=== PATIENT | male | born 1970 | race Caucasian/White ===

== ENCOUNTER 2020-03-14 09:40 | Inpatient (IN) | payer BC, SELFPAY ==
[2020-03-14] VITALS (13 sets, daily range): BP systolic 116–172; BP diastolic 67–137; PULSE 88–111; RESP 10–20; TEMP 36.6–37.8; O2SAT 92–100; BMI 40.1; BMI 41.8; BMI 41.9
--- NOTE | 2020-03-14 10:12 | EKG12_ITS ---
Test Reason : FEVER Blood Pressure : / mmHG Vent. Rate : 097 BPM Atrial Rate : 097 BPM P-R Int : 144 ms QRS Dur : 102 ms QT Int : 386 ms P-R-T Axes : 063 012 030 degrees QTc Int : 490 ms Normal sinus rhythm Prolonged QT Abnormal ECG Confirmed by JOSE SELF MD ([id number]), film editor LUCY BURDEN ([id number] on 03/19/2020 2:05:48 PM Referred By: MARGARITO Confirmed By:JOSE SELF MD
--- NOTE | 2020-03-14 10:12 | RAD_ITS ---
STUDY: X-RAY CHEST REASON FOR EXAM: Male, 50 years old. INTERMITTENT FEVER COUGH AND FEELING BAD FOR OVER A MONTH TECHNIQUE: Single AP portable view of the chest. COMPARISON: None. FINDINGS: The lungs are clear and expanded. There is no demonstrated pleural abnormality. Normal size heart. Normal mediastinum and janeen. Normal visualized pulmonary arteries. Normal visualized aortic arch and descending thoracic aorta. Normal visualized thoracic spine. Normal visualized ribs, clavicles, and shoulders. There is no demonstrated abnormality of the visualized soft tissue structures of the upper abdomen. RAD/Chest 1 View (Portable) IMPRESSION: Normal x-ray examination of the chest. Electronically Signed: Laci Restrepo, at 11:19 EDT Tel , Service support ,
--- NOTE | 2020-03-14 10:13 | ED.DCSUM_ITS ---
History of Present Illness Chief Complaint: Fever Informant: Patient Onset: Weeks Context: Gradual Onset Timing: Intermittent Narrative: Patient is a 50-year-old male with no significant past medical history presenting with intermittent fever and cough for the past month. Patient states he will feel better for couple days and then his symptoms will return. He states he was coughing last night but not today. Patient has associated myalgias. Patient states his cough is nonproductive. He intermittently takes Tylenol and ibuprofen for his thumbs but did not have any today. Notes that for the past few months he has had increased nocturnal urinary frequency. He states sometimes he thinks there is blood in his urine. He denies any associated back pain with it. Denies any dysuria. He denies any sick contacts. He states he does work at the [employer] and is a lot around a lot of people. He denies associated nausea, vomiting, abdominal pain or shortness of breath. He states he does have some discomfort in his left chest but attributes that from his muscles being sore from all the coughing. Patient does not have a primary care doctor. He denies any past medical history. Past Medical History - Allergies and Home Meds Allergies/Adverse Reactions: Allergies No Known Allergies Allergy (Verified 03/14/20 10:43) Surgical History: tonsillectomy, - - I&D of a pilonidal cyst in the Smoking Status: Current some day smoker Alcohol: Heavy Drugs: None - Family History Maternal Family History: Reports: Heart Disease - his mother with CHF Paternal Family History: Reports: Cancer - father with metastatic cancer - pt does not know the primary, Heart Disease - his GF had CAD Review of Systems General: Reports: Chills, Fever, Malaise. Denies: Sweats Eyes: Denies: Visual changes - bilaterally, Diplopia ENT: Denies: Rhinorrhea, Sore throat Cardiovascular: Reports: Chest pain - left chest wall. Denies: Palpitations Respiratory: Reports: Cough. Denies: Dyspnea, Sputum, Dyspnea on exertion Gastrointestinal: Denies: Abdominal pain, Nausea, Vomiting, Diarrhea, Melena, Hematochezia Genitourinary: Reports: Hematuria, Frequency. Denies: Dysuria Musculoskeletal: Reports: Myalgias - diffuse. Denies: Back pain, Extremity Pain Skin: Denies: Rash, Wounds Neurological: Denies: Headache, Weakness, Numbness Physical Exam Vital Signs/Narrative: Vital Signs Temp Pulse Resp BP Pulse Ox 03/14/20 09:41 99.2 F H 111 H 20 H 166/137 H 95 Inital Vital Signs reviewed: Yes General: Well nourished, Well developed, Obese, No Acute Distress Head: Normocephalic, Atraumatic Eyes: Perrl, EOMI ENT: Moist mucous membranes, No rhinorrhea, TM's clear Neck: Supple, Nontender, No lymphadenopathy, No JVD Cardiovascular: Regular rhythm, No murmurs, Tachycardia Respiratory: No distress, CTA bilaterally, Chest tenderness - left anterior Abdomen: Soft, Nontender, Nondistended, Normal bowel sounds, - - Protuberant abdomen Back: Nontender, Normal Inspection. Negative for: CVA tenderness Extremities: Nontender, No edema. Negative for: Tenderness, Edema Skin: Normal color, No rash. Negative for: Jaundice Neurological: Alert, Oriented x3, Cranial nerves II-XII grossly intact, Normal Strength, Normal Sensation Psychological: Normal affect, Normal Mood Diagnostic/Tx/Re-eval Chest X-Ray - ED: 1 View, Read by ED Physician, Read by Radiologist, No Acute Disease Clinical Impression(s) from Imaging Studies Chest X-Ray 03/14/20 10:12 IMPRESSION: Normal x-ray examination of the chest. Electronically Signed: Laci Restrepo, at 11:19 EDT Tel , Service support , Abdomen/Pelvis CT 03/14/20 11:14 IMPRESSION: Liver cirrhosis. Sigmoid diverticulosis. Cholelithiasis. There is a stone in the right kidney measures 8mm without hydronephrosis. There is a stone in the left kidney measures 4 mm without hydronephrosis. There is fat stranding on the right side of the abdomen may be secondary to liver cirrhosis. Electronically Signed: Laci Restrepo at 12:27 EDT Tel , Service support , Laboratory Data 03/14/20 03/14/20 03/14/20 10:05 10:05 10:05 WBC 6.3 RBC 4.47 L Hgb 16.0 Hct 46.4 MCV 103.8 H MCH 35.8 H MCHC 34.5 RDW Std Deviation 51.4 H RDW Coeff of Maria Guadalupe 13.3 Plt Count 102 L MPV 11.0 Immature Gran % (Auto) 0.500 Neut % (Auto) 70.1 H Lymph % (Auto) 12.8 L Hendricks % (Auto) 15.6 H Eos % (Auto) 0.2 Baso % (Auto) 0.8 Absolute Neuts (auto) 4.4 Absolute Lymphs (auto) 0.81 L Nucleated RBC % 0 PT 17.1 H INR 1.5 APTT 36.0 D-Dimer Quant (PE/DVT) Sodium 140 Potassium 3.3 L Chloride 104 Carbon Dioxide 28.0 Anion Gap 8 BUN 3 L Creatinine 0.68 L Estim Creat Clear Calc 137.17 Est GFR (MDRD) Af Amer 160 Est GFR (MDRD) Non-Af 132 BUN/Creatinine Ratio 4.4 L Glucose 108 H Lactic Acid Calcium 8.1 L Total Bilirubin 2.10 H AST 271 H ALT 81 H Alkaline Phosphatase 117 Total Creatine Kinase 2017 H Troponin I < 0.015 Total Protein 7.0 Albumin 3.1 L Globulin 3.9 Albumin/Globulin Ratio 0.8 L Urine Color Urine Clarity Urine pH Ur Specific [place] Urine Protein Urine Glucose (UA) Urine Ketones Urine Occult Blood Urine Nitrite Urine Bilirubin Urine Urobilinogen Ur Leukocyte Esterase Urine RBC Urine WBC Ur Squamous Epith Cells Urine Bacteria Urine Mucus COVID-19 (BALDO) Monoscreen HIV 1&2 Antibody 03/14/20 03/14/20 03/14/20 10:05 10:05 10:05 WBC RBC Hgb Hct MCV MCH MCHC RDW Std Deviation RDW Coeff of Maria [place]upe Plt Count MPV Immature Gran % (Auto) Neut % (Auto) Lymph % (Auto) [place] % (Auto) Eos % (Auto) Baso % (Auto) Absolute Neuts (auto) Absolute Lymphs (auto) Nucleated RBC % PT INR APTT D-Dimer Quant (PE/DVT) 3.26 H* Sodium Potassium Chloride Carbon Dioxide Anion Gap BUN Creatinine Estim Creat Clear Calc Est GFR (MDRD) Af Amer Est GFR (MDRD) Non-Af BUN/Creatinine Ratio Glucose Lactic Acid 2.1 H* Calcium Total Bilirubin AST ALT Alkaline Phosphatase Total Creatine Kinase Troponin I Total Protein Albumin Globulin Albumin/Globulin Ratio Urine Color Urine Clarity Urine pH Ur Specific [place] Urine Protein Urine Glucose (UA) Urine Ketones Urine Occult Blood Urine Nitrite Urine Bilirubin Urine Urobilinogen Ur Leukocyte Esterase Urine RBC Urine WBC Ur Squamous Epith Cells Urine Bacteria Urine Mucus COVID-19 (BALDO) Monoscreen HIV 1&2 Antibody Non-Reactive 03/14/20 03/14/20 03/14/20 10:35 11:20 11:25 WBC RBC Hgb Hct MCV MCH MCHC RDW Std Deviation RDW Coeff of Maria Guadalupe Plt Count MPV Immature Gran % (Auto) Neut % (Auto) Lymph % (Auto) Hendricks % (Auto) Eos % (Auto) Baso % (Auto) Absolute Neuts (auto) Absolute Lymphs (auto) Nucleated RBC % PT INR APTT D-Dimer Quant (PE/DVT) Sodium Potassium Chloride Carbon Dioxide Anion Gap BUN Creatinine Estim Creat Clear Calc Est GFR (MDRD) Af Amer Est GFR (MDRD) Non-Af BUN/Creatinine Ratio Glucose Lactic Acid Calcium Total Bilirubin AST ALT Alkaline Phosphatase Total Creatine Kinase Troponin I Total Protein Albumin Globulin Albumin/Globulin Ratio Urine Color Yellow Urine Clarity Clear Urine pH 8.0 Ur Specific [place] 1.010 Urine Protein Negative Urine Glucose (UA) Normal Urine Ketones Negative Urine Occult Blood 10 H Urine Nitrite Negative Urine Bilirubin 1 H Urine Urobilinogen 8 H Ur Leukocyte Esterase 25 H Urine RBC 0-5 SEEN Urine WBC 0-5 SEEN Ur Squamous Epith Cells 0 SEEN Urine Bacteria 0 SEEN Urine Mucus 0 SEEN COVID-19 (BALDO) Cancelled Monoscreen Negative HIV 1&2 Antibody - Rhythm Strip Rhythm Strip: Sinus Rhythm Rate: 97 Ectopy: None - EKG Initial EKG Interpretation: Sinus Rhythm, - - Normal sinus rhythm at a rate of 97 Normal VT and QRS intervals QTc [address] segments Compared to prior EKG on 04/07/2016 patient's QTC was 444. No other changes - Medical Decision Making Patient is evaluated for 1 month of intermittent fevers as well as myalgias and generalized weakness. He does have associated cough. Patient denies any other specific symptoms. Patient arrives he is tachycardic and has a low-grade temperature. His breath sounds are clear and he is overall well-appearing. Patient is complaining of chest pain however believe it is muscle skeletal as it is reproducible with palpation and seems to be associated with his coughing. As patient is edema tachycardia but no hypoxia or difficulty breathing and is otherwise well-appearing I did order the [facility] COVID test. Chest x-ray did not show any acute infiltrate. CBC was relatively normal.Patient's kidney function is normal. His potassium was mildly low at 3.3. His lactate is elevated 2.1. Patient does have a mildly elevated total bilirubin of 2.1 as well as a mild transaminitis with an AST of 271 and ALT of 81. His troponin is negative. His CPK is 2017. Patient is ordered a second liter of fluids. Urinalysis is not consistent with infection. Given his transaminitis I did add on a CT of his abdomen and pelvis which showed some mild stranding in the right upper quadrant associated with cirrhosis of the liver as well as a gallstone but no signs of cholecystitis. Monospot was negative. The exact cause of his symptoms is not clear and it could be viral however given that he also has rhabdomyolysis and a transaminitis I did recommend admission. Case discussed with Dr. Fraser after the patient to his service. Patient started on empiric antibiotics while cultures are pending, vancomycin and Zosyn. Patient is agreeable with this plan. He stable for the general medical floor at time of disposition. ED Disposition - Plan for ED Patient: Disposition: [facility] Diagnosis: FUO (fever of unknown origin), Non-traumatic rhabdomyolysis, Abnormal LFTs (liver function tests)
[2020-03-14 10:36] LABS: Absolute Lymphocyte Count 0.81 X10^3/uL (0.83-4.51); Absolute Neutrophil Count 4.4 X10^3/uL (2.0-7.7); Basophil# 0.05 X10^3/uL; Basophil% 0.8 % (0-1); Eosinophil# 0.01 X10^3/uL; Eosinophils% 0.2 % (0-5); Hematocrit 46.4 % (40-54); Lymphocyte # 0.81 X10^3/ul (4.0); Lymphocyte % 12.8 % (19-41); Mean Corp Hgb Conc 34.5 g/dL (32-36); Mean Corpuscular Hgb 35.8 pg (27.0-32.0); Mean Corpuscular Volume 103.8 fL (80-94); Monocyte# 0.99 X10^3/uL; Monocyte% 15.6 % (0-10); NRBC Flagged by Analyzer 0 % (0-5); Neutrophil # 4.44 X10^3/uL (2.7-7.7); Neutrophil % 70.1 % (47-70); Platelet Count 102 K/mm3 (150-450); RBC Distribution Width CV 13.3 % (11.6-14.6); RBC Distribution Width SD 51.4 fl (35.1-43.9); Red Blood Count 4.47 M/mm3 (4.6-6.2); White Blood Count 6.3 K/mm3 (4.4-11.0)
[2020-03-14 10:40] LABS: Bacteria 0 SEEN /hpf (None Seen); Mucous, Urine 0 SEEN /hpf (<or=2+); Squamous Epithelial Cells - UA 0 SEEN /hpf (0-5)
[2020-03-14 10:45] LABS: Color, Urine Yellow (Yellow); Glucose, Dipstick Normal (Normal); Ketone-Dipstick Negative (Negative); Leukocyte Esterase-Dipstick 25 /ul (Negative); Nitrite-Dipstick Negative (Negative); Occult Blood-Urine 10 /ul (Negative); Protein-Dipstick Negative (Negative); Urine Clarity Clear (Clear); Urine Urobilinogen 8 mg/dl (Normal)
[2020-03-14] MEDS: Acetaminophen 325 MG Tablet 650 MG PO ×2 (10:45→19:35)
[2020-03-14] MEDS: 0.9% Normal Saline 1,000 ML 999 ML IV ×2 (10:45→11:48)
[2020-03-14 10:47] LABS: Urine Bilirubin Dipstick 1 mg/dL (Negative)
[2020-03-14 10:48] LABS: International Normalized Ratio 1.5; Prothrombin Time (Protime)PT. 17.1 SECONDS (11.7-14.9)
[2020-03-14 10:51] LABS: Red Blood Cells-Urine 0-5 SEEN /hpf (0-5); White Blood Cells 0-5 SEEN /hpf (0-5)
[2020-03-14 11:03] LABS: ALB/GLOB Ratio 0.8 RATIO (0.9-2.4); AST(SGOT) 271 U/L (15-37); Alanine Aminotransfer ALT/SGPT 81 U/L (16-61); Albumin, Serum 3.1 g/dL (3.2-5.0); Alkaline Phosphatase 117 U/L (45-117); Anion Gap 8 (5-15); BUN 3 mg/dL (7-18); BUN/Creat Ratio 4.4 RATIO (10-20); CPK Total, Creatine Kinase 2017 U/L (39-308); Calcium,Total 8.1 mg/dL (8.5-10.1); Chloride 104 mmol/L (98-107); Creatinine, Serum 0.68 mg/dL (0.70-1.30); EST Glomerular Filtration Rate 132 mL/min (>60); Est Glom Filt Rate - Afr Amer 160 mL/min (>60); Estimated Creatinine Clearance 137.17 ml/min; Globulin 3.9 g/dL (2.2-4.2); Glucose 108 mg/dL (74-106); Potassium 3.3 mmol/L (3.5-5.1); Sodium Level 140 mmol/L (136-145)
[2020-03-14 11:06] LABS: Lactic Acid 2.1 mmol/L (0.4-1.9)
--- NOTE | 2020-03-14 11:14 | CT_ITS ---
STUDY: CT ABDOMEN AND PELVIS WITH CONTRAST REASON FOR EXAM: Male, 50 years old. ELEVATED BILI AND LIVER ENZYME RADIATION DOSAGE (If Supplied By Facility): CTDIvol = ( 18.53 ) mGy, DLP = ( 1285.63 ) mGycm TECHNIQUE: Transaxial images were obtained from the dome of the diaphragm to the symphysis pubis without oral contrast. IV 100mL Isovue-300 was administered. Sagittal and coronal images were reconstructed. Individualized dose optimization techniques were used for this CT. COMPARISON: None. FINDINGS: The visualized lung bases are unremarkable. The visualized portions of the heart are within normal limits. There is a diffuse contour abnormality of the liver consistent with cirrhotic changes. There is a solitary gallstone. Normal spleen. Normal pancreas. Normal bilateral adrenal glands. There is a stone in the right kidney measures 8mm without hydronephrosis. There is a stone in the left kidney measures 4 mm without hydronephrosis. Normal visualized stomach. Normal small intestine. There are multiple colonic diverticula consistent with diverticulosis. The appendix is visualized and appears normal. Normal abdominal aorta. Normal inferior vena cava. Normal retroperitoneum. Normal urinary bladder. Normal abdominal wall. Normal osseous structures. CT/Abdomen/Pelvis W IV Cont ONLY IMPRESSION: Liver cirrhosis. Sigmoid diverticulosis. Cholelithiasis. There is a stone in the right kidney measures 8mm without hydronephrosis. There is a stone in the left kidney measures 4 mm without hydronephrosis. There is fat stranding on the right side of the abdomen may be secondary to liver cirrhosis. Electronically Signed: Laci Restrepo, at 12:27 EDT Tel , Service support ,
[2020-03-14 12:17] LABS: Internal QC Validated? YES +Cl - CLEAR BKGD; Monotest Negative (Negative)
--- NOTE | 2020-03-14 13:01 | HP.PCM_ITS ---
Problem List (1) FUO (fever of unknown origin) Status: Acute (2) Abnormal LFTs (liver function tests) Status: Acute (3) Chest pain Status: Resolved (4) Elevated d-dimer Status: Resolved (5) Rib cage region somatic dysfunction Status: Suspected (6) Thrombocytopenia Status: Chronic (7) Obesity (BMI 30-39.9) Status: Chronic (8) Smoker Status: Chronic (9) Non-traumatic rhabdomyolysis Status: Acute History of Present Illness Date of Admission: 03/14/20 Chief Complaint: Fever The patient is a 50 year old M with past medical history significant for previous history of alcohol use, previous history of tobacco use morbid obesity 40.2 who presented with fever. Patient reports intermittent fever for the past 1 month. In addition to the fever patient also complained of getting tired easily and developing a cough. In view of worsening symptoms he presented to the ED. checks x-ray obtained in the ED was unremarkable. CT of the abdomen demonstrated features consistent with cirrhosis of the liver as well as sigmoid diverticulosis and cholelithiasis in addition to nephrolithiasis involving both kidneys without hydronephrosis. Admitted to regular nursing floor for work-up of his fever of unknown origin. Patient was also noted to have elevated CPK levels consistent with acute rhabdomyolysis. He also did complain of swelling involving the right upper extremity Past Medical History Past Medical History (Chronic Problems): Chronic Problems Smoker (Chronic) Obesity (BMI 30-39.9) (Chronic) Thrombocytopenia (Chronic) Allergies No Known Allergies Allergy (Verified 03/14/20 10:43) Home Medications: Ambulatory Orders Medication Instructions Recorded Multivitamin with Minerals 1 tab PO DAILY 03/14/20 [Multiple Vitamin] Surgical History: tonsillectomy, - - I&D of a pilonidal cyst in the Psychiatric History: No pertinent psych hx Lives: Spouse/ Significant Other Smoking Status: Current every day smoker Alcohol: Heavy Drugs: None - *Family History Maternal History Items: Heart Disease - his mother with CHF Paternal History Items: Cancer - father with metastatic cancer - pt does not know the primary, Heart Disease - his GF had CAD Review of Systems Constitutional: Reports: Anorexia, Chills, Fever, Night Sweats, Malaise, Weakness, Fatigue HEENT: Denies: Head Aches, Sinus Congestion, Sinus Drainage Cardiovascular: Denies: Chest Pain, Orthopnea, Palpitations, Paroxysmal Noc. Dyspnea Respiratory: Reports: Cough, Shortness of Breath Gastrointestinal: Denies: Abdominal Pain, Hematemesis, Hematochezia, Nausea, Melena, Vomiting Genitourinary: Denies: Dysuria, Frequency, Hematuria, Urgency Musculoskeletal: Reports: Arm Pain. Denies: Joint Pain, Joint Tenderness Skin: Denies: Rash Neurological: Denies: Focal weakness, Numbness, Tingling Psychiatric: Denies: Homicidal Ideations, Suicidal Ideations Hematologic/ Lymphatic: Denies: Easy Bruising, Easy Bleeding VTE Information - Inpt Only VTE Present on Admission: No Patient Problems: Active and Suspected Problems FUO (fever of unknown origin) (Acute) Non-traumatic rhabdomyolysis (Acute) - Physical Exam Vitals/I&O's: Vital Signs Temp Pulse Resp BP Pulse Ox 99.9 F H 94 12 126/76 H 95 03/14/20 12:00 03/14/20 12:33 03/14/20 12:33 03/14/20 12:33 03/14/20 12:33 Oxygen Delivery Method Room Air Weight: 127.006 kg Body Mass Index (BMI) 40.1 Intake and Output for Last 24 Hours 03/12/20 03/13/20 03/14/20 23:59 23:59 23:59 Intake Total 1000 / 1000 Balance 1000 / 1000 Laboratory Results 03/14/20 10:05: WBC 6.3, RBC 4.47 L, Hgb 16.0, Hct 46.4, MCV 103.8 H, MCH 35.8 H , MCHC 34.5, RDW Std Deviation 51.4 H, RDW Coeff of Maria Guadalupe 13.3, Plt Count 102 L, MPV 11.0, Immature Gran % (Auto) 0.500, Neut % (Auto) 70.1 H, Lymph % (Auto) 12.8 L, [place] % (Auto) 15.6 H, Eos % (Auto) 0.2, Baso % (Auto) 0.8, Absolute Neuts (auto) 4.4, Absolute Lymphs (auto) 0.81 L, Nucleated RBC % 0 03/14/20 10:05: PT 17.1 H, INR 1.5, APTT 36.0 03/14/20 10:05: Sodium 140, Potassium 3.3 L, Chloride 104, Carbon Dioxide 28.0, Anion Gap 8, BUN 3 L, Creatinine 0.68 L, Estim Creat Clear Calc 137.17, Est GFR (MDRD) Af Amer 160, Est GFR (MDRD) Non-Af 132, BUN/Creatinine Ratio 4.4 L, Glucose 108 H, Calcium 8.1 L, Total Bilirubin 2.10 H, AST 271 H, ALT 81 H, Alkaline Phosphatase 117, Total Creatine Kinase 2017 H, Troponin I < 0.015, Total Protein 7.0, Albumin 3.1 L, Globulin 3.9, Albumin/Globulin Ratio 0.8 L 03/14/20 10:05: Lactic Acid 2.1 H* 03/14/20 10:35: Urine Color Yellow, Urine Clarity Clear, Urine pH 8.0, Ur Specific [place] 1.010, Urine Protein Negative, Urine Glucose (UA) Normal, Urine Ketones Negative, Urine Occult Blood 10 H, Urine Nitrite Negative, Urine Bilirubin 1 H, Urine Urobilinogen 8 H, Ur Leukocyte Esterase 25 H, Urine RBC 0-5 SEEN, Urine WBC 0-5 SEEN, Ur Squamous Epith Cells 0 SEEN, Urine Bacteria 0 SEEN, Urine Mucus 0 SEEN 03/14/20 11:20: COVID-19 (BALDO) Pending 03/14/20 11:25: Monoscreen Negative Assessment/Plan All Active Problems FUO (fever of unknown origin) (Acute) Non-traumatic rhabdomyolysis (Acute) Abnormal LFTs (liver function tests) (Acute) Chest pain (Resolved) Elevated d-dimer (Resolved) Is a 50-year-old gentleman presenting with fever of unknown origin with elevated transaminases as well as CPK levels consistent with acute rhabdomyolysis 1. Fever of unknown origin ?Admitted to regular nursing floor. Patient was placed under contact and dr oplet precautions whilst COVID 19 is been ruled out. In addition to above ordered blood cultures as well as HIV 1 and 2 2. Acute rhabdomyolysis ?Etiology not clear patient did complain of swelling involving the right forearm and arm he however denied any trauma. On IV fluid with monitoring of CK levels as well as kidney function 3. Cirrhosis of the liver -Patient reports previous history of alcohol use. He is also obese and do suspect a component of nonalcoholic fatty liver disease. Patient was noted to have elevated liver enzymes on admission monitoring subsequently. 4. Morbid obesity with BMI of 40.2 ?Weight loss advised 5. Hypokalemia - Repleted as needed 6. Thrombocytopenia Do suspect patient underlying liver disease to be the etiology and appears to have some chronicity we will continue to monitor 7. DVT prophylaxis ?Lovenox however given patient's low platelet counts will have a low threshold for discontinuation if the platelet levels drop Inpatient E&M: 10816 Init Hosp L3
[2020-03-14 14:00] LABS: D-Dimer Quantitative (DVT/PE) 3.26 FEU/ug/m (0.27-0.49)
[2020-03-14 14:29] LABS: Reflex Lactate? Y
[2020-03-14 14:56] LABS: HIV - WCH Non-Reactive (Nonreactive)
--- NOTE | 2020-03-14 15:27 | VDLE_ITS ---
Reason For Study: Elevated D-dimer RIGHT LEFT GSV is normal. GSV is normal. CFV and SFJ visualized with color only. Pt CFV and SFJ visualized with color only. Pt unable to tolerate compression. Normal venous unable to tolerate compression. Normal venous flow noted. flow noted. FV is compressible, spontaneous, phasic, FV is compressible, spontaneous, phasic, competent and demonstrates normal competent and demonstrates normal augmentation. augmentation. POP V is compressible, spontaneous, phasic, POP V is compressible, spontaneous, phasic, competent and demonstrates normal competent and demonstrates normal augmentation. augmentation. T/P Trunk is compressible. T/P Trunk is compressible. PTV is compressible. PTV is compressible. RT PerV is compressible. LT PerV is compressible. Procedure Exam performed portable in patient room. A preliminary report was called and/or faxed to [facility]. Interpretation Summary No evidence for acute deep venous thrombosis bilateral lower extremities with patent and compressible bilateral great saphenous veins. Limitations as noted with inability to compress bilateral common femoral veins and saphenofemoral junctions secondary to patient intolerance Ordering Physician: Abel Ayala Performed By: Valeria Rios RVT
--- NOTE | 2020-03-14 15:27 | VDUE_ITS ---
Reason For Study: Elevated D-dimer Right Proximal Right jugular vein is spontaneous, widely patent, phasic, with no intraluminal echogenicity noted. Right subclavian vein is spontaneous, widely patent, phasic, with no intraluminal echogenicity noted. Right Lower Arm Right radial vein is compressible. Right ulnar vein is compressible. Right Arm Right axillary vein is spontaneous, patent, phasic, competent, compressible and demonstrates augmentation. Right brachial vein is compressible. Right cephalic vein is compressible. Right basilic vein is compressible. Interpretation Summary No evidence for acute deep venous thrombosis[right] upper extremity with patent and compressible cephalic and basilic veins. Ordering Physician: Abel Ayala Performed By: Valeria Rios RVT ?
--- NOTE | 2020-03-14 15:27 | CT_ITS ---
STUDY: CTA CHEST REASON FOR EXAM: Male, 50 years old. ELEVATED D-DIMER RADIATION DOSAGE (If Supplied By Facility): CTDIvol = ( 19.79 ) mGy, DLP = ( 592.10 ) mGycm TECHNIQUE: The examination was performed with the intravenous administration of IV 100mL Isovue-370. Post-processing of the angiographic images was performed, with multiplanar reformation and 3D reconstruction. Individualized dose optimization techniques were used for this CT. COMPARISON: Chest radiograph March 14, 2020 FINDINGS: There is good opacification of the pulmonary arteries without evidence for intraluminal clot... Normal thoracic aorta and visualized great vessels. There is no demonstrated aortic dissection. Normal heart and pericardium. Normal mediastinum. Normal hilar regions. Normal visualized trachea and bronchi. The lungs are well expanded. There is mild subsegmental atelectasis within the lingula. No focal infiltration or pulmonary nodule. Normal pleura. Normal chest wall structures. Dorsal spine demonstrates degenerative change Normal visualized upper abdomen. CT/CTA Chest W/WO Contrast IMPRESSION: Minor subsegmental atelectasis in the lingula. No evidence for pulmonary embolus Electronically Signed: Eduard Tinsley MD at 17:06 EDT , Service support ,
[2020-03-14 15:29] LABS: Lactic Acid 2.1 mmol/L (0.4-1.9)
[2020-03-15] VITALS (10 sets, daily range): BP systolic 151–184; BP diastolic 83–106; PULSE 80–95; RESP 16–19; TEMP 36.7–37.1; O2SAT 97–98
[2020-03-15] MEDS: MELATONIN 3 MG TABLET PO (00:57)
[2020-03-15] MEDS: 0.9% Saline Lock 10 ML Syringe IV ×2 (03:24→05:49)
[2020-03-15] MEDS: Acetaminophen 325 MG Tablet 650 MG PO (03:29)
[2020-03-15 03:34] LABS: Absolute Lymphocyte Count 0.82 X10^3/uL (0.83-4.51); Absolute Neutrophil Count 3.5 X10^3/uL (2.0-7.7); Basophil# 0.04 X10^3/uL; Basophil% 0.7 % (0-1); Eosinophil# 0.03 X10^3/uL; Eosinophils% 0.6 % (0-5); Hematocrit 42.5 % (40-54); Hemoglobin 14.8 g/dL (13.0-16.5); Lymphocyte # 0.82 X10^3/ul (4.0); Lymphocyte % 15.1 % (19-41); Mean Corp Hgb Conc 34.8 g/dL (32-36); Mean Corpuscular Hgb 35.9 pg (27.0-32.0); Mean Corpuscular Volume 103.2 fL (80-94); Monocyte# 1.03 X10^3/uL; Monocyte% 18.9 % (0-10); NRBC Flagged by Analyzer 0 % (0-5); Neutrophil % 64.3 % (47-70); POSITIVE COUNT YES; Platelet Count 69 K/mm3 (150-450); RBC Distribution Width CV 13.1 % (11.6-14.6); RBC Distribution Width SD 49.8 fl (35.1-43.9); Red Blood Count 4.12 M/mm3 (4.6-6.2); White Blood Count 5.4 K/mm3 (4.4-11.0)
[2020-03-15 03:36] LABS: Differential Indicated SCAN CRITERIA MET
[2020-03-15 04:02] LABS: AST(SGOT) 203 U/L (15-37); Alanine Aminotransfer ALT/SGPT 70 U/L (16-61); Albumin, Serum 2.7 g/dL (3.2-5.0); Alkaline Phosphatase 99 U/L (45-117); Anion Gap 6 (5-15); BUN 4 mg/dL (7-18); BUN/Creat Ratio 5.6 RATIO (10-20); Bilirubin, Direct 0.86 mg/dL (0.00-0.30); Calcium,Total 7.4 mg/dL (8.5-10.1); Chloride 106 mmol/L (98-107); Creatinine, Serum 0.71 mg/dL (0.70-1.30); EST Glomerular Filtration Rate 126 mL/min (>60); Est Glom Filt Rate - Afr Amer 152 mL/min (>60); Estimated Creatinine Clearance 131.38 ml/min; Globulin 3.6 g/dL (2.2-4.2); Glucose 113 mg/dL (74-106); Magnesium 1.4 mg/dL (1.6-2.6); Potassium 3.2 mmol/L (3.5-5.1); Protein, Total 6.3 g/dL (6.4-8.2); Sodium Level 139 mmol/L (136-145); Thyroid Stim Hormone (TSH) 4.15 uIU/mL (0.358-3.74)
[2020-03-15 04:03] LABS: Differential Comment SCANNED; Platelet Estimate MOD DEC (ADEQ); Reactive Lymphocyte RARE
--- NOTE | 2020-03-15 04:05 | PCM.PN.BLA ---
Progress Note Blood culture positive for gram-positive cocci. Patient on ceftriaxone and azithromycin. Patient with diagnosis of fever of unknown origin. Will add vancomycin to regimen. STROKE Vital Signs/Narrative: Vital Signs Temp Pulse Resp BP BP Pulse Ox 03/15/20 03:10 81 184/100 H 03/15/20 02:15 98.7 F 93 19 H 181/101 H 98
--- NOTE | 2020-03-15 04:19 | PCM.RX.CS ---
Consult Pharmacy has been consulted to manage selected antiobiotic: Vancomycin Type of Consult: New start Labs: Sodium 139 mmol/L (136-145) 03/15/20 03:25 Potassium 3.2 mmol/L (3.5-5.1) L 03/15/20 03:25 Chloride 106 mmol/L (98-107) 03/15/20 03:25 Carbon Dioxide 27.0 mmol/L (21.0-32.0) 03/15/20 03:25 Anion Gap 6 (5-15) 03/15/20 03:25 BUN 4 mg/dL (7-18) L 03/15/20 03:25 Creatinine 0.71 mg/dL (0.70-1.30) 03/15/20 03:25 Est GFR (MDRD) Af Amer 152 mL/min (>60) 03/15/20 03:25 Est GFR (MDRD) Non-Af 126 mL/min (>60) 03/15/20 03:25 BUN/Creatinine Ratio 5.6 RATIO (10-20) L 03/15/20 03:25 Glucose 113 mg/dL (74-106) H 03/15/20 03:25 Microbiology: Microbiology 03/14/20 10:05 Blood Culture (Wb) - Anticubital Left Blood Culture - Preliminary 03/14/20 11:20 Mucosa - Nasopharyngeal Coronavirus COVID-19 PCR - Final 03/14/20 15:53 Mucosa - Nasopharyngeal Respiratory Panel (PCR) - Final 03/14/20 10:35 Urine, Random Legionella Antigen - Final 03/14/20 10:35 Urine, Random Streptococcus pneumoniae Antigen (M - Final Goal Trough: 15-20 mcg/mL Pharmacy Plan for Drug Dosing: Pharmacy Service will continue to monitor and adjust dosing as required. Medications Vancomycin HCl 1,500 mg/ (Sodium Chloride) 530 mls @ 250 mls/hr IV Q8H RILEY Discontinued Medications Vancomycin HCl 2,000 mg/ (Sodium Chloride) 540 mls @ 250 mls/hr IV X1 ONE Stop: 03/14/20 15:39 Last Admin: 03/14/20 16:24 Dose: Infused Documented by: Follow-Up Labs: Trough Vancomycin Labs to be done on [date and time ordered]: 03/16 @ 0400
--- NOTE | 2020-03-15 05:37 | PCM.PN.BLA ---
Progress Note Patient with persistent elevated blood pressure with systolic more than 160. Given labetalol 10 mg IV. However his blood pressure still remain in the 180s. Nurse reported that patient drinks 3-4 beers about 2 times in a week. Previously was a heavy drinker. Nurse reports that patient with tremors in upper extremities.. Continue to monitor patient at this point. Will start patient on low-dose amlodipine. We will add PRN hydralazine. Continue p.o. labetalol. STROKE Vital Signs/Narrative: Vital Signs Temp Pulse Resp BP BP Pulse Ox 03/15/20 05:21 85 183/106 H 03/15/20 04:26 84 181/86 H 03/15/20 03:10 81 184/100 H 03/15/20 02:15 98.7 F 93 19 H 181/101 H 98
[2020-03-15] MEDS: amLODIPine 5 MG Tablet PO ×2 (05:45→10:43)
[2020-03-15] MEDS: hydrALAZINE 20 MG/ML Vial 5 MG IV (05:45)
--- NOTE | 2020-03-15 07:18 | PCM.PN.HOSP ---
Patient Problems: Active and Suspected Problems FUO (fever of unknown origin) (Acute) Non-traumatic rhabdomyolysis (Acute) Abnormal LFTs (liver function tests) (Acute) Reason for Visit: Fever of unknown origin Subjective: Patient is a 50-year-old gentleman currently on admission for evaluation for fever of unknown origin of 1 months duration. He was tested for COVID 19 which came back negative. His HIV 1 and 2 assay also came back negative. Blood cultures are positive for gram-positive cocci. Patient was started on vancomycin during the evening. Consult placed to infectious disease as a result. Objective: GENERAL: cooperative HEENT: Atraumatic; EYES; Anicteric, Normal Conjunctiva NECK; supple, normal thyroid, RESPIRATORY: Diminished to auscultation CARDIOVASCULAR: Regular S1 S2, GI: soft, normoactive bowel sounds, : No Renal angle tenderness; EXTREMITIES: No edema, no clubbing, MUSCULOSKELETAL: no muscle waisting NEURO: Awake; no lateralizing signs. SKIN: No Rash PSYCH; Flat affect Vitals/I&O's: Vital Signs Temp Pulse Resp BP Pulse Ox 98.7 F 85 19 H 182/104 H 98 03/15/20 02:15 03/15/20 05:45 03/15/20 02:15 03/15/20 05:45 03/15/20 02:15 Oxygen Delivery Method Room Air Weight: 132.4 kg Body Mass Index (BMI) 41.8 Intake and Output for Last 24 Hours 03/13/20 03/14/20 03/15/20 23:59 23:59 23:59 Intake Total 4417.5 / 4417.5 1335.25 / 1335.25 Balance 4417.5 / 4417.5 1335.25 / 1335.25 Microbiology Past 72 Hours 03/14/20 10:05 Blood Culture (Wb) - Anticubital Left Blood Culture - Preliminary 03/14/20 11:20 Mucosa - Nasopharyngeal Coronavirus COVID-19 PCR - Final 03/14/20 15:53 Mucosa - Nasopharyngeal Respiratory Panel (PCR) - Final 03/14/20 10:35 Urine, Random Legionella Antigen - Final 03/14/20 10:35 Urine, Random Streptococcus pneumoniae Antigen (M - Final Laboratory Results 03/14/20 10:05: WBC 6.3, RBC 4.47 L, Hgb 16.0, Hct 46.4, MCV 103.8 H, MCH 35.8 H, MCHC 34.5, RDW Std Deviation 51.4 H, RDW Coeff of Maria Guadalupe 13.3, Plt Count 102 L, MPV 11.0, Immature Gran % (Auto) 0.500, Neut % (Auto) 70.1 H, Lymph % (Auto) 12.8 L, Weld % (Auto) 15.6 H, Eos % (Auto) 0.2, Baso % (Auto) 0.8, Absolute Neuts (auto) 4.4, Absolute Lymphs (auto) 0.81 L, Nucleated RBC % 0 03/14/20 10:05: PT 17.1 H, INR 1.5, APTT 36.0 03/14/20 10:05: Sodium 140, Potassium 3.3 L, Chloride 104, Carbon Dioxide 28.0, Anion Gap 8, BUN 3 L, Creatinine 0.68 L, Estim Creat Clear Calc 137.17, Est GFR (MDRD) Af Amer 160, Est GFR (MDRD) Non-Af 132, BUN/Creatinine Ratio 4.4 L, Glucose 108 H, Calcium 8.1 L, Total Bilirubin 2.10 H, AST 271 H, ALT 81 H, Alkaline Phosphatase 117, Total Creatine Kinase 2017 H, Troponin I < 0.015, Total Protein 7.0, Albumin 3.1 L, Globulin 3.9, Albumin/Globulin Ratio 0.8 L 03/14/20 10:05: Lactic Acid 2.1 H* 03/14/20 10:05: D-Dimer Quant (PE/DVT) 3.26 H* 03/14/20 10:05: HIV 1&2 Antibody Non-Reactive 03/14/20 10:35: Urine Color Yellow, Urine Clarity Clear, Urine pH 8.0, Ur Specific [place] 1.010, Urine Protein Negative, Urine Glucose (UA) Normal, Urine Ketones Negative, Urine Occult Blood 10 H, Urine Nitrite Negative, Urine Bilirubin 1 H, Urine Urobilinogen 8 H, Ur Leukocyte Esterase 25 H, Urine RBC 0-5 SEEN, Urine WBC 0-5 SEEN, Ur Squamous Epith Cells 0 SEEN, Urine Bacteria 0 SEEN, Urine Mucus 0 SEEN 03/14/20 11:20: COVID-19 (BALDO) Cancelled 03/14/20 11:25: Monoscreen Negative 03/14/20 14:45: Lactic Acid 2.1 H* 03/15/20 03:25: WBC 5.4, RBC 4.12 L, Hgb 14.8, Hct 42.5, MCV 103.2 H, MCH 35.9 H, MCHC 34.8, RDW Std Deviation 49.8 H, RDW Coeff of Maria Guadalupe 13.1, Plt Count 69 L, MPV 11.0, Immature Gran % (Auto) 0.400, Neut % (Auto) 64.3, Lymph % (Auto) 15.1 L, Weld % (Auto) 18.9 H, Eos % (Auto) 0.6, Baso % (Auto) 0.7, Absolute Neuts (auto) 3.5, Absolute Lymphs (auto) 0.82 L, Nucleated RBC % 0, Differential Comment SCANNED, Reactive Lymphocytes RARE, Platelet Estimate MOD 03/15/20 03:25: Sodium 139, Potassium 3.2 L, Chloride 106, Carbon Dioxide 27.0, Anion Gap 6, BUN 4 L, Creatinine 0.71, Estim Creat Clear Calc 131.38, Est GFR (MDRD) Af Amer 152, Est GFR (MDRD) Non-Af 126, BUN/Creatinine Ratio 5.6 L, Glucose 113 H, Calcium 7.4 L, Magnesium 1.4 L, Total Bilirubin 2.00 H, Direct Bilirubin 0.86 H, AST 203 H, ALT 70 H, Alkaline Phosphatase 99, Total Protein 6.3 L, Albumin 2.7 L, Globulin 3.6, TSH 4.15 H Current Medications Acetaminophen (Tylenol) 650 mg PO Q6H PRN PRN PRN Reason: Pain Score 1-10/Temp > 100.7 F Last Admin: 03/15/20 03:29 Dose: 650 mg Documented by: Al Hydroxide/Mg Hydroxide (Mylanta Ii) 30 ml PO Q6H PRN PRN PRN Reason: Gastric Burning Albuterol Sulfate (Ventolin Aerosols) 2.5 mg INHALATION Q2H PRN PRN PRN Reason: Shortness of Breath/Wheezing Amlodipine Besylate (Norvasc) 10 mg PO DAILY RILEY Guaifenesin (Robitussin) 20 ml PO Q4H PRN PRN PRN Reason: COUGH Hydralazine HCl (Apresoline Iv) 5 mg IV Q4H PRN PRN PRN Reason: SBP > 160 Last Admin: 03/15/20 05:45 Dose: 5 mg Documented by: Ceftriaxone Sodium 2 gm/ (Sodium Chloride) 50 mls @ 100 mls/hr IV Q24 [facility] Stop: 03/22/20 10:01 Azithromycin 500 mg/ Dextrose 255 mls @ 250 mls/hr IV Q24 [facility] Stop: 03/20/20 10:01 Potassium Chloride/Sodium Chloride () 1,000 mls @ 150 mls/hr IV .[id number] [facility] Last Admin: 03/15/20 05:53 Dose: 150 mls/hr Documented by: Sodium Chloride () 250 mls @ 15 mls/hr IV .[id number] PRN PRN Reason: Saline Flush Last Infusion: 03/15/20 04:48 Dose: 0 mls/hr Documented by: Sodium Chloride () 250 mls @ 15 mls/hr IV .[id number] PRN PRN Reason: Additional IVPB Infusion Vancomycin IV Pharmacy to Dose (1,500 ea/ Sodium Chloride) 500 mls @ 250 mls/hr IV Q12 PRN; Protocol Vancomycin HCl 1,500 mg/ (Sodium Chloride) 530 mls @ 250 mls/hr IV Q8H [facility] Last Admin: 03/15/20 04:48 Dose: 250 mls/hr Documented by: Labetalol HCl (Trandate) 10 mg IV Q4H PRN PRN PRN Reason: SBP > 160 Last Admin: 03/15/20 03:19 Dose: 10 mg Documented by: Magnesium Hydroxide (Milk Of Magnesia) 30 ml PO DAILY PRN PRN PRN Reason: Constipation Melatonin (Melatonin) 3 mg PO QHS PRN PRN PRN Reason: INSOMNIA Last Admin: 03/15/20 00:57 Dose: 3 mg Documented by: Ondansetron HCl (Zofran) 4 mg IV Q8H PRN PRN PRN Reason: NAUSEA/VOMITING Oxycodone HCl (Oxyir) 5 mg PO Q4H PRN PRN PRN Reason: Pain Score 4-5/10 Oxycodone HCl (Oxyir) 10 mg PO Q4H PRN PRN PRN Reason: Pain Score 6-10/10 Sodium Chloride () 10 - 40 ml IV UD PRN PRN Reason: SALINE FLUSH Last Admin: 03/15/20 05:49 Dose: 10 ml Documented by: STROKE Vital Signs/Narrative: Vital Signs Pulse BP BP 03/15/20 05:45 85 182/104 H 03/15/20 05:21 85 183/106 H 03/15/20 04:26 84 181/86 H Medical Necessity - Tobacco Use Smoking Status: Current every day smoker Assessment/Plan All Active Problems FUO (fever of unknown origin) (Acute) Non-traumatic rhabdomyolysis (Acute) Abnormal LFTs (liver function tests) (Acute) Chest pain (Resolved) Elevated d-dimer (Resolved) Is a 50-year-old gentleman presenting with fever of unknown origin with elevated transaminases as well as CPK levels consistent with acute rhabdomyolysis 1. Fever of unknown origin ?Admitted to regular nursing floor. Patient was placed under contact and droplet precautions whilst COVID 19 is been ruled out. In addition to above ordered blood cultures as well as HIV 1 and 2 03/15/2020 COVID 19 , HIV 1 and 2 assay also came back negative. Blood cultures are positive for gram-positive cocci. Patient was started on vancomycin during the evening. Consult placed to infectious disease as a result. Did send for acute hepatitis panel 2. Acute rhabdomyolysis ?Etiology not clear patient did complain of swelling involving the right forearm and arm he however denied any trauma. On IV fluid with monitoring of CK levels as well as kidney function 03/15/2020?monitoring CPK levels. 3. Cirrhosis of the liver -Patient reports previous history of alcohol use. He is also obese and do suspect a component of nonalcoholic fatty liver disease. Patient was noted to have elevated liver enzymes on admission monitoring subsequently. 4. Morbid obesity with BMI of 40.2 ?Weight loss advised 5. Hypokalemia - Repleted as needed 6. Thrombocytopenia Do suspect patient underlying liver disease to be the etiology and appears to have some chronicity we will continue to monitor 7. DVT prophylaxis ?Lovenox however given patient's low platelet counts will have a low threshold for discontinuation if the platelet levels drop ?03/15/2020: Lovenox discontinued in view of precipitous drop in platelet count. 8. Elevated d-dimer ?03/15/2020; CTA of the chest was negative for PE. Venous duplex involving both lower extremities as well as right upper extremity pending. Inpatient E&M: [id number] [facility] L3
[2020-03-15 09:14] LABS: CPK Total, Creatine Kinase 1058 U/L (39-308)
--- NOTE | 2020-03-15 13:25 | CASEMGMT ---
ODALIS BALBUENA assessment: Face to Face with patient for initial transition planning/care coordination assessment. ODALIS BALBUENA introduced self and role at [facility], pt voices understanding and consents to assessment at this time. Pt is sitting up in bed in no distress at this time. Pt is A/Ox4 at this time and answers all questions appropriately at this time. Care providers, pharmacy, and demographics verified/updated at this time. Presentation: Pt c/o intermittent fever, cough, and 'feeling bad' for over a month Admitting dx: Fever PCP: Pt states no current PCP and would like list at this time. List provided to pt. Specialists: Pt states no current specialists. Preferred Pharmacy: [facility] Insurance: [place] Prescription Benefit: [place] Living Will/HPOA: Pt states does not have LW/HPOA but would like to complete paperwork at this time. Ava ARGUETA aware, voices understanding. LNOK: Sonidoelva Greyjes, sig other Living Arrangements: Pt states lives with sig other in 2 story home and states no concerns at home at this time. Pt states is independent with ADL's. Transportation: Pt states drives self and states no transportation concerns at this time. DME/HHC: Pt states has a shower chair and states no need for any further DME at this time. Pt states no hx of HHC or SNF in the past. Pt states no concerns with going home at time of discharge. 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 Pt states does not smoke but does drink about 5-6drinks/week. Pt states no further concerns/needs at this time. CM to follow for any further discharge planning/needs. Advised pt to ask for CM if any further questions/concerns/needs arise, voices understanding. Pt Goal: Home Plan[place] ODALIS BALBUENA
--- NOTE | 2020-03-15 13:58 | CASEMGMT ---
Social Work Note SW received consult for advanced directives. SW in to speak to pt. SW introduced self and role at [facility]. Pt is alert and orientated x3. Pt completed advanced directives, original provided to pt, copy placed on pt's chart. Valeria Palacio CORRECTIONAL COOK, DENTAL RESIDENT
--- NOTE | 2020-03-15 16:47 | PCM.HP.ID ---
Problem List (1) Bacteremia Status: Acute Reason for Consult: bacteremia Consulted by: Dr. Ayala History of Present Illness: The patient is a 50 year old M who presented with one month of intermittent fever, chills, sweats, fatigue, diffuse aches. Sx would last a few days then let up for a bit. He does recall scrapping both knees and cutting his R big toe open just prior to these sx starting. No change in taste/smell. Mild headache. No sick contacts, no known COVID exposure, has been isolating. No new joint pain. No h/o skin abscess or boils in the past. Has not seen a doctor or taken abx during month this was happening. Over past week, did notice BUE swelling, R more than L. Had some cough with sputum. Came to ED, CTA and dopplers done, started on azithro/ceftriaxone for FUO, then vanc added for (+) bcx. Feeling better, fever has resolved. Full ROS performed and neg except as noted above. - Medical History Past Medical History (Chronic Problems): Chronic Problems Smoker (Chronic) Obesity (BMI 30-39.9) (Chronic) Thrombocytopenia (Chronic) Allergies/Adverse Reactions: Allergies No Known Allergies Allergy (Verified 03/14/20 10:43) Home Medications: Ambulatory Orders Medication Instructions Recorded Multivitamin with Minerals 1 tab PO DAILY 03/14/20 [Multiple Vitamin] - Social History Lives: with significant other Tobacco Use: cigarettes Vital Signs Temp Pulse Resp BP Pulse Ox 98.1 F 84 18 154/83 H 98 03/15/20 14:42 03/15/20 14:42 03/15/20 15:25 03/15/20 14:42 03/15/20 14:42 Oxygen Delivery Method Room Air Weight: 132.4 kg Body Mass Index (BMI) 41.8 Microbiology Past 72 Hours 03/14/20 10:05 Blood Culture - Preliminary Blood Culture (Wb) - Anticubital Left Staphylococcus aureus 03/14/20 10:35 Urine Culture - Preliminary Urine, Clean Catch Streptococcus group B 03/14/20 19:15 Gram Stain - Final Sputum, Expectorated/Coughed 03/14/20 11:20 Coronavirus COVID-19 PCR - Final Mucosa - Nasopharyngeal 03/14/20 15:53 Respiratory Panel (PCR) - Final Mucosa - Nasopharyngeal 03/14/20 10:35 Legionella Antigen - Final Urine, Random 03/14/20 10:35 Streptococcus pneumoniae Antigen (M - Final Urine, Random Laboratory Tests Past 24 Hrs 03/15/20 03/15/20 03/15/20 03:25 03:25 08:07 WBC 5.4 RBC 4.12 L Hgb 14.8 Hct 42.5 MCV 103.2 H MCH 35.9 H MCHC 34.8 RDW Std Deviation 49.8 H RDW Coeff of Maria Guadalupe 13.1 Plt Count 69 L MPV 11.0 Immature Gran % (Auto) 0.400 Neut % (Auto) 64.3 Lymph % (Auto) 15.1 L [place] % (Auto) 18.9 H Eos % (Auto) 0.6 Baso % (Auto) 0.7 Absolute Neuts (auto) 3.5 Absolute Lymphs (auto) 0.82 L Nucleated RBC % 0 Differential Comment SCANNED Reactive Lymphocytes RARE Platelet Estimate MOD DEC Sodium 139 Potassium 3.2 L Chloride 106 Carbon Dioxide 27.0 Anion Gap 6 BUN 4 L Creatinine 0.71 Estim Creat Clear Calc 131.38 Est GFR (MDRD) Af Amer 152 Est GFR (MDRD) Non-Af 126 BUN/Creatinine Ratio 5.6 L Glucose 113 H Calcium 7.4 L Magnesium 1.4 L Total Bilirubin 2.00 H Direct Bilirubin 0.86 H AST 203 H ALT 70 H Alkaline Phosphatase 99 Total Creatine Kinase 1058 H Total Protein 6.3 L Albumin 2.7 L Globulin 3.6 TSH 4.15 H Hepatitis A IgM Ab Hep Bs Antigen Hep B Core IgM Ab Hepatitis C Ab (EIA) 03/15/20 08:07 WBC RBC Hgb Hct MCV MCH MCHC RDW Std Deviation RDW Coeff of Maria Guadalupe Plt Count MPV Immature Gran % (Auto) Neut % (Auto) Lymph % (Auto) [place] % (Auto) Eos % (Auto) Baso % (Auto) Absolute Neuts (auto) Absolute Lymphs (auto) Nucleated RBC % Differential Comment Reactive Lymphocytes Platelet Estimate Sodium Potassium Chloride Carbon Dioxide Anion Gap BUN Creatinine Estim Creat Clear Calc Est GFR (MDRD) Af Amer Est GFR (MDRD) Non-Af BUN/Creatinine Ratio Glucose Calcium Magnesium Total Bilirubin Direct Bilirubin AST ALT Alkaline Phosphatase Total Creatine Kinase Total Protein Albumin Globulin TSH Hepatitis A IgM Ab Pending Hep Bs Antigen Pending Hep B Core IgM Ab Pending Hepatitis C Ab (EIA) Pending - Other Studies Radiology: [] reviewed Other Studies: [] Route of nutrition/ use of supplements: [] Nutritional Intake: [] IV Site: [] Haines Catheter: [] - Physical Exam General: Alert, Oriented x3, Cooperative, No apparent distress HEENT: Atraumatic, PERRLA, EOMI Neck: Supple, No Nodes Lungs: Clear to auscultation, Normal air movement Cardiovascular: Regular rate, Regular Rhythm, No murmurs Abdomen: Soft, Non Tender, Non-Distended, Obese Extremities: Edema Skin: Ulcer/ Wound - Dry deep wound on R medial 1st toe. Possible small splinter hemorrhage on L 2nd toe. IV Site: Peripheral, without redness Musculoskeletal: No Tenderness to Palpation of Joints or Extremities Neurological: Cranial nerves II-XII grossly intact - Assessment/Plan Antibiotics: [] Assessment/Plan: [] Active and Suspected Problems FUO (fever of unknown origin) (Acute) Non-traumatic rhabdomyolysis (Acute) Abnormal LFTs (liver function tests) (Acute) staph aureus bacteremia - covid neg. HIV neg. Hep panel pending. No DVT seen in arms. Ddimer was elevated, LFTs now improving. Will repeat bcx x2, check echo. Sputum with polymicrobial organisms on gram stain, but lung imaging showed no pneumonia. Stop azithro, cont vanc/ceftriaxone. Will follow, thank you.
--- NOTE | 2020-03-15 19:12 | CON.PCM_ITS ---
Problem List (1) Ulcer of right foot with fat layer exposed Status: Acute (2) Fissure in skin of foot Status: Acute (3) Bacteremia Status: Acute Reason for Consult Date of Consultation: 03/15/20 Reason for Consultation: Cracked skin on toe History of Present Illness: The patient is a 50 year old M was seen bedside for open lesion of the right great toe with an onset about 3 weeks ago. He was admitted for generalized illness and bacteremia was identified. He denies a known injury to his foot but relates he walks a lot. 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 He denies known redness or odor to the foot. He rates his pain is 1 out of 10. She relates the swelling and overall discomfort in his foot is significantly improved since he has been on antibiotics. Past Medical History Past Medical History (Chronic Problems): Chronic Problems Smoker (Chronic) Obesity (BMI 30-39.9) (Chronic) Thrombocytopenia (Chronic) Allergies No Known Allergies Allergy (Verified 03/14/20 10:43) Home Medications: Ambulatory Orders Medication Instructions Recorded Multivitamin with Minerals 1 tab PO DAILY 03/14/20 [Multiple Vitamin] Surgical History: tonsillectomy, - - I&D of a pilonidal cyst in the Psychiatric History: No pertinent psych hx Lives: Spouse/ Significant Other Smoking Status: Current every day smoker Alcohol: Heavy Drugs: None - *Family History Maternal History Items: Heart Disease - his mother with CHF Paternal History Items: Cancer - father with metastatic cancer - pt does not know the primary, Heart Disease - his GF had CAD Review of Systems Constitutional: Reports: Weakness, Fatigue. Denies: Chills, Fever HEENT: Denies: Sore Throat Cardiovascular: Denies: Claudication Respiratory: Denies: Cough, Shortness of Breath Gastrointestinal: Denies: Nausea, Vomiting Musculoskeletal: Reports: Foot Pain. Denies: Joint Tenderness, Leg Pain Skin: Reports: Dryness, Skin Changes, Wounds Neurological: Denies: Incoordination, Numbness, Tingling Patient Problems: Active and Suspected Problems FUO (fever of unknown origin) (Acute) Non-traumatic rhabdomyolysis (Acute) Bacteremia (Acute) Ulcer of right foot with fat layer exposed (Acute) Fissure in skin of foot (Acute) Abnormal LFTs (liver function tests) (Acute) - Physical Exam Vitals/I&O's: Vital Signs Temp Pulse Resp BP Pulse Ox 98.1 F 84 18 154/83 H 98 03/15/20 14:42 03/15/20 14:42 03/15/20 15:25 03/15/20 14:42 03/15/20 14:42 Oxygen Delivery Method Room Air Weight: 132.4 kg Body Mass Index (BMI) 41.8 Intake and Output for Last 24 Hours 03/13/20 03/14/20 03/15/20 23:59 23:59 23:59 Intake Total 4417.5 / 4417.5 5256.25 / 5256.25 Output Total 375 / 375 Balance 4417.5 / 4417.5 4881.25 / 4881.25 General: Alert, Oriented x3, Cooperative HEENT: Atraumatic Extremities: No cyanosis, Capillary Refill Less than 3 Seconds - All digits bi lateral, No Calf Tenderness - Negative Crispin and Vargas sign bilateral, Peripheral Pulses Normal - 2 out of 4 PT and DP pulses bilateral Skin: Ulcer/ Wound - There is a fissure noted to the plantar medial right hallux with callus noted. Upon debridement there is a small skin discontinuity measuring approximately 4 mm in length by 1 mm in width by less than 1 mm in depth. The adjacent skin is atrophic. There is no deep probing or purulence on expression, erythema, streaking, odor noted. There is mild hematogenous with serosanguineous drainage noted. There is no other interdigital maceration open lesions or signs of infection. There is no bogginess or fluctuance on palpation, - - There is also dry abrasions to bilateral tibial tuberosities with no drainage or local signs of infection. Musculoskeletal: No Tenderness to Palpation of Joints or Extremities, Muscle Wasting, - - Decreased noted first metatarsal phalangeal joint range of motion bilateral Compartments remain soft to palpate bilateral lower extremities Neurological: Sensory exam intact to light touch and pain - Epicritic sensation is intact to light touch equal and symmetrical of the bilateral lower extremity dermatomes Psych/Mental Status: Normal Affect, Appropriate Microbiology Past 72 Hours 03/14/20 10:05 Blood Culture (Wb) - Anticubital Left Blood Culture - Preliminary Staphylococcus aureus 03/14/20 10:35 Urine, Clean Catch Urine Culture - Preliminary Streptococcus group B 03/14/20 19:15 Sputum, Expectorated/Coughed Gram Stain - Final 03/14/20 11:20 Mucosa - Nasopharyngeal Coronavirus COVID-19 PCR - Final 03/14/20 15:53 Mucosa - Nasopharyngeal Respiratory Panel (PCR) - Final 03/14/20 10:35 Urine, Random Legionella Antigen - Final 03/14/20 10:35 Urine, Random Streptococcus pneumoniae Antigen (M - Final Laboratory Results 03/15/20 03:25: WBC 5.4, RBC 4.12 L, Hgb 14.8, Hct 42.5, MCV 103.2 H, MCH 35.9 H , MCHC 34.8, RDW Std Deviation 49.8 H, RDW Coeff of Maria Guadalupe 13.1, Plt Count 69 L, MPV 11.0, Immature Gran % (Auto) 0.400, Neut % (Auto) 64.3, Lymph % (Auto) 15.1 L, [place] % (Auto) 18.9 H, Eos % (Auto) 0.6, Baso % (Auto) 0.7, Absolute Neuts (auto) 3.5, Absolute Lymphs (auto) 0.82 L, Nucleated RBC % 0, Differential Comment SCANNED, Reactive Lymphocytes RARE, Platelet Estimate MOD 03/15/20 03:25: Sodium 139, Potassium 3.2 L, Chloride 106, Carbon Dioxide 27.0, Anion Gap 6, BUN 4 L, Creatinine 0.71, Estim Creat Clear Calc 131.38, Est GFR (MDRD) Af Amer 152, Est GFR (MDRD) Non-Af 126, BUN/Creatinine Ratio 5.6 L, Glucose 113 H, Calcium 7.4 L, Magnesium 1.4 L, Total Bilirubin 2.00 H, Direct Bilirubin 0.86 H, AST 203 H, ALT 70 H, Alkaline Phosphatase 99, Total Protein 6.3 L, Albumin 2.7 L, Globulin 3.6, TSH 4.15 H 03/15/20 08:07: Total Creatine Kinase 1058 H 03/15/20 08:07: Hepatitis A IgM Ab Pending, Hep Bs Antigen Pending, Hep B Core IgM Ab Pending, Hepatitis C Ab (EIA) Pending Current Medications Acetaminophen (Tylenol) 650 mg PO Q6H PRN PRN PRN Reason: Pain Score 1-10/Temp > 100.7 F Last Admin: 03/15/20 03:29 Dose: 650 mg Documented by: Al Hydroxide/Mg Hydroxide (Mylanta Ii) 30 ml PO Q6H PRN PRN PRN Reason: Gastric Burning Albuterol Sulfate (Ventolin Aerosols) 2.5 mg INHALATION Q2H PRN PRN PRN Reason: Shortness of Breath/Wheezing Amlodipine Besylate (Norvasc) 10 mg PO DAILY [facility] Guaifenesin (Robitussin) 20 ml PO Q4H PRN PRN PRN Reason: COUGH Hydralazine HCl (Apresoline Iv) 5 mg IV Q4H PRN PRN PRN Reason: SBP > 160 Last Admin: 03/15/20 05:45 Dose: 5 mg Documented by: Ceftriaxone Sodium 2 gm/ (Sodium Chloride) 50 mls @ 100 mls/hr IV Q24 [facility] Stop: 03/22/20 10:01 Last Infusion: 03/15/20 11:12 Dose: Infused Documented by: Potassium Chloride/Sodium Chloride () 1,000 mls @ 150 mls/hr IV .[id number] [facility] Last Admin: 03/15/20 18:24 Dose: 150 mls/hr Documented by: Sodium Chloride () 250 mls @ 15 mls/hr IV .[id number] PRN PRN Reason: Saline Flush Last Infusion: 03/15/20 18:28 Dose: 0 mls/hr Documented by: Sodium Chloride () 250 mls @ 15 mls/hr IV .[id number] PRN PRN Reason: Additional IVPB Infusion Vancomycin IV Pharmacy to Dose (1,500 ea/ Sodium Chloride) 500 mls @ 250 mls/hr IV Q12 PRN; Protocol Vancomycin HCl 1,500 mg/ (Sodium Chloride) 530 mls @ 250 mls/hr IV Q8H [facility] Last Infusion: 03/15/20 14:40 Dose: Infused Documented by: Losartan Potassium (Cozaar) 50 mg PO BID [facility] Magnesium Hydroxide (Milk Of Magnesia) 30 ml PO DAILY PRN PRN PRN Reason: Constipation Melatonin (Melatonin) 3 mg PO QHS PRN PRN PRN Reason: INSOMNIA Last Admin: 03/15/20 00:57 Dose: 3 mg Documented by: Ondansetron HCl (Zofran) 4 mg IV Q8H PRN PRN PRN Reason: NAUSEA/VOMITING Oxycodone HCl (Oxyir) 5 mg PO Q4H PRN PRN PRN Reason: Pain Score 4-5/10 Oxycodone HCl (Oxyir) 10 mg PO Q4H PRN PRN PRN Reason: Pain Score 6-10/10 Sodium Chloride () 10 - 40 ml IV UD PRN PRN Reason: SALINE FLUSH Last Admin: 03/15/20 05:49 Dose: 10 ml Documented by: Assessment/Plan All Active Problems FUO (fever of unknown origin) (Acute) Non-traumatic rhabdomyolysis (Acute) Bacteremia (Acute) Ulcer of right foot with fat layer exposed (Acute) Fissure in skin of foot (Acute) Abnormal LFTs (liver function tests) (Acute) Chest pain (Resolved) Elevated d-dimer (Resolved) Fissure right hallux with skin discontinuity possible cause of bacteremia Hallux limitus Staphylococcus aureus bacteremia other comorbidities: morbid obesity, liver cirrhosis, thrombocytopenia, recent rhabdomyolysis I reviewed and discussed his case. He remains afebrile with vital signs stable. He does not have current leukocytosis. He is being treated for staph bacteremia and is on IV antibiotics under infectious disease management. There is concern that the fissure and now wound on his right foot may be a potential source of infection. This is certainly possible. The fissuring callus and skin discontinuity were debrided with a 15 blade scalpel with pre-debridement measurement of 2 x 1 x 1 mm. He tolerated this well without anesthesia and did not have pain with the procedure. Pressure was applied to maintain hemostasis. Betadine gauze was applied as a dressing. We will proceed with changing this tomorrow with hydrogel and soap and water cleanse. A culture was obtained from this small and superficial wound to see if additional information can be obtained from this site. He was reassured his abrasions do not need to be debrided there are no local signs of infection at these sites. To put weight on his heel and surgical shoe; this was ordered. An x-ray was ordered and the results are pending. Thank you for the consultation. I will continue to follow him closely while in house. Please not hesitate to call if you have any questions. Bonnie Richardson DPM, [facility] [phone]
--- NOTE | 2020-03-15 20:25 | RAD_ITS ---
STUDY: X-RAY - RIGHT FOOT CLINICAL: Male, 50 years old. HALLUX INFECTION TECHNIQUE: 3 view(s) of the foot. COMPARISON: None. FINDINGS: No fracture or dislocation. No destructive bone changes. Small plantar calcaneal spur. Enthesopathic calcaneal spur at the Achilles insertion. Mild spurring of the first metatarsophalangeal joint. Joint spaces are otherwise well-maintained. Soft tissues and bony structures are otherwise unremarkable. RAD/Foot min 3 Views IMPRESSION: 1. No acute findings. 2. Mild degenerative changes of the first MTP joint. Electronically Signed: Trish Uriostegui MD at 20:49 EDT Tel , Service support ,
[2020-03-15] MEDS: Losartan Potassium 50 MG Tablet PO (21:18)
[2020-03-16 01:58] VITALS: BP 155/99; PULSE 83; RESP 16; TEMP 36.7; O2SAT 97
[2020-03-16 04:29] LABS: Absolute Lymphocyte Count 1.43 X10^3/uL (0.83-4.51); Absolute Neutrophil Count 3.1 X10^3/uL (2.0-7.7); Basophil# 0.05 X10^3/uL; Basophil% 0.9 % (0-1); Eosinophil# 0.12 X10^3/uL; Eosinophils% 2.1 % (0-5); Hemoglobin 15.3 g/dL (13.0-16.5); Lymphocyte # 1.43 X10^3/ul (4.0); Lymphocyte % 25.6 % (19-41); Mean Corp Hgb Conc 34.8 g/dL (32-36); Mean Corpuscular Volume 103.5 fL (80-94); Mean Platelet Vol. 11.3 fl (6.2-12.0); Monocyte# 0.89 X10^3/uL; Monocyte% 15.9 % (0-10); NRBC Flagged by Analyzer 0 % (0-5); Neutrophil # 3.09 X10^3/uL (2.7-7.7); Neutrophil % 55.3 % (47-70); POSITIVE COUNT YES; Platelet Count 80 K/mm3 (150-450); RBC Distribution Width CV 13.1 % (11.6-14.6); RBC Distribution Width SD 50.4 fl (35.1-43.9); Red Blood Count 4.25 M/mm3 (4.6-6.2); White Blood Count 5.6 K/mm3 (4.4-11.0)
[2020-03-16] MEDS: Acetaminophen 325 MG Tablet 650 MG PO (04:33)
[2020-03-16 04:47] LABS: AST(SGOT) 148 U/L (15-37); Alanine Aminotransfer ALT/SGPT 73 U/L (16-61); Albumin, Serum 2.7 g/dL (3.2-5.0); Alkaline Phosphatase 103 U/L (45-117); Anion Gap 8 (5-15); BUN 4 mg/dL (7-18); BUN/Creat Ratio 7.2 RATIO (10-20); Bilirubin, Direct 0.83 mg/dL (0.00-0.30); Calcium,Total 7.8 mg/dL (8.5-10.1); Chloride 109 mmol/L (98-107); Creatinine, Serum 0.55 mg/dL (0.70-1.30); EST Glomerular Filtration Rate 168 mL/min (>60); Est Glom Filt Rate - Afr Amer 203 mL/min (>60); Globulin 3.7 g/dL (2.2-4.2); Glucose 89 mg/dL (74-106); Potassium 3.4 mmol/L (3.5-5.1); Protein, Total 6.4 g/dL (6.4-8.2); Sodium Level 140 mmol/L (136-145)
[2020-03-16 04:56] LABS: CPK Total, Creatine Kinase 619 U/L (39-308)
[2020-03-16 05:05] LABS: Differential Indicated SCAN CRITERIA MET
[2020-03-16 05:07] LABS: HEPATITIS B SURFACE AG Negative (Negative); Hepatitis A IgM Antibody Negative (Negative); Hepatitis B Core AB IgM Negative (Negative)
[2020-03-16 05:15] LABS: Macrocytosis 1+; Platelet Estimate MOD DEC (ADEQ)
[2020-03-16 06:01] LABS: Vancomycin, Trough Level 11.7 ug/mL (5.0-15.0)
--- NOTE | 2020-03-16 07:00 | PCM.RX.CS ---
Consult Pharmacy has been consulted to manage selected antiobiotic: Vancomycin Type of Consult: Follow-up Labs: Sodium 140 mmol/L (136-145) 03/16/20 04:15 Potassium 3.4 mmol/L (3.5-5.1) L 03/16/20 04:15 Chloride 109 mmol/L (98-107) H 03/16/20 04:15 Carbon Dioxide 23.0 mmol/L (21.0-32.0) 03/16/20 04:15 Anion Gap 8 (5-15) 03/16/20 04:15 BUN 4 mg/dL (7-18) L 03/16/20 04:15 Creatinine 0.55 mg/dL (0.70-1.30) L 03/16/20 04:15 Est GFR (MDRD) Af Amer 203 mL/min (>60) 03/16/20 04:15 Est GFR (MDRD) Non-Af 168 mL/min (>60) 03/16/20 04:15 BUN/Creatinine Ratio 7.2 RATIO (10-20) L 03/16/20 04:15 Glucose 89 mg/dL (74-106) 03/16/20 04:15 Vancomycin Trough 11.7 ug/mL (5.0-15.0) 03/16/20 04:15 Microbiology: Microbiology 03/14/20 10:05 Blood Culture (Wb) - Anticubital Left Blood Culture - Preliminary Staphylococcus aureus 03/14/20 10:35 Urine, Clean Catch Urine Culture - Preliminary Streptococcus group B 03/14/20 19:15 Sputum, Expectorated/Coughed Gram Stain - Final 03/14/20 11:20 Mucosa - Nasopharyngeal Coronavirus COVID-19 PCR - Final 03/14/20 15:53 Mucosa - Nasopharyngeal Respiratory Panel (PCR) - Final 03/14/20 10:35 Urine, Random Legionella Antigen - Final 03/14/20 10:35 Urine, Random Streptococcus pneumoniae Antigen (M - Final Goal Trough: 15-20 mcg/mL Pharmacy Plan for Drug Dosing: Pharmacy Service will continue to monitor and adjust dosing as required. TROUGH 11.7 (GOAL 15-20) INCREASE TO 1750 Q8H Follow-Up Labs: Trough Vancomycin Labs to be done on [date and time ordered]: 03/17 @ 1200
[2020-03-16 08:00] VITALS: BP 149/91; PULSE 75; RESP 20; TEMP 36.9; O2SAT 97
[2020-03-16 08:08] VITALS: O2SAT 98
[2020-03-16] MEDS: Losartan Potassium 50 MG Tablet PO ×2 (08:32→21:54)
[2020-03-16] MEDS: amLODIPine 10 MG Tablet PO (08:36)
[2020-03-16] MEDS: 0.9% Saline Lock 10 ML Syringe IV ×3 (08:40→17:28)
--- NOTE | 2020-03-16 08:41 | PCM.PN.HOSP ---
Patient Problems: Active and Suspected Problems FUO (fever of unknown origin) (Acute) Non-traumatic rhabdomyolysis (Acute) Bacteremia (Acute) Ulcer of right foot with fat layer exposed (Acute) Fissure in skin of foot (Acute) Abnormal LFTs (liver function tests) (Acute) Subjective: Patient with no acute events overnight per self or per nursing report. Patient has been afebrile since 03/14/2020. Patient vital signs otherwise improved. Patient again confirms that he has had ongoing fevers, body aches for approximately 1 month intermittently with denied nausea, vomiting, abdominal pain, diarrhea, alteration to sense of taste or smell, headache, congestion, dyspnea or market cough. Repeat blood culture x2 on 03/16/2020 pending per ID. Staph aureus noted on prelim wound culture obtained per podiatry. Objective: Physical Examination: General: awake, alert, oriented x 3 and cooperative, seated upright in bed in no apparent distress. Skin: normal color, turgor, no icterus, cyanosis except noted stable right helix dry fissure with no fluctuance or purulence nor any erythema or streaking on the foot however with some erythema and edema to the right leg and faded compared to prior. HEENT: AT/NC, EOMI, PERRLA, MMM. Lungs: CTA bilaterally, moderate effort, mild decrease BL bases, no rales, ronchi or wheezing. Heart: regular rate and rhythm; no gallop, rub audible. Abdomen: soft, morbidly obese, NTTP, ND, normal BS. Extremities: no cyanosis, clubbing, see skin. Neurological: patient awake, alert, oriented x 3; cognitive function appears baseline intact; pupils equally reactive to light and accomodation; cranial nerves II-XII grossly normal, moving all 4 extremities, no focal deficits, strength improving, mildly to moderately global decrease. Psychiatric: affect appears normal, no acute evidence of depressive or anxiety feelings. Vitals/I&O's: Vital Signs Temp Pulse Resp BP Pulse Ox 98.4 F 75 20 H 149/91 H 98 03/16/20 08:00 03/16/20 08:00 03/16/20 08:00 03/16/20 08:00 03/16/20 08:08 Oxygen Delivery Method Room Air Weight: 291 lb 14.272 oz Body Mass Index (BMI) 41.8 Intake and Output for Last 24 Hours 03/14/20 03/15/20 03/16/20 23:59 23:59 23:59 Intake Total 4417.5 / 4417.5 6086.25 / 6686.25 2805 / 2805 Output Total 375 / 375 Balance 4417.5 / 4417.5 5711.25 / 6311.25 2805 / 2805 Microbiology Past 72 Hours 03/14/20 10:35 Urine, Clean Catch Urine Culture - Final Streptococcus agalactiae (B) 03/14/20 10:05 Blood Culture (Wb) - Anticubital Left Blood Culture - Preliminary Staphylococcus aureus 03/14/20 19:15 Sputum, Expectorated/Coughed Gram Stain - Final 03/14/20 11:20 Mucosa - Nasopharyngeal Coronavirus COVID-19 PCR - Final 03/14/20 15:53 Mucosa - Nasopharyngeal Respiratory Panel (PCR) - Final 03/14/20 10:35 Urine, Random Legionella Antigen - Final 03/14/20 10:35 Urine, Random Streptococcus pneumoniae Antigen (M - Final Laboratory Results 03/15/20 08:07: Total Creatine Kinase 1058 H 03/16/20 04:15: WBC 5.6, RBC 4.25 L, Hgb 15.3, Hct 44.0, MCV 103.5 H, MCH 36.0 H, MCHC 34.8, RDW Std Deviation 50.4 H, RDW Coeff of Maria Guadalupe 13.1, Plt Count 80 L, MPV 11.3, Immature Gran % (Auto) 0.200, Neut % (Auto) 55.3, Lymph % (Auto) 25.6, [place] % (Auto) 15.9 H, Eos % (Auto) 2.1, Baso % (Auto) 0.9, Absolute Neuts (auto) 3.1, Absolute Lymphs (auto) 1.43, Nucleated RBC % 0, Platelet Estimate MOD DEC, Macrocytosis 1+ 03/16/20 04:15: Sodium 140, Potassium 3.4 L, Chloride 109 H, Carbon Dioxide 23.0, Anion Gap 8, BUN 4 L, Creatinine 0.55 L, Estim Creat Clear Calc 169.60, Est GFR (MDRD) Af Amer 203, Est GFR (MDRD) Non-Af 168, BUN/Creatinine Ratio 7.2 L, Glucose 89, Calcium 7.8 L, Total Bilirubin 2.10 H, Direct Bilirubin 0.83 H, AST 148 H, ALT 73 H, Alkaline Phosphatase 103, Total Protein 6.4, Albumin 2.7 L, Globulin 3.7 03/16/20 04:15: Vancomycin Trough 11.7 03/16/20 04:15: Total Creatine Kinase 619 H Current Medications Acetaminophen (Tylenol) 650 mg PO Q6H PRN PRN PRN Reason: Pain Score 1-10/Temp > 100.7 F Last Admin: 03/16/20 04:33 Dose: 650 mg Documented by: Al Hydroxide/Mg Hydroxide (Mylanta Ii) 30 ml PO Q6H PRN PRN PRN Reason: Gastric Burning Albuterol Sulfate (Ventolin Aerosols) 2.5 mg INHALATION Q2H PRN PRN PRN Reason: Shortness of Breath/Wheezing Amlodipine Besylate (Norvasc) 10 mg PO DAILY [facility] Last Admin: 03/16/20 08:36 Dose: 10 mg Documented by: Guaifenesin (Robitussin) 20 ml PO Q4H PRN PRN PRN Reason: COUGH Hydralazine HCl (Apresoline Iv) 5 mg IV Q4H PRN PRN PRN Reason: SBP > 160 Last Admin: 03/15/20 05:45 Dose: 5 mg Documented by: Ceftriaxone Sodium 2 gm/ (Sodium Chloride) 50 mls @ 100 mls/hr IV Q24 [facility] Stop: 03/22/20 10:01 Last Admin: 03/16/20 08:37 Dose: 100 mls/hr Documented by: Potassium Chloride/Sodium Chloride () 1,000 mls @ 150 mls/hr IV .Q6H40M [facility] Last Infusion: 03/16/20 08:37 Dose: 0 mls/hr Documented by: Sodium Chloride () 250 mls @ 15 mls/hr IV .[id number] PRN PRN Reason: Saline Flush Last Infusion: 03/15/20 18:28 Dose: 0 mls/hr Documented by: Sodium Chloride () 250 mls @ 15 mls/hr IV .[id number] PRN PRN Reason: Additional IVPB Infusion Vancomycin IV Pharmacy to Dose (1,500 ea/ Sodium Chloride) 500 mls @ 250 mls/hr IV Q12 PRN; Protocol Vancomycin HCl 1,750 mg/ (Sodium Chloride) 535 mls @ 250 mls/hr IV Q12H [facility] Losartan Potassium (Cozaar) 50 mg PO BID [facility] Last Admin: 03/16/20 08:32 Dose: 50 mg Documented by: Magnesium Hydroxide (Milk Of Magnesia) 30 ml PO DAILY PRN PRN PRN Reason: Constipation Melatonin (Melatonin) 3 mg PO QHS PRN PRN PRN Reason: INSOMNIA Last Admin: 03/15/20 00:57 Dose: 3 mg Documented by: Ondansetron HCl (Zofran) 4 mg IV Q8H PRN PRN PRN Reason: NAUSEA/VOMITING Oxycodone HCl (Oxyir) 5 mg PO Q4H PRN PRN PRN Reason: Pain Score 4-5/10 Oxycodone HCl (Oxyir) 10 mg PO Q4H PRN PRN PRN Reason: Pain Score 6-10/10 Sodium Chloride () 10 - 40 ml IV UD PRN PRN Reason: SALINE FLUSH Last Admin: 03/16/20 08:40 Dose: 10 ml Documented by: STROKE Vital Signs/Narrative: Vital Signs Temp Pulse Resp BP Pulse Ox 03/16/20 08:08 98 03/16/20 08:00 98.4 F 75 20 H 149/91 H 97 Medical Necessity - Tobacco Use Smoking Status: Current every day smoker Assessment/Plan All Active Problems FUO (fever of unknown origin) (Acute) Non-traumatic rhabdomyolysis (Acute) Bacteremia (Acute) Ulcer of right foot with fat layer exposed (Acute) Fissure in skin of foot (Acute) Abnormal LFTs (liver function tests) (Acute) Chest pain (Resolved) Elevated d-dimer (Resolved) The patient is a 50 y/o M w/ PMHx: Morbid Obesity, Tobacco use, Chronic thrombocytopenia, EtOH Abuse, Undiagnosed HTN who presented to the [facility] ED on 03/14/20 with history of ongoing fatigue, malaise, arthralgias and myalgias as well as intermittent low-grade fevers x1 month with no specifically associated dyspnea, cough, abdominal pain, nausea, emesis, diarrhea, headaches, congestion or rhinorrhea. 1. 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 Richardson consulted and following w/ dressing changes with hydrogel and gauze with heel weightbearing with surgical shoe with Otilio wrap to the right lower extremity for edema management with plan to follow-up outpatient at discharge, Dr. Diehl consultation with ongoing evaluations with plan repeat blood culture x2 today with antibiotic narrowing to cefazolin from previously vancomycin and Zosyn. 2. Acute Rhabdomyolysis: Admission creatinine kinase 2017 with continued hydration with trending, repeat on 03/15/2020 1058, repeat 03/16/2619, improving, likely secondary to decreased movement and poor oral intake coupled with acute presentation as noted. 3. Elevated LFTs, Bilirubin, Transaminitis: Likely secondary to alcohol abuse with likely alcoholic cirrhosis and possible related with acute presentation #1 as noted, admission total bilirubin 2.10, AST/ALT 271/81 with trend slowly improving, 03/16/20 AST/ALT 148/73, total bilirubin 2.10, direct bilirubin 0.83, improving acute rhabdomyolysis as noted above, Schley panel pending, CT abdomen and pelvis with evidence of liver cirrhosis with sigmoid diverticulosis and cholelithiasis. 4. Elevated BP without HTN: BP significantly elevated during admission, possibly related with acute presentation however suspect underlying hypertension, continued on patient Norvasc and losartan regimen with PRN hydralazine, will make further adjustments as needed. 5. Left Upper Extremity Edema: Ongoing for least 1 month, not pitting, duplex ultrasound performs and negative per wet read, await formal. Lovenox had been initiated upon admission however discontinued 03/15/2028 secondary to platelet decreasing. 6. Chronic Thrombocytopenia: Admission platelets 102 with trending, 03/16/2080, continue to closely monitor, likely associated with patient's alcohol abuse. Patient initially on Lovenox however given platelet decrease this was discontinued on 03/15/2020. 7. Hypokalemia/Hypomagnesium: Hypokalemia: Admission K+ 3.3, supplementation given however repeat CMP is with continued hypokalemia, 03/16/2020 potassium 3.4 additional oral supplementation ministered, magnesium obtained and noted to be 1.4 with supplementation administered, repeat 03/16/2020 1.7, will give additional magnesium supplementation, will repeat CMP and magnesium level in AM. 8. EtOH Abuse: Patient notes routine consumption, maintain on CIWA protocol, MVI, thiamine and folic acid. Will obtain phos levels, continue mag repletion as needed. CM consulted for substance abuse. 9. Morbid Obesity: Weight loss and lifestyle changes encouraged, nutrition consulted. 10. DVT prophylaxis: SCDs, continue to hold chemoprophylaxis given thrombocytopenia. 11. Code status: Full. Inpatient E&M: 63624 Subs Hosp L3
--- NOTE | 2020-03-16 09:45 | PN_ITS ---
Patient Problems: Active and Suspected Problems FUO (fever of unknown origin) (Acute) Non-traumatic rhabdomyolysis (Acute) Bacteremia (Acute) Ulcer of right foot with fat layer exposed (Acute) Fissure in skin of foot (Acute) Abnormal LFTs (liver function tests) (Acute) Subjective: The patient is a 50 year old M was seen bedside for open lesion of the right hallux and has been hospitalized for bacteremia. He continues on IV antibiotics. He denies fever, chill, nausea, vomiting. He is eager to return home. - Physical Exam Vitals/I&O's: Vital Signs Temp Pulse Resp BP Pulse Ox 98.4 F 75 20 H 149/91 H 98 03/16/20 08:00 03/16/20 08:00 03/16/20 08:00 03/16/20 08:00 03/16/20 08:08 Oxygen Delivery Method Room Air Weight: 132.4 kg Body Mass Index (BMI) 41.8 Intake and Output for Last 24 Hours 03/14/20 03/15/20 03/16/20 23:59 23:59 23:59 Intake Total 4417.5 / 4417.5 6086.25 / 6686.25 2805 / 2805 Output Total 375 / 375 Balance 4417.5 / 4417.5 5711.25 / 6311.25 2805 / 2805 General: Alert, Oriented x3, Cooperative Extremities: No cyanosis, Capillary Refill Less than 3 Seconds, No Calf Tenderness, Peripheral Pulses Normal Skin: Ulcer/ Wound - Dry fissure right hallux is stable. There is no fluctuance or purulence. There is no erythema on the foot or streaking in the foot. There is some erythema and edema to the right leg and this is marking faded compared to yesterday evening per patient Musculoskeletal: No Tenderness to Palpation of Joints or Extremities Neurological: Sensory exam intact to light touch and pain Psych/Mental Status: Normal Affect, Appropriate Microbiology Past 72 Hours 03/14/20 19:15 Sputum, Expectorated/Coughed Gram Stain - Final 03/14/20 19:15 Sputum, Expectorated/Coughed Respiratory Culture - Preliminary Appears to be normal respiratory yaya. Further studies to follow. 03/14/20 10:35 Urine, Clean Catch Urine Culture - Final Streptococcus agalactiae (B) 05/21/20 10:05 Blood Culture (Wb) - Anticubital Left Blood Culture - Preli minary Staphylococcus aureus 03/14/20 11:20 Mucosa - Nasopharyngeal Coronavirus COVID-19 PCR - Final 03/14/20 15:53 Mucosa - Nasopharyngeal Respiratory Panel (PCR) - Final 03/14/20 10:35 Urine, Random Legionella Antigen - Final 03/14/20 10:35 Urine, Random Streptococcus pneumoniae Antigen (M - Final Laboratory Results 03/16/20 04:15: WBC 5.6, RBC 4.25 L, Hgb 15.3, Hct 44.0, MCV 103.5 H, MCH 36.0 H , MCHC 34.8, RDW Std Deviation 50.4 H, RDW Coeff of Maria Guadalupe 13.1, Plt Count 80 L, MPV 11.3, Immature Gran % (Auto) 0.200, Neut % (Auto) 55.3, Lymph % (Auto) 25.6, [place] % (Auto) 15.9 H, Eos % (Auto) 2.1, Baso % (Auto) 0.9, Absolute Neuts (auto) 3.1, Absolute Lymphs (auto) 1.43, Nucleated RBC % 0, Platelet Estimate MOD DEC, Macrocytosis 1+ 03/16/20 04:15: Sodium 140, Potassium 3.4 L, Chloride 109 H, Carbon Dioxide 23.0, Anion Gap 8, BUN 4 L, Creatinine 0.55 L, Estim Creat Clear Calc 169.60, Est GFR (MDRD) Af Amer 203, Est GFR (MDRD) Non-Af 168, BUN/Creatinine Ratio 7.2 L, Glucose 89, Calcium 7.8 L, Total Bilirubin 2.10 H, Direct Bilirubin 0.83 H, AST 148 H, ALT 73 H, Alkaline Phosphatase 103, Total Protein 6.4, Albumin 2.7 L, Globulin 3.7 03/16/20 04:15: Vancomycin Trough 11.7 03/16/20 04:15: Total Creatine Kinase 619 H Current Medications Acetaminophen (Tylenol) 650 mg PO Q6H PRN PRN PRN Reason: Pain Score 1-10/Temp > 100.7 F Last Admin: 03/16/20 04:33 Dose: 650 mg Documented by: Al Hydroxide/Mg Hydroxide (Mylanta Ii) 30 ml PO Q6H PRN PRN PRN Reason: Gastric Burning Albuterol Sulfate (Ventolin Aerosols) 2.5 mg INHALATION Q2H PRN PRN PRN Reason: Shortness of Breath/Wheezing Amlodipine Besylate (Norvasc) 10 mg PO DAILY [facility] Last Admin: 03/16/20 08:36 Dose: 10 mg Documented by: Guaifenesin (Robitussin) 20 ml PO Q4H PRN PRN PRN Reason: COUGH Hydralazine HCl (Apresoline Iv) 5 mg IV Q4H PRN PRN PRN Reason: SBP > 160 Last Admin: 03/15/20 05:45 Dose: 5 mg Documented by: Ceftriaxone Sodium 2 gm/ (Sodium Chloride) 50 mls @ 100 mls/hr IV Q24 [facility] Stop: 03/22/20 10:01 Last Admin: 03/16/20 08:37 Dose: 100 mls/hr Documented by: Potassium Chloride/Sodium Chloride () 1,000 mls @ 150 mls/hr IV .[id number] [facility] Last Infusion: 03/16/20 08:37 Dose: 0 mls/hr Documented by: Sodium Chloride () 250 mls @ 15 mls/hr IV .[id number] PRN PRN Reason: Saline Flush Last Infusion: 03/15/20 18:28 Dose: 0 mls/hr Documented by: Sodium Chloride () 250 mls @ 15 mls/hr IV .[id number] PRN PRN Reason: Additional IVPB Infusion Vancomycin IV Pharmacy to Dose (1,500 ea/ Sodium Chloride) 500 mls @ 250 mls/hr IV Q12 PRN; Protocol Vancomycin HCl 1,750 mg/ (Sodium Chloride) 535 mls @ 250 mls/hr IV Q12H [facility] Losartan Potassium (Cozaar) 50 mg PO BID [facility] Last Admin: 03/16/20 08:32 Dose: 50 mg Documented by: Magnesium Hydroxide (Milk Of Magnesia) 30 ml PO DAILY PRN PRN PRN Reason: Constipation Melatonin (Melatonin) 3 mg PO QHS PRN PRN PRN Reason: INSOMNIA Last Admin: 03/15/20 00:57 Dose: 3 mg Documented by: Ondansetron HCl (Zofran) 4 mg IV Q8H PRN PRN PRN Reason: NAUSEA/VOMITING Oxycodone HCl (Oxyir) 5 mg PO Q4H PRN PRN PRN Reason: Pain Score 4-5/10 Oxycodone HCl (Oxyir) 10 mg PO Q4H PRN PRN PRN Reason: Pain Score 6-10/10 Sodium Chloride () 10 - 40 ml IV UD PRN PRN Reason: SALINE FLUSH Last Admin: 03/16/20 08:40 Dose: 10 ml Documented by: Medical Necessity - Tobacco Use Smoking Status: Current every day smoker Assessment/Plan All Active Problems FUO (fever of unknown origin) (Acute) Non-traumatic rhabdomyolysis (Acute) Bacteremia (Acute) Ulcer of right foot with fat layer exposed (Acute) Fissure in skin of foot (Acute) Abnormal LFTs (liver function tests) (Acute) Chest pain (Resolved) Elevated d-dimer (Resolved) Fissure right hallux with skin discontinuity Hallux limitus Staphylococcus aureus bacteremia other comorbidities: morbid obesity, liver cirrhosis, thrombocytopenia, recent rhabdomyolysis I reviewed and discussed his case. He remains afebrile with vital signs stable. He does not have current leukocytosis. He is being treated for staph bacteremia and is on IV antibiotics under infectious disease management. He is on ceftezole and and his repeat blood culture is pending. The fissure dressing was changed with hydrogel and gauze. To heel weightbearing surgical shoe. His x-rays were negative for any soft tissue emphysema, acute fracture dislocation, or foreign body. His wound culture is negative for bacterial growth so far and the final results are pending. CLEMENTE wrap will be applied to right lower extremity for additional edema management. I will continue to follow him closely while in house. Please not hesitate to call if you have any questions. After d/c, to [facility] with Dr. Richardson. Bonnie Richardson DPM, [facility] [phone]
--- NOTE | 2020-03-16 10:05 | PN.ID_ITS ---
Patient Problems: Active and Suspected Problems FUO (fever of unknown origin) (Acute) Non-traumatic rhabdomyolysis (Acute) Bacteremia (Acute) Ulcer of right foot with fat layer exposed (Acute) Fissure in skin of foot (Acute) Abnormal LFTs (liver function tests) (Acute) - Physical Exam Vitals/I&O's: Vital Signs Temp Pulse Resp BP Pulse Ox 98.4 F 75 20 H 149/91 H 98 03/16/20 08:00 03/16/20 08:00 03/16/20 08:00 03/16/20 08:00 03/16/20 08:08 Oxygen Delivery Method Room Air Weight: 132.4 kg Body Mass Index (BMI) 41.8 Intake and Output for Last 24 Hours 03/14/20 03/15/20 03/16/20 23:59 23:59 23:59 Intake Total 4417.5 / 4417.5 6086.25 / 6686.25 2805 / 2805 Output Total 375 / 375 Balance 4417.5 / 4417.5 5711.25 / 6311.25 2805 / 2805 Microbiology Past 72 Hours 03/14/20 19:15 Sputum, Expectorated/Coughed Gram Stain - Final 03/14/20 19:15 Sputum, Expectorated/Coughed Respiratory Culture - Preliminary Appears to be normal respiratory yaya. Further studies to follow. 03/14/20 10:35 Urine, Clean Catch Urine Culture - Final Streptococcus agalactiae (B) 03/14/20 10:05 Blood Culture (Wb) - Anticubital Left Blood Culture - Preliminary Staphylococcus aureus 03/14/20 11:20 Mucosa - Nasopharyngeal Coronavirus COVID-19 PCR - Final 03/14/20 15:53 Mucosa - Nasopharyngeal Respiratory Panel (PCR) - Final 03/14/20 10:35 Urine, Random Legionella Antigen - Final 03/14/20 10:35 Urine, Random Streptococcus pneumoniae Antigen (M - Final Laboratory Results 03/16/20 04:15: WBC 5.6, RBC 4.25 L, Hgb 15.3, Hct 44.0, MCV 103.5 H, MCH 36.0 H , MCHC 34.8, RDW Std Deviation 50.4 H, RDW Coeff of Maria Guadalupe 13.1, Plt Count 80 L, MPV 11.3, Immature Gran % (Auto) 0.200, Neut % (Auto) 55.3, Lymph % (Auto) 25.6, [place] % (Auto) 15.9 H, Eos % (Auto) 2.1, Baso % (Auto) 0.9, Absolute Neuts (auto) 3.1, Absolute Lymphs (auto) 1.43, Nucleated RBC % 0, Platelet Estimate MOD DEC, Macrocytosis 1+ 03/16/20 04:15: Sodium 140, Potassium 3.4 L, Chloride 109 H, Carbon Dioxide 23.0, Anion Gap 8, BUN 4 L, Creatinine 0.55 L, Estim Creat Clear Calc 169.60, Est GFR (MDRD) Af Amer 203, Est GFR (MDRD) Non-Af 168, BUN/Creatinine Ratio 7.2 L, Glucose 89, Calcium 7.8 L, Total Bilirubin 2.10 H, Direct Bilirubin 0.83 H, AST 148 H, ALT 73 H, Alkaline Phosphatase 103, Total Protein 6.4, Albumin 2.7 L, Globulin 3.7 03/16/20 04:15: Vancomycin Trough 11.7 03/16/20 04:15: Total Creatine Kinase 619 H Current Medications Acetaminophen (Tylenol) 650 mg PO Q6H PRN PRN PRN Reason: Pain Score 1-10/Temp > 100.7 F Last Admin: 03/16/20 04:33 Dose: 650 mg Documented by: Al Hydroxide/Mg Hydroxide (Mylanta Ii) 30 ml PO Q6H PRN PRN PRN Reason: Gastric Burning Albuterol Sulfate (Ventolin Aerosols) 2.5 mg INHALATION Q2H PRN PRN PRN Reason: Shortness of Breath/Wheezing Amlodipine Besylate (Norvasc) 10 mg PO DAILY [facility] Last Admin: 03/16/20 08:36 Dose: 10 mg Documented by: Guaifenesin (Robitussin) 20 ml PO Q4H PRN PRN PRN Reason: COUGH Hydralazine HCl (Apresoline Iv) 5 mg IV Q4H PRN PRN PRN Reason: SBP > 160 Last Admin: 03/15/20 05:45 Dose: 5 mg Documented by: Potassium Chloride/Sodium Chloride () 1,000 mls @ 150 mls/hr IV .Q6H40M [facility] Last Infusion: 03/16/20 08:37 Dose: 0 mls/hr Documented by: Sodium Chloride () 250 mls @ 15 mls/hr IV .[id number] PRN PRN Reason: Saline Flush Last Infusion: 03/15/20 18:28 Dose: 0 mls/hr Documented by: Sodium Chloride () 250 mls @ 15 mls/hr IV .[id number] PRN PRN Reason: Additional IVPB Infusion Cefazolin Sodium 2 gm/ Sodium (Chloride) 110 mls @ 150 mls/hr IV Q8 [facility] Losartan Potassium (Cozaar) 50 mg PO BID [facility] Last Admin: 03/16/20 08:32 Dose: 50 mg Documented by: Magnesium Hydroxide (Milk Of Magnesia) 30 ml PO DAILY PRN PRN PRN Reason: Constipation Melatonin (Melatonin) 3 mg PO QHS PRN PRN PRN Reason: INSOMNIA Last Admin: 03/15/20 00:57 Dose: 3 mg Documented by: Ondansetron HCl (Zofran) 4 mg IV Q8H PRN PRN PRN Reason: NAUSEA/VOMITING Oxycodone HCl (Oxyir) 5 mg PO Q4H PRN PRN PRN Reason: Pain Score 4-5/10 Oxycodone HCl (Oxyir) 10 mg PO Q4H PRN PRN PRN Reason: Pain Score 6-10/10 Sodium Chloride () 10 - 40 ml IV UD PRN PRN Reason: SALINE FLUSH Last Admin: 03/16/20 08:40 Dose: 10 ml Documented by: Medical Necessity - Tobacco Use Smoking Status: Current every day smoker Route of nutrition/ use of supplements: [] Nutritional Intake: [] IV Site: [] [place]aines Catheter: [] - Assessment/Plan Antibiotics: [] Assessment/Plan: [] Active and Suspected Problems FUO (fever of unknown origin) (Acute) Non-traumatic rhabdomyolysis (Acute) Abnormal LFTs (liver function tests) (Acute) MSSA bacteremia - sputum with normal yaya. Ucx with strep. Appreciate podiatry eval. Echo done. Will repeat bcx x1, narrow abx to cefazolin. Will follow
--- NOTE | 2020-03-16 10:35 | DCINST_ITS ---
Weight Bearing Status: Partial weight bearing - heel weight bear right with surgical shoe Keep extremity elevated above heart level: Right Leg Call your doctor if your incision/area has: Continuous Slow Oozing, Sudden Increased Bleeding, Increased Pain/ Swelling, Increased Redness, Foul Smelling Discharge Call your doctor if you observe: Fever of 101 or Higher, Calf discomfort, Uncontrolled pain Cleanse incision/area with: Soap & Water, - - Change toe dressing with hydrogel and gauze daily. Do not soak. Allergies/Adverse Reactions: Allergies No Known Allergies Allergy (Verified 03/14/20 10:43) Medications to take at Discharge Multivitamin with Minerals [Multiple Vitamin] 1 tab PO DAILY 03/14/20 Primary Care Physician: Care Physician,No Primary [Primary Care Provider] - Test Results: Test results from this visit will be discussed in further detail at your follow- up appointment, if applicable. Please Follow Up With: Bonnie Richardson DPM When: [facility]. Call [phone] sooner if questions/concerns Proposed Discharge Date: 03/18/20
[2020-03-16 12:22] LABS: Magnesium 1.7 mg/dL (1.6-2.6)
[2020-03-16 14:54] LABS: Phosphorus 2.9 mg/dL (2.5-4.9)
[2020-03-16] MEDS: Cefazolin 2 GM in 0.9% Normal Saline 100 ML IV ×2 (15:42→21:53)
[2020-03-16 16:27] VITALS: BP 157/73; PULSE 76; RESP 20; TEMP 36.8; O2SAT 99
[2020-03-16] MEDS: Thiamine Hydrochloride 100 MG Tablet PO (16:30)
--- NOTE | 2020-03-16 18:02 | CASEMGMT ---
Social Work Consult: Substance Abuse Informant: Dr. Davis Met with patient in room. Introduced self as well as director social service role. Patient is agreeable to speaking with this socia worker. Patient currently live with partner of 16 years, Sonido Urban. Patient stating that Sonido is supportive. This director social service broached topic of substance abuse for patient. Patient stating to have a history of alcohol abuse 10 years back. Patient stating that currently at most patient has 2-3 beers a week. Patient stating to be considering cutting that out due to beer making me sick. Patient stating no concern with current substance use or denies any other substances. Patient stating to get depressed at times. Patient ever being diagnosed with depression and stating that patient mood as been good as patient is now feeling better. Patient denies feeling depressed often but that it happens at times. Patient denies any concerns with current mental health. Patient stating plan to return to home with Sonido. Patient stating no concerns on return to home and is declining any resources/information. 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 Active support and listening provided. Charge nurse updated on social work assessment. Noemy Carlton DRY WALL INSTALLER, JAIMIE
[2020-03-16 22:20] VITALS: BP 163/109; PULSE 79; RESP 18; TEMP 36.7; O2SAT 97
[2020-03-17] VITALS (11 sets, daily range): BP systolic 144–180; BP diastolic 88–106; PULSE 80–88; RESP 16–20; TEMP 36.7–37.6; O2SAT 97–98
[2020-03-17 01:09] LABS: Hep C Antibodies <0.1 s/co ratio (0.0-0.9)
[2020-03-17] MEDS: Cefazolin 2 GM in 0.9% Normal Saline 100 ML IV ×3 (05:36→21:12)
[2020-03-17 06:08] LABS: Absolute Lymphocyte Count 1.35 X10^3/uL (0.83-4.51); Absolute Neutrophil Count 4.1 X10^3/uL (2.0-7.7); Basophil# 0.06 X10^3/uL; Basophil% 0.9 % (0-1); Eosinophil# 0.17 X10^3/uL; Eosinophils% 2.6 % (0-5); Hematocrit 44.2 % (40-54); Hemoglobin 15.4 g/dL (13.0-16.5); Lymphocyte # 1.35 X10^3/ul (4.0); Lymphocyte % 20.6 % (19-41); Mean Corp Hgb Conc 34.8 g/dL (32-36); Mean Corpuscular Hgb 36.2 pg (27.0-32.0); Mean Platelet Vol. 11.3 fl (6.2-12.0); Monocyte# 0.83 X10^3/uL; Monocyte% 12.7 % (0-10); NRBC Flagged by Analyzer 0 % (0-5); Neutrophil # 4.13 X10^3/uL (2.7-7.7); POSITIVE COUNT YES; Platelet Count 92 K/mm3 (150-450); RBC Distribution Width SD 49.8 fl (35.1-43.9); Red Blood Count 4.25 M/mm3 (4.6-6.2); White Blood Count 6.6 K/mm3 (4.4-11.0)
[2020-03-17 06:28] LABS: ALB/GLOB Ratio 0.6 RATIO (0.9-2.4); AST(SGOT) 120 U/L (15-37); Alanine Aminotransfer ALT/SGPT 69 U/L (16-61); Albumin, Serum 2.6 g/dL (3.2-5.0); Alkaline Phosphatase 115 U/L (45-117); Anion Gap 7 (5-15); BUN 7 mg/dL (7-18); BUN/Creat Ratio 10.6 RATIO (10-20); CPK Total, Creatine Kinase 321 U/L (39-308); Calcium,Total 7.8 mg/dL (8.5-10.1); Chloride 108 mmol/L (98-107); Creatinine, Serum 0.66 mg/dL (0.70-1.30); EST Glomerular Filtration Rate 137 mL/min (>60); Est Glom Filt Rate - Afr Amer 165 mL/min (>60); Estimated Creatinine Clearance 141.33 ml/min; Globulin 4.1 g/dL (2.2-4.2); Glucose 77 mg/dL (74-106); Potassium 3.6 mmol/L (3.5-5.1); Protein, Total 6.7 g/dL (6.4-8.2); Sodium Level 139 mmol/L (136-145)
--- NOTE | 2020-03-17 06:50 | PN_ITS ---
Patient Problems: Active and Suspected Problems FUO (fever of unknown origin) (Acute) Non-traumatic rhabdomyolysis (Acute) Bacteremia (Acute) Ulcer of right foot with fat layer exposed (Acute) Fissure in skin of foot (Acute) Abnormal LFTs (liver function tests) (Acute) Subjective: The patient is a 50 y/o M w/ PMHx: Morbid Obesity, Tobacco use, Chronic thrombocytopenia, EtOH Abuse, Undiagnosed HTN who presented to the [facility] on 03/14/20 with history of ongoing fatigue, malaise, arthralgias and myalgias as well as intermittent low-grade fevers x1 month with no specifically associated dyspnea, cough, abdominal pain, nausea, emesis, diarrhea, headaches, congestion or rhinorrhea. Patient admitted with acute severe sepsis with MSSA bacteremia, initially unclear source however, following aggressive evaluation felt [id number] secondary to Infected Right Hallux Open Lesion. Patient admitted to the medical surgical floor, initially as noted unclear source with ongoing intermittent fevers, blood culture with MSSA, unremarkable sputum culture, urine culture with Streptococcus however less than 100,000 colony-forming units, echocardiogram requested, CTPA with no obvious evidence of PE or pneumonia, CT abdomen pelvis with no acute finding, 03/15/2020 plain film of the right foot with no acute findings with mild degenerative changes of the first MTP joint, Dr. Richardson consulted and following w/ dressing changes with hydrogel and gauze with heel weightbearing with surgical shoe with CLEMENTE wrap to the right lower extremity for edema management with plan to follow-up outpatient at discharge, Dr. Diehl consultation with ongoing evaluations with 03/15/20 blood cultures negative to date, but will await 48 hours mary (15:45 pm today). Antibiotic narrowing to cefazolin from previously vancomycin and Zosyn on 03/16/20. Awaiting ECHO results (discussed with Cardiology and will have read 03/18/20) and if unremarkable ECHO read and 03/15/20 Bld Cx remain negative, would plan per discussion with Fazal discharge to home on linezolid x 2 week course with weekly CBC faxed to his office, follow-up in his office after regimen completion, requested CM/SW assist with cost concept and if markedly expensive patient will be instructed to contact Dr. Diehl to assist. In addition, would need follow-up with Debra and continued podiatry recommendations at discharge. During admission, patient also had concurrent acute rhabdomyolysis with admission creatinine kinase 2017 with continued hydration-->03/15/2020 1058-->03/16/2619, 03/17/20 TCK 321. During admission, noted Elevated LFTs, Bilirubin, Transaminitis, likely secondary to alcohol abuse with likely alcoholic cirrhosis and possible related with acute presentation #1 as noted, admission total bilirubin 2.10, AST/ALT 271/81 with trend slowly improving, 03/17/20 AST/ALT 120/69, total bilirubin 2.40 with presentation as noted with acute rhabdomyolysis, improving, negative hepatitis panel, CT abdomen and pelvis with evidence of liver cirrhosis with sigmoid diverticulosis and cholelithiasis. During admission, BP significantly elevated during admission, possibly related with acute presentation however suspect underlying hypertension, continued on patient Norvasc and losartan regimen with PRN hydralazine. Patient with no acute events overnight per self and per nursing report. Patient remains afebrile. He notes he feels as though he is back to his prior baseline prior to onset of his intermittent fevers and chills. Discussed that given MSSA bacteremia suspect likely toe as a source. Patient with evaluation per podiatry this a.m. as well and they agree could easily be patient source. Given clinical improvement discussed with patient possible discharge today awaiting discussions with infectious disease. Patient denies fevers, chills, nausea, emesis, abdominal pain, chest pain or dyspnea. Objective: Physical Examination: General: awake, alert, oriented x 3 and cooperative, seated upright in bed in no apparent distress. Skin: normal color, turgor, no icterus, cyanosis except noted stable right helix dry fissure with no fluctuance or purulence nor any erythema or streaking on the foot however with improving, resolving erythema and edema to the right leg, some RLE abrasions healing. HEENT: AT/NC, EOMI, PERRLA, MMM. Lungs: CTA bilaterally, moderate effort, mild decrease BL bases, no rales, ronchi or wheezing. Heart: Regular rate and rhythm; no gallop, rub audible. Abdomen: soft, morbidly obese, NTTP, ND, normal BS. Extremities: no cyanosis, clubbing, see skin. Neurological: patient awake, alert, oriented x 3; cognitive function appears baseline intact; pupils equally reactive to light and accomodation; cranial nerves II-XII grossly normal, moving all 4 extremities, no focal deficits, strength improving, mildly globally decrease. Psychiatric: affect appears normal, no acute evidence of depressive or anxiety feelings. Vitals/I&O's: Vital Signs Temp Pulse Resp BP Pulse Ox 98.6 F 88 18 144/106 H 97 03/17/20 02:56 03/17/20 02:56 03/17/20 02:56 03/17/20 02:56 03/17/20 02:56 Oxygen Delivery Method Room Air Weight: 291 lb 14.272 oz Body Mass Index (BMI) 41.8 Intake and Output for Last 24 Hours 03/15/20 03/16/20 03/17/20 23:59 23:59 23:59 Intake Total 6086.25 / 6686.25 6387.5 / 6387.5 1470.0 / 1470.0 Output Total 375 / 375 Balance 5711.25 / 6311.25 6387.5 / 6387.5 1470.0 / 1470.0 Microbiology Past 72 Hours 03/15/20 19:25 Wound - Aerobic & Anaerobic Swabs Gram Stain - Final 03/15/20 19:25 Wound - Aerobic & Anaerobic Swabs Wound Culture - Preliminary Staphylococcus aureus 03/14/20 19:15 Sputum, Expectorated/Coughed Gram Stain - Final 03/14/20 19:15 Sputum, Expectorated/Coughed Respiratory Culture - Preliminary Appears to be normal respiratory yaya. Further studies to follow. 03/14/20 10:35 Urine, Clean Catch Urine Culture - Final Streptococcus agalactiae (B) 03/14/20 10:05 Blood Culture (Wb) - Anticubital Left Blood Culture - Preliminary Staphylococcus aureus 03/14/20 11:20 Mucosa - Nasopharyngeal Coronavirus COVID-19 PCR - Final 03/14/20 15:53 Mucosa - Nasopharyngeal Respiratory Panel (PCR) - Final 03/14/20 10:35 Urine, Random Legionella Antigen - Final 03/14/20 10:35 Urine, Random Streptococcus pneumoniae Antigen (M - Final Laboratory Results 03/15/20 08:07: Hepatitis A IgM Ab Negative, Hep Bs Antigen Negative, Hep B Core IgM Ab Negative, Hepatitis C Ab (EIA) <0.1 03/16/20 04:24: Magnesium 1.7 03/16/20 04:24: Phosphorus 2.9 03/17/20 05:40: Sodium 139, Potassium 3.6, Chloride 108 H, Carbon Dioxide 24.0, Anion Gap 7, BUN 7, Creatinine 0.66 L, Estim Creat Clear Calc 141.33, Est GFR (MDRD) Af Amer 165, Est GFR (MDRD) Non-Af 137, BUN/Creatinine Ratio 10.6, Glucose 77, Calcium 7.8 L, Magnesium 2.0, Total Bilirubin 2.40 H, AST 120 H, ALT 69 H, Alkaline Phosphatase 115, Total Creatine Kinase 321 H, Total Protein 6.7, Albumin 2.6 L, Globulin 4.1, Albumin/Globulin Ratio 0.6 L 03/17/20 05:40: WBC 6.6, RBC 4.25 L, Hgb 15.4, Hct 44.2, MCV 104.0 H, MCH 36.2 H , MCHC 34.8, RDW Std Deviation 49.8 H, RDW Coeff of Maria Guadalupe 13.0, Plt Count 92 L, MPV 11.3, Immature Gran % (Auto) 0.200, Neut % (Auto) 63.0, Lymph % (Auto) 20.6, [place] % (Auto) 12.7 H, Eos % (Auto) 2.6, Baso % (Auto) 0.9, Absolute Neuts (auto) 4.1, Absolute Lymphs (auto) 1.35, Nucleated RBC % 0 Current Medications Acetaminophen (Tylenol) 650 mg PO Q6H PRN PRN PRN Reason: Pain Score 1-10/Temp > 100.7 F Last Admin: 03/16/20 04:33 Dose: 650 mg Documented by: Al Hydroxide/Mg Hydroxide (Mylanta Ii) 30 ml PO Q6H PRN PRN PRN Reason: Gastric Burning Albuterol Sulfate (Ventolin Aerosols) 2.5 mg INHALATION Q2H PRN PRN PRN Reason: Shortness of Breath/Wheezing Amlodipine Besylate (Norvasc) 10 mg PO DAILY [facility] Last Admin: 03/16/20 08:36 Dose: 10 mg Documented by: Folic Acid (Folic Acid) 1 mg PO DAILY@0800 [facility] Stop: 03/19/20 08:01 Guaifenesin (Robitussin) 20 ml PO Q4H PRN PRN PRN Reason: COUGH Hydralazine HCl (Apresoline Iv) 5 mg IV Q4H PRN PRN PRN Reason: SBP > 160 Last Admin: 03/15/20 05:45 Dose: 5 mg Documented by: Potassium Chloride/Sodium Chloride () 1,000 mls @ 150 mls/hr IV .[id number] [facility] Last Infusion: 03/17/20 06:28 Dose: 150 mls/hr Documented by: Sodium Chloride () 250 mls @ 15 mls/hr IV .[id number] PRN PRN Reason: Saline Flush Last Infusion: 03/16/20 11:44 Dose: 0 mls/hr Documented by: Sodium Chloride () 250 mls @ 15 mls/hr IV .[id number] PRN PRN Reason: Additional IVPB Infusion Cefazolin Sodium 2 gm/ Sodium (Chloride) 110 mls @ 150 mls/hr IV Q8 [facility] Last Infusion: 03/17/20 06:27 Dose: Infused Documented by: Lorazepam (Ativan) 2 mg PO Q2H PRN PRN; Protocol PRN Reason: CIWA score > 8 but <15 Lorazepam (Ativan) 2 mg PO UD PRN; Protocol PRN Reason: CIWA score >/=15. Lorazepam (Ativan) 2 mg IV Q2H PRN PRN; Protocol PRN Reason: CIWA score > 8 but <15 Lorazepam (Ativan) 2 mg IV UD PRN; Protocol PRN Reason: CIWA score >/=15. Losartan Potassium (Cozaar) 50 mg PO BID [facility] Last Admin: 03/16/20 21:54 Dose: 50 mg Documented by: Magnesium Hydroxide (Milk Of Magnesia) 30 ml PO DAILY PRN PRN PRN Reason: Constipation Melatonin (Melatonin) 3 mg PO QHS PRN PRN PRN Reason: INSOMNIA Last Admin: 03/15/20 00:57 Dose: 3 mg Documented by: Multivitamins/Minerals (Multivitamin With Minerals (Bkc)) [facility] Ondansetron HCl (Zofran) 4 mg IV Q8H PRN PRN PRN Reason: NAUSEA/VOMITING Oxycodone HCl (Oxyir) 5 mg PO Q4H PRN PRN PRN Reason: Pain Score 4-5/10 Oxycodone HCl (Oxyir) 10 mg PO Q4H PRN PRN PRN Reason: Pain Score 6-10/10 Sodium Chloride () 10 - 40 ml IV UD PRN PRN Reason: SALINE FLUSH Last Admin: 03/16/20 17:28 Dose: 10 ml Documented by: Thiamine HCl (Vitamin B1) 100 mg PO BIDCM [facility] Stop: 03/19/20 08:01 Last Admin: 03/16/20 16:30 Dose: 100 mg Documented by: STROKE Vital Signs/Narrative: Vital Signs Temp Pulse Resp BP Pulse Ox 03/17/20 02:56 98.6 F 88 18 144/106 H 97 Medical Necessity - Tobacco Use Smoking Status: Current every day smoker Assessment/Plan All Active Problems FUO (fever of unknown origin) (Acute) Non-traumatic rhabdomyolysis (Acute) Bacteremia (Acute) Ulcer of right foot with fat layer exposed (Acute) Fissure in skin of foot (Acute) Abnormal LFTs (liver function tests) (Acute) Chest pain (Resolved) Elevated d-dimer (Resolved) The patient is a 50 y/o M w/ PMHx: Morbid Obesity, Tobacco use, Chronic thrombocytopenia, EtOH Abuse, Undiagnosed HTN who presented to the [facility] ED on 03/14/20 with history of ongoing fatigue, malaise, arthralgias and myalgias as well as intermittent low-grade fevers x1 month with no specifically associated dyspnea, cough, abdominal pain, nausea, emesis, diarrhea, headaches, congestion or rhinorrhea. 1. 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 Richardson consulted and following w/ dressing changes with hydrogel and gauze with heel weightbearing with surgical shoe with CLEMENTE wrap to the right lower extremity for edema management with plan to follow-up outpatient at discharge, Dr. Diehl consultation with ongoing evaluations with 03/15/20 blood cultures negative to date, but will await 48 hours mary (15:45 pm today). Antibiotic narrowing to cefazolin from previously vancomycin and Zosyn on 03/16/20. Discussed current status with Dr. Diehl and will request ECHO results and if unremarkable and cultures remain NGTD will plan discharge on linezolid x 2 week course, request CM/SW assist with cost concept and if markedly expensive patient will be instructed to contact Dr. Diehl to assist with CBC weekly faxed to his office and Podiatry follow-up as noted. Will given first dose linezolid prior to discharge. 2. Acute Rhabdomyolysis: Admission creatinine kinase 2017 with continued hydration-->03/15/2020 1058-->03/16/2619, 03/17/20 TCK 321, improving, likely secondary to decreased movement and poor oral intake coupled with acute presentation as noted. 3. Elevated LFTs, Bilirubin, Transaminitis: Likely secondary to alcohol abuse with likely alcoholic cirrhosis and possible related with acute presentation #1 as noted, admission total bilirubin 2.10, AST/ALT 271/81 with trend slowly improving, 03/17/20 AST/ALT 120/69, total bilirubin 2.40 with presentation as noted with acute rhabdomyolysis, improving, negative hepatitis panel, CT abdomen and pelvis with evidence of liver cirrhosis with sigmoid diverticulosis and cholelithiasis. 4. Elevated BP without HTN, Newly diagnosed Hypertension: BP significantly elevated during admission, possibly related with acute presentation however suspect underlying hypertension, continued on patient Norvasc and losartan regimen with PRN hydralazine, will have patient follow-up outpatient for repeat BP assessment and further BP regimen changes as needed. 5. Left Upper Extremity Edema: Ongoing for least 1 month, not pitting, duplex ultrasound performed and negative. Lovenox had been initiated upon admission however discontinued 03/15/2028 secondary to platelet decreasing. 6. Chronic Thrombocytopenia: Admission platelets 102 with trending, 03/16/20 92, continue to closely monitor, likely associated with patient's alcohol abuse. Patient initially on Lovenox however given platelet decrease this was discontinued on 03/15/2020. Will have repeat CBC weekly x 2. 7. Hypokalemia/Hypomagnesium: Hypokalemia: Admission K+ 3.3, supplementation given however repeat CMP is with continued hypokalemia, 03/16/2020 potassium 3.4 additional oral supplementation ministered, magnesium obtained and noted to be 1.4 with supplementation administered, repeat 03/16/2020 1.7 with additional supplementation administered, 03/17/20 normalized K 3.6, Mag 2.0. 8. EtOH Abuse: Patient notes routine consumption, maintain on CIWA protocol, MV I, thiamine and folic acid. Will obtain phos levels, continue mag repletion as needed. CM consulted for substance abuse. 9. Morbid Obesity: Weight loss and lifestyle changes encouraged, nutrition co nsulted. 10. DVT prophylaxis: SCDs, continue to hold chemoprophylaxis given thrombocytopenia. 11. Code status: Full. Inpatient E&M: 00458 Subs Hosp L2
[2020-03-17 07:12] LABS: T4 Free Direct 1.36 ng/dL (0.76-1.46)
[2020-03-17] MEDS: Thiamine Hydrochloride 100 MG Tablet PO ×2 (08:31→16:59)
[2020-03-17] MEDS: Multivitamins,Ther W-Minerals Tablet 1 TABLET PO (08:32)
[2020-03-17] MEDS: Folic Acid 1 MG Tablet PO (08:32)
--- NOTE | 2020-03-17 08:40 | PN_ITS ---
Patient Problems: Active and Suspected Problems FUO (fever of unknown origin) (Acute) Non-traumatic rhabdomyolysis (Acute) Bacteremia (Acute) Ulcer of right foot with fat layer exposed (Acute) Fissure in skin of foot (Acute) Abnormal LFTs (liver function tests) (Acute) Subjective: The patient is a 50 year old M was seen bedside for open lesion of the right hallux and has been hospitalized for bacteremia. He denies fever, chill, nausea, vomiting. - Physical Exam Vitals/I&O's: Vital Signs Temp Pulse Resp BP Pulse Ox 98.1 F 80 20 H 158/90 H 98 03/17/20 08:29 03/17/20 08:29 03/17/20 08:29 03/17/20 08:29 03/17/20 08:29 Oxygen Delivery Method Room Air Weight: 132.4 kg Body Mass Index (BMI) 41.8 Intake and Output for Last 24 Hours 03/15/20 03/16/20 03/17/20 23:59 23:59 23:59 Intake Total 6086.25 / 6686.25 6387.5 / 6387.5 1470.0 / 1470.0 Output Total 375 / 375 Balance 5711.25 / 6311.25 6387.5 / 6387.5 1470.0 / 1470.0 General: Alert, Oriented x3, Cooperative Extremities: No cyanosis, Capillary Refill Less than 3 Seconds, No Calf Tenderness, Diminished Peripheral Pulses, Edema - Bilateral lower extremities Skin: Ulcer/ Wound - Skin discontinuity plantar medial right hallux decreased with lack of drainage noted today. There is no erythema, string, odor, or active purulence coming from the foot. There is reduced erythema to the marked zone on the medial right leg. He does have varicosities Musculoskeletal: No Tenderness to Palpation of Joints or Extremities, - - No pain on palpation right lower extremity. Compartments remain soft Neurological: Sensory exam intact to light touch and pain Psych/Mental Status: Normal Affect, Appropriate Microbiology Past 72 Hours 03/15/20 19:25 Wound - Aerobic & Anaerobic Swabs Gram Stain - Final 03/15/20 19:25 Wound - Aerobic & Anaerobic Swabs Wound Culture - Preliminary Staphylococcus aureus 03/14/20 19:15 Sputum, Expectorated/Coughed Gram Stain - Final 03/14/20 19:15 Sputum, Expectorated/Coughed Respiratory Culture - Preliminary Appears to be normal respiratory yaya. Further studies to follow. 03/14/20 10:35 Urine, Clean Catch Urine Culture - Final Streptococcus agalactiae (B) 03/14/20 10:05 Blood Culture (Wb) - Anticubital Left Blood Culture - Preliminary Staphylococcus aureus 03/14/20 11:20 Mucosa - Nasopharyngeal Coronavirus COVID-19 PCR - Final 03/14/20 15:53 Mucosa - Nasopharyngeal Respiratory Panel (PCR) - Final 03/14/20 10:35 Urine, Random Legionella Antigen - Final 03/14/20 10:35 Urine, Random Streptococcus pneumoniae Antigen (M - Final Laboratory Results 03/15/20 08:07: Hepatitis A IgM Ab Negative, Hep Bs Antigen Negative, Hep B Core IgM Ab Negative, Hepatitis C Ab (EIA) <0.1 03/16/20 04:24: Magnesium 1.7 03/16/20 04:24: Phosphorus 2.9 03/17/20 05:40: Sodium 139, Potassium 3.6, Chloride 108 H, Carbon Dioxide 24.0, Anion Gap 7, BUN 7, Creatinine 0.66 L, Estim Creat Clear Calc 141.33, Est GFR (MDRD) Af Amer 165, Est GFR (MDRD) Non-Af 137, BUN/Creatinine Ratio 10.6, Glucose 77, Calcium 7.8 L, Magnesium 2.0, Total Bilirubin 2.40 H, AST 120 H, ALT 69 H, Alkaline Phosphatase 115, Total Creatine Kinase 321 H, Total Protein 6.7, Albumin 2.6 L, Globulin 4.1, Albumin/Globulin Ratio 0.6 L 03/17/20 05:40: WBC 6.6, RBC 4.25 L, Hgb 15.4, Hct 44.2, MCV 104.0 H, MCH 36.2 H , MCHC 34.8, RDW Std Deviation 49.8 H, RDW Coeff of Maria Guadalupe 13.0, Plt Count 92 L, MPV 11.3, Immature Gran % (Auto) 0.200, Neut % (Auto) 63.0, Lymph % (Auto) 20.6, [place] % (Auto) 12.7 H, Eos % (Auto) 2.6, Baso % (Auto) 0.9, Absolute Neuts (auto) 4.1, Absolute Lymphs (auto) 1.35, Nucleated RBC % 0 03/17/20 05:40: Free T4 1.36 Current Medications Acetaminophen (Tylenol) 650 mg PO Q6H PRN PRN PRN Reason: Pain Score 1-10/Temp > 100.7 F Last Admin: 03/16/20 04:33 Dose: 650 mg Documented by: Al Hydroxide/Mg Hydroxide (Mylanta Ii) 30 ml PO Q6H PRN PRN PRN Reason: Gastric Burning Albuterol Sulfate (Ventolin Aerosols) 2.5 mg INHALATION Q2H PRN PRN PRN Reason: Shortness of Breath/Wheezing Amlodipine Besylate (Norvasc) 10 mg PO DAILY [facility] Last Admin: 03/16/20 08:36 Dose: 10 mg Documented by: Folic Acid (Folic Acid) 1 mg PO DAILY@0800 [facility] Stop: 03/19/20 08:01 Last Admin: 03/17/20 08:32 Dose: 1 mg Documented by: Guaifenesin (Robitussin) 20 ml PO Q4H PRN PRN PRN Reason: COUGH Hydralazine HCl (Apresoline Iv) 5 mg IV Q4H PRN PRN PRN Reason: SBP > 160 Last Admin: 03/15/20 05:45 Dose: 5 mg Documented by: Potassium Chloride/Sodium Chloride () 1,000 mls @ 150 mls/hr IV .[id number] [facility] Last Infusion: 03/17/20 06:28 Dose: 150 mls/hr Documented by: Sodium Chloride () 250 mls @ 15 mls/hr IV .[id number] PRN PRN Reason: Saline Flush Last Infusion: 03/16/20 11:44 Dose: 0 mls/hr Documented by: Sodium Chloride () 250 mls @ 15 mls/hr IV .[id number] PRN PRN Reason: Additional IVPB Infusion Cefazolin Sodium 2 gm/ Sodium (Chloride) 110 mls @ 150 mls/hr IV Q8 [facility] Last Infusion: 03/17/20 06:27 Dose: Infused Documented by: Lorazepam (Ativan) 2 mg PO Q2H PRN PRN; Protocol PRN Reason: CIWA score > 8 but <15 Lorazepam (Ativan) 2 mg PO UD PRN; Protocol PRN Reason: CIWA score >/=15. Lorazepam (Ativan) 2 mg IV Q2H PRN PRN; Protocol PRN Reason: CIWA score > 8 but <15 Lorazepam (Ativan) 2 mg IV UD PRN; Protocol PRN Reason: CIWA score >/=15. Losartan Potassium (Cozaar) 50 mg PO BID [facility] Last Admin: 03/16/20 21:54 Dose: 50 mg Documented by: Magnesium Hydroxide (Milk Of Magnesia) 30 ml PO DAILY PRN PRN PRN Reason: Constipation Melatonin (Melatonin) 3 mg PO QHS PRN PRN PRN Reason: INSOMNIA Last Admin: 03/15/20 00:57 Dose: 3 mg Documented by: Multivitamins/Minerals ([facility]ivitamin With Minerals (Bkc)) [facility] Last Admin: 03/17/20 08:32 Dose: 1 tablet Documented by: Ondansetron HCl (Zofran) 4 mg IV Q8H PRN PRN PRN Reason: NAUSEA/VOMITING Oxycodone HCl (Oxyir) 5 mg PO Q4H PRN PRN PRN Reason: Pain Score 4-5/10 Oxycodone HCl (Oxyir) 10 mg PO Q4H PRN PRN PRN Reason: Pain Score 6-10/10 Sodium Chloride () 10 - 40 ml IV UD PRN PRN Reason: SALINE FLUSH Last Admin: 03/16/20 17:28 Dose: 10 ml Documented by: Thiamine HCl ([facility]itamin B[facility]) [facility] Stop: 03/19/20 08:01 Last Admin: 03/17/20 08:31 Dose: 100 mg Documented by: Medical Necessity - Tobacco Use Smoking Status: Current every day smoker Assessment/Plan All Active Problems FUO (fever of unknown origin) (Acute) Non-traumatic rhabdomyolysis (Acute) Bacteremia (Acute) Ulcer of right foot with fat layer exposed (Acute) Fissure in skin of foot (Acute) Abnormal LFTs (liver function tests) (Acute) Chest pain (Resolved) Elevated d-dimer (Resolved) Fissure right hallux with skin discontinuity Hallux limitus Staphylococcus aureus bacteremia other comorbidities: morbid obesity, liver cirrhosis, thrombocytopenia, recent rhabdomyolysis I reviewed and discussed his case. He remains afebrile with vital signs stable. He does not have current leukocytosis. He is being treated for staph bacteremia and is on IV antibiotics under infectious disease management. He is on ceftezolin. The fissure dressing was changed with hydrogel and gauze. To heel weightbearing surgical shoe. His x-rays were negative for any soft tissue emphysema, acute fracture dislocation, or foreign body. His wound culture demonstrates staph growth so far. CLEMENTE wrap will be applied to right lower extremity for additional edema management. I will continue to follow him closely while in house. Ok to d/c from a podiatry standpoint. After d/c, to [facility] with Dr. Richardson. Bonnie Richardson DPM, [facility] [phone]
[2020-03-17] MEDS: Losartan Potassium 50 MG Tablet PO ×2 (11:04→21:16)
[2020-03-17] MEDS: amLODIPine 10 MG Tablet PO (11:13)
[2020-03-17] MEDS: 0.9% Saline Lock 10 ML Syringe IV ×2 (15:04→16:15)
[2020-03-17] MEDS: hydrALAZINE 20 MG/ML Vial 5 MG IV (21:11)
[2020-03-17] MEDS: MELATONIN 3 MG TABLET PO (21:12)
[2020-03-17] MEDS: Acetaminophen 325 MG Tablet 650 MG PO (21:12)
[2020-03-18 02:30] VITALS: BP 138/93; PULSE 88; RESP 16; TEMP 36.8; O2SAT 98
[2020-03-18] MEDS: Cefazolin 2 GM in 0.9% Normal Saline 100 ML IV (05:46)
[2020-03-18 06:32] LABS: Absolute Lymphocyte Count 1.36 X10^3/uL (0.83-4.51); Basophil# 0.07 X10^3/uL; Basophil% 0.9 % (0-1); Eosinophil# 0.18 X10^3/uL; Eosinophils% 2.3 % (0-5); Hematocrit 45.4 % (40-54); Hemoglobin 15.7 g/dL (13.0-16.5); Lymphocyte # 1.36 X10^3/ul (4.0); Lymphocyte % 17.7 % (19-41); Mean Corp Hgb Conc 34.6 g/dL (32-36); Mean Corpuscular Hgb 36.2 pg (27.0-32.0); Mean Corpuscular Volume 104.6 fL (80-94); Mean Platelet Vol. 11.7 fl (6.2-12.0); Monocyte# 1.04 X10^3/uL; Monocyte% 13.5 % (0-10); NRBC Flagged by Analyzer 0 % (0-5); Neutrophil # 5.01 X10^3/uL (2.7-7.7); Neutrophil % 65.2 % (47-70); Platelet Count 104 K/mm3 (150-450); RBC Distribution Width SD 50.3 fl (35.1-43.9); Red Blood Count 4.34 M/mm3 (4.6-6.2); White Blood Count 7.7 K/mm3 (4.4-11.0)
[2020-03-18 06:55] LABS: ALB/GLOB Ratio 0.7 RATIO (0.9-2.4); AST(SGOT) 104 U/L (15-37); Alanine Aminotransfer ALT/SGPT 65 U/L (16-61); Albumin, Serum 2.7 g/dL (3.2-5.0); Alkaline Phosphatase 112 U/L (45-117); Anion Gap 7 (5-15); BUN 9 mg/dL (7-18); BUN/Creat Ratio 15.4 RATIO (10-20); CPK Total, Creatine Kinase 163 U/L (39-308); Calcium,Total 8.2 mg/dL (8.5-10.1); Chloride 107 mmol/L (98-107); Creatinine, Serum 0.58 mg/dL (0.70-1.30); EST Glomerular Filtration Rate 158 mL/min (>60); Est Glom Filt Rate - Afr Amer 191 mL/min (>60); Estimated Creatinine Clearance 160.82 ml/min; Glucose 80 mg/dL (74-106); Magnesium 2.1 mg/dL (1.6-2.6); Potassium 3.7 mmol/L (3.5-5.1); Protein, Total 6.7 g/dL (6.4-8.2); Sodium Level 136 mmol/L (136-145)
[2020-03-18] MEDS: Losartan Potassium 50 MG Tablet PO (08:12)
[2020-03-18] MEDS: Multivitamins,Ther W-Minerals Tablet 1 TABLET PO (08:12)
[2020-03-18] MEDS: Thiamine Hydrochloride 100 MG Tablet PO (08:12)
[2020-03-18] MEDS: Folic Acid 1 MG Tablet PO (08:13)
[2020-03-18 08:15] VITALS: BP 153/103; PULSE 88; RESP 18; TEMP 37.1; O2SAT 98
[2020-03-18] MEDS: amLODIPine 10 MG Tablet PO (08:20)
--- NOTE | 2020-03-18 09:45 | DCINST_ITS ---
- Discharge Diagnoses Current Active Problems: Current Active and Chronic Problems FUO (fever of unknown origin) (Acute) Non-traumatic rhabdomyolysis (Acute) Bacteremia (Acute) Ulcer of right foot with fat layer exposed (Acute) Fissure in skin of foot (Acute) Abnormal LFTs (liver function tests) (Acute) You will use the following diet at home:: No restrictions Your food should be the consistency of: Regular Your liquids should be the consistency of: Regular/Thin Return to work on:: 03/25/20 - when ok'd by Dr. Richardson Weight Bearing Status: - - heel weight bearing Keep extremity elevated above heart level: Right Leg Call your doctor if your incision/area has: Continuous Slow Oozing, Sudden Increased Bleeding, Increased Pain/ Swelling, Increased Redness, Foul Smelling Discharge Call your doctor if you observe: Fever of 101 or Higher, Calf discomfort, Uncontrolled pain Cleanse incision/area with: Soap & Water, - - Change toe dressing with hydrogel and gauze daily. Do not soak. Allergies/Adverse Reactions: Allergies No Known Allergies Allergy (Verified 03/14/20 10:43) Medications to take at Discharge Multivitamin with Minerals [Multiple Vitamin] 1 tab PO DAILY 03/14/20 Amlodipine [Norvasc] 5 mg PO DAILY #30 tab 03/18/20 Linezolid [Zyvox] 600 mg PO Q12H #24 tab 03/18/20 Losartan Potassium [Cozaar] 100 mg PO DAILY #30 tab 03/18/20 The following prescriptions were given: Losartan Potassium [Cozaar] 100 mg PO DAILY #30 tab Transmission Status: Received by [facility]30 Amlodipine [Norvasc] 5 mg PO DAILY #30 tab Transmission Status: Received by [facility] Linezolid [Zyvox] 600 mg PO Q12H #24 tab Transmission Status: Received by [facility] Orders to be completed after discharge: CBC W/Diff, Automated Time Frame: 1 Week, Facility: [facility], Location: Laboratory Primary Care Physician: Care Physician,No Primary [Primary Care Provider] - Test Results: Test results from this visit will be discussed in further detail at your follow- up appointment, if applicable. Please Follow Up With: Bonnie Richardson DPM When: 1 week [facility]. Call [phone] sooner if questions/concerns Please Follow Up With: Tariq Diehl MD When: 1 week Please Follow Up With: Derick Rebollar MD When: PCP in 2-4 weeks, call for appt. Proposed Discharge Date: 03/18/20
--- NOTE | 2020-03-18 09:49 | PN_ITS ---
Patient Problems: Active and Suspected Problems FUO (fever of unknown origin) (Acute) Non-traumatic rhabdomyolysis (Acute) Bacteremia (Acute) Ulcer of right foot with fat layer exposed (Acute) Fissure in skin of foot (Acute) Abnormal LFTs (liver function tests) (Acute) Reason for Visit: bacteremia Vitals/I&O's: Vital Signs Temp Pulse Resp BP Pulse Ox 37.1 C 88 18 153/103 H 98 03/18/20 08:15 03/18/20 08:15 03/18/20 08:15 03/18/20 08:15 03/18/20 08:15 Oxygen Delivery Method Room Air Weight: 132.4 kg Body Mass Index (BMI) 41.8 Intake and Output for Last 24 Hours 03/16/20 03/17/20 03/18/20 23:59 23:59 23:59 Intake Total 6387.5 / 6387.5 3285.0 / 3885.0 1110 / 1110 Balance 6387.5 / 6387.5 3285.0 / 3885.0 1110 / 1110 General: Alert, No apparent distress HEENT: Atraumatic, Normocephalic Oral: Moist Mucosa, No Gingival or Mucosal Lesions/ Ulcerations Neck: No Nodes, Thyroid Normal Size and Texture Lungs: Clear to auscultation, Normal air movement, No rhonchi, No wheeze Cardiovascular: Regular rate, Regular Rhythm, Normal S1, Normal S2, No murmurs Abdomen: Bowel Sounds Present, Soft, Non Tender, Non-Distended, No Hepato- splenomegaly Extremities: - - right leg wrapped--did not remove. Psych/Mental Status: Normal Affect, Appropriate Microbiology Past 72 Hours 03/15/20 15:45 Blood Culture (Wb) - Left Hand Blood Culture - Preliminary No growth in 48 hours. 03/14/20 19:15 Sputum, Expectorated/Coughed Gram Stain - Final 03/14/20 19:15 Sputum, Expectorated/Coughed Respiratory Culture - Final 03/15/20 19:25 Wound - Aerobic & Anaerobic Swabs Gram Stain - Final 03/15/20 19:25 Wound - Aerobic & Anaerobic Swabs Wound Culture - Final Staphylococcus aureus 03/14/20 10:35 Urine, Clean Catch Urine Culture - Final Streptococcus agalactiae (B) 03/14/20 10:05 Blood Culture (Wb) - Anticubital Left Blood Culture - Preliminary Staphylococcus aureus Laboratory Results 03/18/20 05:45: WBC 7.7, RBC 4.34 L, Hgb 15.7, Hct 45.4, MCV 104.6 H, MCH 36.2 H , MCHC 34.6, RDW Std Deviation 50.3 H, RDW Coeff of Maria Guadalupe 13.0, Plt Count 104 L, MPV 11.7, Immature Gran % (Auto) 0.400, Neut % (Auto) 65.2, Lymph % (Auto) 17.7 L, [place] % (Auto) 13.5 H, Eos % (Auto) 2.3, Baso % (Auto) 0.9, Absolute Neuts (auto) 5.0, Absolute Lymphs (auto) 1.36, Nucleated RBC % 0 03/18/20 05:45: Sodium 136, Potassium 3.7, Chloride 107, Carbon Dioxide 22.0, Anion Gap 7, BUN 9, Creatinine 0.58 L, Estim Creat Clear Calc 160.82, Est GFR (MDRD) Af Amer 191, Est GFR (MDRD) Non-Af 158, BUN/Creatinine Ratio 15.4, Glucose 80, Calcium 8.2 L, Magnesium 2.1, Total Bilirubin 2.50 H, AST 104 H, ALT 65 H, Alkaline Phosphatase 112, Total Creatine Kinase 163, Total Protein 6.7, Albumin 2.7 L, Globulin 4.0, Albumin/Globulin Ratio 0.7 L Current Medications Acetaminophen (Tylenol) 650 mg PO Q6H PRN PRN PRN Reason: Pain Score 1-10/Temp > 100.7 F Last Admin: 03/17/20 21:12 Dose: 650 mg Documented by: Al Hydroxide/Mg Hydroxide (Mylanta Ii) 30 ml PO Q6H PRN PRN PRN Reason: Gastric Burning Albuterol Sulfate (Ventolin Aerosols) 2.5 mg INHALATION Q2H PRN PRN PRN Reason: Shortness of Breath/Wheezing Amlodipine Besylate (Norvasc) 10 mg PO DAILY [facility] Last Admin: 03/18/20 08:20 Dose: 10 mg Documented by: Folic Acid (Folic Acid) 1 mg PO DAILY@0800 [facility] Stop: 03/19/20 08:01 Last Admin: 03/18/20 08:13 Dose: 1 mg Documented by: Guaifenesin (Robitussin) 20 ml PO Q4H PRN PRN PRN Reason: COUGH Hydralazine HCl (Apresoline Iv) 5 mg IV Q4H PRN PRN PRN Reason: SBP > 160 Last Admin: 03/17/20 21:11 Dose: 5 mg Documented by: Sodium Chloride () 250 mls @ 15 mls/hr IV .[id number] PRN PRN Reason: Saline Flush Last Infusion: 03/16/20 11:44 Dose: 0 mls/hr Documented by: Sodium Chloride () 250 mls @ 15 mls/hr IV .[id number] PRN PRN Reason: Additional IVPB Infusion Cefazolin Sodium 2 gm/ Sodium (Chloride) 110 mls @ 150 mls/hr IV Q8 [facility] Last Infusion: 03/18/20 06:45 Dose: Infused Documented by: Lorazepam (Ativan) 2 mg PO Q2H PRN PRN; Protocol PRN Reason: CIWA score > 8 but <15 Lorazepam (Ativan) 2 mg PO UD PRN; Protocol PRN Reason: CIWA score >/=15. Lorazepam (Ativan) 2 mg IV Q2H PRN PRN; Protocol PRN Reason: CIWA score > 8 but <15 Lorazepam (Ativan) 2 mg IV UD PRN; Protocol PRN Reason: CIWA score >/=15. Losartan Potassium (Cozaar) 50 mg PO BID [facility] Last Admin: 03/18/20 08:12 Dose: 50 mg Documented by: Magnesium Hydroxide (Milk Of Magnesia) 30 ml PO DAILY PRN PRN PRN Reason: Constipation Melatonin (Melatonin) 3 mg PO QHS PRN PRN PRN Reason: INSOMNIA Last Admin: 03/17/20 21:12 Dose: 3 mg Documented by: Multivitamins/Minerals (Multivitamin With Minerals (Bkc)) 1 tablet PO DAILYCM [facility] Last Admin: 03/18/20 08:12 Dose: 1 tablet Documented by: Ondansetron HCl (Zofran) 4 mg IV Q8H PRN PRN PRN Reason: NAUSEA/VOMITING Oxycodone HCl (Oxyir) 5 mg PO Q4H PRN PRN PRN Reason: Pain Score 4-5/10 Oxycodone HCl (Oxyir) 10 mg PO Q4H PRN PRN PRN Reason: Pain Score 6-10/10 Sodium Chloride () 10 - 40 ml IV UD PRN PRN Reason: SALINE FLUSH Last Admin: 03/17/20 16:15 Dose: 10 ml Documented by: Thiamine HCl (Vitamin B1) 100 mg PO BIDCM [facility] Stop: 03/19/20 08:01 Last Admin: 03/18/20 08:12 Dose: 100 mg Documented by: STROKE Vital Signs/Narrative: Vital Signs Temp Pulse Resp BP Pulse Ox 03/18/20 08:15 37.1 C 88 18 153/103 H 98 Medical Necessity - Tobacco Use Smoking Status: Current every day smoker Assessment/Plan All Active Problems FUO (fever of unknown origin) (Acute) Non-traumatic rhabdomyolysis (Acute) Bacteremia (Acute) Ulcer of right foot with fat layer exposed (Acute) Fissure in skin of foot (Acute) Abnormal LFTs (liver function tests) (Acute) Chest pain (Resolved) Elevated d-dimer (Resolved) assessment 1. bacteremia 2. right foot wound 3. HTN plan 1. verify coverage for linezolid 2. amlodipine and Cozaar 3. heel weight bearing 4. follow up with podiatry 5. outpt CBC Inpatient E&M: 96423 Subs Hosp L2
--- NOTE | 2020-03-18 09:52 | PCM.DC.SUM ---
Discharge Date and Diagnosis - Problem List Patient Problems: Active and Suspected Problems FUO (fever of unknown origin) (Acute) Non-traumatic rhabdomyolysis (Acute) Bacteremia (Acute) Ulcer of right foot with fat layer exposed (Acute) Fissure in skin of foot (Acute) Abnormal LFTs (liver function tests) (Acute) Date of Admission: 03/14/20 Date of Discharge: 03/18/20 - Primary Discharge Diagnosis Acute Problems: Active Problems 1. bacteremia 2. infected right foot ulcer 3. HTN - Secondary Discharge Diagnosis Chronic Problems: Chronic Problems Smoker (Chronic) Obesity (BMI 30-39.9) (Chronic) Thrombocytopenia (Chronic) Hospital Course and Treatment Imaging Results: Clinical Impression(s) from Imaging Studies Chest X-Ray 03/14/20 10:12 IMPRESSION: Normal x-ray examination of the chest. Electronically Signed: Laci Restrepo at 11:19 EDT Tel , Service support , Abdomen/Pelvis CT 03/14/20 11:14 IMPRESSION: Liver cirrhosis. Sigmoid diverticulosis. Cholelithiasis. There is a stone in the right kidney measures 8mm without hydronephrosis. There is a stone in the left kidney measures 4 mm without hydronephrosis. There is fat stranding on the right side of the abdomen may be secondary to liver cirrhosis. Electronically Signed: Laci Restrepo at 12:27 EDT Tel , Service support , Chest CTA 03/14/20 15:27 IMPRESSION: Minor subsegmental atelectasis in the lingula. No evidence for pulmonary embolus Electronically Signed: Eduard Tinsley MD at 17:06 EDT , Service support , Foot X-Ray 03/15/20 20:25 IMPRESSION: 1. No acute findings. 2. Mild degenerative changes of the first MTP joint. Electronically Signed: Trish Uriostegui MD at 20:49 EDT Tel , Service support , Fazal: ID Fascione: podiatry Operations: None Procedures: None Summary of Care Provided: The patient is a 50 year old M presents with fever. Patient was found to have methicillin sensitive staph aureus bacteremia. Also simply found to have ulceration on his right foot that also grew out methicillin sensitive staph aureus. He foot infection. Been a source of the bacteremia. Patient was seen in consultation by infectious disease as well as podiatry. From a podiatry standpoint, patient is to be heel weightbearing with a surgical shoe and follow-up in their office as outpatient. Infectious disease will have patient complete a two-week course of Leilani nasal lid and then have outpatient CBC performed. Patient also had hypertension and was started on amlodipine as well as Cozaar. Blood pressure has been better controlled but not ideal at this point time. Patient will need to follow-up with primary care provider as outpatient. Patient did have an echocardiogram performed and did not show up on the [facility] but discussed with Dr. Pugh and it showed no vegetations. [] Patient Problems: Active and Suspected Problems FUO (fever of unknown origin) (Acute) Non-traumatic rhabdomyolysis (Acute) Bacteremia (Acute) Ulcer of right foot with fat layer exposed (Acute) Fissure in skin of foot (Acute) Abnormal LFTs (liver function tests) (Acute) - Physical Exam Vitals/I&O's: Vital Signs Temp Pulse Resp BP Pulse Ox 37.1 C 88 18 153/103 H 98 03/18/20 08:15 03/18/20 08:15 03/18/20 08:15 03/18/20 08:15 03/18/20 08:15 Oxygen Delivery Method Room Air Weight: 132.4 kg Body Mass Index (BMI) 41.8 Intake and Output for Last 24 Hours 03/16/20 03/17/20 03/18/20 23:59 23:59 23:59 Intake Total 6387.5 / 6387.5 3285.0 / 3885.0 1110 / 1110 Balance 6387.5 / 6387.5 3285.0 / 3885.0 1110 / 1110 Microbiology Past 72 Hours 03/15/20 15:45 Blood Culture (Wb) - Left Hand Blood Culture - Preliminary No growth in 48 hours. 03/14/20 19:15 Sputum, Expectorated/Coughed Gram Stain - Final 03/14/20 19:15 Sputum, Expectorated/Coughed Respiratory Culture - Final 03/15/20 19:25 Wound - Aerobic & Anaerobic Swabs Gram Stain - Final 03/15/20 19:25 Wound - Aerobic & Anaerobic Swabs Wound Culture - Final Staphylococcus aureus 03/14/20 10:35 Urine, Clean Catch Urine Culture - Final Streptococcus agalactiae (B) 03/14/20 10:05 Blood Culture (Wb) - Anticubital Left Blood Culture - Preliminary Staphylococcus aureus Laboratory Results 03/18/20 05:45: WBC 7.7, RBC 4.34 L, Hgb 15.7, Hct 45.4, MCV 104.6 H, MCH 36.2 H, MCHC 34.6, RDW Std Deviation 50.3 H, RDW Coeff of Maria Guadalupe 13.0, Plt Count 104 L, MPV 11.7, Immature Gran % (Auto) 0.400, Neut % (Auto) 65.2, Lymph % (Auto) 17.7 L, Isabella % (Auto) 13.5 H, Eos % (Auto) 2.3, Baso % (Auto) 0.9, Absolute Neuts (auto) 5.0, Absolute Lymphs (auto) 1.36, Nucleated RBC % 0 03/18/20 05:45: Sodium 136, Potassium 3.7, Chloride 107, Carbon Dioxide 22.0, Anion Gap 7, BUN 9, Creatinine 0.58 L, Estim Creat Clear Calc 160.82, Est GFR (MDRD) Af Amer 191, Est GFR (MDRD) Non-Af 158, BUN/Creatinine Ratio 15.4, Glucose 80, Calcium 8.2 L, Magnesium 2.1, Total Bilirubin 2.50 H, AST 104 H, ALT 65 H, Alkaline Phosphatase 112, Total Creatine Kinase 163, Total Protein 6.7, Albumin 2.7 L, Globulin 4.0, Albumin/Globulin Ratio 0.7 L Current Medications Acetaminophen (Tylenol) 650 mg PO Q6H PRN PRN PRN Reason: Pain Score 1-10/Temp > 100.7 F Last Admin: 03/17/20 21:12 Dose: 650 mg Documented by: Al Hydroxide/Mg Hydroxide (Mylanta Ii) 30 ml PO Q6H PRN PRN PRN Reason: Gastric Burning Albuterol Sulfate (Ventolin Aerosols) 2.5 mg INHALATION Q2H PRN PRN PRN Reason: Shortness of Breath/Wheezing Amlodipine Besylate (Norvasc) 10 mg PO DAILY [facility] Last Admin: 03/18/20 08:20 Dose: 10 mg Documented by: Folic Acid (Folic Acid) 1 mg PO DAILY@0800 [facility] Stop: 03/19/20 08:01 Last Admin: 03/18/20 08:13 Dose: 1 mg Documented by: Guaifenesin (Robitussin) 20 ml PO Q4H PRN PRN PRN Reason: COUGH Hydralazine HCl (Apresoline Iv) 5 mg IV Q4H PRN PRN PRN Reason: SBP > 160 Last Admin: 03/17/20 21:11 Dose: 5 mg Documented by: Sodium Chloride () 250 mls @ 15 mls/hr IV .[id number] PRN PRN Reason: Saline Flush Last Infusion: 03/16/20 11:44 Dose: 0 mls/hr Documented by: Sodium Chloride () 250 mls @ 15 mls/hr IV .[id number] PRN PRN Reason: Additional IVPB Infusion Cefazolin Sodium 2 gm/ Sodium (Chloride) 110 mls @ 150 mls/hr IV Q8 [facility] Last Infusion: 03/18/20 06:45 Dose: Infused Documented by: Lorazepam (Ativan) 2 mg PO Q2H PRN PRN; Protocol PRN Reason: CIWA score > 8 but <15 Lorazepam (Ativan) 2 mg PO UD PRN; Protocol PRN Reason: CIWA score >/=15. Lorazepam (Ativan) 2 mg IV Q2H PRN PRN; Protocol PRN Reason: CIWA score > 8 but <15 Lorazepam (Ativan) 2 mg IV UD PRN; Protocol PRN Reason: CIWA score >/=15. Losartan Potassium (Cozaar) 50 mg PO BID [facility] Last Admin: 03/18/20 08:12 Dose: 50 mg Documented by: Magnesium Hydroxide (Milk Of Magnesia) 30 ml PO DAILY PRN PRN PRN Reason: Constipation Melatonin (Melatonin) 3 mg PO QHS PRN PRN PRN Reason: INSOMNIA Last Admin: 03/17/20 21:12 Dose: 3 mg Documented by: Multivitamins/Minerals ([facility] With [facility])) [facility] Last Admin: 03/18/20 08:12 Dose: 1 tablet Documented by: Ondansetron HCl (Zofran) 4 mg IV Q8H PRN PRN PRN Reason: NAUSEA/VOMITING Oxycodone HCl (Oxyir) 5 mg PO Q4H PRN PRN PRN Reason: Pain Score 4-5/10 Oxycodone HCl (Oxyir) 10 mg PO Q4H PRN PRN PRN Reason: Pain Score 6-10/10 Sodium Chloride () 10 - 40 ml IV UD PRN PRN Reason: SALINE FLUSH Last Admin: 03/17/20 16:15 Dose: 10 ml Documented by: Thiamine HCl ([facility]itamin B1) [facility] Stop: 03/19/20 08:01 Last Admin: 03/18/20 08:12 Dose: 100 mg Documented by: Discharge Diet: No Restrictions Weight Bearing Status: - - heel weight bearing Keep extremity elevated above heart level: Right Leg Call your doctor if your incision/area has: Continuous Slow Oozing, Sudden Increased Bleeding, Increased Pain/ Swelling, Increased Redness, Foul Smelling Discharge Call your doctor if you observe: Fever of 101 or Higher, Calf discomfort, Uncontrolled pain Cleanse incision/area with: Soap & Water, - - Change toe dressing with hydrogel and gauze daily. Do not soak. Home Medications: Medications to take at Discharge Multivitamin with Minerals [Multiple Vitamin] 1 tab PO DAILY 03/14/20 Amlodipine [Norvasc] 5 mg PO DAILY #30 tab 03/18/20 Linezolid [Zyvox] 600 mg PO Q12H #24 tab 03/18/20 Losartan Potassium [Cozaar] 100 mg PO DAILY #30 tab 03/18/20 Following Prescrptions Were Given to Patient: Losartan Potassium [Cozaar] 100 mg PO DAILY #30 tab Transmission Status: Received by [facility] #30 Amlodipine [Norvasc] 5 mg PO DAILY #30 tab Transmission Status: Received by [facility]30 Linezolid [Zyvox] 600 mg PO Q12H #24 tab Transmission Status: Received by [facility]30 Other Amb Orders: CBC W/Diff, Automated Time Frame: 1 Week, Facility: [facility], Location: Laboratory Primary Care Physician: Care Physician,No Primary [Primary Care Provider] - Please Follow Up With: Bonnie Richardson DPM When: [facility] week [facility]. Call [phone] sooner if questions/concerns Please Follow Up With: Tariq Diehl MD When: 1 week Disposition: Home Minutes spent on discharge:: 40 Patient Condition:: Good Medical Necessity - Tobacco Use Smoking Status: Current every day smoker Meaningful Use Info Meaningful Use Diagnoses (Choose all that apply): None applicable Inpatient E&M: 63660 Disch Hosp
[2020-03-18 15:08] VITALS: BP 129/80; PULSE 84; RESP 16; TEMP 36.7; O2SAT 98
--- NOTE | 2020-03-18 15:11 | NURSING ---
Pt went over how to do drsg change daily to his Rt great toe. PT has hydrogel left over. Pt is aware to follow up with Dr. Richardson and Dr. Diehl in one week and to wear surgical shoe along with heel wt bearing status.
--- OUTSIDE RECORDS SUMMARY | 2020-08-06 15:12 | XMS RPT_ITS | CCD ---
:1970 External Reference #:[id number] Author Organization [employer] Care Team Providers Name Role Phone Unavailable Unavailable Unavailable Results Result Name Value Range Unit Interpretation Flag Date Location progress on 2019-03 Protein mass HNO ID: [id number] Normal 03-29-20 [facility] Author: Brayan (Major Account Manager) Niko Brannon ([id number]) Service: ? Author Type: Nurse Practitioner Type: Progress Notes Filed: 03/29/2019 9:31 AM Note Text: Chief Complaint Patient presents with: Establish Care HPI Aga Moore is a 49 year old male who presents here [facility] for establish care with Dr. Landis. No previous PCP since the . 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 Working on weight loss Has lost 12-13 pounds recently with watching diet. Would like to be screened for diabetes, lipid. He had a Tdap 6 years ago and cutting self. Completed at an urgent care in [place]. At this time, no fevers or chills. No eye, ear, nose, or thr oat complaints. No chest pain, shortness of breath, syncope. No abdominal pain, nausea, vomiting. No blood in his stools or urine. Alejo s mention that for the past year, has had intermittent bubbling of s tool contents that will seep from rectal area. Approximates that it occurs a few times a week. Thinks that it is exacerbated by lifting heavy objec ts. Has to carry diaper wipes to clean self. No rectal pain. Stools are usually on the looser side, no constipation. Can have a few stools a da y, which is normal. States that the area can be itchy at times, discharg e has a strong odor. Believes that he has hemorrhoids. Past medical history, appointments, medications, allergies r ericaweimmanuel. Previous Medical History PAST MEDICAL HISTORY Diagnosis Date - Obesity Previous Surgical History PAST SURGICAL HISTORY Procedure Laterality Date - PAST SURGICAL HISTORY OF Excision pilonidal cyst Family History FAMILY HISTORY Problem Relation Age of Onset - Cancer Father lung - Diabetes Maternal Grandmother Patient Allergies ALLERGIES Allergen Reactions - Pollen Extracts Itching Current Medications Current Outpatient Medications on File Prior to Visit: Multivitamin capsule Take 1 capsule by mouth once daily. Yakar-4-GSL-EPA-Fish Oil (FISH OIL) 1,000 mg (120 mg-180 mg) cap Take 2 g by mouth twice daily. No current facility-administered medications on file prior t o visit. Social History Social History Socioeconomic History Marital status: Single Spouse name: Not on file Number of children: Not on file Years of education: Not on file Highest education level: Not on file Social Needs Financial resource strain: Not on file Food insecurity - worry: Not on file Food insecurity - inability: Not on file Transportation needs - medical: Not on file Transportation needs - non-medical: Not on file Occupational History Not on file Tobacco Use Smoking status: Former Smoker Types: Cigarettes Quit date: 12/23/2016 Years since quittin.2 Smokeless tobacco: Never Used Substance and Sexual Activity Alcohol use: Yes Alcohol/week: 9.0 oz Types: 6 Cans of Beer (12oz) per week Comment: weekends, not daily Drug use: No Sexual activity: Not on file Other Topics Concerns: Not on file Social History Narrative Not on file REVIEW OF SYSTEMS: as above ? Reviewed relevant PMHx, PSHx, Social Hx, current medications and allergies. EXAM: BP 124/84 Pulse 82 Temp 36.6 ?C (97.9 ?F) (Right Tympani c) Resp 14 Ht 172.7 cm (5' 8) Wt 121.6 kg (268 lb) BMI 40.75 kg/m? General Appearance: Well appearing, alert, in no acute distr ess, well-hydrated, well nourished. and Morbidly obese. Head: Normocephalic, no masses, lesions, tenderness or abnor malities. Eyes: Anicteric sclera. Pupils are equally round and reactiv e to light. Extraocular movements are intact. . Ears: External ears normal, canals clear. Nose/Sinuses: Nares normal, septum midline, mucosa normal, n o drainage or sinus tenderness. Oropharynx: Lips, mucosa, and tongue normal, teeth and gums normal, oropharynx normal. Neck: Supple, no adenopathy; thyroid symmetric, normal size, no bruits. Lungs: lungs clear to auscultation. No wheezing, rhonchi, ra les. Heart: RRR without murmur, gallop, or rubs. No ectopy. Abdomen: Normal abdominal exam, Abdomen soft, non-tender. Denzel wel sounds normal. No masses, organomegaly. Extremities: No deformities, edema. Peripheral Pulses: Normal, Pulses: radial=4/4, dorsalis pedi s=4/4, posterior tibial=4/4. Neurologic: Gait normal. Reflexes normal and symmetric. Sens ation grossly intact.. Rectal: Negative findings: perianal area normal, anus normal , digital rectal exam negative. Lymph Nodes: No cervical lymphadenopathy. Health Maintenance List DTAP,TDAP,TD(1 - Tdap) due on 02/15/1991 LIPID SCREEN due on 02/15/2007 DIABETES SCREEN due on 02/15/2017 INFLUENZA(Season Ended) due on 06/25/2019 Data reviewed None, new patient. ASSESSMENT/PLAN: 1. Encounter to establish care - ICD9: V65.8, ICD10: Z76.89 (primary diagnosis) Now established with Dr. Landis 2. Screening for diabetes mellitus - ICD9: V77.1, ICD10: Z13 .1 - COMP METABOLIC PANEL 3. Screening for lipid disorders - ICD9: V77.91, ICD10: Z13. 220 - LIPID PANEL BASIC 4. Class 3 severe obesity due to excess calories without ser ious comorbidity with body mass index (BMI) of 40.0 to 44.9 in ad ult ([facility]) - ICD9: 278.01, V85.41, ICD10: E66.01, Z68.41 - Discussed getting 30-45 minutes of exercise daily, provide d low-cholesterol diet. 5. Fecal smearing - ICD9: 787.62, ICD10: R15.1 - Physical exam normal. We discussed trial of Benefiber to b ulk stools as his stools have been looser for the past year. He will tr ial this for 3 weeks, contact office if not improving symptoms, we will r efer to gastroenterology for second opinion. Get labs today, contact office for #5 if not improving, foll ow up yearly and as needed. Brayan Pope APRN.KNITTING MACHINE OPERATOR lipid panel, basic on 2019-03-29 Cholesterol in HDL mass conc 38 >39 mg/dL Low 0 03-29-2019 [facility] ([id number]) Comment: Result Comment: 40-59 mg/dL, Acceptable >59 mg/dL, High: Negative ri sk factor for coronary heart disease <40 mg/dL, Low: Positive ris k factor for coronary heart disease Performed By: #### CMP, LIPB #### [facility] [address] [address] Cholesterol in LDL mass conc 105 <100 mg/dL High 0 03-29-2019 [facility] ([id number]) Comment: Result Comment: <100 mg/dL, Optimal 100-129 mg/dL, Near optimal/ above optimal 130-159 mg/dL, Borderline hi gh 160-189 mg/dL, High >189 mg/dL, Very high Secondary prevention optimal LDL Cholesterol levels are recommended to be < 70 mg/dL Performed By: #### CMP, LIPB #### [facility] [address] [address] Cholesterol mass conc 167 <200 mg/dL Normal 03-29-20 [facility] ([id number]) Comment: Result Comment: <200 mg/dL, Desirable 200-239 mg/dL, Borderline hi gh >239 mg/dL, High Performed By: #### CMP, LIPB #### [facility] [address] [address] Fasting Time 11 hrs Normal 03-29-2019 [facility] ([id number]) Comment: Performed By: #### CMP, LIPB #### [facility] [address] [address] LDL:HDL Ratio 2.76 <2.54 High 03-29-2019 [facility] ([id number]) Comment: Result Comment: Reference: 1. National Cholesterol Educ ation Program ATP III Guideline At-A-Glance Quick Desk Reference: National Heart, Lung, and Blood [place]. National Institutes of Health. 2001: NIH Publication No. 01-3305. 2. An International Atherosc lerosis Society position paper: global recommendations for the management of dyslipidemia: executive summary, Atherosclerosis. 2014: 232(2):410-413. Performed By: #### CMP, LIPB #### [facility] [address] [address] Non HDL Cholesterol 129 <130 mg/dL Normal 03-29-2019 [facility] ([id number]) Comment: Result Comment: <130 mg/dL, Optimal 130-159 mg/dL, Near optimal/ above optimal 160-189 mg/dL, Borderline hi gh 190-219 mg/dL, High >219 mg/dL, Very high Secondary prevention optimal non HDL Cholesterol levels are recommended to be < 100 mg/dL Performed By: #### CMP, LIPB #### [place] [address] TC:HDL Ratio 4.39 <5.10 Normal 03-29-2019 [facility] ([id number]) Comment: Performed By: #### CMP, LIPB #### [place] [address] Triglyceride mass conc 121 <150 mg/dL Normal 019 [facility] ([id number]) Comment: Result Comment: <150 mg/dL, Normal 150-199 mg/dL, Borderline hi gh 200-499 mg/dL, High >499 mg/dL, Very high Performed By: #### CMP, LIPB #### [place] [address] VLDL Cholesterol 24 <30 mg/dL Normal 03-29-2019 [facility] ([id number]) Comment: Performed By: #### CMP, LIPB #### [place] [address] comp metabolic panel on 2019-03-29 Albumin mass conc 4.0 3.9-4.9 g/dL Normal 03-29-2019 [facility] ([id number]) Comment: Performed By: #### CMP, LIPB #### [facility] [address] [address] ALP enzyme act/vol 112 38-113 U/L Normal 03-29-2019 [facility] ([id number]) Comment: Performed By: #### CMP, LIPB #### [facility] [address] [address] ALT enzyme act/vol 51 10-54 U/L Normal 03-29-2019 [facility] ([id number]) Comment: Performed By: #### CMP, LIPB #### [place] [address] Anion gap molar conc 11 9-18 mmol/L Normal 9 [facility] ([id number]) Comment: Performed By: #### CMP, LIPB #### [place] [address] AST enzyme act/vol 106 14-40 U/L High 03-29-2019 [facility] ([id number]) Comment: Performed By: #### CMP, LIPB #### [place] [address] Bilirubin mass conc 1.2 0.2-1.3 mg/dL Normal 03-29-2019 [facility] ([id number]) Comment: Performed By: #### CMP, LIPB #### [place] [id number] Calcium mass conc 8.5 8.5-10.2 mg/dL Normal 03-29-2019 [facility] ([id number]) Comment: Performed By: #### CMP, LIPB #### [address] [place] [address] Chloride molar conc 101 97-105 mmol/L Normal 03-29-2019 [facility] ([id number]) Comment: Performed By: #### CMP, LIPB #### [facility] [address] [place], [place] [id number] CO2 molar conc 27 22-30 mmol/L Normal 03-29-2019 [facility] ([id number]) Comment: Performed By: #### CMP, LIPB #### [facility] [address] [place], [place] [address] Creatinine mass conc 0.72 0.73-1.22 mg/dL Low 9 [facility] ([id number]) Comment: Performed By: #### CMP, LIPB #### [facility] [address] [place], [place] [address] eGFR- Amer. >60 Normal 03-29-2019 [facility] ([id number]) Comment: Performed By: #### CMP, LIPB #### [facility] [address] [address] GFR/1.73 sq M predicted >60 mL/min/{1.73_m2} Normal 03-29-2019 [facility] among non-blacks [facility] ([id number]) vol rate/area (S/P/Bld) Comment: Result Comment: eGFR (Estima laura GFR) Units of measure: mL/min/1.73 meters squared eGFR is derived from the ree xpressed MDRD Study equation using the following parameters: serum creatinine, age, gender and race. The creatinine assay has been calibrated to be traceable to IDMS. An eGFR <60 mL/min/1.73m2 fo r >3 months is consistent with chronic kidney disease. Refer to KDOQI guidelines for clinical interpretation. In patients with unstable re nal function, e.g. those with acute kidney injury, the eGFR may not accurately reflect actual GFR. Performed By: #### CMP, LIPB #### [facility] [address] [place], [place] [address] Glucose mass conc 109 74-99 mg/dL High 03-29-2019 [facility] ([id number]) Comment: Result Comment: The [place] Diabetes Association (ADA) provides guidance for cutoff values for fasting glucose and random glucose. The ADA defines fasting as no caloric intake for at least 8 hours. Fas ting plasma glucose results between 100 to 125 mg/dL indicate increased risk for diabetes (prediabetes). Fasting plasma glucose resul ts greater than or equal to 126 mg/dL meet the criteria for diagnosis of diabetes. In the absence of unequivocal hyperglycemia, results should be confirmed by repeat testing. In a patient with classic s ymptoms of hyperglycemia or hyperglycemic crisis, random plasma glucose results greater than or equal to 200 mg/dL meet the criteria for diagnosis of diabetes. Reference: Standards of [facility] Care in Diabetes 2016, [place] Diabetes Association. Diabetes Care. 2016.39(Suppl 1). Performed By: #### CMP, LIPB #### [facility] [address] [address] Potassium molar conc 3.5 3.7-5.1 mmol/L Low 9 [facility] ([id number]) Comment: Performed By: #### CMP, LIPB #### [facility] [address] [place] [address] Protein mass conc 6.8 6.3-8.0 g/dL Normal 03-29-2019 [facility] ([id number]) Comment: Performed By: #### CMP, LIPB #### [facility] [address] [address] Sodium molar conc 139 136-144 mmol/L Normal 03-29-2019 [facility] ([id number]) Comment: Performed By: #### CMP, LIPB #### [facility] [employer] [address] [address] Urea nitrogen mass conc 5 9-24 mg/dL Low 2018 [facility] ([id number]) Comment: Performed By: #### CMP, LIPB #### [facility] [employer] [facility] [address] [place] [address] cnov on 2019-03-29 CNOV Office Visit (FAMPWS) Normal 03-29-20 [place] [facility] AGA MOORE ([id number]) 1970 [place] Date Time Provider Department ([id number]) 03/29/19 9:00 AM BRAYAN POPE (KNITTING MACHINE OPERATOR) JOJO During your visit today, we recorded the following informati on about you: Temperature Pulse Respiration Blood pressure 97.9 degrees 82/minute 14/minute 124/84 Weight Height 121.6 kg 1.727 m Brayan Pope APRN.CNP 03/29/2019 9:31 AM Signed Chief Complaint Patient presents with: [facility] HPI Aga Moore is a 49 year old male who presents he re today for establish care with Dr. Landis. No previous PCP since the . 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 Would like to be screened for diabetes, lipid. He had a Tdap 6 years ago and cutting self. Completed at an urgent care in [place]. At this time, no fevers or chills. No ey e, ear, nose, or throat complaints. No chest pain, shortness of breath, syncope . No abdominal pain, nausea, vomiting. No blood in his stools or urine. Does mention that for the p ast year, has had intermittent bubbling of stool con tents that will seep from rectal area. Approximates that it occurs a few times a week. Thinks that it is exacerbated by lifting heavy objects. Has to carry diaper wipes to clean self. No rectal pain. Stools are usually on the looser side, no consti pation. Can have a few stools a day, which is normal. States that the area can be i tchy at times, discharge has a strong odor. Believes that he has hemorrhoid s. Past medical history, appointments, medications, allergies r eviewed. Previous Medical History PAST MEDICAL HISTORY Diagnosis Date - Obesity Previous Surgical History PAST SURGICAL HISTORY Procedure Laterality Date - PAST SURGICAL HISTORY OF Excision pilonidal cyst Family History FAMILY HISTORY Problem Relation Age of Onset - Cancer Father lung - Diabetes Maternal Grandmother Patient Allergies ALLERGIES Allergen Reactions - Pollen Extracts Itching Current Medications Current Outpatient Medications on File Prior to Visit: Multivitamin capsule Take 1 capsule by mouth once daily. Eavyz-5-QFF-EPA-Fish Oil (FISH OIL) 1,000 mg (120 mg-1 80 mg) cap Take 2 g by mouth twice daily. No current facility-administered medications on file prior t o visit. Social History Social History Socioeconomic History Marital status: Single Spouse name: Not on file Number of children: Not on file Years of education: Not on file Highest education level: Not on file Social Needs Financial resource strain: Not on file Food insecurity - worry: Not on file Food insecurity - inability: Not on file Transportation needs - medical: Not on file Transportation needs - non-medical: Not on file Occupational History Not on file Tobacco Use Smoking status: Former Smoker Types: Cigarettes Quit date: 12/23/2016 Years since quittin.2 Smokeless tobacco: Never Used Substance and Sexual Activity Alcohol use: Yes Alcohol/week: 9.0 oz Types: 6 Cans of Beer (12oz) per week Comment: weekends, not daily Drug use: No Sexual activity: Not on file Other Topics Concerns: Not on file Social History Narrative Not on file REVIEW OF SYSTEMS: as above ? Reviewed relevant PMHx, PSHx, Social Hx, current medicatio ns and allergies. EXAM: BP 124/84 Pulse 82 Temp 36.6 ?C (97.9 ?F) (Right Tympani c) Resp 14 Ht 172.7 cm (5' 8) Wt 121.6 kg (268 lb) BMI 40.75 kg/m? General Appearance: Well tim earing, alert, in no acute distress, well-hydrated, well nourished. and Morbidly obese. Head: Normocephalic, no masses, lesions, tenderness or abnor malities. Eyes: Anicteric sclera. Pupils are equally round and reactiv e to light. Extraocular movements are intact. . Ears: External ears normal, canals clear. Nose/Sinuses: Nares normal, septum midline, mucosa normal, no drainage or sinus tenderness. Oropharynx: Lips, mucosa, and tongue nor mal, teeth and gums normal, oropharynx normal. Neck: Supple, no adenopathy; thyroid symmetric, normal size, no bruits. Lungs: lungs clear to auscultation. No wheezing, rhonchi, ra les. Heart: RRR without murmur, gallop, or rubs. No ectopy. Abdomen: Normal abdominal exam, Abdomen soft, non-tender. Bowel sounds normal. No masses, organomegaly. Extremities: No deformities, edema. Peripheral Pulses: Normal, Pulses: radial=4/4, dorsali s pedis=4/4, posterior tibial=4/4. Neurologic: Gait normal. Reflexes normal and symmetric. Sens ation grossly intact.. Rectal: Negative findings: perianal area normal, anus normal, digital rectal exam negative. Lymph Nodes: No cervical lymphadenopathy. Health Maintenance List DTAP,TDAP,TD(1 - Tdap) due on 02/15/1991 LIPID SCREEN due on 02/15/2007 DIABETES SCREEN due on 02/15/2017 INFLUENZA(Season Ended) due on 06/25/2019 Data reviewed None, new patient. ASSESSMENT/PLAN: 1. Encounter to establish ca re - ICD9: V65.8, ICD10: Z76.89 (primary diagnosis) Now established with Dr. Landis 2. Screening for diabetes mellitus - ICD9: V77.1, ICD10: Z13 .1 - COMP METABOLIC PANEL 3. Screening for lipid disorders - ICD9: V77.91, ICD10: Z13. 220 - LIPID PANEL BASIC 4. Class 3 severe obesity due to excess calories witho ut serious comorbidity with body mass index (BMI) of 40.0 to 44.9 in adult (HCC) - ICD9: 278.01, V85.41, ICD10: E66.01, Z68.41 - Discussed getting 30-45 minutes of exercise da mayte, provided low-cholesterol diet. 5. Fecal smearing - ICD9: 787.62, ICD10: R15.1 - Physical exam normal. We discussed trial of Be nefiber to bulk stools as his stools have been looser for the past year. He will trial thi s for 3 weeks, contact office if not improv ing symptoms, we will refer to gastroenterology for second opinion. Get labs today, contact offi ce for #5 if not improving, follow up yearly and as needed. EMANUEL Paulino APRN.CNP 03/29/2019 9:23 AM Signed I would recommend trial of Benefiber ove r the counter. Start with the starting dose and trial for 3 weeks. If you symptoms are not re solved, please call my office at [phone], ask to speak to a nurse, and I can put in a referral to gastroenterology. Brayan Pope APRN.CNP HEALTHY EATING FOR A LOW FAT, LOW CHOLESTEROL DIET Choose Daily Go Easy Caution Meat Equivalents Lean cuts of meat with fat trimmed like: Beef: eye, tip or top of the round Poultry without skin Dried beans and peas Egg whites/egg substitutes Fish/Shellfish Low-fat/skim milk Cheeses or lunch meats with less than 3 grams of fat per oun ce Natural peanut butter Prime grades of meat Duck, goose Moralez, sausage Lunch/deli meats Hot dogs Ribs, organ meats Whole milk cheeses Other nuts/cheeses Eggs Egg whites, cholesterol- free egg substitutes Egg yolks (twice a week) Dairy Products Fat-free milk, 1% low fat milk, low fat buttermilk Nonfat/low-fat yogurt Low-fat frozen yogurt Evaporated fat-free milk 2% low fat milk Sherbet/ice milk Light cream cheese Light sour cream Regular fat yogurt Part-skim milk or regular hard cheese Whole milk, cream [id number]-oxkk, most dairy creamers Real non-dairy whipped cream Cream cheese, sour cream Ice cream Custard style yogurt Whole milk cheeses Fruits and Vegetables Fresh, frozen, canned or dried fruits/vegetables Olives Avocadoes Fruits or vegetables prepared in butter or cream sauce Fried fruits and vegetables Coconut Grains Breads (especially whole wheat, pumpernickel, rye) Low fat crackers, rice cakes and matzo High fiber cereal - hot or cold Pasta/noodels (no egg yolks) Rice Bagels, Turkmen muffins Potatoes Baked goods (cake, muffins, pancakes, waffles, biscuits, cor nbread) Croissants, pastry, doughnuts, sweet rolls Granola Snack Crackers made without allowed ingredients Starches prepared with cream, butter or cheese sauces Egg noodles Fats and Oils Unsaturated vegetable oils: canola, olive, peanut, corn, s afflower, sesame, soybean, sunflower Margarine made with plant stanols Vegetable cooking spray Low fat salad dressing (made with unsaturated fats) Low fat mayonnaise Seeds Butter, lard, beef tallow, moralez fat Shortening Palm, palm kernel and coconut oils Hydrogenated oils Regular mayonnaise or margarine Regular salad dressing Snacks (In very limited amount) Sherbet, sorbet, Gibraltarian ice, frozen yogurt, popsicles , génesis food cake, fig bars, gingersnaps, low-fat j loly beans and hard candy, plain popcorn, pretzels, fruit juices, tea, coffee Fruit crisps and cobblers, homemade cakes, pies and cookies made with unsaturated oils Ice cream, frozen tofu, candy, chocolate, potato chips, butt er popcorn, milkshakes, frappes, floats, eggnog, store-bought pies, most store-bought frosted and pound cakes For diet, please focus on: - More lean meats like chicken, fish, turkey rather than red meats - Less carbs and when having carbs, more complex carbs such as beans, wheat or multigrain and brown rice - more vegetables - health fats such as olive oil, nuts, avocados For exercise: Please try and aim for a goa l of 30 min a day most days of the week with a goal of 150min/wk. Brisk walking is plenty, i f you can increase it later, then that is good, but if you are helena g from little or no exercise to this new routine, I do not want you to go too extreme. If yo u already exercise, I encourage you to try and do a little more than what you have been doing. Brayan Pope APRN.YAHIR Referring Provider: SELF [[id number]] Allergies As of Date: 03/29/2019 Noted Allergy Reaction POLLEN EXTRACTS 03/29/2019 9 - Itching Date Reviewed: 03/29/2019 Reviewed by: Brayan (Yahir) Niko - Fully Assessed Reason for Visit: Establish Care [42] Primary Visit Diagnosis:Encounter to establish care [Z76.89] Other Visit Diagnoses:Screening for diabetes mellitus [Z13.1 ] Screening for lipid disorders [Z13.220] Class 3 severe obesity due to excess calories without serious comorbidity with body mass index (BMI) of 40.0 to 44.9 in adult (HCC) [E66.01, Z68.41] Fecal smearing [R15.1] Order(s):COMP METABOLIC PANEL [SQCMP] Order #: [id number] FU MARLYNE LIPID PANEL BASIC [SQLIPB] Order #: [id number] FUTURE Prescriptions as of 03/29/2019 Sig: MULTIVITAMIN CAPSULE Take 1 capsule by mouth once * OMEGA 6-ZHO-XSP-FISH OIL 1,00* Take 2 g by mouth twice daily . Problem List As Of Date 03/29/2019 Noted Resolved Pilonidal cyst without abscess [L05.91] INVALID FOR* Obesity [E66.9] Other instructions from your clinician: I would recommend trial of Benefiber over the counter. Start with the starting dose and trial for 3 weeks. If you symptoms are not resolved, please call my office at [phone], ask to speak to a walt se, and I can put in a referral to gastroenterology. Brayan Pope APRN.KNITTING MACHINE OPERATOR HEALTHY EATING FOR A LOW FAT, LOW CHOLESTEROL DIET Choose Daily Go Easy Caution Meat Equivalents Lean cuts of meat with fat trimmed like: Beef: eye, tip or top of the round Poultry without skin Dried beans and peas Egg whites/egg substitutes Fish/Shellfish Low-fat/skim milk Cheeses or lunch meats with less than 3 grams of fat per oun ce Natural peanut butter Prime grades of meat Duck, goose Moralez, sausage Lunch/deli meats Hot dogs Ribs, organ meats Whole milk cheeses Other nuts/cheeses Eggs Egg whites, cholesterol- free egg substitutes Egg yolks (twice a week) Dairy Products Fat-free milk, 1% low fat milk, low fat buttermilk Nonfat/low-fat yogurt Low-fat frozen yogurt Evaporated fat-free milk 2% low fat milk Sherbet/ice milk Light cream cheese Light sour cream Regular fat yogurt Part-skim milk or regular hard cheese Whole milk, cream Jdqe-sll-lrom, most dairy creamers Real non-dairy whipped cream Cream cheese, sour cream Ice cream Custard style yogurt Whole milk cheeses Fruits and Vegetables Fresh, frozen, canned or dried fruits/vegetables Olives Avocadoes Fruits or vegetables prepared in butter or cream sauce Fried fruits and vegetables Coconut Grains Breads (especially whole wheat, pumpernickel, rye) Low fat crackers, rice cakes and matzo High fiber cereal - hot or cold Pasta/noodels (no egg yolks) Rice Bagels, Turkmen muffins Potatoes Baked goods (cake, muffins, pancakes, waffles, biscuits, cor nbread) Croissants, pastry, doughnuts, sweet rolls Granola Snack Crackers made without allowed ingredients Starches prepared with cream, butter or cheese sauces Egg noodles Fats and Oils Unsaturated vegetable oils: canola, olive, peanut, corn, saf flower, sesame, soybean, sunflower Margarine made with plant stanols Vegetable cooking spray Low fat salad dressing (made with unsaturated fats) Low fat mayonnaise Seeds Butter, lard, beef tallow, moralez fat Shortening Palm, palm kernel and coconut oils Hydrogenated oils Regular mayonnaise or margarine Regular salad dressing Snacks (In very limited amount) Sherbet, sorbet, Gibraltarian ice, frozen yogurt, popsicles, yue l food cake, fig bars, gingersnaps, low-fat jelly beans and hard candy, p nohelia popcorn, pretzels, fruit juices, tea, coffee Fruit crisps and cobblers, homemade cakes, pies and cookies made with unsaturated oils Ice cream, frozen tofu, candy, chocolate, potato chips, butt er popcorn, milkshakes, frappes, floats, eggnog, store-bought pies, most store-bought frosted and pound cakes For diet, please focus on: - More lean meats like chicken, fish, turkey rather than red meats - Less carbs and when having carbs, more complex carbs such as beans, wheat or multigrain and brown rice - more vegetables - health fats such as olive oil, nuts, avocados For exercise: Please try and aim for a goal of 30 min a day most days of t he week with a goal of 150min/wk. Brisk walking is plenty, if you can incre ase it later, then that is good, but if you are going from little or no ex ercise to this new routine, I do not want you to go too extreme. If you alr norma exercise, I encourage you to try and do a little more than what you morales ve been doing. Brayan Pope APRN.YAHIR Disposition: Return if symptoms worsen or fail to improve. Follow-up and Disposition History Recorded Encounter Status:Closed by BRAYAN POPE CNP on 03/29/19 Summary Purpose Family History No Family History Records Found Advance Directives No Advanced Directives Records Found Additional Source Comments FOR RECORDS PERTAINING TO PATIENTS WHO ARE OR HAVE BEEN ENROLLED IN A CHEMICAL DEPENDENCY/SUBSTANCE ABUSE PROGRAM, SOME INFORMATION MAY BE OMITTED. This clinical summary was aggregated from multiple sources. Caution should be exercised in using it in the provision of clinical care. This summary normalizes information from multiple sources, and as a consequence, information in this document may materially changethe coding, format and clinical context of patient data. In addition, data may be omittedin some cases. CLINICAL DECISIONS SHOULD BE BASED ON THE PRIMARY CLINICAL RECORDS. [employer] [facility] provides no warranty or guarantee of the accuracy or completeness of information in this document. UNRECOGNIZED CONTENT PROVIDED BELOW FOR UNRECOGNIZED SECTION No Status Records Found UNRECOGNIZED CONTENT PROVIDED BELOW FOR UNRECOGNIZED SECTION INFORMATION SOURCE DATE CREATED AUTHOR AUTHOR'S ORGANIZATIO N 04/01/2019 [facility] Joseph head
--- OUTSIDE RECORDS SUMMARY | 2020-08-06 15:21 | XMS RPT_ITS | CCD ---
:1970 External Reference #:[id number] Author Organization [facility] [employer] Care Team Providers Name Role Phone Unavailable Unavailable Unavailable Results Result Name Value Range Unit Interpretation Flag Date Location progress on 2019-03 Protein mass HNO ID: [id number] Normal 03-29-20 [facility] Author: Brayan (Grey Tender) Niko Brannon ([id number]) Service: ? Author Type: Nurse Practitioner Type: Progress Notes Filed: 03/29/2019 9:31 AM Note Text: Chief Complaint Patient presents with: Establish Care HPI Aga Moore is a 49 year [facility] Land[facility]. No previous PCP since the . 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 Working on weight loss Has lost 12-13 pounds recently with watching diet. Would like to be screened for diabetes, lipid. He had a Tdap 6 years ago and cutting self. Completed at an urgent care in [place]. At this time, no fevers or chills. [...] Take 1 capsule by mouth once daily. Mwlpt-4-IQD-EPA-Fish Oil (FISH OIL) 1,000 mg (120 mg-180 [...] of 40.0 to 44.9 in ad ult ([facility]) - ICD9: 278.01, V85.41, ICD10: E66.01, Z68.41 [...] up yearly and as needed. Brayan Pope APRN.MEAL TEMPERER lipid panel, basic on 2019-03-29 Cholesterol in HDL mass conc 38 >39 mg/dL Low 0 03-29-2019 [facility] ([id number]) Comment: Result Comment: 40-59 mg/dL, Acceptable >59 mg/dL, High: Negative ri sk factor for coronary heart disease <40 mg/dL, Low: Positive ris k factor for coronary heart disease Performed By: #### CMP, LIPB #### [facility] [address] [address] Cholesterol in LDL mass conc 105 <100 mg/dL High 0 03-29-2019 [facility] ([id number]) Comment: Result Comment: <100 mg/dL, Optimal 100-129 mg/dL, Near optimal/ above optimal 130-159 mg/dL, Borderline hi gh 160-189 mg/dL, High >189 mg/dL, Very high Secondary prevention optimal LDL Cholesterol levels are recommended to be < 70 mg/dL Performed By: #### CMP, LIPB #### [facility] [address] [address] Cholesterol mass conc 167 <200 mg/dL Normal 03-29-20 [facility] ([id number]) Comment: Result Comment: <200 mg/dL, Desirable 200-239 mg/dL, Borderline hi gh >239 mg/dL, High Performed By: #### CMP, LIPB #### [facility] [address] [address] Fasting Time 11 hrs Normal 03-29-2019 [facility] ([id number]) Comment: Performed By: #### CMP, LIPB #### [facility] [address] [address] LDL:HDL Ratio 2.76 <2.54 High 03-29-2019 [facility] ([id number]) Comment: Result Comment: Reference: 1. National Cholesterol Educ ation Program ATP III Guideline At-A-Glance Quick Desk Reference: National Heart, Lung, and Blood [place]. National Institutes of Health. 2001: NIH Publication No. 01-3305. 2. An International Atherosc lerosis Society position paper: global recommendations for the management of dyslipidemia: executive summary, Atherosclerosis. 2014: 232(2):410-413. Performed By: #### CMP, LIPB #### [facility] [address] [address] Non HDL Cholesterol 129 <130 mg/dL Normal 03-29-2019 [facility] ([id number]) Comment: Result Comment: <130 mg/dL, Optimal 130-159 mg/dL, Near optimal/ above optimal 160-189 mg/dL, Borderline hi gh 190-219 mg/dL, High >219 mg/dL, Very high Secondary prevention optimal non HDL Cholesterol levels are recommended to be < 100 mg/dL Performed By: #### CMP, LIPB #### [place] [address] TC:HDL Ratio 4.39 <5.10 Normal 03-29-2019 [facility] ([id number]) Comment: Performed By: #### CMP, LIPB #### [place] [address] Triglyceride mass conc 121 <150 mg/dL Normal 019 [facility] ([id number]) Comment: Result Comment: <150 mg/dL, Normal 150-199 mg/dL, Borderline hi gh 200-499 mg/dL, High >499 mg/dL, Very high Performed By: #### CMP, LIPB #### [place] [address] VLDL Cholesterol 24 <30 mg/dL Normal 03-29-2019 [facility] ([id number]) Comment: Performed By: #### CMP, LIPB #### [place] [address] comp metabolic panel on 2019-03-29 Albumin mass conc 4.0 3.9-4.9 g/dL Normal 03-29-2019 [facility] ([id number]) Comment: Performed By: #### CMP, LIPB #### [facility] [address] [address] ALP enzyme act/vol 112 38-113 U/L Normal 03-29-2019 [facility] ([id number]) Comment: Performed By: #### CMP, LIPB #### [facility] [address] [address] ALT enzyme act/vol 51 10-54 U/L Normal 03-29-2019 [facility] ([id number]) Comment: Performed By: #### CMP, LIPB #### [place] [address] Anion gap molar conc 11 9-18 mmol/L Normal 9 [facility] (00638) Comment: Performed By: #### CMP, LIPB #### [place] [address] AST enzyme act/vol 106 14-40 U/L High 03-29-2019 [facility] ([id number]) Comment: Performed By: #### CMP, LIPB #### [place] [address] Bilirubin mass conc 1.2 0.2-1.3 mg/dL Normal 03-29-2019 [facility] (17747) Comment: Performed By: #### CMP, LIPB #### [place] [id number] Calcium mass conc 8.5 8.5-10.2 mg/dL Normal 03-29-2019 [facility] (30419) Comment: Performed By: #### CMP, LIPB #### [place] [address] [place] [address] Chloride molar conc 101 97-105 mmol/L Normal 03-29-2019 [facility] (71233) Comment: Performed By: #### CMP, LIPB #### [facility] [address] [place], [place] [id number] CO2 molar conc 27 22-30 mmol/L Normal 03-29-2019 [facility] ([id number]) Comment: Performed By: #### CMP, LIPB #### [facility] [address] [place], [place] [address] Creatinine mass conc 0.72 0.73-1.22 mg/dL Low 9 [facility] (59861) Comment: Performed By: #### CMP, LIPB #### [facility] [address] [place], [place] [address] eGFR- Amer. >60 Normal 03-29-2019 [facility] (68838) Comment: Performed By: #### CMP, LIPB #### [facility] [address] [address] GFR/1.73 sq M predicted >60 mL/min/{1.73_m2} Normal 03-29-2019 [facility] among non-blacks [facility] ([id number]) vol rate/area (S/P/Bld) Comment: Result Comment: eGFR [...] GFR. Performed By: #### CMP, LIPB #### [facility] [address] [place], [place] [address] Glucose mass conc 109 74-99 mg/dL High 03-29-2019 [facility] (92155) Comment: Result Comment: The [place] Diabetes Association (ADA) provides guidance for cutoff [...] for diagnosis of diabetes. Reference: Standards of [facility] Care in Diabetes 2016, [place] Diabetes Association. Diabetes Care. 2016.39(Suppl 1). Performed By: #### CMP, LIPB #### [facility] [address] [address] Potassium molar conc 3.5 3.7-5.1 mmol/L Low 9 [facility] (47343) Comment: Performed By: #### CMP, LIPB #### [facility] [employer] [facility] [address] [place] [address] Protein mass conc 6.8 6.3-8.0 g/dL Normal 03-29-2019 [facility] (77548) Comment: Performed By: #### CMP, LIPB #### [facility] [employer] [facility] [address] [address] Sodium molar conc 139 136-144 mmol/L Normal 03-29-2019 [facility] (89141) Comment: Performed By: #### CMP, LIPB #### [facility] [employer] [facility] [address] [address] Urea nitrogen mass conc 5 9-24 mg/dL Low 2018 [facility] ([id number]) Comment: Performed By: #### CMP, LIPB #### [facility] [facility] [address] [place] [address] cnov on 2019-03-29 CNOV Office Visit (FAMPWS) Normal 03-29-20 [facility] AGA MOORE ([id number]) 1970 [place] Date Time Provider Department ([id number]) 03/29/19 9:00 AM BRAYAN POPE (MEAL TEMPERER) JOJO During your visit today, we recorded the following informati on about you: Temperature Pulse Respiration Blood pressure 97.9 degrees 82/minute 14/minute 124/84 Weight Height 121.6 kg 1.727 m Brayan Pope APRN.CNP 03/29/2019 9:31 AM Signed Chief Complaint Patient presents with: [facility] HPI Aga Moore is a 49 year old male who presents he re today for establish care with Dr. Landis. No previous PCP since the . 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 Would like to be screened for diabetes, lipid. He had a Tdap 6 years ago and cutting self. Completed at an urgent care in [place]. At this time, no fevers or chills. [...] Take 1 capsule by mouth once daily. Zuqgj-1-GHF-EPA-Fish Oil (FISH OIL) 1,000 mg (120 mg-1 [...] re solved, please call my office at [phone], ask to speak to a nurse, and [...] or regular hard cheese Whole milk, cream Vdlr-wvd-qgpx, most dairy creamers Real non-dairy whipped cream [...] cold Pasta/noodels (no egg yolks) Rice Bagels, Guatemalan muffins Potatoes Baked goods (cake, muffins, pancakes, [...] Snacks (In very limited amount) Sherbet, sorbet, New Zealander ice, frozen yogurt, popsicles , génesis food [...] [R15.1] Order(s):COMP METABOLIC PANEL [SQCMP] Order #: [id number] FU MARLYNE LIPID PANEL BASIC [SQLIPB] Order #: [id number] FUTURE Prescriptions as of 03/29/2019 Sig: MULTIVITAMIN CAPSULE Take 1 capsule by mouth once * OMEGA 2-KJF-OZV-FISH OIL 1,00* Take 2 g by mouth twice daily . Problem List As Of Date 03/29/2019 Noted Resolved Pilonidal cyst without abscess [L05.91] INVALID FOR* Obesity [E66.9] Other instructions from your clinician: I would recommend trial of Benefiber over the counter. Start with the starting dose and trial for 3 weeks. If you symptoms are not resolved, please call my office at [phone], ask to speak to a walt se, and I can put in a referral to gastroenterology. Brayan Pope APRN.MEAL TEMPERER HEALTHY EATING FOR A LOW FAT, LOW [...] or regular hard cheese Whole milk, cream Hntq-bcp-xtrg, most dairy creamers Real non-dairy whipped cream [...] cold Pasta/noodels (no egg yolks) Rice Bagels, Guatemalan muffins Potatoes Baked goods (cake, muffins, pancakes, [...] Snacks (In very limited amount) Sherbet, sorbet, New Zealander ice, frozen yogurt, popsicles, yue l food [...] BE BASED ON THE PRIMARY CLINICAL RECORDS. [employer] [facility] provides no warranty or guarantee of the accuracy or completeness of information in this document. UNRECOGNIZED CONTENT PROVIDED BELOW FOR UNRECOGNIZED SECTION No Status Records Found UNRECOGNIZED CONTENT PROVIDED BELOW FOR UNRECOGNIZED SECTION INFORMATION SOURCE DATE CREATED AUTHOR AUTHOR'S ORGANIZATIO N 04/01/2019 [facility] Joseph head
--- OUTSIDE RECORDS SUMMARY | 2020-08-06 15:29 | XMS RPT_ITS | CCD ---
:1970 External Reference #:[id number] Author Organization [employer] Care Team Providers Name Role Phone Unavailable Unavailable Unavailable Results Result Name Value Range Unit Interpretation Flag Date Location progress on 2019-03 Protein mass HNO ID: [id number] Normal 03-29-[address] [facility] Author: Brayan (Facilities Maintenance Manager) Niko Brannon ([id number]) Service: ? Author Type: Nurse Practitioner Type: Progress Notes Filed: 03/29/2019 9:31 AM Note Text: Chief Complaint Patient presents with: Establish Care HPI Aga Moore is a 49 [facility]. No previous PCP since the . 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 Would like to be screened for diabetes, lipid. He had a Tdap 6 years ago and cutting self. Completed at an urgent care in [place]. At this time, no fevers or chills. [...] Take 1 capsule by mouth once daily. Xhatm-1-GXV-EPA-Fish Oil (FISH OIL) 1,000 mg (120 mg-180 [...] of 40.0 to 44.9 in ad ult ([facility]) - ICD9: 278.01, V85.41, ICD10: E66.01, Z68.41 [...] up yearly and as needed. Brayan Pope APRN.PHARMACY TEACHER lipid panel, basic on 2019-03-29 Cholesterol in HDL mass conc 38 >39 mg/dL Low 0 03-29-2019 [facility] ([id number]) Comment: Result Comment: 40-59 mg/dL, Acceptable >59 mg/dL, High: Negative ri sk factor for coronary heart disease <40 mg/dL, Low: Positive ris k factor for coronary heart disease Performed By: #### CMP, LIPB #### [facility] [address] [address] Cholesterol in LDL mass conc 105 <100 mg/dL High 0 03-29-2019 [facility] ([id number]) Comment: Result Comment: <100 mg/dL, Optimal 100-129 mg/dL, Near optimal/ above optimal 130-159 mg/dL, Borderline hi gh 160-189 mg/dL, High >189 mg/dL, Very high Secondary prevention optimal LDL Cholesterol levels are recommended to be < 70 mg/dL Performed By: #### CMP, LIPB #### [facility] [address] [address] Cholesterol mass conc 167 <200 mg/dL Normal 03-29-20 [facility] (16144) Comment: Result Comment: <200 mg/dL, Desirable 200-239 mg/dL, Borderline hi gh >239 mg/dL, High Performed By: #### CMP, LIPB #### [facility] [address] [address] Fasting Time 11 hrs Normal 03-29-2019 [facility] ([id number]) Comment: Performed By: #### CMP, LIPB #### [facility] [address] [address] LDL:HDL Ratio 2.76 <2.54 High 03-29-2019 [facility] (37919) Comment: Result Comment: Reference: 1. National Cholesterol Educ ation Program ATP III Guideline At-A-Glance Quick Desk Reference: National Heart, Lung, and Blood [place]. National Institutes of Health. 2001: NIH Publication No. 01-3305. 2. An International Atherosc lerosis Society position paper: global recommendations for the management of dyslipidemia: executive summary, Atherosclerosis. 2014: 232(2):410-413. Performed By: #### CMP, LIPB #### [facility] [address] [address] Non HDL Cholesterol 129 <130 mg/dL Normal 03-29-2019 [facility] (03741) Comment: Result Comment: <130 mg/dL, Optimal 130-159 mg/dL, Near optimal/ above optimal 160-189 mg/dL, Borderline hi gh 190-219 mg/dL, High >219 mg/dL, Very high Secondary prevention optimal non HDL Cholesterol levels are recommended to be < 100 mg/dL Performed By: #### CMP, LIPB #### [place] [address] TC:HDL Ratio 4.39 <5.10 Normal 03-29-2019 [facility] (83647) Comment: Performed By: #### CMP, LIPB #### [place] [address] Triglyceride mass conc 121 <150 mg/dL Normal 019 [facility] (89306) Comment: Result Comment: <150 mg/dL, Normal 150-199 mg/dL, Borderline hi gh 200-499 mg/dL, High >499 mg/dL, Very high Performed By: #### CMP, LIPB #### [place] [address] VLDL Cholesterol 24 <30 mg/dL Normal 03-29-2019 [facility] (31401) Comment: Performed By: #### CMP, LIPB #### [place] [address] comp metabolic panel on 2019-03-29 Albumin mass conc 4.0 3.9-4.9 g/dL Normal 03-29-2019 [facility] (22336) Comment: Performed By: #### CMP, LIPB #### [facility] [address] [address] ALP enzyme act/vol 112 38-113 U/L Normal 03-29-2019 [facility] (06383) Comment: Performed By: #### CMP, LIPB #### [facility] [address] [address] ALT enzyme act/vol 51 10-54 U/L Normal 03-29-2019 [facility] (80546) Comment: Performed By: #### CMP, LIPB #### [place] [address] Anion gap molar conc 11 9-18 mmol/L Normal 9 [facility] (23139) Comment: Performed By: #### CMP, LIPB #### [place] [address] AST enzyme act/vol 106 14-40 U/L High 03-29-2019 [facility] (89502) Comment: Performed By: #### CMP, LIPB #### [place] [address] Bilirubin mass conc 1.2 0.2-1.3 mg/dL Normal 03-29-2019 [facility] (84159) Comment: Performed By: #### CMP, LIPB #### [place] [id number] Calcium mass conc 8.5 8.5-10.2 mg/dL Normal 03-29-2019 [facility] ([id number]) Comment: Performed By: #### CMP, LIPB #### [place] [address] [place] [address] Chloride molar conc 101 97-105 mmol/L Normal 03-29-2019 [facility] (13206) Comment: Performed By: #### CMP, LIPB #### [facility] [address] [place], [place] [id number] CO2 molar conc 27 22-30 mmol/L Normal 03-29-2019 [facility] (41298) Comment: Performed By: #### CMP, LIPB #### [facility] [address] [place], [place] [address] Creatinine mass conc 0.72 0.73-1.22 mg/dL Low 9 [facility] (15265) Comment: Performed By: #### CMP, LIPB #### [facility] [address] [place], [place] [address] eGFR- Amer. >60 Normal 03-29-2019 [facility] (71069) Comment: Performed By: #### CMP, LIPB #### [facility] [address] [address] GFR/1.73 sq M predicted >60 mL/min/{1.73_m2} Normal 03-29-2019 [facility] among non-blacks [facility] (92022) vol rate/area (S/P/Bld) Comment: Result Comment: eGFR [...] GFR. Performed By: #### CMP, LIPB #### [facility] [address] [place], [place] [address] Glucose mass conc 109 74-99 mg/dL High 03-29-2019 [facility] (74300) Comment: Result Comment: The [place] Diabetes Association (ADA) provides guidance for cutoff [...] for diagnosis of diabetes. Reference: Standards of [facility] Care in Diabetes 2016, [place] Diabetes Association. Diabetes Care. 2016.39(Suppl 1). Performed By: #### CMP, LIPB #### [facility] [address] [address] Potassium molar conc 3.5 3.7-5.1 mmol/L Low 9 [facility] (55492) Comment: Performed By: #### CMP, LIPB #### [facility] [employer] [facility] [address] Protein mass conc 6.8 6.3-8.0 g/dL Normal 03-29-2019 [facility] (12137) Comment: Performed By: #### CMP, LIPB #### [facility] [employer] [address] [address] Sodium molar conc 139 136-144 mmol/L Normal 03-29-2019 [facility] (06601) Comment: Performed By: #### CMP, LIPB #### [facility] [employer] [address] [address] Urea nitrogen mass conc 5 9-24 mg/dL Low 2018 [facility] (52239) Comment: Performed By: #### CMP, LIPB #### [facility] [employer] [facility] [address] [address] cnov on 2019-03-29 CNOV Office Visit (FAMPWS) Normal 03-29-20 [employer] [facility] MOORE ([id number]) 1970 M [place] Date Time Provider Department ([id number]) 03/29/19 9:00 AM BRAYAN POPE (PHARMACY TEACHER) JOJO During your visit today, we recorded the following informati on about you: Temperature Pulse Respiration Blood pressure 97.9 degrees 82/minute 14/minute 124/84 Weight Height 121.6 kg 1.727 m Brayan Pope APRN.CNP 03/29/2019 9:31 AM Signed Chief Complaint Patient presents with: [facility] Care HPI Aga Moore is a 49 year old male who presents he re today for establish care with Dr. Landis. No previous PCP since the . 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 Would like to be screened for diabetes, lipid. He had a Tdap 6 years ago and cutting self. Completed at an urgent care in [place]. At this time, no fevers or chills. [...] Take 1 capsule by mouth once daily. Clwad-0-DYN-EPA-Fish Oil (FISH OIL) 1,000 mg (120 mg-1 [...] re solved, please call my office at [phone], ask to speak to a nurse, and [...] or regular hard cheese Whole milk, cream Yofr-mnt-mjzj, most dairy creamers Real non-dairy whipped cream [...] cold Pasta/noodels (no egg yolks) Rice Bagels, Polish muffins Potatoes Baked goods (cake, muffins, pancakes, [...] Snacks (In very limited amount) Sherbet, sorbet, [place] ice, frozen yogurt, popsicles , génesis food [...] [R15.1] Order(s):COMP METABOLIC PANEL [SQCMP] Order #: [id number] FU MARLYNE LIPID PANEL BASIC [SQLIPB] Order #: [id number] FUTURE Prescriptions as of 03/29/2019 Sig: MULTIVITAMIN CAPSULE Take 1 capsule by mouth once * OMEGA 0-BNA-KJP-FISH OIL 1,00* Take 2 g by mouth twice daily . Problem List As Of Date 03/29/2019 Noted Resolved Pilonidal cyst without abscess [L05.91] INVALID FOR* Obesity [E66.9] Other instructions from your clinician: I would recommend trial of Benefiber over the counter. Start with the starting dose and trial for 3 weeks. If you symptoms are not resolved, please call my office at [phone], ask to speak to a walt se, and I can put in a referral to gastroenterology. Brayan Pope APRN.PHARMACY TEACHER HEALTHY EATING FOR A LOW FAT, LOW [...] or regular hard cheese Whole milk, cream Sgsb-ivy-zeba, most dairy creamers Real non-dairy whipped cream [...] cold Pasta/noodels (no egg yolks) Rice Bagels, Polish muffins Potatoes Baked goods (cake, muffins, pancakes, [...] Snacks (In very limited amount) Sherbet, sorbet, [place] ice, frozen yogurt, popsicles, yue l food [...] BE BASED ON THE PRIMARY CLINICAL RECORDS. [employer] [facility] provides no warranty or guarantee of the accuracy or completeness of information in this document. UNRECOGNIZED CONTENT PROVIDED BELOW FOR UNRECOGNIZED SECTION No Status Records Found UNRECOGNIZED CONTENT PROVIDED BELOW FOR UNRECOGNIZED SECTION INFORMATION SOURCE DATE CREATED AUTHOR AUTHOR'S ORGANIZATIO N 04/01/2019 [facility] Joseph head
== END 2020-03-18 15:05 | disposition home or self-care (01) | DRG 571 ==
LOC: ED 11:44 → ICU 13:23 → MS3 03-15 08:05
PROVIDERS: Family Medicine; Hospitalist; Admitting Provider Internal Medicine; Emergency Provider Emergency Medicine
DX: L08.9 Local infection of the skin and subcutaneous tissue, unspecified (principal); M62.82 Rhabdomyolysis; Z68.41 Body mass index [BMI] 40.0-44.9, adult; L97.512 Non-pressure chronic ulcer of other part of right foot with fat layer exposed; I10 Essential (primary) hypertension; E66.01 Morbid (severe) obesity due to excess calories; F10.10 Alcohol abuse, uncomplicated; E87.6 Hypokalemia; E83.42 Hypomagnesemia; K74.60 Unspecified cirrhosis of liver; D69.6 Thrombocytopenia, unspecified; F17.210 Nicotine dependence, cigarettes, uncomplicated; B95.61 Methicillin susceptible Staphylococcus aureus infection as the cause of diseases classified elsewhere
CPT/HCPCS: 36415; 71045; 71275; 73630; 74177; 80048; 80053; 80074; 80076; 80202; 81001; 82550; 83605; 83735; 84100; 84439; 84443; 84484; 85025; 85379; 85610; 85730; 86308; 86703; 87040; 87070; 87075; 87077; 87086; 87088; 87186; 87205; 87449; 87633; 87635; 90471; 93005; 93306; 93970; 93971; 96360; 96361; 99251; 99285; 99406; G2023; J7030; J7040; J7050; Q9957; Q9967; A4216; C8929; G0463; J0696; U0004

== ENCOUNTER → 2020-04-01 11:38 | Outpatient (CLI) | payer BC, SELFPAY ==
[2020-03-14 15:51] VITALS: BMI 41.8
--- OUTSIDE RECORDS SUMMARY | 2020-08-11 09:35 | XMS RPT_ITS | CCD ---
:1970 External Reference #:[id number] Author Organization [employer] Care Team Providers Name Role Phone Unavailable Unavailable Unavailable Results Result Name Value Range Unit Interpretation Flag Date Location progress on 2019-03 Protein mass HNO ID: [id number] Normal 03-29-20 [facility] Author: Brayan (Guest Services Officer) Niko Brannon ([id number]) Service: ? Author Type: Nurse Practitioner Type: Progress Notes Filed: 03/29/2019 9:31 AM Note Text: Chief Complaint Patient presents with: Establish Care HPI Aga Moore is a 49 year old male [facility] with Dr. Landis. No previous PCP since the . 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 Working on weight loss Has lost 12-13 pounds recently with watching diet. Would like to be screened for diabetes, lipid. He had a Tdap 6 years ago and cutting self. Completed at an urgent care in [place]. At this time, no fevers or chills. [...] Take 1 capsule by mouth once daily. Fhbbf-2-OWW-EPA-Fish Oil (FISH OIL) 1,000 mg (120 mg-180 [...] of 40.0 to 44.9 in ad ult ([facility]) - ICD9: 278.01, V85.41, ICD10: E66.01, Z68.41 [...] up yearly and as needed. Brayan Pope APRN.SOCIAL SERVICES MANAGER lipid panel, basic on 2019-03-29 Cholesterol in HDL mass conc 38 >39 mg/dL Low 0 03-29-2019 [facility] (39612) Comment: Result Comment: 40-59 mg/dL, Acceptable >59 mg/dL, High: Negative ri sk factor for coronary heart disease <40 mg/dL, Low: Positive ris k factor for coronary heart disease Performed By: #### CMP, LIPB #### [facility] [address] [address] Cholesterol in LDL mass conc 105 <100 mg/dL High 0 03-29-2019 [facility] (30127) Comment: Result Comment: <100 mg/dL, Optimal 100-129 mg/dL, Near optimal/ above optimal 130-159 mg/dL, Borderline hi gh 160-189 mg/dL, High >189 mg/dL, Very high Secondary prevention optimal LDL Cholesterol levels are recommended to be < 70 mg/dL Performed By: #### CMP, LIPB #### [facility] [address] [address] Cholesterol mass conc 167 <200 mg/dL Normal 03-29-20 [facility] (43856) Comment: Result Comment: <200 mg/dL, Desirable 200-239 mg/dL, Borderline hi gh >239 mg/dL, High Performed By: #### CMP, LIPB #### [facility] [address] [address] Fasting Time 11 hrs Normal 03-29-2019 [facility] (76503) Comment: Performed By: #### CMP, LIPB #### [facility] [address] [address] LDL:HDL Ratio 2.76 <2.54 High 03-29-2019 [facility] (69422) Comment: Result Comment: Reference: 1. National Cholesterol Educ ation Program ATP III Guideline At-A-Glance Quick Desk Reference: National Heart, Lung, and Blood [place]. National Institutes of Health. 2001: NIH Publication No. 01-3305. 2. An International Atherosc lerosis Society position paper: global recommendations for the management of dyslipidemia: executive summary, Atherosclerosis. 2014: 232(2):410-413. Performed By: #### CMP, LIPB #### [facility] [address] [address] Non HDL Cholesterol 129 <130 mg/dL Normal 03-29-2019 [facility] (78593) Comment: Result Comment: <130 mg/dL, Optimal 130-159 mg/dL, Near optimal/ above optimal 160-189 mg/dL, Borderline hi gh 190-219 mg/dL, High >219 mg/dL, Very high Secondary prevention optimal non HDL Cholesterol levels are recommended to be < 100 mg/dL Performed By: #### CMP, LIPB #### [place] [address] TC:HDL Ratio 4.39 <5.10 Normal 03-29-2019 [facility] (07872) Comment: Performed By: #### CMP, LIPB #### [place] [address] Triglyceride mass conc 121 <150 mg/dL Normal 019 [facility] (49642) Comment: Result Comment: <150 mg/dL, Normal 150-199 mg/dL, Borderline hi gh 200-499 mg/dL, High >499 mg/dL, Very high Performed By: #### CMP, LIPB #### [place] [address] VLDL Cholesterol 24 <30 mg/dL Normal 03-29-2019 Cl [facility] (09427) Comment: Performed By: #### CMP, LIPB #### [place] [address] comp metabolic panel on 2019-03-29 Albumin mass conc 4.0 3.9-4.9 g/dL Normal 03-29-2019 [facility] (64037) Comment: Performed By: #### CMP, LIPB #### [facility] [address] [address] ALP enzyme act/vol 112 38-113 U/L Normal 03-29-2019 [facility] (67830) Comment: Performed By: #### CMP, LIPB #### [facility] [address] [address] ALT enzyme act/vol 51 10-54 U/L Normal 03-29-2019 [facility] (79449) Comment: Performed By: #### CMP, LIPB #### [place] [address] Anion gap molar conc 11 9-18 mmol/L Normal 9 [facility] (72494) Comment: Performed By: #### CMP, LIPB #### [place] [address] AST enzyme act/vol 106 14-40 U/L High 03-29-2019 [facility] (43406) Comment: Performed By: #### CMP, LIPB #### [place] [address] Bilirubin mass conc 1.2 0.2-1.3 mg/dL Normal 03-29-2019 [facility] (13694) Comment: Performed By: #### CMP, LIPB #### [place] [id number] Calcium mass conc 8.5 8.5-10.2 mg/dL Normal 03-29-2019 [facility] (74479) Comment: Performed By: #### CMP, LIPB #### [place] [address] [place] [address] Chloride molar conc 101 97-105 mmol/L Normal 03-29-2019 [facility] (51296) Comment: Performed By: #### CMP, LIPB #### [facility] [address] [place], [place] [address] CO2 molar conc 27 22-30 mmol/L Normal 03-29-2019 [facility] [place] (53940) Comment: Performed By: #### CMP, LIPB #### [facility] [address] [place], [place] [address] Creatinine mass conc 0.72 0.73-1.22 mg/dL Low 9 [facility] (97696) Comment: Performed By: #### CMP, LIPB #### [facility] [address] [place], [place] [address] eGFR- Amer. >60 Normal 03-29-2019 [facility] (35724) Comment: Performed By: #### CMP, LIPB #### [facility] [address] [address] GFR/1.73 sq M predicted >60 mL/min/{1.73_m2} Normal 03-29-2019 [facility] among non-blacks [facility] (08645) vol rate/area (S/P/Bld) Comment: Result Comment: eGFR [...] GFR. Performed By: #### CMP, LIPB #### [facility] [address] [place], [place] [address] Glucose mass conc 109 74-99 mg/dL High 03-29-2019 [facility] (44492) Comment: Result Comment: The [place] Diabetes Association (ADA) provides guidance for cutoff [...] for diagnosis of diabetes. Reference: Standards of [facility] Care in Diabetes 2016, [place] Diabetes Association. Diabetes Care. 2016.39(Suppl 1). Performed By: #### CMP, LIPB #### [facility] [address] [address] Potassium molar conc 3.5 3.7-5.1 mmol/L Low 9 [facility] (08041) Comment: Performed By: #### CMP, LIPB #### [facility] [employer] [facility] [address] [place] [address] Protein mass conc 6.8 6.3-8.0 g/dL Normal 03-29-2019 C [facility] (32257) Comment: Performed By: #### CMP, LIPB #### [facility] [employer] [address] [address] Sodium molar conc 139 136-144 mmol/L Normal 03-29-2019 C [facility] (36338) Comment: Performed By: #### CMP, LIPB #### [facility] [employer] [address] [address] Urea nitrogen mass conc 5 9-24 mg/dL Low 2018 [facility] (94880) Comment: Performed By: #### CMP, LIPB #### [facility] [employer] [facility] [address] [place] [address] cnov on 2019-03-29 CNOV Office Visit (FAMPWS) Normal 03-29-20 [facility] AGA MOORE ([id number]) 1970 M [place] Date Time Provider Department ([id number]) 03/29/19 9:00 AM BRYAAN POPE (SOCIAL SERVICES MANAGER) JOJO During your visit today, we recorded the following informati on about you: Temperature Pulse Respiration Blood pressure 97.9 degrees 82/minute 14/minute 124/84 Weight Height 121.6 kg 1.727 m Brayan Pope APRN.CNP 03/29/2019 9:31 AM Signed Chief Complaint Patient presents with: [facility] Care HPI Aga Moore is a 49 year old male who presents he re today for establish care with Dr. Landis. No previous PCP since the . 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 Would like to be screened for diabetes, lipid. He had a Tdap 6 years ago and cutting self. Completed at an urgent care in [place]. At this time, no fevers or chills. [...] Take 1 capsule by mouth once daily. Stwaa-7-WKW-EPA-Fish Oil (FISH OIL) 1,000 mg (120 mg-1 [...] re solved, please call my office at [phone], ask to speak to a nurse, and [...] or regular hard cheese Whole milk, cream Nlgu-gvw-yamn, most dairy creamers Real non-dairy whipped cream [...] cold Pasta/noodels (no egg yolks) Rice Bagels, Argentine muffins Potatoes Baked goods (cake, muffins, pancakes, [...] Snacks (In very limited amount) Sherbet, sorbet, [place] ice, frozen yogurt, popsicles , génesis food [...] [R15.1] Order(s):COMP METABOLIC PANEL [SQCMP] Order #: [id number] FU MARLYNE LIPID PANEL BASIC [SQLIPB] Order #: [id number] FUTURE Prescriptions as of 03/29/2019 Sig: MULTIVITAMIN CAPSULE Take 1 capsule by mouth once * OMEGA 8-EHW-KXB-FISH OIL 1,00* Take 2 g by mouth twice daily . Problem List As Of Date 03/29/2019 Noted Resolved Pilonidal cyst without abscess [L05.91] INVALID FOR* Obesity [E66.9] Other instructions from your clinician: I would recommend trial of Benefiber over the counter. Start with the starting dose and trial for 3 weeks. If you symptoms are not resolved, please call my office at [phone], ask to speak to a walt se, and I can put in a referral to gastroenterology. Brayan Pope APRN.SOCIAL SERVICES MANAGER HEALTHY EATING FOR A LOW FAT, LOW [...] or regular hard cheese Whole milk, cream Uweb-cwi-cldb, most dairy creamers Real non-dairy whipped cream [...] cold Pasta/noodels (no egg yolks) Rice Bagels, Argentine muffins Potatoes Baked goods (cake, muffins, pancakes, [...] Snacks (In very limited amount) Sherbet, sorbet, Norwegian ice, frozen yogurt, popsicles, yue l food [...] BE BASED ON THE PRIMARY CLINICAL RECORDS. [employer] [facility] provides no warranty or guarantee of the accuracy or completeness of information in this document. UNRECOGNIZED CONTENT PROVIDED BELOW FOR UNRECOGNIZED SECTION No Status Records Found UNRECOGNIZED CONTENT PROVIDED BELOW FOR UNRECOGNIZED SECTION INFORMATION SOURCE DATE CREATED AUTHOR AUTHOR'S ORGANIZATIO N 04/01/2019 [facility] Joseph head
== END ==
PROVIDERS: PCP Internal Medicine
DX: R78.81 Bacteremia (principal)
CPT/HCPCS: 36415

== ENCOUNTER → 2020-04-03 14:51 | Outpatient (CLI) | payer BC, SELFPAY ==
[2020-04-03 13:47] VITALS: BMI 41.5
[2020-04-03 17:17] LABS: Absolute Lymphocyte Count 1.25 X10^3/uL (0.83-4.51); Absolute Neutrophil Count 1.6 X10^3/uL (2.0-7.7); Basophil# 0.03 X10^3/uL; Basophil% 0.8 % (0-1); Eosinophil# 0.04 X10^3/uL; Eosinophils% 1.1 % (0-5); Hematocrit 41.6 % (40-54); Hemoglobin 14.2 g/dL (13.0-16.5); Lymphocyte # 1.25 X10^3/ul (4.0); Lymphocyte % 34.9 % (19-41); Mean Corp Hgb Conc 34.1 g/dL (32-36); Mean Corpuscular Hgb 35.1 pg (27.0-32.0); Mean Corpuscular Volume 102.7 fL (80-94); Mean Platelet Vol. 12.2 fl (6.2-12.0); Monocyte# 0.71 X10^3/uL; Monocyte% 19.8 % (0-10); NRBC Flagged by Analyzer 0 % (0-5); Neutrophil # 1.55 X10^3/uL (2.7-7.7); Neutrophil % 43.4 % (47-70); POSITIVE COUNT YES; Platelet Count 52 K/mm3 (150-450); RBC Distribution Width CV 12.3 % (11.6-14.6); RBC Distribution Width SD 46.6 fl (35.1-43.9); Red Blood Count 4.05 M/mm3 (4.6-6.2); White Blood Count 3.6 K/mm3 (4.4-11.0)
[2020-04-03 17:43] LABS: ALB/GLOB Ratio 0.9 RATIO (0.9-2.4); AST(SGOT) 95 U/L (15-37); Alanine Aminotransfer ALT/SGPT 92 U/L (16-61); Albumin, Serum 3.5 g/dL (3.2-5.0); Alkaline Phosphatase 116 U/L (45-117); Anion Gap 8 (5-15); BUN 9 mg/dL (7-18); Calcium,Total 8.9 mg/dL (8.5-10.1); Chloride 105 mmol/L (98-107); EST Glomerular Filtration Rate 85 mL/min (>60); Est Glom Filt Rate - Afr Amer 103 mL/min (>60); Globulin 4.1 g/dL (2.2-4.2); Glucose 105 mg/dL (74-106); Potassium 4.5 mmol/L (3.5-5.1); Protein, Total 7.6 g/dL (6.4-8.2); Sodium Level 141 mmol/L (136-145)
[2020-04-03 18:06] LABS: Differential Indicated SCAN CRITERIA MET
[2020-04-03 18:07] LABS: Platelet Estimate MKD DEC (ADEQ); Red Cell Morphology NORM C+C NORMAL (NORM C&C)
--- OUTSIDE RECORDS SUMMARY | 2020-08-11 11:14 | XMS RPT_ITS | CCD ---
:1970 External Reference #:[id number] Author Organization [employer] Care Team Providers Name Role Phone Unavailable Unavailable Unavailable Results Result Name Value Range Unit Interpretation Flag Date Location progress on 2019-03 Protein mass HNO ID: [id number] Normal 03-29-20 [facility] Author: Brayan (Malted Milk Supervisor) Niko Brannon ([id number]) Service: ? Author Type: Nurse Practitioner Type: Progress Notes Filed: 03/29/2019 9:31 AM Note Text: Chief Complaint Patient presents with: Establish Care HPI Aga Moore is a 49 [facility] Land[facility]. No previous PCP since the . 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 Would like to be screened for diabetes, lipid. He had a Tdap 6 years ago and cutting self. Completed at an urgent care in [place]. At this time, no fevers or chills. [...] Take 1 capsule by mouth once daily. Cachq-6-EKF-EPA-Fish Oil (FISH OIL) 1,000 mg (120 mg-180 [...] 40.0 to 44.9 in ad ult (FORMERLY [facility]) - ICD9: 278.01, V85.41, ICD10: E66.01, Z68.41 [...] up yearly and as needed. Brayan Pope APRN.CENTRIFUGAL EXTRACTOR OPERATOR lipid panel, basic on 2019-03-29 Cholesterol in HDL mass conc 38 >39 mg/dL Low 0 03-29-2019 [facility] ([id number]) Comment: Result Comment: 40-59 mg/dL, Acceptable >59 mg/dL, High: Negative ri sk factor for coronary heart disease <40 mg/dL, Low: Positive ris k factor for coronary heart disease Performed By: #### CMP, LIPB #### [facility] [address] [address] Cholesterol in LDL mass conc 105 <100 mg/dL High 0 03-29-2019 [facility] ([id number]) Comment: Result Comment: <100 mg/dL, Optimal 100-129 mg/dL, Near optimal/ above optimal 130-159 mg/dL, Borderline hi gh 160-189 mg/dL, High >189 mg/dL, Very high Secondary prevention optimal LDL Cholesterol levels are recommended to be < 70 mg/dL Performed By: #### CMP, LIPB #### [facility] [address] [address] Cholesterol mass conc 167 <200 mg/dL Normal 03-29-20 [facility] ([id number]) Comment: Result Comment: <200 mg/dL, Desirable 200-239 mg/dL, Borderline hi gh >239 mg/dL, High Performed By: #### CMP, LIPB #### [facility] [address] [address] Fasting Time 11 hrs Normal 03-29-2019 [facility] ([id number]) Comment: Performed By: #### CMP, LIPB #### [facility] [address] [address] LDL:HDL Ratio 2.76 <2.54 High 03-29-2019 [facility] (35339) Comment: Result Comment: Reference: 1. National Cholesterol Educ ation Program ATP III Guideline At-A-Glance Quick Desk Reference: National Heart, Lung, and Blood [place]. National Institutes of Health. 2001: NIH Publication No. 01-3305. 2. An International Atherosc lerosis Society position paper: global recommendations for the management of dyslipidemia: executive summary, Atherosclerosis. 2014: 232(2):410-413. Performed By: #### CMP, LIPB #### [facility] [address] [address] Non HDL Cholesterol 129 <130 mg/dL Normal 03-29-2019 [facility] ([id number]) Comment: Result Comment: <130 mg/dL, Optimal 130-159 mg/dL, Near optimal/ above optimal 160-189 mg/dL, Borderline hi gh 190-219 mg/dL, High >219 mg/dL, Very high Secondary prevention optimal non HDL Cholesterol levels are recommended to be < 100 mg/dL Performed By: #### CMP, LIPB #### [place] [address] TC:HDL Ratio 4.39 <5.10 Normal 03-29-2019 [facility] ([id number]) Comment: Performed By: #### CMP, LIPB #### [place] [address] Triglyceride mass conc 121 <150 mg/dL Normal 019 [facility] ([id number]) Comment: Result Comment: <150 mg/dL, Normal 150-199 mg/dL, Borderline hi gh 200-499 mg/dL, High >499 mg/dL, Very high Performed By: #### CMP, LIPB #### [place] [address] VLDL Cholesterol 24 <30 mg/dL Normal 03-29-2019 [facility] ([id number]) Comment: Performed By: #### CMP, LIPB #### [place] [address] comp metabolic panel on 2019-03-29 Albumin mass conc 4.0 3.9-4.9 g/dL Normal 03-29-2019 [facility] (35188) Comment: Performed By: #### CMP, LIPB #### [facility] [address] [address] ALP enzyme act/vol 112 38-113 U/L Normal 03-29-2019 [facility] ([id number]) Comment: Performed By: #### CMP, LIPB #### [facility] [address] [address] ALT enzyme act/vol 51 10-54 U/L Normal 03-29-2019 [facility] (18021) Comment: Performed By: #### CMP, LIPB #### [place] [address] Anion gap molar conc 11 9-18 mmol/L Normal 9 [facility] (36762) Comment: Performed By: #### CMP, LIPB #### [place] [address] AST enzyme act/vol 106 14-40 U/L High 03-29-2019 [facility] (77453) Comment: Performed By: #### CMP, LIPB #### [place] [address] Bilirubin mass conc 1.2 0.2-1.3 mg/dL Normal 03-29-2019 [facility] (36985) Comment: Performed By: #### CMP, LIPB #### [place] [id number] Calcium mass conc 8.5 8.5-10.2 mg/dL Normal 03-29-2019 [facility] (16336) Comment: Performed By: #### CMP, LIPB #### [address] [id number] [place] [address] Chloride molar conc 101 97-105 mmol/L Normal 03-29-2019 [facility] (82306) Comment: Performed By: #### CMP, LIPB #### [facility] [address] [place], [place] [id number] CO2 molar conc 27 22-30 mmol/L Normal 03-29-2019 [facility] (71798) Comment: Performed By: #### CMP, LIPB #### [facility] [address] [place], [place] [address] Creatinine mass conc 0.72 0.73-1.22 mg/dL Low 9 [facility] (39362) Comment: Performed By: #### CMP, LIPB #### [facility] [address] [place], [place] [address] eGFR- Amer. >60 Normal 03-29-2019 [facility] (39931) Comment: Performed By: #### CMP, LIPB #### [facility] [address] [address] GFR/1.73 sq M predicted >60 mL/min/{1.73_m2} Normal 03-29-2019 [facility] among non-blacks [facility] (76933) vol rate/area (S/P/Bld) Comment: Result Comment: eGFR [...] GFR. Performed By: #### CMP, LIPB #### [facility] [address] [place], [place] [address] Glucose mass conc 109 74-99 mg/dL High 03-29-2019 [facility] (20551) Comment: Result Comment: The [place] Diabetes Association (ADA) provides guidance for cutoff [...] for diagnosis of diabetes. Reference: Standards of [facility] Care in Diabetes 2016, [place] Diabetes Association. Diabetes Care. 2016.39(Suppl 1). Performed By: #### CMP, LIPB #### [facility] [address] [address] Potassium molar conc 3.5 3.7-5.1 mmol/L Low 9 [facility] (11754) Comment: Performed By: #### CMP, LIPB #### [facility] [place] [address] Protein mass conc 6.8 6.3-8.0 g/dL Normal 03-29-2019 [facility] (76901) Comment: Performed By: #### CMP, LIPB #### [facility] [address] [address] Sodium molar conc 139 136-144 mmol/L Normal 03-29-2019 [facility] (17220) Comment: Performed By: #### CMP, LIPB #### [facility] [address] [address] Urea nitrogen mass conc 5 9-24 mg/dL Low 2018 [facility] (33224) Comment: Performed By: #### CMP, LIPB #### [facility] [place] [address] cnov on 2019-03-29 CNOV Office Visit (FAMPWS) Normal 03-29-[address] [place] AGA MOORE ([id number]) 1970 M [place] Date Time Provider Department ([id number]) 03/29/19 9:00 AM BRAYAN POPE (CENTRIFUGAL EXTRACTOR OPERATOR) JOJO During your visit today, we recorded the following informati on about you: Temperature Pulse Respiration Blood pressure 97.9 degrees 82/minute 14/minute 124/84 Weight Height 121.6 kg 1.727 m Brayan Pope APRN.CNP 03/29/2019 9:31 AM Signed Chief Complaint Patient presents with: [facility] HPI Aga Moore is a 49 year old male who presents he re today for establish care with Dr. Landis. No previous PCP since the . 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 Would like to be screened for diabetes, lipid. He had a Tdap 6 years ago and cutting self. Completed at an urgent care in [place]. At this time, no fevers or chills. [...] Take 1 capsule by mouth once daily. Xmqxx-9-GOA-EPA-Fish Oil (FISH OIL) 1,000 mg (120 mg-1 [...] re solved, please call my office at [phone], ask to speak to a nurse, and [...] or regular hard cheese Whole milk, cream Lxgt-ruc-yrrr, most dairy creamers Real non-dairy whipped cream [...] cold Pasta/noodels (no egg yolks) Rice Bagels, Omani muffins Potatoes Baked goods (cake, muffins, pancakes, [...] Snacks (In very limited amount) Sherbet, sorbet, Salvadorean ice, frozen yogurt, popsicles , génesis food [...] [R15.1] Order(s):COMP METABOLIC PANEL [SQCMP] Order #: [id number] FU [place] LIPID PANEL BASIC [SQLIPB] Order #: [id number] FUTURE Prescriptions as of 03/29/2019 Sig: MULTIVITAMIN CAPSULE Take 1 capsule by mouth once * OMEGA 6-QXP-COC-FISH OIL 1,00* Take 2 g by mouth twice daily . Problem List As Of Date 03/29/2019 Noted Resolved Pilonidal cyst without abscess [L05.91] INVALID FOR* Obesity [E66.9] Other instructions from your clinician: I would recommend trial of Benefiber over the counter. Start with the starting dose and trial for 3 weeks. If you symptoms are not resolved, please call my office at [phone], ask to speak to a walt se, and I can put in a referral to gastroenterology. Brayan Pope APRN.CENTRIFUGAL EXTRACTOR OPERATOR HEALTHY EATING FOR A LOW FAT, [...] or regular hard cheese Whole milk, cream Drby-xvo-qatt, most dairy creamers Real non-dairy whipped cream [...] cold Pasta/noodels (no egg yolks) Rice Bagels, Omani muffins Potatoes Baked goods (cake, muffins, pancakes, [...] Snacks (In very limited amount) Sherbet, sorbet, Salvadorean ice, frozen yogurt, popsicles, yue l food [...] what you morales ve been doing. Brayan Ppoe APRN.YAHIR Disposition: Return if symptoms worsen or [...] BE BASED ON THE PRIMARY CLINICAL RECORDS. [employer] [facility] provides no warranty or guarantee of the accuracy or completeness of information in this document. UNRECOGNIZED CONTENT PROVIDED BELOW FOR UNRECOGNIZED SECTION No Status Records Found UNRECOGNIZED CONTENT PROVIDED BELOW FOR UNRECOGNIZED SECTION INFORMATION SOURCE DATE CREATED AUTHOR AUTHOR'S ORGANIZATIO N 04/01/2019 [facility] head
== END ==
PROVIDERS: PCP Internal Medicine; Referring Provider Internal Medicine; Visit Provider Internal Medicine
DX: I10 Essential (primary) hypertension (principal); R78.81 Bacteremia
CPT/HCPCS: 36415; 80053; 85025

== ENCOUNTER → 2020-05-27 15:55 | Outpatient (CLI) | payer BC, SELFPAY ==
[2020-04-03 13:47] VITALS: BMI 41.5
[2020-05-27 17:54] LABS: Ferritin 878 ng/mL (26-388)
[2020-05-27 18:19] LABS: International Normalized Ratio 1.3; Prothrombin Time (Protime)PT. 16.1 SECONDS (11.7-14.9)
[2020-05-27 18:59] LABS: Partial Thromboplast Time 34.6 Seconds (24.1-36.2)
[2020-05-29 13:23] LABS: Alpha Antitrypsin Serum 180 mg/dL (101-187)
[2020-05-29 14:41] LABS: AFP, Tumor Marker 7.9 ng/mL (0.0-8.3); Anti-Smooth Muscle ABS 8 Units (0-19); Ceruloplasmin 23.1 mg/dL (16.0-31.0)
== END ==
PROVIDERS: PCP Internal Medicine; Referring Provider Internal Medicine Gastroenterology; Visit Provider Internal Medicine Gastroenterology
DX: K74.60 Unspecified cirrhosis of liver (principal)
CPT/HCPCS: 36415; 82103; 82105; 82390; 82728; 83516; 85610; 85730

== ENCOUNTER → 2020-07-03 11:36 | Outpatient (CLI) | payer BC, SELFPAY ==
[2020-07-03 11:13] VITALS: BMI 39.0
[2020-07-03 11:38] LABS: Mucous, Urine 0 SEEN /hpf (<or=2+); Red Blood Cells-Urine 0 SEEN /hpf (0-5); Squamous Epithelial Cells - UA 0 SEEN /hpf (0-5)
[2020-07-03 15:23] LABS: Color, Urine Amber (Yellow); Glucose, Dipstick Normal (Normal); Ketone-Dipstick 5 mg/dl (Negative); Leukocyte Esterase-Dipstick 25 /ul (Negative); Nitrite-Dipstick Positive (Negative); Occult Blood-Urine Negative /ul (Negative); Protein-Dipstick 30 mg/dl (Negative); Urine Clarity Cloudy (Clear); Urine Urobilinogen 8 mg/dl (Normal)
[2020-07-03 15:25] LABS: Absolute Lymphocyte Count 1.06 X10^3/uL (0.83-4.51); Absolute Neutrophil Count 2.3 X10^3/uL (2.0-7.7); Basophil# 0.04 X10^3/uL; Eosinophil# 0.06 X10^3/uL; Eosinophils% 1.5 % (0-5); Hematocrit 45.3 % (40-54); Hemoglobin 15.6 g/dL (13.0-16.5); Lymphocyte # 1.06 X10^3/ul (4.0); Lymphocyte % 25.7 % (19-41); Mean Corp Hgb Conc 34.4 g/dL (32-36); Mean Corpuscular Hgb 35.8 pg (27.0-32.0); Mean Corpuscular Volume 103.9 fL (80-94); Mean Platelet Vol. 13.5 fl (6.2-12.0); Monocyte# 0.67 X10^3/uL; Monocyte% 16.3 % (0-10); NRBC Flagged by Analyzer 0 % (0-5); Neutrophil # 2.28 X10^3/uL (2.7-7.7); Neutrophil % 55.3 % (47-70); POSITIVE COUNT YES; Platelet Count 86 K/mm3 (150-450); RBC Distribution Width CV 13.2 % (11.6-14.6); RBC Distribution Width SD 51.2 fl (35.1-43.9); Red Blood Count 4.36 M/mm3 (4.6-6.2); Urine Bilirubin Dipstick 3 mg/dL (Negative); White Blood Count 4.1 K/mm3 (4.4-11.0)
[2020-07-03 15:28] LABS: Differential Indicated SCAN CRITERIA MET
[2020-07-03 15:40] LABS: Bacteria RARE /hpf (None Seen); White Blood Cells 0-5 SEEN /hpf (0-5)
[2020-07-03 15:55] LABS: ALB/GLOB Ratio 0.7 RATIO (0.9-2.4); AST(SGOT) 139 U/L (15-37); Alanine Aminotransfer ALT/SGPT 86 U/L (16-61); Albumin, Serum 3.1 g/dL (3.2-5.0); Alkaline Phosphatase 111 U/L (45-117); Anion Gap 6 (5-15); BUN 6 mg/dL (7-18); BUN/Creat Ratio 7.5 RATIO (10-20); Calcium,Total 8.8 mg/dL (8.5-10.1); Chloride 102 mmol/L (98-107); Cholesterol 153 mg/dL (200); EST Glomerular Filtration Rate 110 mL/min (>60); Est Glom Filt Rate - Afr Amer 133 mL/min (>60); Globulin 4.2 g/dL (2.2-4.2); Glucose 188 mg/dL (74-106); High Density Lipoprotein 24 mg/dL; Potassium 4.2 mmol/L (3.5-5.1); Protein, Total 7.3 g/dL (6.4-8.2); Sodium Level 139 mmol/L (136-145); T4 Free Direct 1.36 ng/dL (0.76-1.46); Thyroid Stim Hormone (TSH) 3.22 uIU/mL (0.358-3.74); Triglycerides 151 mg/dL; Very Low Density Lipoprotein 30 mg/dL (5-40)
[2020-07-03 17:07] LABS: Hemoglobin A1c 4.8 % (3.8-5.6)
[2020-07-03 17:20] LABS: Platelet Estimate SLT DEC (ADEQ)
[2020-07-03 17:32] LABS: Vitamin B12 530 pg/mL (211-911)
== END ==
PROVIDERS: PCP Internal Medicine; Referring Provider Nurse Practitioner Family; Visit Provider Nurse Practitioner Family
DX: I10 Essential (primary) hypertension (principal); E66.9 Obesity, unspecified; R79.89 Other specified abnormal findings of blood chemistry; D53.9 Nutritional anemia, unspecified; R82.90 Unspecified abnormal findings in urine; R73.09 Other abnormal glucose
CPT/HCPCS: 36415; 80053; 80061; 81001; 82607; 82746; 83036; 84439; 84443; 85025; 87086

== ENCOUNTER 2021-05-21 13:54 | Inpatient (IN) | payer BC, SELFPAY ==
[2020-07-03 13:57] VITALS: BMI 41.8
[2021-05-21 13:54] VITALS: BP 126/77; PULSE 91; RESP 16; TEMP 36.3; O2SAT 95; BMI 37.9
--- OUTSIDE RECORDS SUMMARY | 2021-05-21 13:55 | XMS RPT_ITS ---
Patient Summarization (C-CDA 2.1 CCD) Created on:May 21, 2021 Patient:AGA MOORE Sex:Male :1970 External Reference #:[id number] Author Organization Sample organization Results Test Name Value Interpretation Reference Range Facility CNOV on 03-29-2019 CNOV Office Visit (FAMPWS) [facility] AGA MOORE ([id number]) 1970 [facility] Date Time Provider Department 03/29/19 9:00 AM CARLOS POPE ([facility]) FAMPWS During your visit today, we recorded the following inf ormation about you: Temperature Pulse Respiration Blood pressure 97.9 degrees 82/minute 14/minute 124/84 Weight Height 121.6 kg 1.727 m Carlos Pope APRN.CNP 03/29/2019 9:31 AM Signed Chief Complaint Patient presents with: Establish Care HPI Aga Moore is a 49 year old male who presents he re today for establish care with Dr. Landis. No previous PCP since the . 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 Working on weight loss Has lost 12-13 [...] or urine. Does mention that for the past year, has had intermittent bubbling of stool [...] which is normal. States that the area ca n be itchy at times, discharge has a strong odor. Believes that he has hemo rrhoids. Past medical history, appointments, medications, aller gies reviewed. Previous Medical History PAST MEDICAL HISTORY Diagnosis [...] capsule Take 1 capsule by mouth once ash y. Hopci-2-WLY-EPA-Fish Oil (FISH OIL) 1,000 mg (120 mg-1 80 mg) cap Take 2 g by mouth twice daily. No current facility-administered medications on file p rior to visit. Social History Social History Socioeconomic History [...] Reviewed relevant PMHx, PSHx, Social Hx, current medic ations and allergies. EXAM: BP 124/84 Pulse 82 Temp 36.6 ?C (97.9 ?F) (Right T ympanic) Resp 14 Ht 172.7 cm (5' 8) Wt 121.6 kg (268 lb) BMI 40.75 kg/m? General Appearance: Well tim earing, alert, in no acute distress, well-hydrated, well nourished. and Morbidly obese. Head: Normocephalic, no masses, lesions, tenderness or abnormalities. Eyes: Anicteric sclera. Pupils are equally round and r eactive to light. Extraocular movements are intact. . Ears: External ears normal, canals clear. Nose/Sinuses: Nares normal, septum midline, mucosa normal, no drainage or sinus tenderness. Oropharynx: Lips, mucosa, and tongue nor mal, teeth and gums normal, oropharynx normal. Neck: Supple, no adenopathy; thyroid symmetric, normal size, no bruits. Lungs: lungs clear to auscultation. No wheezing, rhonc hi, rales. Heart: RRR without murmur, gallop, or rubs. No ectopy. Abdomen: Normal abdominal exam, Abdomen soft, non-tender. Bowel sounds normal. No masses, organomegaly. Extremities: No deformities, edema. Peripheral Pulses: Normal, Pulses: radial=4/4, dorsali s pedis=4/4, posterior tibial=4/4. Neurologic: Gait normal. Reflexes normal and symmetric . Sensation grossly intact.. Rectal: Negative findings: perianal area [...] Screening for diabetes mellitus - ICD9: V77.1, ICD1 0: Z13.1 - COMP METABOLIC PANEL 3. Screening for lipid disorders - ICD9: V77.91, ICD10 : Z13.220 - LIPID PANEL BASIC 4. Class 3 severe obesity due to excess calories witho ut serious comorbidity with body mass index (BMI) of 40.0 to 44.9 in adult (H CC) - ICD9: 278.01, V85.41, ICD10: E66.01, Z68.41 - Discussed getting 30-45 minutes of exercise da mayte, provided low-cholesterol diet. 5. Fecal smearing - ICD9: 787.62, ICD10: R15.1 - Physical exam normal. We discussed trial of Be nefiber to bulk stools as his stools have been looser for the past year. He will tri al this for 3 weeks, contact office if not improv ing symptoms, we will refer to gastroenterology for second opinion. Get labs today, contact yanelis cox for #5 if not improving, follow up yearly and as needed. EMANUEL Paulino APRN.CNP 03/29/2019 9:23 AM Signed I would recommend trial of Benefiber ove r the counter. Start with the starting dose and trial for 3 weeks. If you symptoms are not re solved, please call my office at [phone], ask to speak to a nurse, and I can put in a referral to gastroenterology. Carlos Pope APRN.YAHIR HEALTHY EATING FOR A LOW FAT, LOW CHOLESTEROL DIET Choose Daily Go Easy Caution Meat Equivalents Lean cuts of meat with fat trimmed like: Beef: eye, tip or top of the round Poultry without skin Dried beans and peas Egg whites/egg substitutes Fish/Shellfish Low-fat/skim milk Cheeses or lunch meats with less than 3 grams of fat p er ounce Natural peanut butter Prime grades of meat [...] or regular hard cheese Whole milk, cream Tmke-otg-sxws, most dairy creamers Real non-dairy whipped cream [...] cold Pasta/noodels (no egg yolks) Rice Bagels, Taiwanese muffins Potatoes Baked goods (cake, muffins, pancakes, waffles, biscuit s, cornbread) Croissants, pastry, doughnuts, sweet rolls Granola Snack Crackers made without allowed ingredients Starches prepared with cream, butter or cheese sauces Egg noodles Fats and Oils Unsaturated vegetable oils: canola, olive, peanut, cor n, safflower, sesame, soybean, sunflower Margarine made with plant stanols Vegetable cooking spray Low fat salad dressing (made with unsaturated fats) Low fat mayonnaise Seeds Butter, lard, beef tallow, moralez fat Shortening Palm, palm kernel and coconut oils Hydrogenated oils Regular mayonnaise or margarine Regular salad dressing Snacks (In very limited amount) Sherbet, sorbet, Ukrainian ice, frozen yogurt, popsicles , génesis food cake, fig bars, gingersnaps, low-fat j loly beans and hard candy, plain popcorn, pretzels, fruit juices, tea, coffee Fruit crisps and cobblers, homemade cakes, pies and co okies made with unsaturated oils Ice cream, frozen tofu, candy, chocolate, potato chips , butter popcorn, milkshakes, frappes, floats, eggnog, store-bought pies , most store-bought frosted and pound cakes For diet, please focus on: - More lean meats like chicken, fish, turkey rather th an red meats - Less carbs and when [...] little more than what you have been doing . Carlos Pope APRN.YAHIR Referring Provider: SELF [200] Allergies As of Date: 03/29/2019 Noted Allergy Reactio n POLLEN EXTRACTS 03/29/2019 9 - Itching Date Reviewed: 03/29/2019 Reviewed by: Carlos (Yahir) Niko - Fully Assessed Reason for Visit: Establish Care [42] Primary Visit Diagnosis:Encounter to establish care [Z 76.89] Other Visit Diagnoses:Screening for diabetes mellitus [Z13.1] Screening for lipid disorders [Z13.220] Class 3 severe obesity due to excess calories without serious comorbidity with body mass index (BMI) of 40.0 to 44.9 in adult (HCC) [E66.01, Z68.41] Fecal smearing [R15.1] Order(s):COMP METABOLIC PANEL [SQCMP] Order #: [id number] FUTURE LIPID PANEL BASIC [SQLIPB] Order #: [id number] FUTURE Prescriptions as of 03/29/2019 Sig: MULTIVITAMIN CAPSULE Take 1 capsule by mouth once * OMEGA 8-KZG-CAX-FISH OIL 1,00* Take 2 g by mouth twice daily. Problem List As Of Date 03/29/2019 Noted Resolved Pilonidal cyst without abscess [L05.91] INVALID FOR* Obesity [E66.9] Other instructions from your clinician: I would recommend trial of Benefiber over the counter. Start with the starting dose and trial for 3 weeks. If you symptoms a re not resolved, please call my office at [phone], ask to speak to a nurse, and I can put in a referral to gastroenterology. Carlos Pope APRN.YAHIR HEALTHY EATING FOR A LOW FAT, LOW CHOLESTEROL DIET Choose Daily Go Easy Caution Meat Equivalents Lean cuts of meat with fat trimmed like: Beef: eye, tip or top of the round Poultry without skin Dried beans and peas Egg whites/egg substitutes Fish/Shellfish Low-fat/skim milk Cheeses or lunch meats with less than 3 grams of fat p er ounce Natural peanut butter Prime grades of meat [...] or regular hard cheese Whole milk, cream Gkmc-xfr-lzhf, most dairy creamers Real non-dairy whipped cream [...] cold Pasta/noodels (no egg yolks) Rice Bagels, Taiwanese muffins Potatoes Baked goods (cake, muffins, pancakes, waffles, biscuit s, cornbread) Croissants, pastry, doughnuts, sweet rolls Granola Snack Crackers made without allowed ingredients Starches prepared with cream, butter or cheese sauces Egg noodles Fats and Oils Unsaturated vegetable oils: canola, olive, peanut, cor n, safflower, sesame, soybean, sunflower Margarine made with plant stanols Vegetable cooking spray Low fat salad dressing (made with unsaturated fats) Low fat mayonnaise Seeds Butter, lard, beef tallow, moralez fat Shortening Palm, palm kernel and coconut oils Hydrogenated oils Regular mayonnaise or margarine Regular salad dressing Snacks (In very limited amount) Sherbet, sorbet, Ukrainian ice, frozen yogurt, popsicles , génesis food cake, fig bars, gingersnaps, low-fat jelly beans and hard ca ndy, plain popcorn, pretzels, fruit juices, tea, coffee Fruit crisps and cobblers, homemade cakes, pies and co okies made with unsaturated oils Ice cream, frozen tofu, candy, chocolate, potato chips , butter popcorn, milkshakes, frappes, floats, eggnog, store-bought pies , most store-bought frosted and pound cakes For diet, please focus on: - More lean meats like chicken, fish, turkey rather th an red meats - Less carbs and when having carbs, more complex carbs such as beans, wheat or multigrain and brown rice - more vegetables - health fats such as olive oil, nuts, avocados For exercise: Please try and aim for a goal of 30 min a day most day s of the week with a goal of 150min/wk. Brisk walking is plenty, if you can increase it later, then that is good, but if you are going from little or no exercise to this new routine, I do not want you to go too extreme. If y ou already exercise, I encourage you to try and do a little more than what you have been doing. Carlos Pope APRN.YAHIR Disposition: Return if symptoms worsen or fail to impr ove. Follow-up and Disposition History Recorded Encounter Status:Closed by CARLOS POPE CNP on 03/29/19 Comp Metabolic Panel on 03-29-2019 Albumin mass conc 4.0 g/dL Normal 3.9-4.9 [facility] Comment on above: Performed By: #### CMP, LIPB #### [facility] [address], [place] [id number] ALP enzyme act/vol 112 U/L Normal 38-113 [facility] Comment on above: Performed By: #### CMP, LIPB #### [facility] [address], [place] [address] ALT enzyme act/vol 51 U/L Normal 10-54 [facility] Comment on above: Performed By: #### CMP, LIPB #### [facility] [address], [place] [address] Anion gap molar conc 11 mmol/L Normal 9-18 [facility] Comment on above: Performed By: #### CMP, LIPB #### [place] [address] [place] [address] AST enzyme act/vol 106 U/L High 14-40 [facility] Comment on above: Performed By: #### CMP, LIPB #### [facility] [address] [place] [phone] Bilirubin mass conc 1.2 mg/dL Normal 0.2-1.3 [facility] Comment on above: Performed By: #### CMP, LIPB #### [facility] [address] [place] [phone] Calcium mass conc 8.5 mg/dL Normal 8.5-10.2 [facility] Comment on above: Performed By: #### CMP, LIPB #### [place] [phone] Chloride molar conc 101 mmol/L Normal 97-105 [facility] Comment on above: Performed By: #### CMP, LIPB #### [facility] [address] [place] [address] CO2 molar conc 27 mmol/L Normal 22-30 [facility] Comment on above: Performed By: #### CMP, LIPB #### [facility] [address] [place] [phone] Creatinine mass conc 0.72 mg/dL Low 0.73-1.22 [facility] Comment on above: Performed By: #### CMP, LIPB #### [facility] [address] [place] [address] eGFR- Amer. >60 Normal [facility] Comment on above: Performed By: #### CMP, LIPB #### [facility] [address] [place] [address] GFR/1.73 sq M predicted among mL/min/{1.73_m2} Normal [facility] non-blacks MDRD vol rate/area (S/P/Bld) Comment on above: Result Comment: eGFR (Estima laura GFR) Units [...] [facility] [address] [place], [place] [address] Glucose mass conc 109 mg/dL High 74-99 [facility] Comment on above: Result Comment: The [place] Diabetes Association (ADA) provides guidance for cutoff [...] for diagnosis of diabetes. Reference: Standards of [facility] Care in Diabetes 2016, [place] Diabetes Association. Diabetes Care. 2016.39(Suppl 1). Performed By: #### CMP, LIPB #### [facility] [address] [place], [place] [address] Potassium molar conc 3.5 mmol/L Low 3.7-5.1 [facility] Comment on above: Performed By: #### CMP, LIPB #### [facility] [address] [place], [place] [address] Protein mass conc 6.8 g/dL Normal 6.3-8.0 [facility] Comment on above: Performed By: #### CMP, LIPB #### [facility] [address] [place] [address] Sodium molar conc 139 mmol/L Normal 136-144 [facility] Comment on above: Performed By: #### CMP, LIPB #### [facility] [address] [place] [address] Urea nitrogen mass conc 5 mg/dL Low 9-24 [facility] Comment on above: Performed By: #### CMP, LIPB #### [facility] [address] [place] [address] Lipid Panel, Basic o n 03-29-2019 Cholesterol in HDL mass conc 38 mg/dL Low >39 [facility] Comment on above: Result Comment: 40-59 mg/dL, Acceptable >59 mg/dL, High: Negative ri sk factor for coronary heart disease <40 mg/dL, Low: Positive ris k factor for coronary heart disease Performed By: #### CMP, LIPB #### [place] [address] [place] [address] Cholesterol in LDL mass conc 105 mg/dL High <100 [facility] Comment on above: Result Comment: <100 mg/dL, Optimal 100-129 mg/dL, Near optimal/ above optimal 130-159 mg/dL, Borderline hi gh 160-189 mg/dL, High >189 mg/dL, Very high Secondary prevention optimal LDL Cholesterol levels are recommended to be < 70 mg/dL Performed By: #### CMP, LIPB #### [place] [id number] [place] [address] Cholesterol mass conc 167 mg/dL Normal <200 [facility] Comment on above: Result Comment: <200 mg/dL, Desirable 200-239 mg/dL, Borderline hi gh >239 mg/dL, High Performed By: #### CMP, LIPB #### [facility] [place] [address] Fasting Time 11 hrs Normal [facility] Comment on above: Performed By: #### CMP, LIPB #### [facility] [address], [place] [address] LDL:HDL Ratio 2.76 High <2.54 [facility] Comment on above: Result Comment: Reference: 1. National Cholesterol Educ ation Program ATP III Guideline At-A-Glance Quick Desk Reference: National Heart, Lung, and Blood [place]. National Institutes of Health. 2001: NIH Publication No. 01-3305. 2. An International Atherosc lerosis Society position paper: global recommendations for the management of dyslipidemia: executive summary, Atherosclerosis. 2014: 232(2):410-413. Performed By: #### CMP, LIPB #### [place] [address] Non HDL Cholesterol 129 mg/dL Normal <130 [facility] Comment on above: Result Comment: <130 mg/dL, Optimal 130-159 mg/dL, Near optimal/ above optimal 160-189 mg/dL, Borderline hi gh 190-219 mg/dL, High >219 mg/dL, Very high Secondary prevention optimal non HDL Cholesterol levels are recommended to be < 100 mg/dL Performed By: #### CMP, LIPB #### [place] [address] TC:HDL Ratio 4.39 Normal <5.10 [facility] Comment on above: Performed By: #### CMP, LIPB #### [facility] [address] [place] [address] Triglyceride mass conc 121 mg/dL Normal <150 [facility] Comment on above: Result Comment: <150 mg/dL, Normal 150-199 mg/dL, Borderline hi gh 200-499 mg/dL, High >499 mg/dL, Very high Performed By: #### CMP, LIPB #### [place] [address] VLDL Cholesterol 24 mg/dL Normal <30 [facility] Comment on above: Performed By: #### CMP, LIPB #### [facility] [address] [place], [place] [address] PROGRESS on 03-29-20 19 Protein mass conc HNO ID: [id number] Normal [facility] Author: Carlos (Yahir) Niko fisher Service: ? Author Type: Nurse Practitioner Type: Progress Notes Filed: 03/29/2019 9:31 AM Note Text: Chief Complaint Patient presents with: Establish Care HPI Aga Moore is a 49 year old male who presents he re today for establish care with Dr. Landis. No previous PCP since the . 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 Would like to be screened for diabetes, lipid. He had a Tdap 6 years ago and cutting self. Completed at an urgent care in [facility]. At this time, no fevers or chills. No eye, ear, nose, or throat complaints. No chest pain, shortness of breath, syncop e. No abdominal pain, nausea, vomiting. No blood in his stools or urin e. Does mention that for the past year, has had intermittent bubbling of stool contents that will seep from rectal area. Approximates that it occurs a few times a week. Thinks that it is exacerbated by lifting heavy objects. Has to carry diaper wipes to clean self. No rectal pain. Stoo ls are usually on the looser side, no constipation. Can have a few stool s a day, which is normal. States that the area can be itchy at times, di scharge has a strong odor. Believes that he has hemorrhoids. Past medical history, appointments, medications, aller gies reviewed. Previous Medical History PAST MEDICAL HISTORY Diagnosis [...] capsule Take 1 capsule by mouth once ash y. Urnxc-8-WWQ-EPA-Fish Oil (FISH OIL) 1,000 mg (120 mg-1 80 mg) cap Take 2 g by mouth twice daily. No current facility-administered medications on file p rior to visit. Social History Social History Socioeconomic History [...] Reviewed relevant PMHx, PSHx, Social Hx, current medic ations and allergies. EXAM: BP 124/84 Pulse 82 Temp 36.6 ?C (97.9 ?F) (Right T ympanic) Resp 14 Ht 172.7 cm (5' 8) Wt 121.6 kg (268 lb) BMI 40.75 kg/m? General Appearance: Well appearing, alert, in no acute distress, well-hydrated, well nourished. and Morbidly obese. Head: Normocephalic, no masses, lesions, tenderness or abnormalities. Eyes: Anicteric sclera. Pupils are equally round and r eactive to light. Extraocular movements are intact. . Ears: External ears normal, canals clear. Nose/Sinuses: Nares normal, septum midline, mucosa nor mal, no drainage or sinus tenderness. Oropharynx: Lips, mucosa, and tongue normal, teeth and gums normal, oropharynx normal. Neck: Supple, no adenopathy; thyroid symmetric, normal size, no bruits. Lungs: lungs clear to auscultation. No wheezing, rhonc hi, rales. Heart: RRR without murmur, gallop, or rubs. No ectopy. Abdomen: Normal abdominal exam, Abdomen soft, non-tend er. Bowel sounds normal. No masses, organomegaly. Extremities: No deformities, edema. Peripheral Pulses: Normal, Pulses: radial=4/4, dorsali s pedis=4/4, posterior tibial=4/4. Neurologic: Gait normal. Reflexes normal and symmetric . Sensation grossly intact.. Rectal: Negative findings: perianal area normal, anus normal, digital rectal exam negative. Lymph Nodes: No cervical lymphadenopathy. Health Maintenance List DTAP,TDAP,TD(1 - Tdap) due on 02/15/1991 LIPID SCREEN due on 02/15/2007 DIABETES SCREEN due on 02/15/2017 INFLUENZA(Season Ended) due on 06/25/2019 Data reviewed None, new patient. ASSESSMENT/PLAN: 1. Encounter to establish care - ICD9: V65.8, ICD10: Z 76.89 (primary diagnosis) Now established with Dr. Landis 2. Screening for diabetes mellitus - ICD9: V77.1, ICD1 0: Z13.1 - COMP METABOLIC PANEL 3. Screening for lipid disorders - ICD9: V77.91, ICD10 : Z13.220 - LIPID PANEL BASIC 4. Class 3 severe obesity due to excess calories witho ut serious comorbidity with body mass index (BMI) of 40.0 to 44.9 in adult (HCC) - ICD9: 278.01, V85.41, ICD10: E66.01, Z68.41 - Discussed getting 30-45 minutes of exercise daily, p rovided low-cholesterol diet. 5. Fecal smearing - ICD9: 787.62, ICD10: R15.1 - Physical exam normal. We discussed trial of Benefibe r to bulk stools as his stools have been looser for the past year. He w ill trial this for 3 weeks, contact office if not improving symptoms, we will refer to gastroenterology for second opinion. Get labs today, contact office for #5 if not improving , follow up yearly and as needed. Carlos Pope APRN.CIRCULATION SALES REPRESENTATIVE Summary Purpose Family History No Family History Records Found Advance Directives No Advanced Directives Records Found Additional Source Comments (unrecognized section and cont ent) No Status Records Found INFORMATION SOURCE (unrecognized section and content) DATE CREATED AUTHOR AUTHOR'S ORGANIZ ATION 04/01/2019 [facility] FOR RECORDS PERTAINING TO PATIENTS WHO ARE OR HAVE BEEN ENROLLED IN A CHEMICAL DEPENDENCY/SUBSTANCE ABUSE PROGRAM, SOME INFORMATION MAY BE OMITTED. This clinical summary was aggregated from multiple sources. Caution should be exercised in using it in the provision of clinical care. This summary normalizes information from multiple sources, and as a consequence, information in this document may materially change the coding, format and clinical context of patient data. In addition, data may be omitted in some cases. CLINICAL DECISIONS SHOULD BE BASED ON THE PRIMARY CLINICAL RECORDS. [facility] [employer] provides no warranty or guarantee of the accuracy or completeness of information in this document.
--- NOTE | 2021-05-21 14:17 | EKG12_ITS ---
Test Reason : ABD PAIN Blood Pressure : / mmHG Vent. Rate : 089 BPM Atrial Rate : 089 BPM P-R Int : 160 ms QRS Dur : 106 ms QT Int : 428 ms P-R-T Axes : 036 022 022 degrees QTc Int : 520 ms Normal sinus rhythm Prolonged QT Abnormal ECG Confirmed by TYLER PINO, NÉSTOR ([id number]), supervising editor news reel RICK FARLEY ([id number]) on 05/26/2021 9:06:52 AM Referred By: RAY Confirmed By:BRE SCOTT MD
--- NOTE | 2021-05-21 14:18 | EDS_ITS ---
HPI History of Present Illness Chief Complaint: Abd Pain Narrative Narrative: 51-year-old male with history of alcohol abuse presents with abdominal distention as well as left inguinal pain. He states that he noticed the left inguinal pain less than a month ago. 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 He has not seen his primary care doctor in over a year. He has not seen Dr. Mcpherson in over a year. He states he stopped seeing Dr. Mcpherson because he was tired of hearing bad news. He states that Dr. 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 Patient admits to drinking 3-4 beers 4 days a week currently. He denies other drugs. Patient states that he has been a little more dyspneic with exertion. He does note that his abdomen has been more distended than previous. He is never had ascites nor has he had to have paracentesis. Patient does states he feels feverish sometimes but has not had a fever with a thermometer. Patient does note that recently he has had increasing nosebleeds as well as blood in his stool. PFSH PFSH Medical History Anemia Anxiety Carpal tunnel syndrome Depression Gallstones GERD (gastroesophageal reflux disease) H/O alcohol abuse Hypertension Smoker Home Medications NK 05/21/21 [History Last Taken Unknown] Allergy/AdvReac Type Severity Reaction Status Date / Time No Known Allergies Allergy Verified 05/21/21 13:54 Family History Father Alcoholism Cancer Mother Anxiety Osteoporosis Grandmother Diabetes Surgical History History of removal of periurethral cyst Social History (Updated 05/21/21 @ 20:[address] Jess Davis MD) household members: significant other Smoking Status: Current every day smoker tobacco type: cigarettes Smoking packs per day: 0.25 Smoking cigarettes per day: 5.0 alcohol intake: current alcohol intake frequency: 3 or more drinks per day Alcohol type: beer details: 3-4 Tall boy beers daily. substance use type: does not use what type of physical activity do you participate in: walking and bicycling frequency: 1-2 times per week ROS ROS ED Review of Systems ROS Unobtainable: Denies due to encephalopathy Constitutional Constitutional ED: Reports subjective and weight loss; Denies sweats Eyes Eyes: Denies blurry vision or diplopia ENT ENT ED: Reports other Details: Periodic epistaxis ; Denies rhinorrhea or sore throat Cardiovascular Cardiovascular: Denies chest pain or palpitations Respiratory/Chest Respiratory/Chest: Reports dyspnea and dyspnea on exertion; Denies cough Gastrointestinal Gastrointestinal: Reports abdominal pain, nausea and other Details: Abdominal distention, blood in stool periodically. Genitourinary Genitourinary ED: Denies dysuria or hematuria Musculoskeletal Musculoskeletal: Denies arthralgias or myalgias Integumentary Denies Abrasions or rash Neurologic Neurologic: Denies headache(s) or paresthesias EXAM Physical Exam Const Vital Signs: 05/21/21 13:54 05/21/21 17:35 05/21/21 20:16 Temperature 97.4 F L Temperature Source Temporal Pulse Rate 91 86 93 Respiratory Rate 16 15 Blood Pressure 126/77 H 147/84 H 136/81 H Blood Pressure Mean 93 105 99 Pulse Ox 95 98 99 Oxygen Delivery Method Room Air Room Air Room Air 05/21/21 21:32 Temperature Temperature Source Pulse Rate Respiratory Rate Blood Pressure 153/95 H Blood Pressure Mean 114 Pulse Ox 96 Oxygen Delivery Method Room Air Positive obese General Appearance ED: NAD Nutritional Appearance: obese HEENT Reports moist mucous membranes HEENT Narrative: Occasional epistaxis. Negative for trauma Eyes PERRL and EOMs intact bilaterally General Eye ED: Negative for scleral icterus Neck no lymphadenopathy and supple Resp normal respiratory effort and clear to auscultation bilaterally Cardio regular rate and regular rhythm GI Inspection: abdominal distention Extremity General Extremety ED: Yes edema; Negative for tenderness General Extremity: edema Neuro oriented x3 and CN's II-XII intact bilaterally Sensorium / Orientation: alert Psych mental status grossly normal Skin no rashes or lesions noted and no wounds MDM MDM MDM Narrative Medical decision making narrative: Patient presenting with abdominal distention. he states he is a drinker 4 days a week. He states he has a history of drinking more than this. On exam he does appear to have a fluid wave. He does complain of left inguinal pain. Lab work shows white blood cell count 2.8, hemoglobin 13.7, hematocrit 39.1, platelets 60. His platelets are acutely lower than previously. Creatinine is normal. Potassium was slightly low at 3.3. Lactic acid is 3.1. Patient was given IV fluids and this was repeated and was 3.1 again. He was given more IV fluids after this. Lipase is negative. CPK came back elevated at over 600. Again patient was given IV fluids. INR 1.9. Total bilirubin is 7.90, direct bilirubin 3.7, AST 199, ALT 69, alk phos 145. Urinalysis is positive for infection patient was given Rocephin through the IV. Culture was sent. CT abdomen pelvis with p.o. and IV contrast shows cirrhotic liver with evidence of portal hypertension including splenomegaly, large volume ascites and gastroesophageal and splenic varices. There are innumerable hypodense nodules, most likely dysplasticnodules. Recommend multiphase CT or MR abdomen liver mass protocol to assess for hepatocellular carcinoma. Initially patient was evaluated hospitalist who felt the patient needed a tertiary facility after discussing this with Dr. Beebe who recommended somebody with primary pathology. Patient was counseled on findings. He is amenable to [facility]. I did discuss the case with the transfer line and they stated that they would get the on-call operator and truck driver to call me back. I am still awaiting this phone call. Patient will be signed out to incoming ED physician for follow-up. During his stay patient did mention that he had nosebleeds as well as rectal bleeding however he is Hemoccult negative and has no epistaxis currently. This is likely due to low platelets and alcohol abuse. His EtOH is 203 today. Impression: 1 cirrhosis 2. Portal hypertension 3. Gastroesophageal and splenic varices 4. UTI 5. Ascites 6. Transaminitis 7. EtOH abuse Lab Data Attestation: I reviewed the patient's lab results. Labs: Laboratory Results - last 24 hr 05/21/21 05/21/21 05/21/21 14:45 14:45 14:45 WBC 2.8 L RBC 3.79 L Hgb 13.7 Hct 39.1 L MCV 103.2 H MCH 36.1 H MCHC 35.0 RDW Std Deviation 60.7 H RDW Coeff of Maria Guadalupe 15.9 H Plt Count 60 L MPV 11.7 Immature Gran % (Auto) 0.400 Neut % (Auto) 56.4 Lymph % (Auto) 21.8 Hettinger % (Auto) 16.7 H Eos % (Auto) 2.2 Baso % (Auto) 2.5 H Absolute Neuts (auto) 1.6 L Absolute Lymphs (auto) 0.60 L Nucleated RBC % 0 Diff Path Review May foll PT INR Sodium 140 Potassium 3.3 L Chloride 105 Carbon Dioxide 27.0 Anion Gap 8 BUN 3 L Creatinine 0.56 L Estim Creat Clear Calc 159.57 Est GFR (MDRD) Af Amer 200 Est GFR (MDRD) Non-Af 165 BUN/Creatinine Ratio 5.4 L Glucose 94 Lactic Acid 3.1 H* Calcium 8.0 L Total Bilirubin Direct Bilirubin AST ALT Alkaline Phosphatase Total Creatine Kinase Troponin I High Sens 9.4 Total Protein Albumin Globulin Lipase 184 Urine Color Urine Clarity Urine pH Ur Specific Beaver Urine Protein Urine Glucose (UA) Urine Ketones Urine Occult Blood Urine Nitrite Urine Bilirubin Urine Urobilinogen Ur Leukocyte Esterase Urine RBC Urine WBC Ur Squamous Epith Cells Urine Bacteria Urine Mucus Ethyl Alcohol 05/21/21 05/21/21 05/21/21 14:45 14:45 14:45 WBC RBC Hgb Hct MCV MCH MCHC RDW Std Deviation RDW Coeff of Maria Guadalupe Plt Count MPV Immature Gran % (Auto) Neut % (Auto) Lymph % (Auto) Hettinger % (Auto) Eos % (Auto) Baso % (Auto) Absolute Neuts (auto) Absolute Lymphs (auto) Nucleated RBC % Diff Path Review PT INR Sodium Potassium Chloride Carbon Dioxide Anion Gap BUN Creatinine Estim Creat Clear Calc Est GFR (MDRD) Af Amer Est GFR (MDRD) Non-Af BUN/Creatinine Ratio Glucose Lactic Acid Calcium Total Bilirubin Direct Bilirubin AST ALT Alkaline Phosphatase Total Creatine Kinase 626 H Troponin I High Sens Total Protein Albumin Globulin Lipase Urine Color Yellow Urine Clarity Sl. Cloudy Urine pH 7.0 Ur Specific Beaver 1.010 Urine Protein 30 H Urine Glucose (UA) Normal Urine Ketones 5 H Urine Occult Blood 10 H Urine Nitrite Positive H Urine Bilirubin 3 H Urine Urobilinogen 12 H Ur Leukocyte Esterase 100 H Urine RBC 0-5 SEEN Urine WBC 10-25 SEEN Ur Squamous Epith Cells 0-5 SEEN Urine Bacteria 0 SEEN Urine Mucus 0 SEEN Ethyl Alcohol 203.0 05/21/21 05/21/21 05/21/21 14:45 18:56 19:30 WBC RBC Hgb Hct MCV MCH MCHC RDW Std Deviation RDW Coeff of Maria Guadalupe Plt Count MPV Immature Gran % (Auto) Neut % (Auto) Lymph % (Auto) Hettinger % (Auto) Eos % (Auto) Baso % (Auto) Absolute Neuts (auto) Absolute Lymphs (auto) Nucleated RBC % Diff Path Review PT 20.9 H INR 1.9 Sodium Potassium Chloride Carbon Dioxide Anion Gap BUN Creatinine Estim Creat Clear Calc Est GFR (MDRD) Af Amer Est GFR (MDRD) Non-Af BUN/Creatinine Ratio Glucose Lactic Acid 3.1 H* Calcium Total Bilirubin 7.90 H Direct Bilirubin 3.87 H AST 199 H ALT 69 H Alkaline Phosphatase 145 H Total Creatine Kinase Troponin I High Sens Total Protein 7.1 Albumin 2.8 L Globulin 4.3 H Lipase Urine Color Urine Clarity Urine pH Ur Specific Beaver Urine Protein Urine Glucose (UA) Urine Ketones Urine Occult Blood Urine Nitrite Urine Bilirubin Urine Urobilinogen Ur Leukocyte Esterase Urine RBC Urine WBC Ur Squamous Epith Cells Urine Bacteria Urine Mucus Ethyl Alcohol Radiography Diagnostic Testing: Radiology Impression Chest X-Ray 05/21/21 15:10 IMPRESSION: Increased markings at the left lung base suggestive of either linear atelectasis and/or early infiltrate. Electronically Signed: Jeffrey Recinos MD at 15:31 EDT , Service support , Abdomen/Pelvis CT 05/21/21 16:32 IMPRESSION: Cirrhotic liver with evidence of portal hypertension including splenomegaly, large volume ascites and gastroesophageal and splenic varices. There are innumerable hypodense nodules, most likely dysplastic nodules. Recommend multiphase CT or MR abdomen liver mass protocol to assess for hepatocellular carcinoma. 6 mm nonobstructing calcification in the right mid renal pole. Cholelithiasis. Diverticulosis. Small fat and fluid containing umbilical hernia. Moderately sized fat and fluid containing left inguinal hernia. Electronically Signed: Ray Segundo MD at 17:07 EDT Tel , Service support , Discharge Plan Triage Chief Complaint: Abd Pain ED Provider: Chung Kohli Dx/Rx/DC Orders Prescriptions: No Action NK RF: 0 Primary Care Provider: Derick Rebollar
--- OUTSIDE RECORDS SUMMARY | 2021-05-21 14:20 | XMS RPT_ITS ---
Patient Summarization (C-CDA 2.1 CCD) Created on:May 21, 2021 Patient:AGA MOORE Sex:Male :1970 External Reference #:[id number] Author Organization Sample organization Results Test Name Value Interpretation Reference Range Facility CNOV on 03-29-2019 CNOV Office Visit (FAMPWS) [facility] AGA MOORE ([id number]) 1970 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 Working on weight loss Has lost 12-13 pounds recently with watching diet. Would like to be screened for diabetes, lipid. He had a Tdap 6 years ago and cutting self. Completed at an urgent care in [place]. At this time, no fevers or chills. [...] 1 capsule by mouth once ash y. Vbybw-9-WXA-EPA-Fish Oil (FISH OIL) 1,000 mg (120 mg-1 [...] re solved, please call my office at [phone], ask to speak to a nurse, and [...] or regular hard cheese Whole milk, cream Ilne-zfo-beap, most dairy creamers Real non-dairy whipped cream [...] cold Pasta/noodels (no egg yolks) Rice Bagels, Cambodian muffins Potatoes Baked goods (cake, muffins, pancakes, [...] Snacks (In very limited amount) Sherbet, sorbet, English ice, frozen yogurt, popsicles , génesis food [...] [R15.1] Order(s):COMP METABOLIC PANEL [SQCMP] Order #: [id number] FUTURE LIPID PANEL BASIC [SQLIPB] Order #: [id number] FUTURE Prescriptions as of 03/29/2019 Sig: MULTIVITAMIN CAPSULE Take 1 capsule by mouth once * OMEGA 6-VOY-TNM-FISH OIL 1,00* Take 2 g by mouth twice daily. Problem List As Of Date 03/29/2019 Noted Resolved Pilonidal cyst without abscess [L05.91] INVALID FOR* Obesity [E66.9] Other instructions from your clinician: I would recommend trial of Benefiber over the counter. Start with the starting dose and trial for 3 weeks. If you symptoms a re not resolved, please call my office at [phone], ask to speak to a nurse, and [...] or regular hard cheese Whole milk, cream Vtaj-ums-qakz, most dairy creamers Real non-dairy whipped cream [...] cold Pasta/noodels (no egg yolks) Rice Bagels, Cambodian muffins Potatoes Baked goods (cake, muffins, pancakes, [...] Snacks (In very limited amount) Sherbet, sorbet, English ice, frozen yogurt, popsicles , génesis food [...] Albumin mass conc 4.0 g/dL Normal 3.9-4.9 [facility] Comment on above: Performed By: #### CMP, LIPB #### [facility] [address], [place] [id number] ALP enzyme act/vol 112 U/L Normal 38-113 [facility] Comment on above: Performed By: #### CMP, LIPB #### [facility] [address] [place], [place] [address] ALT enzyme act/vol 51 U/L Normal 10-54 [facility] Comment on above: Performed By: #### CMP, LIPB #### [facility] [address] [place], [place] [address] Anion gap molar conc 11 mmol/L Normal 9-18 [facility] Comment on above: Performed By: #### CMP, LIPB #### [facility] [address] [place] [address] AST enzyme act/vol 106 U/L High 14-40 [facility] Comment on above: Performed By: #### CMP, LIPB #### [facility] [address] [place] [phone] Bilirubin mass conc 1.2 mg/dL Normal 0.2-1.3 [facility] Comment on above: Performed By: #### CMP, LIPB #### [facility] [address] [place] [phone] Calcium mass conc 8.5 mg/dL Normal 8.5-10.2 [facility] Comment on above: Performed By: #### CMP, LIPB #### [place] [phone] Chloride molar conc 101 mmol/L Normal 97-105 [facility] Comment on above: Performed By: #### CMP, LIPB #### [facility] [address] [place] [address] CO2 molar conc 27 mmol/L Normal 22-30 [facility] Comment on above: Performed By: #### CMP, LIPB #### [facility] [address] [place] [phone] Creatinine mass conc 0.72 mg/dL Low 0.73-1.22 [facility] Comment on above: Performed By: #### CMP, LIPB #### [facility] [address] [place] [address] eGFR- Amer. >60 Normal [facility] Comment on above: Performed By: #### CMP, LIPB #### [facility] [address] [place] [address] GFR/1.73 sq M predicted among mL/min/{1.73_m2} Normal [facility] non-blacks MDRD vol rate/area (S/P/Bld) Comment [...] GFR. Performed By: #### CMP, LIPB #### [facility] [address] [place], [place] [address] Glucose mass conc 109 mg/dL High 74-99 [facility] Comment on above: Result Comment: The [place] Diabetes Association (ADA) provides guidance for cutoff [...] for diagnosis of diabetes. Reference: Standards of [facility] Care in Diabetes 2016, [place] Diabetes Association. Diabetes Care. 2016.39(Suppl 1). Performed By: #### CMP, LIPB #### [facility] [address] [place], [place] [address] Potassium molar conc 3.5 mmol/L Low 3.7-5.1 [facility] Comment on above: Performed By: #### CMP, LIPB #### [facility] [address] [place], [place] [address] Protein mass conc 6.8 g/dL Normal 6.3-8.0 [facility] Comment on above: Performed By: #### CMP, LIPB #### [facility] [employer] [facility] [address] [place] [address] Sodium molar conc 139 mmol/L Normal 136-144 [facility] Comment on above: Performed By: #### CMP, LIPB #### [facility] [employer] [address] [place] [address] Urea nitrogen mass conc 5 mg/dL Low 9-24 [facility] Comment on above: Performed By: #### CMP, LIPB #### [facility] [employer] [facility] [place] [address] Lipid Panel, Basic o n 03-29-2019 Cholesterol in HDL mass conc 38 mg/dL Low >39 [facility] Comment on above: Result Comment: 40-59 mg/dL, Acceptable >59 mg/dL, High: Negative ri sk factor for coronary heart disease <40 mg/dL, Low: Positive ris k factor for coronary heart disease Performed By: #### CMP, LIPB #### [place] [address] [place] [address] Cholesterol in LDL mass conc 105 mg/dL High <100 [facility] Comment on above: Result Comment: <100 mg/dL, Optimal 100-129 mg/dL, Near optimal/ above optimal 130-159 mg/dL, Borderline hi gh 160-189 mg/dL, High >189 mg/dL, Very high Secondary prevention optimal LDL Cholesterol levels are recommended to be < 70 mg/dL Performed By: #### CMP, LIPB #### [place] [id number] [place] [address] Cholesterol mass conc 167 mg/dL Normal <200 [facility] Comment on above: Result Comment: <200 mg/dL, Desirable 200-239 mg/dL, Borderline hi gh >239 mg/dL, High Performed By: #### CMP, LIPB #### [facility] [employer] [facility] [place] [address] Fasting Time [address] [facility] Comment on above: Performed By: #### CMP, LIPB #### [facility] [address] [place], [place] [address] LDL:HDL Ratio 2.76 High <2.54 [facility] Comment on above: Result Comment: Reference: 1. National Cholesterol Educ ation Program ATP III Guideline At-A-Glance Quick Desk Reference: National Heart, Lung, and Blood [place]. National Institutes of Health. 2001: NIH Publication No. 01-3305. 2. An International Atherosc lerosis Society position paper: global recommendations for the management of dyslipidemia: executive summary, Atherosclerosis. 2014: 232(2):410-413. Performed By: #### CMP, LIPB #### [place] [address] Non HDL Cholesterol 129 mg/dL Normal <130 [facility] Comment on above: Result Comment: <130 mg/dL, Optimal 130-159 mg/dL, Near optimal/ above optimal 160-189 mg/dL, Borderline hi gh 190-219 mg/dL, High >219 mg/dL, Very high Secondary prevention optimal non HDL Cholesterol levels are recommended to be < 100 mg/dL Performed By: #### CMP, LIPB #### [place] [address] TC:HDL Ratio 4.39 Normal <5.[address] [facility] Comment on above: Performed By: #### CMP, LIPB #### [facility] [address] [place] [address] Triglyceride mass conc 121 mg/dL Normal <150 [facility] Comment on above: Result Comment: <150 mg/dL, Normal 150-199 mg/dL, Borderline hi gh 200-499 mg/dL, High >499 mg/dL, Very high Performed By: #### CMP, LIPB #### [place] [address] VLDL Cholesterol 24 mg/dL Normal <30 [facility] Comment on above: Performed By: #### CMP, LIPB #### [facility] [address] [place], [place] [address] PROGRESS on 03-29-20 19 Protein mass conc HNO ID: [id number] Normal [facility] Author: Carlos (Yahir) Niko fisher Service: ? Author Type: Nurse Practitioner Type: Progress Notes Filed: 03/29/2019 9:31 AM Note Text: Chief Complaint Patient presents with: Establish Care HPI Aga Moore is a 49 year old male who presents he re today for establish care with Dr. Landis. No previous PCP since the . 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 Would like to be screened for diabetes, lipid. He had a Tdap 6 years ago and cutting self. Completed at an urgent care in [facility]. At this time, no fevers or [...] 1 capsule by mouth once ash y. Tfnxm-1-OIT-EPA-Fish Oil (FISH OIL) 1,000 mg (120 mg-1 [...] up yearly and as needed. Carlos Pope APRN.[employer] Summary Purpose Family History No Family History Records Found Advance Directives No Advanced Directives Records Found Additional Source Comments (unrecognized section and cont ent) No Status Records Found INFORMATION SOURCE (unrecognized section and content) DATE CREATED AUTHOR AUTHOR'S ORGANIZ ATION 04/01/2019 [facility] [place] [facility] FOR RECORDS PERTAINING TO PATIENTS WHO ARE [...] ON THE PRIMARY CLINICAL RECORDS. [facility] [employer] provides no warranty or guarantee of the accuracy or completeness of information in this document.
[2021-05-21 14:52] LABS: Bacteria 0 SEEN /hpf (None Seen); Mucous, Urine 0 SEEN /hpf (<or=2+)
--- NOTE | 2021-05-21 14:52 | ED.RN ---
yellow noted in pt's sclera.
[2021-05-21 14:53] LABS: Absolute Neutrophil Count 1.6 X10^3/uL (2.0-7.7); Basophil# 0.07 X10^3/uL; Basophil% 2.5 % (0-1); Eosinophil# 0.06 X10^3/uL; Eosinophils% 2.2 % (0-5); Hematocrit 39.1 % (40-54); Hemoglobin 13.7 g/dL (13.0-16.5); Lymphocyte % 21.8 % (19-41); Mean Corpuscular Hgb 36.1 pg (27.0-32.0); Mean Corpuscular Volume 103.2 fL (80-94); Mean Platelet Vol. 11.7 fl (6.2-12.0); Monocyte# 0.46 X10^3/uL; Monocyte% 16.7 % (0-10); NRBC Flagged by Analyzer 0 % (0-5); Neutrophil # 1.55 X10^3/uL (2.7-7.7); Neutrophil % 56.4 % (47-70); POSITIVE COUNT YES; POSITIVE DIFFERENTIAL YES; Platelet Count 60 K/mm3 (150-450); RBC Distribution Width CV 15.9 % (11.6-14.6); RBC Distribution Width SD 60.7 fl (35.1-43.9); Red Blood Count 3.79 M/mm3 (4.6-6.2); White Blood Count 2.8 K/mm3 (4.4-11.0)
[2021-05-21 14:54] LABS: Color, Urine Yellow (Yellow); Glucose, Dipstick Normal (Normal); Ketone-Dipstick 5 mg/dl (Negative); Leukocyte Esterase-Dipstick 100 /ul (Negative); Nitrite-Dipstick Positive (Negative); Occult Blood-Urine 10 /ul (Negative); Protein-Dipstick 30 mg/dl (Negative); Urine Bilirubin Dipstick 3 mg/dL (Negative); Urine Clarity Sl. Cloudy (Clear); Urine Urobilinogen 12 mg/dl (Normal)
[2021-05-21 14:56] LABS: Differential Indicated SCAN CRITERIA MET
[2021-05-21 15:01] LABS: Red Blood Cells-Urine 0-5 SEEN /hpf (0-5); Squamous Epithelial Cells - UA 0-5 SEEN /hpf (0-5); White Blood Cells 10-25 SEEN /hpf (0-5)
[2021-05-21 15:10] LABS: Anion Gap 8 (5-15); BUN 3 mg/dL (7-18); BUN/Creat Ratio 5.4 RATIO (10-20); CPK Total, Creatine Kinase 626 U/L (39-308); Chloride 105 mmol/L (98-107); Creatinine, Serum 0.56 mg/dL (0.70-1.30); EST Glomerular Filtration Rate 165 mL/min (>60); Est Glom Filt Rate - Afr Amer 200 mL/min (>60); Estimated Creatinine Clearance 159.57 ml/min; Glucose 94 mg/dL (74-106); Lipase 184 U/L (73-393); Potassium 3.3 mmol/L (3.5-5.1); Sodium Level 140 mmol/L (136-145); Troponin-I HS 9.4 pg/mL (3.0-78.5)
--- NOTE | 2021-05-21 15:10 | RAD_ITS ---
STUDY: X-RAY CHEST REASON FOR EXAM: Male, 51 years old. Dyspnea TECHNIQUE: Single AP portable view of the chest. COMPARISON: Comparison is made with prior study dated 03/14/2020. FINDINGS: Increased markings are seen at the left lung base suggestive of a left basilar atelectasis versus early infiltrate. Follow-up is recommended. There is no demonstrated pleural abnormality. Normal size heart. Normal mediastinum and janeen. Normal visualized pulmonary arteries. Normal visualized aortic arch and descending thoracic aorta. Normal visualized thoracic spine. Normal visualized ribs, clavicles, and shoulders. There is no demonstrated abnormality of the visualized soft tissue structures of the upper abdomen. RAD/Chest 1 View (Portable) IMPRESSION: Increased markings at the left lung base suggestive of either linear atelectasis and/or early infiltrate. Electronically Signed: Jeffrey Recinos MD at 15:31 EDT , Service support ,
[2021-05-21 15:28] LABS: Lactic Acid 3.1 mmol/L (0.4-1.9)
--- NOTE | 2021-05-21 16:32 | CT_ITS ---
INDICATION: abdominal pain -- IV PO Contrast EXAMINATION: CT Abdomen And Pelvis W/ Contrast Injection TECHNIQUE: Helically acquired images were obtained of the abdomen and pelvis after IV contrast. A radiation dose optimization technique was used for this scan. IV Contrast dosage and agent: Oral and amp; IV Gastrografin and amp; 100mL [id number]-300 Oral contrast: Yes. COMPARISON: None. FINDINGS: Visualized lung bases: Unremarkable Liver: Nodular contour compatible with cirrhosis. Innumerable subcentimeter hypodense lesions throughout most likely dysplastic nodules. Gallbladder: Several small intraluminal stones seen. Spleen: Spleen is enlarged. Pancreas: Unremarkable Adrenal Glands: Unremarkable Kidneys: Scattered too small to characterize subcentimeter hypodensities bilaterally. 6 mm nonobstructing calcification in the right midpole. Vasculature: Multiple gastroesophageal and splenic varices. GI Tract: Scattered diverticula throughout the colon without evidence of inflammation. Lymphadenopathy: None Peritoneum: Large volume ascites. Bladder: Unremarkable Reproductive organs: Unremarkable Bones/Soft tissues: Mild scattered degenerative changes of the visualized spine. Small fat and fluid containing umbilical hernia. Moderately sized fat and fluid containing left inguinal hernia. CT/Abdomen/Pelvis WITH Contrast IMPRESSION: Cirrhotic liver with evidence of portal hypertension including splenomegaly, large volume ascites and gastroesophageal and splenic varices. There are innumerable hypodense nodules, most likely dysplastic nodules. Recommend multiphase CT or MR abdomen liver mass protocol to assess for hepatocellular carcinoma. 6 mm nonobstructing calcification in the right mid renal pole. Cholelithiasis. Diverticulosis. Small fat and fluid containing umbilical hernia. Moderately sized fat and fluid containing left inguinal hernia. Electronically Signed: Ray Segundo MD at 17:07 EDT Tel , Service support ,
[2021-05-21] MEDS: 0.9% Normal Saline 1,000 ML 999 ML IV ×2 (17:23→20:13)
[2021-05-21 17:35] VITALS: BP 147/84; PULSE 86; RESP 15; O2SAT 98
[2021-05-21 18:48] LABS: Reflex Lactate? Y
[2021-05-21 19:42] LABS: Lactic Acid 3.1 mmol/L (0.4-1.9)
[2021-05-21 19:45] LABS: International Normalized Ratio 1.9; Prothrombin Time (Protime)PT. 20.9 SECONDS (11.7-14.9)
[2021-05-21 20:02] LABS: AST(SGOT) 199 U/L (15-37); Alanine Aminotransfer ALT/SGPT 69 U/L (16-61); Albumin, Serum 2.8 g/dL (3.2-5.0); Alkaline Phosphatase 145 U/L (45-117); Bilirubin, Direct 3.87 mg/dL (0.00-0.30); Globulin 4.3 g/dL (2.2-4.2); Protein, Total 7.1 g/dL (6.4-8.2)
[2021-05-21 20:16] VITALS: BP 136/81; PULSE 93; O2SAT 99
--- NOTE | 2021-05-21 20:34 | PCM.CONS.GEN ---
Assessment & Plan Assessment/Plan (1) Cirrhosis, alcoholic: QUALIFIERS: Ascites presence: with ascites Qualified Code(s): K70.31 - Alcoholic cirrhosis of liver with ascites PLAN: The patient is a 51 y/o M w/ PMHx: Obesity, Tobacco use, Chronic thrombocytopenia, HTN, Alcoholic Liver Cirrhosis following w/ Dr. Mcpherson however has been lost to follow-up, Ongoing EtOH abuse (3-4 tallboys daily), Tobacco use who presents to the [facility] ED on 05/21/21 with history of worsening abdominal discomfort, worse in the bilateral lower quadrants with increasing abdominal distention, notes abdominal pain can be dull and aching but intermittently stabbing and varies at times, can be up to 10 out of 10, currently 4 out of 10 in severity with poor oral intake secondary to the significant abdominal distention with worsening significant nosebleeds as well as dark and also periods of bright red blood per rectum and mixed with stools although does specifically deny having had melanotic appearing stools x1 month prompting eventual ED presentation. 1. Acute Worsened Ascites w/ Acute Decompensated EtOH Cirrhosis in the setting of significantly worsening hyperbilirubinemia, supratherapeutic INR and active intermittent bleeding with worsening thrombocytopenia and mild rhabdomyolysis/elevated TCK and likely underlying Liver Cancer per CT findings: Per discussion with general surgery on-call Dr. Villa to and also with [employer] gun[employer] liaison officer Dr. Orozco, strongly recommended patient be transferred to a tertiary facility with transplant ability given meld score 21 with 3-month mortality significantly elevated at 19.6%. If patient is unable to obtain a bed immediately would plan to admit to the PCU in the interim until bed obtained, maintain on low Na/DM diet, water 1500 ml restriction, lasix IV diuresis regimen w/ transition to oral regimen upon discharge, lactulose, consider initiation spironolactone w/ transition upward outpatient, consult radiology for diagnostic and therapeutic paracentesis including SAAG gradient (albumin), cell count and differential, total protein concentration, culture, glucose LDH, gram stain, amyulase, cytology. May need to consider further imaging of the liver and Oncology evaluation. NPO after midnight, plan repeat coags for a.m. paracentesis potential. Given mildly elevated TCK likely associate with acute presentation, deferring hydration given overload and planned diuresis, trend TCK. 2. Concern for acute GI Bleed: Although patient did have negative guaiac is reporting and confirmed by partner active rectal bleeding with intermittent blood in his stool both dark and bright red as well as frequent nosebleeds likely associated with #1, currently hemoglobin is appropriate, evidence of varices on CT as noted, if admitted would allow intake per discussion with general surgery but significant high risk and tertiary facility recommended primarily however if unable to to transition immediately would cautiously monitor, maintain on PPI. Given no obvious current bleeding would defer octreotide but if any concerns would initiate, make n.p.o. and trend H&H's closer. 3. Chronic thrombocytopenia: Associate with alcohol abuse, cirrhosis as noted, admission platelets 60, baseline prior has been more 80-100 range, worsened. 4. Hypertension: Not on regimen, nadolol noted previously on regimen, will plan given presentation to initiate on IV Lasix, lactulose with pending ammonia request, reinitiate nadolol and consider spironolactone start, PRN hydralazine. 5. Alcohol abuse with risk of acute alcohol withdrawal: Complicated presentation as significant history, notable liver failure.if necessary would plan to initiate on CIWA protocol with Ativan especially given liver dysfunction and as needed gabapentin for seizure prophylaxis, as needed Catapres, Bentyl, Vistaril, IV fluids, IV antiemetics, avoiding any significant items which may worsen liver failure. Will consult Case management for assistance if patient did remain. Mag and Phos levels would be requested. 6. Hypokalemia: Admission K+ 3.3, magnesium level requested, supplementation would be given, repeat level in AM. 7. Tobacco Abuse: Encouraged cessation, inpatient consultation per RT, NR if desired. 8. Questionable urinary tract infection: Urinalysis is notable however patient denies any urinary specific complaints, urine culture is pending, may consider addition of IV Rocephin pending urine culture result with de-escalation off is unremarkable. 9. DVT prophylaxis: SCDs, defer any chemoprophylaxis given supratherapeutic INR as noted above. HPI Consult Data Date of Consult: 05/21/21 Attending Care Provider: Dr. Kohli, ED physician HPI Narrative Reason for Consultation: Consideration admission, EtOH Liver Cirrhosis, decompensated HPI Narrative: The patient is a 51 y/o M w/ PMHx: Obesity, Tobacco use, Chronic thrombocytopenia, HTN, Alcoholic Liver Cirrhosis following w/ Dr. Mcpherson however has been lost to follow-up, Ongoing EtOH abuse (3-4 tallboys daily), Tobacco use who presents to the [facility] ED on 05/21/21 with history of worsening abdominal discomfort, worse in the bilateral lower quadrants with increasing abdominal distention, notes abdominal pain can be dull and aching but intermittently stabbing and varies at times, can be up to 10 out of 10, currently 4 out of 10 in severity with poor oral intake secondary to the significant abdominal distention with worsening significant nosebleeds as well as dark and also periods of bright red blood per rectum and mixed with stools although does specifically deny having had melanotic appearing stools x1 month prompting eventual ED presentation. Work-up in the ED included T 97.4, heart rate 91, BP 126/77, respiratory rate 16, 95% on room air, CBC with WBC 2.8, hemoglobin 13.7, platelet 60 with leukopenia and lymphopenia, coags with PT 20.9 and INR 1.9 previously never higher than 1.4, CMP with potassium 3.3, BUN/creatinine 3/0.56, lactic acid 3.1 with repeat 3.1, total bilirubin 7.90, direct bilirubin 3.87, AST/ALT 119/69, alk phos 145, TCK 626, high-sensitivity troponin 9.4, lipase 184, urinalysis with urine protein 30, ketone 5, occult blood 10, positive nitrate, 100 leukocyte Estrace, urine WBCs 10-25 with no urine bacteria noted, ethyl alcohol level 203, guaiac currently negative, CT abdomen and pelvis with a cirrhotic liver with evidence of portal hypertension including spinal megaly, large volume ascites and gastroesophageal and splenic varices with innumerable hypodense nodules likely dysplastic nodules of the liver concerning for hepatocellular carcinoma, 6 mm nonobstructing calcification in the right mid renal pole, cholelithiasis, diverticulosis, small fat and fluid containing umbilical hernia, moderately sized fat and fluid containing left inguinal hernia. [facility] History Anemia Anxiety Carpal tunnel syndrome Depression Gallstones GERD (gastroesophageal reflux disease) H/O alcohol abuse Hypertension Smoker Home Medications NK 05/21/21 [History Last Taken Unknown] Allergy/AdvReac Type Severity Reaction Status Date / Time No Known Allergies Allergy Verified 05/21/21 13:54 Family History Father Alcoholism Cancer Mother Anxiety Osteoporosis Grandmother Diabetes Surgical History History of removal of periurethral cyst Social History (Updated 05/21/21 @ 20:[address] Jess Davis MD) household members: significant other Smoking Status: Current every day smoker tobacco type: cigarettes Smoking packs per day: 0.25 Smoking cigarettes per day: 5.0 alcohol intake: current alcohol intake frequency: 3 or more drinks per day Alcohol type: beer details: 3-4 Tall boy beers daily. substance use type: does not use what type of physical activity do you participate in: walking and bicycling frequency: 1-2 times per week ROS ROS Narrative Admission Review of Systems: CONSTITUTIONAL: No weight loss, fever, chills, + weakness or fatigue. HEENT: Eyes: No visual loss, blurred vision, double vision or yellow sclerae. Ears, Nose, Throat: No hearing loss, sneezing, congestion, runny nose or sore throat. SKIN: No rash or itching, lesions, wounds. CARDIOVASCULAR: No chest pain, chest pressure or chest discomfort, palpitations, edema, orthopnea, syncopal events. RESPIRATORY: + shortness of breath, No cough or sputum, wheezing, hemoptysis. GASTROINTESTINAL: + anorexia, nausea without vomiting, abdominal pain and distention, BRBPR and dark red stools, no melena. GENITOURINARY: No dysuria, frequency, urgency or retention. NEUROLOGICAL: No headache, dizziness, syncope, paralysis, ataxia, numbness or tingling in the extremities, focal weakness, change in bowel or bladder control, seizure. MUSCULOSKELETAL: + muscle, back pain, joint pain or stiffness. HEMATOLOGIC: + anemia, bleeding or bruising. LYMPHATICS: No enlarged nodes. No history of splenectomy. PSYCHIATRIC: + history of depression or anxiety. ENDOCRINOLOGIC: No reports of sweating, cold or heat intolerance. No polyuria or polydipsia. ALLERGIES: No history of asthma, hives, eczema or rhinitis. Physical Exam Narrative Physical Examination: General: Awake, alert, oriented x 3 and cooperative, seated upright in the ED bed, uncomfortable appearing, evident significant jaundice. Skin: Jaundiced color with scleral icterus, normal turgor, no cyanosis. HEENT: AT/NC, EOMI, PERRLA, scleral icterus present, moderately dry MM, no carotid bruits or JVD noted. Lungs: Diminished, greater bases, moderate effort no rales, ronchi or wheezing. Heart: Regular rate and rhythm; no gallop, rub audible. Abdomen: Tense abdomen with significant distention, evident ascites, diffuse generalized discomfort with no rebound or guarding, distant normal bowel sounds, positive HSM but difficult exam given ascites. . Extremities: No cyanosis, no clubbing, mild bilateral ankle not markedly pitting edema. Neurological: Patient awake, alert, oriented as noted, cognitive function intact; pupils equally reactive to light and accommodation, cranial nerves II-XII grossly normal, moving all 4 extremities, no focal deficits, strength severely global decrease secondary to acute presentation. Psychiatric: Affect appears fatigued, uncomfortable appearing, no acute evidence of depressive or anxiety feelings. Lab / Micro Data Result Diagrams: 05/21/21 14:45 05/21/21 14:45 Labs: Laboratory Results - last 24 hr 05/21/21 14:45: WBC 2.8 L, RBC 3.79 L, Hgb 13.7, Hct 39.1 L, MCV 103.2 H, MCH 36.1 H, MCHC 35.0, RDW Std Deviation 60.7 H, RDW Coeff of Maria Guadalupe 15.9 H, Plt Count 60 L, MPV 11.7, Immature Gran % (Auto) 0.400, Neut % (Auto) 56.4, Lymph % (Auto) 21.8, [place] % (Auto) 16.7 H, Eos % (Auto) 2.2, Baso % (Auto) 2.5 H, Absolute Neuts (auto) 1.6 L, Absolute Lymphs (auto) 0.60 L, Nucleated RBC % 0, Diff Path Review February05/21/21 14:45: Sodium 140, Potassium 3.3 L, Chloride 105, Carbon Dioxide 27.0, Anion Gap 8, BUN 3 L, Creatinine 0.56 L, Estim Creat Clear Calc 159.57, Est GFR (MDRD) Af Amer 200, Est GFR (MDRD) Non-Af 165, BUN/Creatinine Ratio 5.4 L, Glucose 94, Calcium 8.0 L, Troponin I High Sens 9.4, Lipase 184 05/21/21 14:45: Lactic Acid 3.1 H* 05/21/21 14:45: Ethyl Alcohol 203.0 05/21/21 14:45: Total Creatine Kinase 626 H 05/21/21 14:45: Urine Color Yellow, Urine Clarity Sl. Cloudy, Urine pH 7.0, Ur Specific [place] 1.010, Urine Protein 30 H, Urine Glucose (UA) Normal, Urine Ketones 5 H, Urine Occult Blood 10 H, Urine Nitrite Positive H, Urine Bilirubin 3 H, Urine Urobilinogen 12 H, Ur Leukocyte Esterase 100 H, Urine RBC 0-5 SEEN, Urine WBC 10-25 SEEN, Ur Squamous Epith Cells 0-5 SEEN, Urine Bacteria 0 SEEN, Urine Mucus 0 SEEN 05/21/21 14:45: Total Bilirubin 7.90 H, Direct Bilirubin 3.87 H, AST 199 H, ALT 69 H, Alkaline Phosphatase 145 H, Total Protein 7.1, Albumin 2.8 L, Globulin 4.3 H 05/21/21 18:56: Lactic Acid 3.1 H* 05/21/21 19:30: PT 20.9 H, INR 1.9 Micro: Microbiology 05/21/21 17:24 Stool Stool Occult Blood (GAVIN) - Final 05/21/21 17:24 Stool Stool Occult Blood (GAVIN) - Final Radiology Impression Chest X-Ray 05/21/21 15:10 IMPRESSION: Increased markings at the left lung base suggestive of either linear atelectasis and/or early infiltrate. Electronically Signed: Jeffrey Recinos MD at 15:31 EDT , Service support , Abdomen/Pelvis CT 05/21/21 16:32 IMPRESSION: Cirrhotic liver with evidence of portal hypertension including splenomegaly, large volume ascites and gastroesophageal and splenic varices. There are innumerable hypodense nodules, most likely dysplastic nodules. Recommend multiphase CT or MR abdomen liver mass protocol to assess for hepatocellular carcinoma. 6 mm nonobstructing calcification in the right mid renal pole. Cholelithiasis. Diverticulosis. Small fat and fluid containing umbilical hernia. Moderately sized fat and fluid containing left inguinal hernia. Electronically Signed: Ray Segundo MD at 17:07 EDT Tel , Service support , Charges/Coding Visit Charges Office Visits / Consults: [id number] ED Visit; High/Threatening Severity
[2021-05-21 21:32] VITALS: BP 153/95; O2SAT 96
[2021-05-21 23:00] VITALS: BP 152/84; O2SAT 95
[2021-05-22] VITALS (13 sets, daily range): BP systolic 128–182; BP diastolic 72–99; PULSE 92–117; RESP 16–20; TEMP 36.9–37.2; O2SAT 93–100; BMI 38.3
--- NOTE | 2021-05-22 08:54 | PCM.HP.STD ---
HPI - General General Date of Admission: 05/22/21 HPI Narrative This is a 51-year-old gentleman with diagnosis of decompensated alcoholic cirrhosis about March [address] Gutierrez came to ER on 05/22/2021 for worsening of abdominal discomfort, mainly in lower quadrants along with bilateral lower extremity edema and once in few days for rectal bleed with dark stool. Patient also has nosebleed and spits blood but denies fermin hematemesis or vomiting blood. Patient also has jaundice. He has been drinking alcohol 5-6 tall 16 ounce beer for last 3-4 months but has started drinking late 20s and was sober and then relapsed about 4 months ago. Patient had EGD last year by Dr. Gutierrez and he told me that varices were not found but official report unavailable. In ED, patient blood pressure has been good, no hypoxia. Basic labs shows elevated liver transaminases, AST more than ALT, GGT 2293, total bilirubin/DB 7.9/3.87. Total bilirubin was 4.[address] abdomen done in ER showed cirrhotic liver with evidence of portal hypertension, splenomegaly, large volume ascites, gastroesophageal and splenic varices and innumerable hypodense nodule most likely dysplastic nodule. Patient is accepted in main campus but they do not have beds and therefore was asked to admit in intending. Family history: His father also had alcoholic cirrhosis and he of liver cancer. PFSH Medical History Anemia Anxiety Carpal tunnel syndrome Depression Gallstones GERD (gastroesophageal reflux disease) H/O alcohol abuse Hypertension Smoker Home Medications NK 05/21/21 [History Last Taken Unknown] Allergy/AdvReac Type Severity Reaction Status Date / Time No Known Allergies Allergy Verified 05/21/21 13:54 Family History Father Alcoholism Cancer Mother Anxiety Osteoporosis Grandmother Diabetes Surgical History History of removal of periurethral cyst Social History household members: significant other Smoking Status: Current every day smoker tobacco type: cigarettes Smoking packs per day: 0.25 Smoking cigarettes per day: 5.0 alcohol intake: current alcohol intake frequency: 3 or more drinks per day Alcohol type: beer details: 3-4 Tall boy beers daily. substance use type: does not use what type of physical activity do you participate in: walking and bicycling frequency: 1-2 times per week ROS ROS Narrative Constitutional: Reports fatigue and weakness HEENT: Jaundice. Reports systems reviewed and no addt'l complaints, except as documented Respiratory/Chest: Mild shortness of breath with exertion. Denies chest pain/pressure. Gastrointestinal: Intermittent dark stool mixed with blood every few days for 2 to 3 months. Nosebleeds. Abdominal swelling/ascites. Rest as mentioned in HPI Genitourinary: Denies burning urination or new lower related symptoms Musculoskeletal: Reports joint pain and limited range of motion Neurologic: Chronic intermittent confusion/mild forgetfulness. Denies seizure-like activity skin: No ulcer. No rash Endocrinology: Reports systems reviewed and no addt'l complaints, except as documented Hematologic/Lymphatic: Reports systems reviewed and no addt'l complaints, except as documented Rest 12 ROS are negative except as mentioned in HPI Vital Signs Vital Signs Vital Signs: 05/21/21 13:54 05/21/21 17:35 05/21/21 20:16 Temperature 97.4 F L Temperature Source Temporal Pulse Rate 91 86 93 Respiratory Rate 16 15 Blood Pressure 126/77 H 147/84 H 136/81 H Blood Pressure Mean 93 105 99 Pulse Ox 95 98 99 Oxygen Delivery Method Room Air Room Air Room Air 05/21/21 21:32 05/21/21 23:00 05/22/21 01:00 Temperature Temperature Source Pulse Rate 92 Respiratory Rate 16 Blood Pressure 153/95 H 152/84 H 146/95 H Blood Pressure Mean 114 106 112 Pulse Ox 96 95 93 Oxygen Delivery Method Room Air Room Air Room Air 05/22/21 04:55 05/22/21 06:00 Temperature Temperature Source Pulse Rate 92 98 Respiratory Rate 16 Blood Pressure 128/97 H 131/72 H Blood Pressure Mean 107 91 Pulse Ox 93 Oxygen Delivery Method Room Air Weight Weight: 257 lb Body Mass Index (BMI) 37.9 Physical Exam Narrative General: Alert, Oriented x3, Cooperative HEENT: Atraumatic, PERRLA, EOMI, Normocephalic Oral: No Gingival or Mucosal Lesions/ Ulcerations Neck: Supple, No JVD, Negative Carotid Bruits Lungs: Air entry diminished in bilateral lung bases. No crepitation/rhonchi Cardiovascular: Regular rate, Regular Rhythm, Normal S1, Normal S2, No murmurs Abdomen: Bowel Sounds Present, Soft, nontender, distended. Severe ascites. Shifting dullness present. Small periumbilical hernia : No renal angle tenderness. No suprapubic tenderness. Extremities: Bilateral leg/ankle edema, Capillary Refill Less than 3 Seconds Skin: No rashes, No breakdown Musculoskeletal: No Tenderness to Palpation of Joints or Extremities Neurological: Cranial nerves II-XII grossly intact, Deep Tendon Reflexes 2+/4 Psych/Mental Status: Normal Affect, Appropriate. Results Lab / Micro Data Result Diagrams: 05/22/21 08:57 05/22/21 08:57 Labs: Laboratory Results - last 24 hr 05/21/21 14:45: WBC 2.8 L, RBC 3.79 L, Hgb 13.7, Hct 39.1 L, MCV 103.2 H, MCH 36.1 H, MCHC 35.0, RDW Std Deviation 60.7 H, RDW Coeff of Maria Gu[place]upe 15.9 H, Plt Count 60 L, MPV 11.7, Immature Gran % (Auto) 0.400, Neut % (Auto) 56.4, Lymph % (Auto) 21.8, [place] % (Auto) 16.7 H, Eos % (Auto) 2.2, Baso % (Auto) 2.5 H, Absolute Neuts (auto) 1.6 L, Absolute Lymphs (auto) 0.60 L, Nucleated RBC % 0, Diff Path Review February05/21/21 14:45: Sodium 140, Potassium 3.3 L, Chloride 105, Carbon Dioxide 27.0, Anion Gap 8, BUN 3 L, Creatinine 0.56 L, Estim Creat Clear Calc 159.57, Est GFR (MDRD) Af Amer 200, Est GFR (MDRD) Non-Af 165, BUN/Creatinine Ratio 5.4 L, Glucose 94, Calcium 8.0 L, Troponin I High Sens 9.4, Lipase 184 05/21/21 14:45: Lactic Acid 3.1 H* 05/21/21 14:45: Ethyl Alcohol 203.0 05/21/21 14:45: Total Creatine Kinase 626 H 05/21/21 14:45: Urine Color Yellow, Urine Clarity Sl. Cloudy, Urine pH 7.0, Ur Specific [place] 1.010, Urine Protein 30 H, Urine Glucose (UA) Normal, Urine Ketones 5 H, Urine Occult Blood 10 H, Urine Nitrite Positive H, Urine Bilirubin 3 H, Urine Urobilinogen 12 H, Ur Leukocyte Esterase 100 H, Urine RBC 0-5 SEEN, Urine WBC 10-25 SEEN, Ur Squamous Epith Cells 0-5 SEEN, Urine Bacteria 0 SEEN, Urine Mucus 0 SEEN 05/21/21 14:45: Total Bilirubin 7.90 H, Direct Bilirubin 3.87 H, AST 199 H, ALT 69 H, Alkaline Phosphatase 145 H, Total Protein 7.1, Albumin 2.8 L, Globulin 4.3 H 05/21/21 18:56: Lactic Acid 3.1 H* 05/21/21 19:30: PT 20.9 H, INR 1.9 Micro: Microbiology 05/21/21 21:20 Mucosa - Nose SARS-CoV-2 Antigen (Rapid) - Final 05/21/21 17:24 Stool Stool Occult Blood (GAVIN) - Final 05/21/21 17:24 Stool Stool Occult Blood (GAVIN) - Final Radiology Impression Chest X-Ray 05/21/21 15:10 IMPRESSION: Increased markings at the left lung base suggestive of either linear atelectasis and/or early infiltrate. Electronically Signed: Jeffrey Recinos MD at 15:31 EDT , Service support , Abdomen/Pelvis CT 05/21/21 16:32 IMPRESSION: Cirrhotic liver with evidence of portal hypertension including splenomegaly, large volume ascites and gastroesophageal and splenic varices. There are innumerable hypodense nodules, most likely dysplastic nodules. Recommend multiphase CT or MR abdomen liver mass protocol to assess for hepatocellular carcinoma. 6 mm nonobstructing calcification in the right mid renal pole. Cholelithiasis. Diverticulosis. Small fat and fluid containing umbilical hernia. Moderately sized fat and fluid containing left inguinal hernia. Electronically Signed: Ray Segundo MD at 17:07 EDT Tel , Service support , Assessment & Plan Assessment/Plan (1) Cirrhosis, alcoholic: QUALIFIERS: Ascites presence: with ascites Qualified Code(s): K70.31 - Alcoholic cirrhosis of liver with ascites (2) Thrombocytopenia: PLAN: This is a 51-year-old gentleman with diagnosis of decompensated alcoholic cirrhosis with abdominal discomfort, ascites, intermittent GI bleed. CT abdomen done in ER showed cirrhotic liver with evidence of portal hypertension, splenomegaly, large volume ascites, gastroesophageal and splenic varices and innumerable hypodense nodule most likely dysplastic nodule. Patient is accepted in main campus but they do not have beds and therefore was asked to admit in intending. 1. Decompensated alcoholic cirrhosis with large volume ascites, mild hepatic encephalopathy, gastroesophageal varices, splenomegaly and thrombocytopenia: Patient is being admitted in PCU for interim. Start with Lasix 20 mg IV daily and spironolactone 25 mg daily and titrate accordingly. Start her on low-dose of Lasix and there is concern of GI bleed and patient might drop blood pressure. Lactic acid is elevated probably secondary to third volume spacing and decreased effective plasma volume. Monitor electrolytes, kidney function and liver function. Lactulose 20 g twice daily and titrate to keep bowel movement 2 to 3/day. 2. Acute on chronic GI bleed: Patient had 5 bowel movements today in the morning today out of which 3 had mixed small blood as per the patient. Patient states he also has history of hemorrhoids but never had colonoscopy. There is concern of variceal bleed but patient did not had melena/black tarry blood or hematemesis by history. Blood pressure is stable. IV Protonix 40 mg IV every 12 hourly. 3. Mild hypokalemia: Patient is started on spironolactone. 4. Asymptomatic bacteriuria/pyuria: UA shows nitrite positive and pyuria but patient denies burning micturition. Empirically started on IV ceftriaxone. 5. Chronic smoker/tobacco use: Started on nicotine patch. VTE prophylaxis: Pharmacological prophylaxis contraindicated because of GI bleed, thrombocytopenia. Bilateral SCDs Clinical Impression(s) from Imaging Studies Chest X-Ray 05/21/21 15:10 IMPRESSION: Increased markings at the left lung base suggestive of either linear atelectasis and/or early infiltrate. Abdomen/Pelvis CT 05/21/21 16:32 IMPRESSION: Cirrhotic liver with evidence of portal hypertension including splenomegaly, large volume ascites and gastroesophageal and splenic varices. There are innumerable hypodense nodules, most likely dysplastic nodules. Recommend multiphase CT or MR abdomen liver mass protocol to assess for hepatocellular carcinoma. 6 mm nonobstructing calcification in the right mid renal pole. Cholelithiasis. Diverticulosis. Small fat and fluid containing umbilical hernia. Moderately sized fat and fluid containing left inguinal hernia. Charges/Coding Visit Charges Inpatient E&M: 16404 Init Hosp L3
[2021-05-22 09:05] LABS: Absolute Neutrophil Count 2.6 X10^3/uL (2.0-7.7); Basophil# 0.06 X10^3/uL; Basophil% 1.5 % (0-1); Eosinophil# 0.03 X10^3/uL; Eosinophils% 0.8 % (0-5); Hematocrit 38.9 % (40-54); Hemoglobin 13.7 g/dL (13.0-16.5); Lymphocyte % 15.3 % (19-41); Mean Corp Hgb Conc 35.2 g/dL (32-36); Mean Corpuscular Hgb 36.2 pg (27.0-32.0); Mean Corpuscular Volume 102.9 fL (80-94); Mean Platelet Vol. 11.5 fl (6.2-12.0); Monocyte# 0.57 X10^3/uL; Monocyte% 14.5 % (0-10); NRBC Flagged by Analyzer 0 % (0-5); Neutrophil # 2.64 X10^3/uL (2.7-7.7); Neutrophil % 67.4 % (47-70); POSITIVE COUNT YES; POSITIVE DIFFERENTIAL YES; Platelet Count 57 K/mm3 (150-450); RBC Distribution Width CV 15.9 % (11.6-14.6); RBC Distribution Width SD 60.2 fl (35.1-43.9); Red Blood Count 3.78 M/mm3 (4.6-6.2); White Blood Count 3.9 K/mm3 (4.4-11.0)
[2021-05-22 09:06] LABS: Differential Indicated SCAN CRITERIA MET
[2021-05-22 09:25] LABS: AST(SGOT) 184 U/L (15-37); Alanine Aminotransfer ALT/SGPT 69 U/L (16-61); Alkaline Phosphatase 141 U/L (45-117); Anion Gap 13 (5-15); BUN 4 mg/dL (7-18); BUN/Creat Ratio 7.5 RATIO (10-20); Bilirubin, Direct 5.95 mg/dL (0.00-0.30); Chloride 102 mmol/L (98-107); Creatinine, Serum 0.54 mg/dL (0.70-1.30); EST Glomerular Filtration Rate 174 mL/min (>60); Est Glom Filt Rate - Afr Amer 210 mL/min (>60); Estimated Creatinine Clearance 165.48 ml/min; GGTP 2293 U/L (15-85); Globulin 4.2 g/dL (2.2-4.2); Glucose 88 mg/dL (74-106); Magnesium 1.5 mg/dL (1.6-2.6); Potassium 3.2 mmol/L (3.5-5.1); Protein, Total 7.2 g/dL (6.4-8.2); Sodium Level 141 mmol/L (136-145)
[2021-05-22 09:26] LABS: Platelet Estimate MOD DEC (ADEQ)
--- OUTSIDE RECORDS SUMMARY | 2021-05-22 10:50 | XMS RPT_ITS ---
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 Working on weight loss Has lost 12-13 pounds recently with watching diet. Would like to be screened for diabetes, lipid. He had a Tdap 6 years ago and cutting self. Completed at an urgent care in [place]. At this time, no fevers or chills. [...] 1 capsule by mouth once ash y. Rfyys-0-XPL-EPA-Fish Oil (FISH OIL) 1,000 mg (120 mg-1 [...] re solved, please call my office at [phone], ask to speak to a nurse, and [...] or regular hard cheese Whole milk, cream [id number]-[id number], most dairy creamers Real non-dairy whipped cream [...] cold Pasta/noodels (no egg yolks) Rice Bagels, Romanian muffins Potatoes Baked goods (cake, muffins, pancakes, [...] Snacks (In very limited amount) Sherbet, sorbet, Bhutanese ice, frozen yogurt, popsicles , génesis food [...] [R15.1] Order(s):COMP METABOLIC PANEL [SQCMP] Order #: [id number] FUTURE LIPID PANEL BASIC [SQLIPB] Order #: [id number] FUTURE Prescriptions as of 03/29/2019 Sig: MULTIVITAMIN CAPSULE Take 1 capsule by mouth once * OMEGA 9-RHB-NCB-FISH OIL 1,00* Take 2 g by mouth twice daily. Problem List As Of Date 03/29/2019 Noted Resolved Pilonidal cyst without abscess [L05.91] INVALID FOR* Obesity [E66.9] Other instructions from your clinician: I would recommend trial of Benefiber over the counter. Start with the starting dose and trial for 3 weeks. If you symptoms a re not resolved, please call my office at [phone], ask to speak to a nurse, and [...] or regular hard cheese Whole milk, cream Lroo-vew-ctkt, most dairy creamers Real non-dairy whipped cream [...] cold Pasta/noodels (no egg yolks) Rice Bagels, Romanian muffins Potatoes Baked goods (cake, muffins, pancakes, [...] Snacks (In very limited amount) Sherbet, sorbet, Bhutanese ice, frozen yogurt, popsicles , génesis food [...] Albumin mass conc 4.0 g/dL Normal 3.9-4.9 [facility] Comment on above: Performed By: #### CMP, LIPB #### [facility] [address], [place] [id number] ALP enzyme act/vol 112 U/L Normal 38-113 [facility] Comment on above: Performed By: #### CMP, LIPB #### [facility] [address] [place], [place] [address] ALT enzyme act/vol 51 U/L Normal 10-54 [facility] Comment on above: Performed By: #### CMP, LIPB #### [facility] [address] [place], [place] [address] Anion gap molar conc 11 mmol/L Normal 9-18 [facility] Comment on above: Performed By: #### CMP, LIPB #### [facility] [address] [place] [address] AST enzyme act/vol 106 U/L High 14-40 [facility] Comment on above: Performed By: #### CMP, LIPB #### [facility] [address] [place] [phone] Bilirubin mass conc 1.2 mg/dL Normal 0.2-1.3 [facility] Comment on above: Performed By: #### CMP, LIPB #### [facility] [address] [place] [phone] Calcium mass conc 8.5 mg/dL Normal 8.5-10.2 [facility] Comment on above: Performed By: #### CMP, LIPB #### [place] [phone] Chloride molar conc 101 mmol/L Normal 97-105 [facility] Comment on above: Performed By: #### CMP, LIPB #### [facility] [address] [place] [address] CO2 molar conc 27 mmol/L Normal 22-30 [facility] Comment on above: Performed By: #### CMP, LIPB #### [facility] [address] [place] [phone] Creatinine mass conc 0.72 mg/dL Low 0.73-1.22 [facility] Comment on above: Performed By: #### CMP, LIPB #### [facility] [address] [place] [address] eGFR- Amer. >60 Normal [facility] Comment on above: Performed By: #### CMP, LIPB #### [facility] [address] [place] [address] GFR/1.73 sq M predicted among mL/min/{1.73_m2} Normal [facility] non-blacks MDRD vol rate/area (S/P/Bld) Comment on [...] GFR. Performed By: #### CMP, LIPB #### [facility] [address] [place], [place] [address] Glucose mass conc 109 mg/dL High 74-99 [facility] Comment on above: Result Comment: The [place] Diabetes Association (ADA) provides guidance for cutoff [...] for diagnosis of diabetes. Reference: Standards of [facility] Care in Diabetes 2016, [place] Diabetes Association. Diabetes Care. 2016.39(Suppl 1). Performed By: #### CMP, LIPB #### [facility] [address] [place], [place] [address] Potassium molar conc 3.5 mmol/L Low 3.7-5.1 [facility] [place] Comment on above: Performed By: #### CMP, LIPB #### [facility] [address] [place], [place] [address] Protein mass conc 6.8 g/dL Normal 6.3-8.0 [facility] Comment on above: Performed By: #### CMP, LIPB #### [facility] [address] [place] [address] Sodium molar conc 139 mmol/L Normal 136-144 [facility] Comment on above: Performed By: #### CMP, LIPB #### [facility] [address] [place] [address] Urea nitrogen mass conc 5 mg/dL Low 9-24 [facility] Comment on above: Performed By: #### CMP, LIPB #### [facility] [place] [address] Lipid Panel, Basic o n 03-29-2019 Cholesterol in HDL mass conc 38 mg/dL Low >39 [facility] Comment on above: Result Comment: 40-59 mg/dL, Acceptable >59 mg/dL, High: Negative ri sk factor for coronary heart disease <40 mg/dL, Low: Positive ris k factor for coronary heart disease Performed By: #### CMP, LIPB #### [place] [address] [place] [address] Cholesterol in LDL mass conc 105 mg/dL High <100 [facility] Comment on above: Result Comment: <100 mg/dL, Optimal 100-129 mg/dL, Near optimal/ above optimal 130-159 mg/dL, Borderline hi gh 160-189 mg/dL, High >189 mg/dL, Very high Secondary prevention optimal LDL Cholesterol levels are recommended to be < 70 mg/dL Performed By: #### CMP, LIPB #### [place] [id number] [place] [address] Cholesterol mass conc 167 mg/dL Normal <200 [facility] Comment on above: Result Comment: <200 mg/dL, Desirable 200-239 mg/dL, Borderline hi gh >239 mg/dL, High Performed By: #### CMP, LIPB #### [facility] [place] [address] Fasting Time 11 hrs Normal [facility] Comment on above: Performed By: #### CMP, LIPB #### [facility] [address] [place], [place] [address] LDL:HDL Ratio 2.76 High <2.[address] [facility] Comment on above: Result Comment: Reference: 1. National Cholesterol Educ ation Program ATP III Guideline At-A-Glance Quick Desk Reference: National Heart, Lung, and Blood [place]. National Institutes of Health. 2001: NIH Publication No. 01-3305. 2. An International Atherosc lerosis Society position paper: global recommendations for the management of dyslipidemia: executive summary, Atherosclerosis. 2014: 232(2):410-413. Performed By: #### CMP, LIPB #### [place] [address] Non HDL Cholesterol 129 mg/dL Normal <130 [facility] Comment on above: Result Comment: <130 mg/dL, Optimal 130-159 mg/dL, Near optimal/ above optimal 160-189 mg/dL, Borderline hi gh 190-219 mg/dL, High >219 mg/dL, Very high Secondary prevention optimal non HDL Cholesterol levels are recommended to be < 100 mg/dL Performed By: #### CMP, LIPB #### [place] [address] TC:HDL Ratio 4.39 Normal <5.10 [facility] Comment on above: Performed By: #### CMP, LIPB #### [facility] [address] [place] [address] Triglyceride mass conc 121 mg/dL Normal <150 [facility] Comment on above: Result Comment: <150 mg/dL, Normal 150-199 mg/dL, Borderline hi gh 200-499 mg/dL, High >499 mg/dL, Very high Performed By: #### CMP, LIPB #### [place] [address] VLDL Cholesterol 24 mg/dL Normal <30 [facility] [place] Comment on above: Performed By: #### CMP, LIPB #### [facility] [address] [place], [place] [address] PROGRESS on 03-29-20 19 Protein mass conc HNO ID: [id number] Normal [facility] Author: Carlos (Yahir) Niko fisher Service: ? Author Type: Nurse Practitioner Type: Progress Notes Filed: 03/29/2019 9:31 AM Note Text: Chief Complaint Patient presents with: Establish Care HPI Aga Moore is a 49 year old male who presents he re today for establish care with Dr. Landis. No previous PCP since the . 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 Would like to be screened for diabetes, lipid. He had a Tdap 6 years ago and cutting self. Completed at an urgent care in [facility]. At this time, no fevers or [...] 1 capsule by mouth once ash y. Cixrw-0-JYN-EPA-Fish Oil (FISH OIL) 1,000 mg (120 mg-1 [...] up yearly and as needed. Carlos Pope APRN.TRAM DRIVER Summary Purpose Family History No Family History Records Found Advance Directives No Advanced Directives Records Found Additional Source Comments (unrecognized section and cont ent) No Status Records Found INFORMATION SOURCE (unrecognized section and content) DATE CREATED AUTHOR AUTHOR'S ORGANIZ ATION 04/01/2019 [facility] FOR RECORDS PERTAINING TO PATIENTS [...] BE BASED ON THE PRIMARY CLINICAL RECORDS. [facility] [employer] provides no warranty or guarantee of the accuracy or completeness of information in this document.
[2021-05-22] MEDS: Furosemide 40 MG/4 ML Vial 20 MG IV (11:49)
[2021-05-22] MEDS: 0.9% Saline Lock 10 ML Syringe IV ×2 (11:49→12:02)
[2021-05-22] MEDS: Spironolactone 25 MG Tablet PO ×2 (11:49→20:54)
[2021-05-22] MEDS: Lactulose 20 GM/30 ML UDC PO (12:02)
[2021-05-22] MEDS: Ceftriaxone 1 GM/50 ML BAG IV (12:02)
--- NOTE | 2021-05-22 12:10 | NURSING ---
Report given to Gato Coreas RN.
[2021-05-22 13:35] LABS: Pathologist Review Reviewed
[2021-05-22] MEDS: Furosemide 40 MG/4 ML Vial IV (16:02)
--- NOTE | 2021-05-22 22:49 | NURSING ---
Patient being transferred to [facility] [place]. Report called to ODALIS Thomson at [phone]. Patient called family to update them. All belongings sent with patient on ambulance.
--- NOTE | 2021-05-23 07:05 | DS.PCM_ITS ---
Providers Date of Admission: 05/22/21 Primary Care Physician: Dr. Derick Rebollar MD Reason For Visit: DECOMPENSATED CIRRHOSIS WITH UPPER GI BLEED Diagnosis Discharge Diagnosis (1) Cirrhosis, alcoholic: Status: Acute Code(s): K70.30 - Alcoholic cirrhosis of liver without ascites Qualifiers: Ascites presence: with ascites Qualified Code(s): K70.31 - Alcoholic cirrhosis of liver with ascites (2) Thrombocytopenia: Status: Chronic Code(s): D69.6 - Thrombocytopenia, unspecified Medications at Discharge Home Medications NK 05/21/21 Hospital Course Summary of Care Provided Hospital Course: This is a 51-year-old gentleman with diagnosis of decompensated alcoholic cirrhosis with abdominal discomfort, ascites, int ermittent GI bleed. The patient was accepted in [facility] for further treatment but did not have the bed therefore was admitted in the PCU.CT abdomen done in ER showed cirrhotic liver with evidence of portal hypertension, splenomegaly, large volume ascites, gastroesophageal and splenic varices and innumerable hypodense nodule most likely dysplastic nodule. In the interim. Patient was treated with Lasix, spironolactone, Protonix 40 mg IV every 12 hours. Patient also had hypomagnesemia which was replaced. Patient needs weigh box tender, EGD, best managed under the care of cook mess. Patient will need paracentesis. Transfer paperwork signed and patient was transferred to [facility] about 10 PM on 05/22/2021 Physical Exam Narrative The patient was transferred to [facility] for further treatment on the same day of admission. Please see exam findings on the H&P Patient mainly has severe ascites and leg swelling. Weight / BMI Weight Weight: 259 lb 7.745 oz Body Mass Index (BMI) 38.3 ABG / Lab / Microbiology Data Result Diagrams: 05/22/21 08:57 05/22/21 08:57 Laboratory: Laboratory Results - last 24 hr 05/21/21 14:45: Diff Path Review Reviewed 05/22/21 08:57: WBC 3.9 L, RBC 3.78 L, Hgb 13.7, Hct 38.9 L, MCV 102.9 H, MCH 36.2 H, MCHC 35.2, RDW Std Deviation 60.2 H, RDW Coeff of Maria Guadalupe 15.9 H, Plt Count 57 L, MPV 11.5, Immature Gran % (Auto) 0.500, Neut % (Auto) 67.4, Lymph % (Auto) 15.3 L, [place] % (Auto) 14.5 H, Eos % (Auto) 0.8, Baso % (Auto) 1.5 H, Absolute Neuts (auto) 2.6, Absolute Lymphs (auto) 0.60 L, Nucleated RBC % 0, Differential Comment COMMENT, Diff Path Review May foll, Platelet Estimate MOD 05/22/21 08:57: Sodium 141, Potassium 3.2 L, Chloride 102, Carbon Dioxide 26.0, Anion Gap 13, BUN 4 L, Creatinine 0.54 L, Estim Creat Clear Calc 165.48, Est GFR (MDRD) Af Amer 210, Est GFR (MDRD) Non-Af 174, BUN/Creatinine Ratio 7.5 L, Glucose 88, Calcium 8.0 L, Magnesium 1.5 L, Total Bilirubin 10.20 H, Direct Bilirubin 5.95 H, GGT 2293 H, AST 184 H, ALT 69 H, Alkaline Phosphatase 141 H, Total Protein 7.2, Albumin 3.0 L, Globulin 4.2 Microbiology: Microbiology 05/21/21 21:20 Mucosa - Nose SARS-CoV-2 Antigen (Rapid) - Final 05/21/21 17:24 Stool Stool Occult Blood (GAVIN) - Final 05/21/21 17:24 Stool Stool Occult Blood (GAVIN) - Final Meaningful Use Info Meaningful Use Diagnoses (Choose all that apply): None applicable Discharge Plan Admission Admit Date/Time: 05/22/21 08:50 Attending Provider: Ponce Powell Primary Care Provider: Derick Rebollar Discharge Orders/Prescriptions Prescriptions: No Action NK RF: 0 Referrals / Follow Up: Derick Rebollar MD [Primary Care Provider] - Disposition Discharge Orders: Discharge Patient (Routine); Ordered 05/22/21 Ordered By: Dr. Ponce Powell Charges/Coding Visit Charges OBSV E&M: 20207 Observ/hosp same date L3
[2021-05-23 14:10] LABS: Pathologist Review Reviewed
== END 2021-05-22 22:22 | disposition short-term general hospital (02) | DRG 433 ==
LOC: ED 05-22 05:01 → PCU 05-22 10:48
PROVIDERS: Student in an Organized Health Care Education/Training Program; Admitting Provider Internal Medicine; Emergency Provider Emergency Medicine; PCP Internal Medicine; Visit Provider Internal Medicine
DX: K70.31 Alcoholic cirrhosis of liver with ascites (principal); K92.2 Gastrointestinal hemorrhage, unspecified; K76.6 Portal hypertension; N39.0 Urinary tract infection, site not specified; D69.6 Thrombocytopenia, unspecified; I86.8 Varicose veins of other specified sites; R16.1 Splenomegaly, not elsewhere classified; K21.9 Gastro-esophageal reflux disease without esophagitis; I10 Essential (primary) hypertension; F17.210 Nicotine dependence, cigarettes, uncomplicated; E66.9 Obesity, unspecified; Z68.37 Body mass index [BMI] 37.0-37.9, adult; E87.6 Hypokalemia
CPT/HCPCS: 71045; 74177; 80048; 80076; 81001; 82077; 82274; 82550; 82977; 83605; 83690; 83735; 84484; 85025; 85610; 87086; 87088; 87426; 93005; 96360; 96361; 99284; 99406; J7030; Q9967; A4216; J1940

== ENCOUNTER 2021-07-07 15:10 | Emergency (ER) | payer BC, SELFPAY ==
[2021-07-07 15:12] VITALS: BP 112/83; PULSE 98; RESP 18; TEMP 35.6; O2SAT 99; BMI 36.1
[2021-07-07 16:37] LABS: Absolute Lymphocyte Count 0.39 X10^3/uL (0.83-4.51); Basophil# 0.01 X10^3/uL; Basophil% 0.1 % (0-1); Hematocrit 35.7 % (40-54); Hemoglobin 12.4 g/dL (13.0-16.5); Lymphocyte # 0.39 X10^3/ul (0.83-4.51); Lymphocyte % 5.6 % (19-41); Mean Corp Hgb Conc 34.7 g/dL (32-36); Mean Corpuscular Volume 103.8 fL (80-94); Mean Platelet Vol. 10.3 fl (6.2-12.0); Monocyte# 0.39 X10^3/uL; Monocyte% 5.6 % (0-10); NRBC Flagged by Analyzer 0 % (0-5); Neutrophil # 6.02 X10^3/uL (2.7-7.7); Neutrophil % 87.1 % (47-70); POSITIVE DIFFERENTIAL YES; Platelet Count 127 K/mm3 (150-450); RBC Distribution Width CV 16.5 % (11.6-14.6); RBC Distribution Width SD 63.3 fl (35.1-43.9); Red Blood Count 3.44 M/mm3 (4.6-6.2); White Blood Count 6.9 K/mm3 (4.4-11.0)
[2021-07-07 16:39] LABS: Differential Indicated SCAN CRITERIA MET
[2021-07-07 16:45] LABS: ALB/GLOB Ratio 0.5 RATIO (0.9-2.4); AST(SGOT) 320 U/L (15-37); Alanine Aminotransfer ALT/SGPT 173 U/L (16-61); Albumin, Serum 1.9 g/dL (3.2-5.0); Alkaline Phosphatase 214 U/L (45-117); Anion Gap 7 (5-15); BUN 21 mg/dL (7-18); BUN/Creat Ratio 21.6 RATIO (10-20); Calcium,Total 8.2 mg/dL (8.5-10.1); Chloride 99 mmol/L (98-107); Creatinine, Serum 0.97 mg/dL (0.70-1.30); EST Glomerular Filtration Rate 87 mL/min (>60); Est Glom Filt Rate - Afr Amer 105 mL/min (>60); Estimated Creatinine Clearance 92.12 ml/min; Globulin 3.8 g/dL (2.2-4.2); Glucose 149 mg/dL (74-106); Potassium 4.6 mmol/L (3.5-5.1); Protein, Total 5.7 g/dL (6.4-8.2); Sodium Level 134 mmol/L (136-145)
[2021-07-07 17:25] LABS: Platelet Estimate SLT DEC (ADEQ); Red Cell Morphology NORM C+C NORMAL (NORM C&C)
[2021-07-07 17:39] LABS: International Normalized Ratio 2.3; Prothrombin Time (Protime)PT. 24.9 SECONDS (11.7-14.9)
--- NOTE | 2021-07-07 18:46 | EX.ED.DYSGE1 ---
HPI History of Present Illness Chief Complaint: General Illness Informant: patient and spouse/S.O. Onset/Context/Timing Onset: Month(s) (2) Context: Gradual Onset Timing: Continuous Quality: swelling Location: abd, legs, scrotum Current Severity: Severe Maximum Severity: Severe Worsened by: nothing Relieved by: after paracentesis Narrative Narrative: Patient scheduled to see GI next month for his advanced alcoholic cirrhosis for which he does not drink anymore, to [facility] in April, they think out of concern for the possibility of hepatocellular carcinoma, and while there he had a paracentesis. That was the only one he has had. He is getting swollen again, thinks he needs another paracentesis and so presents to the hospital for this reason. He denies any fevers, abdominal pain other than the tightness from the swelling, he has trouble urinating because his penis is lots of the scrotal edema but otherwise no dysuria or other urinary issues. He has known hemorrhoids, he is having more rectal bleeding than usual. Denies any lightheadedness or syncope. PFSH PFSH Medical History Advanced cirrhosis of liver Anemia Anxiety Carpal tunnel syndrome Depression Gallstones GERD (gastroesophageal reflux disease) H/O alcohol abuse Hypertension Smoker Home Medications NK 05/21/21 [History Last Taken Unknown] Allergy/AdvReac Type Severity Reaction Status Date / Time No Known Allergies Allergy Verified 07/07/21 15:15 Family History Father Alcoholism Cancer Mother Anxiety Osteoporosis Grandmother Diabetes Surgical History History of removal of periurethral cyst Social History household members: significant other Smoking Status: Current every day smoker tobacco type: cigarettes alcohol intake: current alcohol intake frequency: 3 or more drinks per day Alcohol type: beer details: 3-4 Tall boy beers daily. substance use type: does not use what type of physical activity do you participate in: walking and bicycling frequency: 1-2 times per week ROS ROS ED Constitutional Constitutional ED: Denies chills or fever(s) Eyes Eyes: Denies change in vision or diplopia ENT ENT ED: Denies rhinorrhea or sore throat Cardiovascular Cardiovascular: Denies chest pain or palpitations Respiratory/Chest Respiratory/Chest: Denies cough or dyspnea Gastrointestinal Gastrointestinal: Reports as per HPI, hemorrhoids, rectal bleeding and other Details: abd distension/swelling ; Denies abdominal pain, diarrhea, nausea or vomiting Genitourinary Genitourinary ED: Reports scrotal swelling; Denies dysuria or hematuria Musculoskeletal Musculoskeletal: Denies back pain or neck pain Integumentary Denies abscess or rash Neurologic Neurologic: Denies headache(s), paresthesias or weakness Psychiatric Psychiatric: Denies anxiety or suicidal thoughts Hematologic/Lymphatic Hematologic/Lymphatic: Reports easy bleeding and easy bruising EXAM Physical Exam Const Vital Signs: 07/07/21 15:12 Temperature 96.0 F L Temperature Source Temporal Pulse Rate 98 Respiratory Rate 18 Blood Pressure 112/83 H Blood Pressure Mean 92 Pulse Ox 99 Oxygen Delivery Method Room Air Positive well nourished and well developed General Appearance ED: well developed and NAD HEENT Reports moist mucous membranes normocephalic and atraumatic Eyes PERRL and EOMs intact bilaterally Neck full ROM and supple Resp normal respiratory effort and clear to auscultation bilaterally Cardio regular rate, regular rhythm and no murmurs GI non-tender Inspection: abdominal distention and fluid wave present Auscultation: normoactive bowel sounds Palpation: soft; Negative for rebound tenderness present Narrative: Nontender scrotal edema. Perineum nontender. No subcutaneous emphysema. Penis not able to be seen due to scrotal edema. Back/Spine no CVA tenderness General Back: other FROM Extremity normal to inspection General Extremety ED: Yes edema; Negative for pulses abnormal or tenderness General Extremity: edema bilateral lower extremity Details: moderate; Negative for pulses abnormal Neuro oriented x3, CN's II-XII intact bilaterally and no sensory deficits noted Sensorium / Orientation: awake and alert Motor Exam: strength 5/5 throughout Skin no rashes or lesions noted and no wounds MDM MDM MDM Narrative Medical decision making narrative: The patient's labs are noted. He is barely anemic, his hemoglobin is stable. His renal function is abnormal and stable, actually better than usual with a creatinine of 0.97. He is on Lasix. Liver enzymes are elevated especially his total bilirubin, as expected. His INR is 2.3. As such, I am uncomfortable doing a blind paracentesis here, but he presents after hours at almost 7 PM for the evaluation when radiology is gone. We do perform paracenteses here. I discussed with endoscope technician, who advised that I put an outpatient order in, they will coordinate with the radiologist when he gets here in the morning to see if it can be be performed tomorrow and they would contact the patient regarding when this can be done. I discussed this with the patient and his significant other, they are comfortable with that, and agree that he is in no emergent condition, he is breathing well, he has no fevers or rebound tenderness or signs/symptoms of peritonitis, and they are okay wait until tomorrow as long as they can get it done without having to wait a long time. I do not think he has any other reason to be admitted. I will advised that he double up on his Lasix since it is not making him urinate quite as much anymore, and his creatinine is excellent. Lab Data Attestation: I reviewed the patient's lab results. Labs: Laboratory Results - last 24 hr 07/07/21 07/07/21 07/07/21 16:13 16:13 16:19 WBC 6.9 RBC 3.44 L Hgb 12.4 L Hct 35.7 L MCV 103.8 H MCH 36.0 H MCHC 34.7 RDW Std Deviation 63.3 H RDW Coeff of Maria Guadalupe 16.5 H Plt Count 127 L MPV 10.3 Immature Gran % (Auto) 1.600 H Neut % (Auto) 87.1 H Lymph % (Auto) 5.6 L [place] % (Auto) 5.6 Eos % (Auto) 0.0 Baso % (Auto) 0.1 Absolute Neuts (auto) 6.0 Absolute Lymphs (auto) 0.39 L Nucleated RBC % 0 Differential Comment Platelet Estimate SLT DEC RBC Morphology NORM C+C PT 24.9 H INR 2.3 Sodium 134 L Potassium 4.6 Chloride 99 Carbon Dioxide 28.0 Anion Gap 7 BUN 21 H Creatinine 0.97 Estim Creat Clear Calc 92.12 Est GFR (MDRD) Af Amer 105 Est GFR (MDRD) Non-Af 87 BUN/Creatinine Ratio 21.6 H Glucose 149 H Calcium 8.2 L Total Bilirubin 6.40 H AST 320 H ALT 173 H Alkaline Phosphatase 214 H Total Protein 5.7 L Albumin 1.9 L Globulin 3.8 Albumin/Globulin Ratio 0.5 L Discharge Plan Triage Chief Complaint: General Illness ED Provider: David Penny Dx/Rx/DC Orders Clinical Impression: Anasarca, Cirrhosis, alcoholic, Alcoholic cirrhosis of liver with ascites Instructions: ED Ascites Prescriptions: No Action NK RF: 0 Other Ambulatory Orders: Paracentesis with US (Routine) Timeframe: 1 Day Facility: [facility] - Location: [facility] Ordered By: Dr. David Penny Primary Care Provider: Derick Rebollar Referrals: Derick Rebollar MD [Primary Care Provider] - 1 Week (For reevaluation after changing Lasix and getting paracentesis) Disposition Disposition: Home, Self Care
[2021-07-07 18:47] VITALS: BP 139/92; PULSE 93; RESP 14; O2SAT 99
[2021-07-07] MEDS: Furosemide 40 MG/4 ML Vial IV (19:38)
[2021-07-07 19:39] VITALS: BP 138/111; PULSE 81; RESP 16; O2SAT 96
== END 2021-07-07 19:41 | disposition home or self-care (01) ==
PROVIDERS: Emergency Provider Emergency Medicine; PCP Internal Medicine
DX: R60.1 Generalized edema (principal); K70.31 Alcoholic cirrhosis of liver with ascites; F17.210 Nicotine dependence, cigarettes, uncomplicated
CPT/HCPCS: 80053; 85025; 85610; 96374; 99282; A4216; J1940

== ENCOUNTER → 2021-07-09 08:32 | Outpatient (CLI) | payer BC, SELFPAY ==
[2021-07-09 08:45] VITALS: BP 125/69; PULSE 89; RESP 16; TEMP 35.9; O2SAT 98; BMI 36.1
[2021-07-09 09:30] VITALS: BP 129/74; PULSE 89; RESP 16; TEMP 35.9; O2SAT 98
[2021-07-09 10:40] VITALS: BP 129/76; PULSE 88; RESP 16; TEMP 36.1; O2SAT 99
--- NOTE | 2021-07-09 11:18 | US_ITS ---
PROCEDURE: Ultrasound guided paracentesis. DATE OF EXAMINATION: 07/09/2021. INDICATION: Male, 51 years old. Ascites. PHYSICIAN: Jeffrey Recinos M.D. TECHNIQUE: The risks, benefits, and alternatives to the procedure were explained to the patient. The specific risks of bleeding, infection, and damage to bowel were detailed and accepted. Witnessed informed consent was obtained. The abdomen was ultrasonographically surveyed. An appropriate pocket of fluid was identified at the right lower quadrant. The skin were cleaned and prepped in the usual sterile fashion. Using ultrasound guidance, the peritoneal cavity was accessed with a 5-Czech paracentesis needle/catheter system. The trocar was removed. A total of 8050 ml of obinna-colored fluid were removed from the peritoneal cavity. The catheter was removed and a sterile dressing was applied. The procedure was well tolerated. US/Paracentesis with US IMPRESSION: Ultrasound guided paracentesis. Electronically Signed: Jeffrey Recinos MD at 13:39 EDT , Service support ,
[2021-07-09 12:10] VITALS: BP 119/71; BP 121/72; BP 128/79; BP 128/83; BP 130/67; PULSE 80; PULSE 82; PULSE 84; PULSE 85; PULSE 86; RESP 16; TEMP 36.5; O2SAT 100; O2SAT 99
[2021-07-09] MEDS: Lidocaine 2% (20 ml mdv) 20 ML Vial INFILT (12:25)
== END | disposition home or self-care (01) ==
LOC: US 08:34 → MEDOUTP 08:34
PROVIDERS: PCP Internal Medicine; Referring Provider Internal Medicine; Visit Provider Internal Medicine
DX: K70.31 Alcoholic cirrhosis of liver with ascites (principal)
CPT/HCPCS: 36415; 36430; 49083; 86850; 86900; 86901; 86920; J7040; P9017; A4216

== ENCOUNTER 2021-07-10 12:23 | Inpatient (IN) | payer BC, SELFPAY ==
[2021-07-10 12:25] VITALS: BP 104/67; PULSE 98; RESP 16; TEMP 36.3; O2SAT 98; BMI 38.4
[2021-07-10 13:02] LABS: Absolute Lymphocyte Count 0.42 X10^3/uL (0.83-4.51); Absolute Neutrophil Count 12.3 X10^3/uL (2.0-7.7); Basophil# 0.01 X10^3/uL; Basophil% 0.1 % (0-1); Eosinophil# 0.01 X10^3/uL; Eosinophils% 0.1 % (0-5); Hemoglobin 12.9 g/dL (13.0-16.5); Lymphocyte # 0.42 X10^3/ul (0.83-4.51); Mean Corp Hgb Conc 33.9 g/dL (32-36); Mean Corpuscular Hgb 35.7 pg (27.0-32.0); Mean Corpuscular Volume 105.3 fL (80-94); Mean Platelet Vol. 10.1 fl (6.2-12.0); Monocyte# 0.92 X10^3/uL; Monocyte% 6.7 % (0-10); NRBC Flagged by Analyzer 0 % (0-5); Neutrophil # 12.33 X10^3/uL (2.7-7.7); Neutrophil % 89.1 % (47-70); POSITIVE DIFFERENTIAL YES; Platelet Count 146 K/mm3 (150-450); RBC Distribution Width CV 16.4 % (11.6-14.6); RBC Distribution Width SD 63.6 fl (35.1-43.9); Red Blood Count 3.61 M/mm3 (4.6-6.2); White Blood Count 13.8 K/mm3 (4.4-11.0)
[2021-07-10 13:04] LABS: Differential Indicated SCAN CRITERIA MET
--- NOTE | 2021-07-10 13:04 | EDS_ITS ---
HPI HPI - GI History of Present Illness Chief Complaint: GI Bleed Narrative Narrative: Increasing bright red blood per rectum overnight. States going every 1/2 hour with blood. Mild abdominal discomfort. Denies lightheaded symptoms. No anticoagulation medications. However diagnosed with alcoholic cirrhosis February 2020. He had an upper endoscopy in May [address] Mcpherson. He has never had a colonoscopy. He reports had paracentesis x2 most recent was yesterday as an outpatient. States 8 L of fluids removed. He was given FFP prior to his procedure yesterday. He reports had intermittent blood in his stools for which he has not had evaluated. He states increasing frequency yesterday had him concerned. States he feels fatigued however no dyspnea or exertional dyspnea. He reports PCP is currently referring to new GI physician Dr. Ramirez. He has not seen. Prior similar symptoms: Yes PFSH PFSH Medical History Advanced cirrhosis of liver Anemia Anxiety Carpal tunnel syndrome Depression Gallstones GERD (gastroesophageal reflux disease) H/O alcohol abuse Hypertension Smoker Home Medications pantoprazole 40 mg PO DAILY 07/09/21 [History Last Taken 07/10/21] prednisolone sodium phosphate 39.9 mg PO DAILY 07/09/21 [History Last Taken 07/10/21] furosemide [Lasix] 40 mg PO DAILY 07/10/21 [History Last Taken 07/10/21] multivitamin 1 tab PO DAILY 07/10/21 [History Last Taken 07/10/21] Allergy/AdvReac Type Severity Reaction Status Date / Time No Known Allergies Allergy Verified 07/10/21 12:27 Family History Father Alcoholism Cancer Mother Anxiety Osteoporosis Grandmother Diabetes Surgical History History of removal of periurethral cyst Social History household members: significant other Smoking Status: Current every day smoker tobacco type: cigarettes alcohol intake: current alcohol intake frequency: 3 or more drinks per day Alcohol type: beer details: 3-4 Tall boy beers daily. substance use type: does not use what type of physical activity do you participate in: walking and bicycling frequency: 1-2 times per week ROS ROS ED Constitutional Constitutional ED: Denies chills, fever(s) or sweats Eyes Eyes: Denies change in vision ENT ENT ED: Denies dysphagia or sore throat Cardiovascular Cardiovascular: Denies chest pain, leg edema, palpitations or racing heartbeat Respiratory/Chest Respiratory/Chest: Denies cough, dyspnea or dyspnea on exertion Gastrointestinal Gastrointestinal: Reports other Details: Bright red blood per rectum ; Denies abdominal pain, diarrhea, nausea or vomiting Genitourinary Genitourinary ED: Denies dysuria, hematuria or urinary frequency Musculoskeletal Musculoskeletal: Denies back pain, extremity pain or neck pain Integumentary Denies rash or wounds Neurologic Neurologic: Denies headache(s), paresthesias or weakness EXAM Physical Exam Const Vital Signs: 07/10/21 12:25 07/10/21 14:54 07/10/21 16:11 Temperature 97.3 F L 98.1 F 98.7 F Temperature Source Temporal Oral Oral Pulse Rate 98 89 91 Respiratory Rate 16 18 18 Blood Pressure 104/67 126/64 H 135/85 H Blood Pressure Mean 79 84 101 Pulse Ox 98 98 98 Oxygen Delivery Method Room Air Room Air Room Air Positive well nourished and well developed General Appearance ED: well developed and NAD; Negative for pallor HEENT Reports moist mucous membranes normocephalic and atraumatic Eyes PERRL, EOMs intact bilaterally and conjunctivae normal General Eye ED: Yes normal appearance of both eyes and scleral icterus; Negative for pale conjunctiva Neck no lymphadenopathy and supple General: Negative for tenderness Chest Wall Chest: Negative for tenderness Resp normal respiratory effort and normal air movement Effort and Inspection: symmetric chest movement; Negative for respiratory distress Cardio regular rate, regular rhythm and no murmurs Peripheral Pulses: pulses 2+ throughout GI normal to inspection, nondistended, normoactive bowel sounds and non-tender GI Narrative: Band-Aid dressing noted right mid abdomen. Rectal exam small hemorrhoids for 5 o'clock position, nontender. Digital rectal exam with brown stools, no gross bleeding. Hemoccult pending. Palpation: Negative for guarding or rebound tenderness present Back/Spine no CVA tenderness and no thoracic nor lumbar tenderness Extremity normal to inspection Extremity Narrative: 1+ lower extremity edema General Extremety ED: Yes edema; Negative for tenderness General Extremity: edema Neuro oriented x3 and no sensory deficits noted Sensorium / Orientation: awake and alert Skin no rashes or lesions noted and no wounds General Skin Exam: Negative for pallor MDM MDM MDM Narrative Medical decision making narrative: Patient's guaiac did return positive. Hemoglobin 12.1. INR 2.3. Platelets 146 today. Vitals are stable with patient's history of cirrhosis, poor clotting factors, I do feel he will benefit from hospitalization for monitoring. He had no colonoscopies in the past. I spoke with hospitalist who requested I speak with GI. I spoke with Dr. Ramirez, updated patient's history and findings he does agree for hospitalization. He will see patient on consult. I spoke with Dr. Rebollar for admission to the medical floor. Lab Data Attestation: I reviewed the patient's lab results. Labs: Laboratory Results - last 24 hr 07/10/21 07/10/21 07/10/21 12:47 12:47 12:47 WBC 13.8 H RBC 3.61 L Hgb 12.9 L Hct 38.0 L MCV 105.3 H MCH 35.7 H MCHC 33.9 RDW Std Deviation 63.6 H RDW Coeff of Maria Guadalupe 16.4 H Plt Count 146 L MPV 10.1 Immature Gran % (Auto) 1.000 H Neut % (Auto) 89.1 H Lymph % (Auto) 3.0 L [place] % (Auto) 6.7 Eos % (Auto) 0.1 Baso % (Auto) 0.1 Absolute Neuts (auto) 12.3 H Absolute Lymphs (auto) 0.42 L Nucleated RBC % 0 Differential Comment SCANNED PT 24.3 H INR 2.3 APTT 32.5 Sodium 134 L Potassium 3.9 Chloride 98 Carbon Dioxide 30.0 Anion Gap 6 BUN 26 H Creatinine 1.07 Estim Creat Clear Calc 83.51 Est GFR (MDRD) Af Amer 94 Est GFR (MDRD) Non-Af 78 BUN/Creatinine Ratio 24.3 H Glucose 135 H Calcium 8.0 L Discharge Plan Dx/Rx/DC Orders Clinical Impression: GI (gastrointestinal bleed), Hx of cirrhosis Disposition Disposition: Acute Care Hospital [facility]
[2021-07-10 13:18] LABS: Anion Gap 6 (5-15); BUN 26 mg/dL (7-18); BUN/Creat Ratio 24.3 RATIO (10-20); Chloride 98 mmol/L (98-107); Creatinine, Serum 1.07 mg/dL (0.70-1.30); EST Glomerular Filtration Rate 78 mL/min (>60); Est Glom Filt Rate - Afr Amer 94 mL/min (>60); Estimated Creatinine Clearance 83.51 ml/min; Glucose 135 mg/dL (74-106); Potassium 3.9 mmol/L (3.5-5.1); Sodium Level 134 mmol/L (136-145)
[2021-07-10 13:28] LABS: International Normalized Ratio 2.3; Prothrombin Time (Protime)PT. 24.3 SECONDS (11.7-14.9)
[2021-07-10 13:29] LABS: Partial Thromboplast Time 32.5 Seconds (24.1-36.2)
[2021-07-10 13:38] LABS: Differential Comment SCANNED
[2021-07-10 14:54] VITALS: BP 126/64; PULSE 89; RESP 18; TEMP 36.7; O2SAT 98
[2021-07-10 16:11] VITALS: BP 135/85; PULSE 91; RESP 18; TEMP 37.1; O2SAT 98
--- NOTE | 2021-07-10 16:50 | EX.PCM.CON.G ---
HPI Consult Data Date of Consult: 07/10/21 HPI Narrative HPI Narrative: AGA MOORE, is a 51 M who presents w/ PMHx: Obesity, Tobacco use, Chronic thrombocytopenia, HTN, Alcoholic Liver Cirrhosis following w/ Dr. Mcpherson however has been lost to follow-up, Ongoing EtOH abuse (3-4 tallboys daily), Tobacco use who presents to the [facility] ED on 05/21/21 with history of worsening abdominal discomfort, worse in the bilateral lower quadrants with increasing abdominal distention. He was discovered to have large volume ascites. He underwent large-volume paracentesis. He has no history of SBP. His abdomen feels a lot better however he has been having worsening lower GI bleeding. He says has been going on for the past several months and yesterday and started bleeding to the point that he got dizzy this prompted an eventual ED presentation. Work-up in the ED displayed included T 97.4, heart rate 91, BP 126/77, respiratory rate 16, 95% on room air, CBC with had slightly decreased hemoglobin, increased BUN/creatinine ratio, thrombocytopenia, increased liver enzymes consistent with alcoholic hepatitis. CT abdomen and pelvis with a cirrhotic liver with evidence of portal hypertension including spinal megaly, large volume ascites and gastroesophageal and splenic varices with innumerable hypodense nodules likely dysplastic nodules of the liver concerning for hepatocellular carcinoma, 6 mm nonobstructing calcification in the right mid renal pole, cholelithiasis, diverticulosis, small fat and fluid containing umbilical hernia, moderately sized fat and fluid containing left inguinal hernia. PFSH Medical History Advanced cirrhosis of liver Anemia Anxiety Carpal tunnel syndrome Depression Gallstones GERD (gastroesophageal reflux disease) H/O alcohol abuse Hypertension Smoker Home Medications pantoprazole 40 mg PO DAILY 07/09/21 [History Last Taken 07/10/21] prednisolone sodium phosphate 39.9 mg PO DAILY 07/09/21 [History Last Taken 07/10/21] furosemide [Lasix] 40 mg PO DAILY 07/10/21 [History Last Taken 07/10/21] multivitamin 1 tab PO DAILY 07/10/21 [History Last Taken 07/10/21] Allergy/AdvReac Type Severity Reaction Status Date / Time No Known Allergies Allergy Verified 07/10/21 12:27 Family History Father Alcoholism Cancer Mother Anxiety Osteoporosis Grandmother Diabetes Surgical History History of removal of periurethral cyst Social History household members: significant other Smoking Status: Current every day smoker tobacco type: cigarettes alcohol intake: current alcohol intake frequency: 3 or more drinks per day Alcohol type: beer details: 3-4 Tall boy beers daily. substance use type: does not use what type of physical activity do you participate in: walking and bicycling frequency: 1-2 times per week ROS Review of Systems ROS Unobtainable: other Constitutional Constitutional: Denies fatigue, fever(s), poor appetite, weight gain or weight loss ENT HEENT: Denies mouth lesions Cardiovascular Cardiovascular: Denies abdominal bloating, abdominal edema or abdominal pain Respiratory/Chest Respiratory/Chest: Denies change in mental status, change in phlegm color, chest congestion or chest tightness Gastrointestinal Gastrointestinal: Reports bloating and hematochezia; Denies belching, change in bowel habits, change in stool character, chewing difficulty, coffee ground emesis, constipation, cramping, diarrhea, dyspepsia, dysphagia, early satiety, excessive flatus, fecal incontinence, heartburn, hematemesis, hemorrhoids, loose stools, melena, nausea, odynophagia, rectal bleeding, tenesmus, vomiting or weight changes Genitourinary Genitourinary: Denies abdominal discomfort, burning urination or itching Musculoskeletal Musculoskeletal: Reports as per HPI; Denies muscle weakness or myalgias Integumentary Integumentary: Denies jaundice Neurologic Neurologic: Denies lack of coordination or weakness Psychiatric Psychiatric: Denies confusion, depression, memory loss, mood swings, paranoia or suicidal ideation Endocrine Endocrinology: Denies systems reviewed and no addt'l complaints, except as documented Hematologic/Lymphatic Hematologic/Lymphatic: Denies anemia, easy bleeding, easy bruising or lymphadenopathy Allergic/Immunologic Allergic/Immunologic: Denies systems reviewed and no addt'l complaints, except as documented Physical Exam Const alert General Appearance: cooperative Orientation / Consciousness: oriented to person HEENT hearing grossly normal bilaterally Head and Scalp: normal to inspection Face and Sinus: face symmetric Nose: external nose normal Mouth: oral and palatal mucosa normal Eyes conjunctivae normal General Eye: normal appearance of both eyes Neck full ROM General: normal visual inspection Lymph Lymphatic: no lymphadenopathy noted Chest inspection of chest normal and palpation of chest normal Chest: symmetrical chest wall rise Resp normal respiratory effort Effort and Inspection: able to speak in complete sentences Cardio regular rate GI GI Narrative: Large distended abdomen with positive fluid wave and spider angiomata Percussion: normal to percussion Rectal Exam: deferred Neuro Speech: speech normal Gait (Neuro): normal gait Lab / Micro Data Result Diagrams: 07/10/21 12:47 07/10/21 12:47 Labs: Laboratory Results - last 24 hr 07/10/21 12:47: WBC 13.8 H, RBC 3.61 L, Hgb 12.9 L, Hct 38.0 L, MCV 105.3 H, MCH 35.7 H, MCHC 33.9, RDW Std Deviation 63.6 H, RDW Coeff of Maria Guadalupe 16.4 H, Plt Count 146 L, MPV 10.1, Immature Gran % (Auto) 1.000 H, Neut % (Auto) 89.1 H, Lymph % (Auto) 3.0 L, [place] % (Auto) 6.7, Eos % (Auto) 0.1, Baso % (Auto) 0.1, Absolute Neuts (auto) 12.3 H, Absolute Lymphs (auto) 0.42 L, Nucleated RBC % 0, Differential Comment SCANNED 07/10/21 12:47: Sodium 134 L, Potassium 3.9, Chloride 98, Carbon Dioxide 30.0, Anion Gap 6, BUN 26 H, Creatinine 1.07, Estim Creat Clear Calc 83.51, Est GFR (MDRD) Af Amer 94, Est GFR (MDRD) Non-Af 78, BUN/Creatinine Ratio 24.3 H, Glucose 135 H, Calcium 8.0 L 07/10/21 12:47: PT 24.3 H, INR 2.3, APTT 32.5 Micro: Microbiology 07/10/21 14:29 Stool Stool Occult Blood (GAVIN) - Final Occult Blood Positive 07/10/21 13:06 Nasal Secretion SARS-CoV-2 Antigen (Rapid) - Final Assessment & Plan Assessment/Plan (1) Thrombocytopenia: PLAN: His platelet count is low secondary to splenic sequestration and portal hypertension. His platelet count appears to be stable and consistent with previous platelet counts. (2) Cirrhosis: PLAN: Patient was noted to have some dysplastic nodules on his CT scan. I will get an alpha-fetoprotein. (3) GI (gastrointestinal bleed): PLAN: He will undergo an upper and lower endoscopy tomorrow. He was explained alternatives, risk, benefits including not withstanding bleeding, infection, sepsis, perforation, need for emergent sudden . He was an ASA of 3. He can only have clear liquids. (4) Alcoholic cirrhosis of liver with ascites: PLAN: He will be started on Midodrin and diuretics to help decrease the formation of ascites.
[2021-07-10] MEDS: 0.9% Normal Saline 1,000 ML 15 ML IV ×2 (17:51→17:58)
[2021-07-10] MEDS: Magnesium Citrate 300 ML PO (17:58)
[2021-07-10 18:00] VITALS: PULSE 81; RESP 18; O2SAT 98
[2021-07-10] MEDS: Bisacodyl 5 MG Tablet PO (18:20)
[2021-07-10 19:20] VITALS: BP 141/79; PULSE 92; RESP 18; TEMP 36.6; O2SAT 100
[2021-07-10 19:22] VITALS: BMI 38.5
--- NOTE | 2021-07-10 20:01 | HP.PCM_ITS ---
[facility] - General General Date of Admission: 07/10/21 HPI Narrative AGA MOORE, is a 51 M with a history of chronic liver disease/alcohol cirrhosis with refractory ascites requiring scheduled paracentesis. Presents to the hospital with frequent episodes of bright red blood per rectum. Blood is mixed with stools. Appears to be more blood than stools. He has never had a colonoscopy. He denies any weight loss. He has lost more muscle though and has gained water. Denies any abdominal pain or cramps. Denies any nausea vomiting. Denies any chest pain or shortness of breath. Denies any family history of colon cancer. PFSH Medical History Advanced cirrhosis of liver Anemia Anxiety Carpal tunnel syndrome Depression Gallstones GERD (gastroesophageal reflux disease) H/O alcohol abuse Hypertension Smoker Home Medications pantoprazole 40 mg PO DAILY 07/09/21 [History Last Taken 07/10/21] prednisolone sodium phosphate 39.9 mg PO DAILY 07/09/21 [History Last Taken 07/10/21] furosemide [Lasix] 80 mg PO DAILY 07/10/21 [History Last Taken 07/10/21] multivitamin 1 tab PO DAILY 07/10/21 [History Last Taken 07/10/21] Allergy/AdvReac Type Severity Reaction Status Date / Time No Known Allergies Allergy Verified 07/10/21 12:27 Family History Father Alcoholism Cancer Mother Anxiety Osteoporosis Grandmother Diabetes Surgical History History of removal of periurethral cyst Social History household members: significant other Smoking Status: Current every day smoker tobacco type: cigarettes alcohol intake: current alcohol intake frequency: 3 or more drinks per day Alcohol type: beer details: 3-4 Tall boy beers daily. substance use type: does not use what type of physical activity do you participate in: walking and bicycling frequency: 1-2 times per week ROS ROS Narrative Denies any chest pain or shortness of breath. Denies any abdominal pain. All other systems reviewed and essentially negative. Vital Signs Vital Signs Vital Signs: 07/10/21 12:25 07/10/21 14:54 07/10/21 16:11 Temperature 36.3 C L 36.7 C 37.1 C Temperature Source Temporal Oral Oral Pulse Rate 98 89 91 Respiratory Rate 16 18 18 Respiratory Effort Respiratory Depth Respiratory Pattern Blood Pressure 104/67 126/64 H 135/85 H Blood Pressure Mean 79 84 101 Blood Pressure Source Blood Pressure Position Blood Pressure Location Pulse Ox 98 98 98 Oxygen Delivery Method Room Air Room Air Room Air 07/10/21 18:00 07/10/21 19:20 07/10/21 19:50 Temperature 36.6 C Temperature Source Oral Pulse Rate 81 92 Respiratory Rate 18 18 Respiratory Effort Normal Non-Labored Respiratory Depth Normal Respiratory Pattern Normal Blood Pressure 141/79 H Blood Pressure Mean 99 Blood Pressure Source Monitor Blood Pressure Position Semi-Fowlers Blood Pressure Location Left Arm Pulse Ox 98 100 Oxygen Delivery Method Room Air Room Air Room Air Weight Weight: 118 kg Body Mass Index (BMI) 38.5 Physical Exam Narrative General. Middle-aged man, chronically ill-appearing, HEENT. Oral mucosa is moist, no jaundice. Skin. Multiple telangiectasias and spider angiomas on the face and chest Neck. Neck is supple Heart. First and second heart sounds heard no murmurs. Lungs. Clear to auscultation. Abdomen. Distended. Fullness in the flanks. Extremities. 4+ pitting edema in both lower extremities up to the upper thighs. 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 Results Lab / Micro Data Result Diagrams: 07/10/21 12:47 07/10/21 12:47 Labs: Laboratory Results - last 24 hr 07/10/21 12:47: WBC 13.8 H, RBC 3.61 L, Hgb 12.9 L, Hct 38.0 L, MCV 105.3 H, MCH 35.7 H, MCHC 33.9, RDW Std Deviation 63.6 H, RDW Coeff of Maria Guadalupe 16.4 H, Plt Count 146 L, MPV 10.1, Immature Gran % (Auto) 1.000 H, Neut % (Auto) 89.1 H, Lymph % (Auto) 3.0 L, [place] % (Auto) 6.7, Eos % (Auto) 0.1, Baso % (Auto) 0.1, Absolute Neuts (auto) 12.3 H, Absolute Lymphs (auto) 0.42 L, Nucleated RBC % 0, Differential Comment SCANNED 07/10/21 12:47: Sodium 134 L, Potassium 3.9, Chloride 98, Carbon Dioxide 30.0, Anion Gap 6, BUN 26 H, Creatinine 1.07, Estim Creat Clear Calc 83.51, Est GFR (MDRD) Af Amer 94, Est GFR (MDRD) Non-Af 78, BUN/Creatinine Ratio 24.3 H, Glucose 135 H, Calcium 8.0 L 07/10/21 12:47: PT 24.3 H, INR 2.3, APTT 32.5 Micro: Microbiology 07/10/21 14:29 Stool Stool Occult Blood (GAVIN) - Final Occult Blood Positive 07/10/21 13:06 Nasal Secretion SARS-CoV-2 Antigen (Rapid) - Final Assessment & Plan Assessment/Plan (1) Lower GI bleeding: PLAN: Acute lower GI bleeding. Suspect benign anorectal condition has internal hemorrhoids, however will benefit from colonoscopy or at least a proc tosigmoidoscopy as he has never had one. Consult gastroenterology. Monitor hemoglobin. (2) Cirrhosis, alcoholic: QUALIFIERS: Ascites presence: with ascites Qualified Code(s): K70.31 - Alcoholic cirrhosis of liver with ascites PLAN: Patient has refractory ascites. Continue Lasix. Add Aldactone. Repeat paracentesis. (3) Obesity (BMI 30-39.9): PLAN: Lifestyle modifications as able. Charges/Coding Visit Charges Inpatient E&M: 60159 Init Hosp L3
[2021-07-11] VITALS (10 sets, daily range): BP systolic 114–133; BP diastolic 55–76; PULSE 86–97; RESP 16–18; TEMP 36.2–36.8; O2SAT 93–100; BMI 38.7
--- NOTE | 2021-07-11 01:57 | NURSING ---
Covid charting iniated 07/11/21.
[2021-07-11 05:24] LABS: Absolute Lymphocyte Count 1.05 X10^3/uL (0.83-4.51); Absolute Neutrophil Count 12.6 X10^3/uL (2.0-7.7); Basophil# 0.02 X10^3/uL; Basophil% 0.1 % (0-1); Hemoglobin 11.9 g/dL (13.0-16.5); Lymphocyte # 1.05 X10^3/ul (0.83-4.51); Lymphocyte % 6.9 % (19-41); Mean Corpuscular Hgb 35.7 pg (27.0-32.0); Mean Corpuscular Volume 105.1 fL (80-94); Mean Platelet Vol. 10.1 fl (6.2-12.0); Monocyte# 1.42 X10^3/uL; Monocyte% 9.3 % (0-10); NRBC Flagged by Analyzer 0 % (0-5); Neutrophil % 82.8 % (47-70); Platelet Count 116 K/mm3 (150-450); RBC Distribution Width CV 16.4 % (11.6-14.6); RBC Distribution Width SD 63.5 fl (35.1-43.9); Red Blood Count 3.33 M/mm3 (4.6-6.2); White Blood Count 15.2 K/mm3 (4.4-11.0)
--- NOTE | 2021-07-11 05:55 | EKG12_ITS ---
Test Reason : AM EKG Blood Pressure : / mmHG Vent. Rate : 084 BPM Atrial Rate : 084 BPM P-R Int : 146 ms QRS Dur : 096 ms QT Int : 418 ms P-R-T Axes : 069 025 040 degrees QTc Int : 493 ms Normal sinus rhythm Prolonged QT Abnormal ECG When compared with ECG of 21-MAY-2021 14:33, No significant change was found Confirmed by CHARLI PION, JOEL ([id number]), subeditor RICK FARLEY ([id number]) on 07/14/2021 10:31:06 AM Referred By: Derick Rebollar Confirmed By:JOEL AUGUSTIN MD
[2021-07-11 06:00] LABS: ALB/GLOB Ratio 0.5 RATIO (0.9-2.4); AST(SGOT) 297 U/L (15-37); Alanine Aminotransfer ALT/SGPT 242 U/L (16-61); Albumin, Serum 1.7 g/dL (3.2-5.0); Alkaline Phosphatase 219 U/L (45-117); Anion Gap 6 (5-15); BUN 28 mg/dL (7-18); BUN/Creat Ratio 36.5 RATIO (10-20); Bilirubin, Direct 4.75 mg/dL (0.00-0.30); Calcium,Total 7.8 mg/dL (8.5-10.1); Chloride 100 mmol/L (98-107); Creatinine, Serum 0.77 mg/dL (0.70-1.30); EST Glomerular Filtration Rate 115 mL/min (>60); Est Glom Filt Rate - Afr Amer 139 mL/min (>60); Estimated Creatinine Clearance 112.27 ml/min; Globulin 3.4 g/dL (2.2-4.2); Glucose 100 mg/dL (74-106); Magnesium 2.6 mg/dL (1.6-2.6); Potassium 3.8 mmol/L (3.5-5.1); Protein, Total 5.1 g/dL (6.4-8.2); Sodium Level 135 mmol/L (136-145)
[2021-07-11 06:03] LABS: Phosphorus 3.5 mg/dL (2.5-4.9)
[2021-07-11 06:16] LABS: International Normalized Ratio 2.6; Prothrombin Time (Protime)PT. 26.7 SECONDS (11.7-14.9)
--- NOTE | 2021-07-11 09:56 | PN.HOSP_ITS ---
Subjective Subjective Patient was seen and admitted. He is going for EGD/colonoscopy. Denied any dizziness or palpitation. Had a bowel movement this morning that was dark, bloody. No other acute events overnight Objective Data Objective Data Vital Signs: Vital Signs Temp Pulse Resp BP Pulse Ox 97.3 F L 96 18 125/55 H 93 07/11/21 08:25 07/11/21 08:25 07/11/21 08:25 07/11/21 08:25 07/11/21 08:25 Oxygen Delivery Method Room Air Weight: 118.478 kg Body Mass Index (BMI) 38.7 Intake & Output: Intake and Output for Last 24 Hours 07/09/21 07/10/21 07/11/21 23:59 23:59 23:59 Intake Total 1.75 / 1.75 Balance 1.75 / 1.75 Lab / Micro Data Result Diagrams: 07/11/21 04:30 07/11/21 04:30 Labs: Laboratory Results - last 24 hr 07/10/21 12:47: WBC 13.8 H, RBC 3.61 L, Hgb 12.9 L, Hct 38.0 L, MCV 105.3 H, MCH 35.7 H, MCHC 33.9, RDW Std Deviation 63.6 H, RDW Coeff of Maria Guadalupe 16.4 H, Plt Count 146 L, MPV 10.1, Immature Gran % (Auto) 1.000 H, Neut % (Auto) 89.1 H, Lymph % (Auto) 3.0 L, [place] % (Auto) 6.7, Eos % (Auto) 0.1, Baso % (Auto) 0.1, Absolute Neuts (auto) 12.3 H, Absolute Lymphs (auto) 0.42 L, Nucleated RBC % 0, Diffe rential Comment SCANNED 07/10/21 12:47: Sodium 134 L, Potassium 3.9, Chloride 98, Carbon Dioxide 30.0, Anion Gap 6, BUN 26 H, Creatinine 1.07, Estim Creat Clear Calc 83.51, Est GFR (MDRD) Af Amer 94, Est GFR (MDRD) Non-Af 78, BUN/Creatinine Ratio 24.3 H, Glucose 135 H, Calcium 8.0 L 07/10/21 12:47: PT 24.3 H, INR 2.3, APTT 32.5 07/11/21 04:30: WBC 15.2 H, RBC 3.33 L, Hgb 11.9 L, Hct 35.0 L, MCV 105.1 H, MCH 35.7 H, MCHC 34.0, RDW Std Deviation 63.5 H, RDW Coeff of Maria Guadalupe 16.4 H, Plt Count 116 L, MPV 10.1, Immature Gran % (Auto) 0.900, Neut % (Auto) 82.8 H, Lymph % (Auto) 6.9 L, [place] % (Auto) 9.3, Eos % (Auto) 0.0, Baso % (Auto) 0.1, Absolute Neuts (auto) 12.6 H, Absolute Lymphs (auto) 1.05, Nucleated RBC % 0 07/11/21 04:30: PT 26.7 H, INR 2.6 07/11/21 04:30: Sodium 135 L, Potassium 3.8, Chloride 100, Carbon Dioxide 29.0, Anion Gap 6, BUN 28 H, Creatinine 0.77, Estim Creat Clear Calc 112.27, Est GFR (MDRD) Af Amer 139, Est GFR (MDRD) Non-Af 115, BUN/Creatinine Ratio 36.5 H, Glucose 100, Calcium 7.8 L, Magnesium 2.6, Total Bilirubin 7.90 H, Direct Bilirubin 4.75 H, AST 297 H, ALT 242 H, Alkaline Phosphatase 219 H, Total Protein 5.1 L, Albumin 1.7 L, Globulin 3.4, Albumin/Globulin Ratio 0.5 L 07/11/21 04:30: Phosphorus 3.5 Micro: Microbiology 07/10/21 14:29 Stool Stool Occult Blood (GAVIN) - Final Occult Blood Positive 07/10/21 13:06 Nasal Secretion SARS-CoV-2 Antigen (Rapid) - Final Physical Exam Narrative General: Middle-aged man, chronically ill-appearing, obese, not jaundiced, not pale HEENT: Moist oral mucosa. Skin: Multiple telangiectasias and spider angiomas on the face and chest Neck: Supple Heart: HS I+II, no murmurs Lungs: Diminished to auscultation. Abdomen: Distended, nontender, ascites ++. Extremities: 4+ pitting edema in both lower extremities up to the upper thighs. 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 Acute painless GI bleed, likely lower GI bleed, persistent Stable vitals, hemoglobin is 11.9, dropped from 12.9 On oral pantoprazole Scheduled to have EGD/colonoscopy today We will follow-up 2. Chronic liver disease/cirrhosis, decompensated, with ascites, evidence of portal hypertension INR is 2.6, LFTs very minimally improved in terms of direct bilirubin, AST/ALT/ALP remains about the same Albumin is 1.7, platelet count is 116 Patient has been having large volume paracentesis in the outpatient Ultrasound-guided paracentesis ordered -we will order albumin; should he have large volume removed 3. Dysplastic liver nodules seen on CT of the abdomen and pelvis in April 2021 Will order liver ultrasound 4. H/o chronic alcohol use disorder and nicotine use, patient stated he stopped in April 5. Thrombocytopenia, chronic, secondary to chronic liver disease, splenic sequestration, portal hypertension, continued alcohol use Platelets are relatively been stable Will trend Charges/Coding Visit Charges Inpatient E&M: 26507 Subs Hosp L3
--- NOTE | 2021-07-11 10:45 | CASEMGMT ---
RN ESHA Face to Face with patient for initial transition planning/care coordination assessment. RN CM introduced self and role at [facility]. Patient lying in bed, alert and oriented. Patient willing to participate in assessment and is able to answer all questions appropriately. Care providers, pharmacy, and demographics verified. Patient wishes to discharge home, denies need for home health at this time. Patient states he has no further needs or concerns at this time. CM to follow for discharge planning needs that may arise. PCP: [facility] Specialists: none Preferred Pharmacy: [facility] Insurance: [employer] Prescription Benefit: yes Living Will/HPOA: yes, Sonido Ridenbaugh LNOK: significant other, Sonido Living Arrangements: Patient lives with Sonido in a 2 story home. Patient states he is independent and able to ambulate stairs. Transportation: self/Sonido DME/HHC: Patient states he has shower chair, cane, walker, and wheelchair at home. Patient denies previous HHC or SNF Disposition Plan: Patient to discharge home with family support and follow-up plans in place. Valeria SOLANO, RN, CM
--- NOTE | 2021-07-11 11:50 | COLBX_PTH ---
PATIENT: AGA MOORE LOC: MS2 U#:[id number] AGE/SX: 51/M ROOM: [facility] [place] RE07/10/[address]: Dr. Abel Ayala MD : [id number] BED: 1 DIS: 07/17/2021 SPEC #: [id number] RECD: 07/11/21 13:49 STATUS: HEATH OLIVA #: [id number] JASMIN: 07/11/21 11:[address]: Carloz Ramirez DEPT: SURGICAL PATHOLOGY RECD BY: Cammy Galo ENTERED: 07/12/21 16:38 SP TYPE: COLON BX OTHR DR: MD Dr. Derick Burnette MD Dr. Ifijen Oleghe, MD Tissues: A - Cecum, NOS B - Transverse colon C - Sigmoid colon biopsy Procedures: Surgery Specimen Level IV HEADER OPERATION: Colonoscopy, [place] [place] PRE-OP DIAGNOSIS: GI bleed TISSUE SUBMITTED: A - Small cecal polyp biopsy, B - Transverse colon polyp biopsy, C - Biopsy of sigmoid colon thickening MICROSCOPIC DIAGNOSIS A. Cecal polyp, biopsy: Tubular adenoma. B. Transverse colon polyp, biopsy: Tubular adenoma. C. Sigmoid colon thickening, biopsy: Focal mucosal ischemic change. AM:manpreet 07/15/2021 MICROSCOPIC DESCRIPTION Slides are reviewed. GROSS DESCRIPTION A - Received in fixative is one container labeled with the patient's name and designated small cecal polyp. The specimen consists of one irregular fragment of light bee soft tissue that measures 0.2 x 0.2 x 0.1 cm. The specimen is totally submitted in one cassette. B - Received in fixative is one container labeled with the patient's name and designated transverse colon polyp. The specimen consists of multiple irregular fragments of light bee soft tissue that in aggregate measure 0.7 x 0.3 x 0.1 cm. The specimen is totally submitted in one cassette. C - Received in fixative is one container labeled with the patient's name and designated sigmoid colon thickening. The specimen consists of one irregular fragment of light bee soft tissue that measures 0.2 x 0.1 x <0.1 cm. The specimen is totally submitted in one cassette. / AM:manpreet 07/14/21 TC:3 CPT: 47689 x3
--- NOTE | 2021-07-11 15:38 | OP.EGD_ITS ---
Patient Name: Leo Lama Procedure Date: 07/11/2021 12:20 PM Date of : 1970 Age: 51 Procedure: Upper GI endoscopy Indications: Iron deficiency anemia Providers: Carloz Ramirez DO Patient Profile: This is a 51 year old male. Refer to note in patient chart for documentation of history and physical. Patient has symptoms. He is status post EGD (normal). Complications: No immediate complications. Procedure: Pre-Anesthesia Assessment: - Prior to the procedure, a History and Physical was performed, and patient medications and allergies were reviewed. The patient is competent. The risks and benefits of the procedure and the sedation options and risks were discussed with the patient. All questions were answered and informed consent was obtained. Patient identification and proposed procedure were verified by the physician in the pre-procedure area. Mental Status Examination: alert and oriented. Airway Examination: normal oropharyngeal airway and neck mobility. Respiratory Examination: clear to auscultation. CV Examination: normal. Prophylactic Antibiotics: The patient does not require prophylactic antibiotics. Prior Anticoagulants: The patient has taken no previous anticoagulant or antiplatelet agents. ASA Grade Assessment: III - A patient with severe systemic disease. After reviewing the risks and benefits, the patient was deemed in satisfactory condition to undergo the procedure. The anesthesia plan was to use moderate sedation / analgesia (conscious sedation). Immediately prior to administration of medications, the patient was re-assessed for adequacy to receive sedatives. The heart rate, respiratory rate, oxygen saturations, blood pressure, adequacy of pulmonary ventilation, and response to care were monitored throughout the procedure. The physical status of the patient was re-assessed after the procedure. After obtaining informed consent, the endoscope was passed under direct vision. Throughout the procedure, the patient's blood pressure, pulse, and oxygen saturations were monitored continuously. The gastroscope was introduced through the mouth, and advanced to the second part of duodenum. The upper GI endoscopy was accomplished without difficulty. The patient tolerated the procedure well. Moderate Sedation: Moderate (conscious) sedation was administered by the endoscopy nurse and supervised by the endoscopist. The patient's oxygen saturation, heart rate, blood pressure and response to care were monitored. Scope In: 1:03:04 PM Scope Out: 1:11:43 PM Total Procedure Duration Time 0 hours 8 minutes 39 seconds Findings: Two columns of non-bleeding grade II varices were found in the middle third of the esophagus,. No stigmata of recent bleeding were evident and no red felicia signs were present. Two bands were successfully placed with complete eradication, resulting in deflation of varices. There was no bleeding during the procedure. The stomach was normal. A small hiatal hernia was present. The cardia and gastric fundus were normal on retroflexion. Extensive portal gastropathy seen throughout the entire stomach The second portion of the duodenum was normal. Impression: - Non-bleeding grade II esophageal varices. Completely eradicated. Banded. - Normal stomach. - Small hiatal hernia. - Normal second portion of the duodenum. - No specimens collected. Recommendation: - Return patient to referring hospital for possible discharge same day. - Low sodium diet indefinitely. - Continue present medications. Procedure Code(s): --- Professional --- 42435, Esophagogastroduodenoscopy, flexible, transoral; with band ligation of esophageal/gastric varices CPT copyright 2017 [employer]. All rights reserved. The codes documented in this report are preliminary and upon marketing finance specialist review may be revised to meet current compliance requirements. Carloz Ramirez DO 07/11/2021 3:38:20 PM This report has been signed electronically. Number of Addenda: 0 Note Initiated On: 07/11/2021 12:20 PM
--- NOTE | 2021-07-11 15:40 | OP.CCLET_ITS ---
07/11/2021 Derick Rebollar MD [address] [place] [address] [place] [address] Re : Upper GI endoscopy procedure for Leo Lama Dear Dr. Rebollar This procedure was performed on Sunday, July 11, 2021. My impressions and recommendations are as follows: Impressions : - Non-bleeding grade II esophageal varices. Completely eradicated. Banded. - Normal stomach. - Small hiatal hernia. - Normal second portion of the duodenum. - No specimens collected. Recommendations : - Return patient to referring hospital for possible discharge same day. - Low sodium diet indefinitely. - Continue present medications. My findings are described in the full procedure note, which is enclosed. If I can be of further assistance, please feel free to contact me at . Sincerely, Carloz Ramirez, 07/11/2021 3:38:20 PM This report has been signed electronically.
--- NOTE | 2021-07-11 15:51 | OP.COLON_ITS ---
Patient Name: Leo Lama Procedure Date: 07/11/2021 1:14 PM Date of : 1970 Age: 51 Procedure: Colonoscopy Indications: Screening for colorectal malignant neoplasm, This is the patient's first colonoscopy, Incidental - Hematochezia, Incidental - Heme positive stool Providers: Carloz Ramirez DO Medicines: Propofol per Anesthesia Patient Profile: This is a 51 year old male. Refer to note in patient chart for documentation of history and physical. Patient has symptoms. He is status post EGD (normal). This is a 51 year old male. Refer to note in patient chart for documentation of history and physical. Last Colonoscopy: none. The patient's first colonoscopy is today. Complications: No immediate complications. Procedure: Pre-Anesthesia Assessment: - Prior to the procedure, a History and Physical was performed, and patient medications and allergies were reviewed. The patient is competent. The risks and benefits of the procedure and the sedation options and risks were discussed with the patient. All questions were answered and informed consent was obtained. Patient identification and proposed procedure were verified by the physician in the pre-procedure area. Mental Status Examination: alert and oriented. Airway Examination: normal oropharyngeal airway and neck mobility. Respiratory Examination: clear to auscultation. CV Examination: normal. Prophylactic Antibiotics: The patient does not require prophylactic antibiotics. Prior Anticoagulants: The patient has taken no previous anticoagulant or antiplatelet agents. ASA Grade Assessment: III - A patient with severe systemic disease. After reviewing the risks and benefits, the patient was deemed in satisfactory condition to undergo the procedure. The anesthesia plan was to use moderate sedation / analgesia (conscious sedation). Immediately prior to administration of medications, the patient was re-assessed for adequacy to receive sedatives. The heart rate, respiratory rate, oxygen saturations, blood pressure, adequacy of pulmonary ventilation, and response to care were monitored throughout the procedure. The physical status of the patient was re-assessed after the procedure. - Prior to the procedure, a History and Physical was performed, and patient medications and allergies were reviewed. The patient is competent. The risks and benefits of the procedure and the sedation options and risks were discussed with the patient. All questions were answered and informed consent was obtained. Patient identification and proposed procedure were verified by the physician in the pre-procedure area. Mental Status Examination: alert and oriented. Airway Examination: normal oropharyngeal airway and neck mobility. Respiratory Examination: clear to auscultation. CV Examination: normal. Prophylactic Antibiotics: The patient does not require prophylactic antibiotics. Prior Anticoagulants: The patient has taken no previous anticoagulant or antiplatelet agents. ASA Grade Assessment: III - A patient with severe systemic disease. After reviewing the risks and benefits, the patient was deemed in satisfactory condition to undergo the procedure. The anesthesia plan was to use moderate sedation / analgesia (conscious sedation). Immediately prior to administration of medications, the patient was re-assessed for adequacy to receive sedatives. The heart rate, respiratory rate, oxygen saturations, blood pressure, adequacy of pulmonary ventilation, and response to care were monitored throughout the procedure. The physical status of the patient was re-assessed after the procedure. After I obtained informed consent, the scope was passed under direct vision. Throughout the procedure, the patient's blood pressure, pulse, and oxygen saturations were monitored continuously. The colonoscope was introduced through the anus and advanced to the cecum, identified by appendiceal orifice and ileocecal valve. The bowel preparation used was GoLYTELY. Moderate Sedation: Moderate (conscious) sedation was personally administered by an anesthesia professional. The following parameters were monitored: oxygen saturation, heart rate, blood pressure, and response to care. Scope In: 1:16:40 PM Scope Withdrawal Time 0 hours 8 minutes 38 seconds Scope Out: 1:30:38 PM Total Procedure Duration Time 0 hours 13 minutes 58 seconds Findings: Hemorrhoids were found on perianal exam. A few diverticula were found in the anus, sigmoid colon and proximal sigmoid colon. The polyp was removed with a jumbo cold forceps. Resection and retrieval were complete. A 2 mm polyp was found in the cecum. The polyp was flat. A polyp was found in the cecum. The polyp was sessile. The polyp was removed with a jumbo cold forceps. Resection was complete, and retrieval was complete. There was also some thickening seen in the sigmoid colon that resembled an inverted diverticuli. Biopsies were taken He had a poor prep for the study Impression: - Hemorrhoids found on perianal exam. - Diverticulosis at the anus, in the sigmoid colon and in the proximal sigmoid colon. - One 2 mm polyp in the cecum. - One polyp in the cecum, removed with a jumbo cold forceps. Resected and retrieved. Recommendation: - Discharge patient to home. - Resume regular diet today. - Repeat colonoscopy in 1 year for adenoma surveillance. - Continue present medications. Procedure Code(s): --- Professional --- 09406, Colonoscopy, flexible; with biopsy, single or multiple CPT copyright 2017 [employer]. All rights reserved. The codes documented in this report are preliminary and upon bed manager review may be revised to meet current compliance requirements. Carloz Ramirez DO 07/11/2021 3:51:07 PM This report has been signed electronically. Number of Addenda: 2 Note Initiated On: 07/11/2021 1:14 PM Addendum Number: 1 Addendum Date: 06/25/2022 3:53:47 PM MAC was used instead of moderate sedation for this patient. Carloz Ramirez DO 06/25/2022 3:53:57 PM This report has been signed electronically. Addendum Number: 2 Addendum Date: 06/25/2022 3:54:07 PM MAC was used instead of moderate sedation for this patient. Carloz Ramirez DO 06/25/2022 3:54:15 PM This report has been signed electronically.
--- NOTE | 2021-07-11 15:52 | OP.CCLET_ITS ---
06/25/2022 Derick Rebollar MD [address] [place] [address] [place] [address] Re : Colonoscopy procedure for Leo Lama Dear Dr. Rebollar This procedure was performed on Sunday, July 11, 2021. My impressions and recommendations are as follows: Impressions : - Hemorrhoids found on perianal exam. - Diverticulosis at the anus, in the sigmoid colon and in the proximal sigmoid colon. - One 2 mm polyp in the cecum. - One polyp in the cecum, removed with a jumbo cold forceps. Resected and retrieved. Recommendations : - Discharge patient to home. - Resume regular diet today. - Repeat colonoscopy in 1 year for adenoma surveillance. - Continue present medications. My findings are described in the full procedure note, which is enclosed. If I can be of further assistance, please feel free to contact me at . Sincerely, Carloz Friend, 07/11/2021 3:51:07 PM This report has been signed electronically.
[2021-07-11] MEDS: Pantoprazole Sodium 40 MG Tablet PO (16:28)
[2021-07-11] MEDS: prednisoLONE soln 15 MG/5 ML UDC 39.9 MG PO (16:29)
[2021-07-11] MEDS: Furosemide 40 MG Tablet PO (16:31)
[2021-07-12 06:00] LABS: Absolute Lymphocyte Count 0.92 X10^3/uL (0.83-4.51); Absolute Neutrophil Count 15.6 X10^3/uL (2.0-7.7); Basophil# 0.04 X10^3/uL; Basophil% 0.2 % (0-1); Hematocrit 35.7 % (40-54); Hemoglobin 12.1 g/dL (13.0-16.5); Lymphocyte # 0.92 X10^3/ul (0.83-4.51); Mean Corp Hgb Conc 33.9 g/dL (32-36); Mean Corpuscular Volume 106.3 fL (80-94); Mean Platelet Vol. 10.8 fl (6.2-12.0); Monocyte# 1.43 X10^3/uL; Monocyte% 7.8 % (0-10); NRBC Flagged by Analyzer 0 % (0-5); Neutrophil # 15.63 X10^3/uL (2.7-7.7); Neutrophil % 85.9 % (47-70); Platelet Count 150 K/mm3 (150-450); RBC Distribution Width CV 15.9 % (11.6-14.6); RBC Distribution Width SD 62.9 fl (35.1-43.9); Red Blood Count 3.36 M/mm3 (4.6-6.2); White Blood Count 18.2 K/mm3 (4.4-11.0)
[2021-07-12 06:23] LABS: International Normalized Ratio 2.4; Prothrombin Time (Protime)PT. 25.4 SECONDS (11.7-14.9)
[2021-07-12 06:24] VITALS: BP 131/83; PULSE 86; RESP 16; TEMP 36.5; O2SAT 98
[2021-07-12] MEDS: Pantoprazole Sodium 40 MG Tablet PO (06:28)
[2021-07-12 06:41] LABS: ALB/GLOB Ratio 0.5 RATIO (0.9-2.4); AST(SGOT) 287 U/L (15-37); Alanine Aminotransfer ALT/SGPT 266 U/L (16-61); Albumin, Serum 1.7 g/dL (3.2-5.0); Alkaline Phosphatase 223 U/L (45-117); Anion Gap 5 (5-15); BUN 29 mg/dL (7-18); Calcium,Total 7.6 mg/dL (8.5-10.1); Chloride 97 mmol/L (98-107); Creatinine, Serum 0.94 mg/dL (0.70-1.30); EST Glomerular Filtration Rate 91 mL/min (>60); Est Glom Filt Rate - Afr Amer 110 mL/min (>60); Estimated Creatinine Clearance 91.97 ml/min; Globulin 3.6 g/dL (2.2-4.2); Glucose 126 mg/dL (74-106); Potassium 4.3 mmol/L (3.5-5.1); Protein, Total 5.3 g/dL (6.4-8.2); Sodium Level 131 mmol/L (136-145)
[2021-07-12 08:56] VITALS: O2SAT 98
[2021-07-12 09:08] VITALS: BP 137/85; PULSE 98; RESP 18; TEMP 36.4; O2SAT 98
[2021-07-12] MEDS: Spironolactone 25 MG Tablet 12.5 MG PO (09:10)
[2021-07-12] MEDS: Furosemide 40 MG Tablet PO ×2 (09:10→17:02)
[2021-07-12] MEDS: prednisoLONE soln 15 MG/5 ML UDC 39.9 MG PO (09:11)
--- NOTE | 2021-07-12 11:00 | EX.PCM.PN.GI ---
Subjective Subjective Patient underwent EGD and colonoscopy yesterday. He was discovered to have grade 2-3 esophageal varices and underwent esophageal banding. He underwent colonoscopy all way to the cecum. He did have hemorrhoids and diverticular disease along with 3 polyps that were removed. No bleeding overnight. No abdominal pain overnight. Objective Data Objective Data Vital Signs: Vital Signs Temp Pulse Resp BP Pulse Ox 97.5 F L 98 18 137/85 H 98 07/12/21 09:08 07/12/21 09:08 07/12/21 09:08 07/12/21 09:08 07/12/21 09:08 Oxygen Delivery Method Room Air Weight: 261 lb 3.188 oz Body Mass Index (BMI) 38.7 Intake & Output: Intake and Output for Last 24 Hours 07/10/21 07/11/21 07/12/21 23:59 23:59 23:59 Intake Total 1.75 / 1.75 120 / 120 Output Total 400 / 400 Balance 1.75 / 1.75 120 / 120 -400 / -400 Lab / Micro Data Result Diagrams: 07/12/21 05:20 07/12/21 05:20 Labs: Laboratory Results - last 24 hr 07/12/21 05:20: WBC 18.2 H, RBC 3.36 L, Hgb 12.1 L, Hct 35.7 L, MCV 106.3 H, MCH 36.0 H, MCHC 33.9, RDW Std Deviation 62.9 H, RDW Coeff of Maria Guadalupe 15.9 H, Plt Count 150, MPV 10.8, Immature Gran % (Auto) 1.100 H, Neut % (Auto) 85.9 H, Lymph % (Auto) 5.0 L, Prowers % (Auto) 7.8, Eos % (Auto) 0.0, Baso % (Auto) 0.2, Absolute Neuts (auto) 15.6 H, Absolute Lymphs (auto) 0.92, Nucleated RBC % 0 07/12/21 05:20: Sodium 131 L, Potassium 4.3, Chloride 97 L, Carbon Dioxide 29.0, Anion Gap 5, BUN 29 H, Creatinine 0.94, Estim Creat Clear Calc 91.97, Est GFR (MDRD) Af Amer 110, Est GFR (MDRD) Non-Af 91, BUN/Creatinine Ratio 31.0 H, Glucose 126 H, Calcium 7.6 L, Total Bilirubin 9.00 H, AST 287 H, ALT 266 H, Alkaline Phosphatase 223 H, Total Protein 5.3 L, Albumin 1.7 L, Globulin 3.6, Albumin/Globulin Ratio 0.5 L 07/12/21 05:20: PT 25.4 H, INR 2.4 Micro: Microbiology 07/10/21 14:29 Stool Stool Occult Blood (GAVIN) - Final Occult Blood Positive 07/10/21 13:06 Nasal Secretion SARS-CoV-2 Antigen (Rapid) - Final Physical Exam Const alert General Appearance: cooperative Orientation / Consciousness: oriented to person HEENT hearing grossly normal bilaterally Head and Scalp: normal to inspection Face and Sinus: face symmetric Nose: external nose normal Mouth: oral and palatal mucosa normal Eyes conjunctivae normal General Eye: normal appearance of both eyes Neck full ROM General: normal visual inspection Lymph Lymphatic: no lymphadenopathy noted Chest inspection of chest normal and palpation of chest normal Chest: symmetrical chest wall rise Resp normal respiratory effort Effort and Inspection: able to speak in complete sentences Cardio regular rate GI GI Narrative: Distended abdomen with positive fluid wave Percussion: normal to percussion Rectal Exam: deferred Neuro Speech: speech normal Gait (Neuro): normal gait Assessment & Plan Assessment/Plan (1) Thrombocytopenia: PLAN: 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 Platelets are improving. Although they could be increasing secondary to his white blood cell count also increasing. (2) Alcoholic hepatitis: PLAN: Patient's bilirubin is increasing secondary to alcoholic hepatitis. His Madrey score is greater than 32 however I would not give him steroids at this time due to his increasing white blood cell count and the fact that he is not have encephalopathy at this time. I will start him on pentoxifylline 400 mg 3 times a day. He was actively drinking on the day he came into the hospital. (3) Alcoholic cirrhosis of liver with ascites: PLAN: He is status post paracentesis. Continue Lasix and Aldactone. We may have to increase his Lasix and Aldactone permitting a stable blood pressure. (4) GI (gastrointestinal bleed): PLAN: GI bleed likely secondary to diverticular or hemorrhoidal disease. There is no signs of bleeding at this time. Charges/Coding Visit Charges Inpatient E&M: 45740 Subs Hosp L3
--- NOTE | 2021-07-12 11:06 | PN.HOSP_ITS ---
Subjective Subjective Patient was seen in his examined. He has had about 4 fermin bloody bowel movements. None this morning. Denies dizziness or palpitation. Abdominal distention is still persistent. Objective Data Objective Data Vital Signs: Vital Signs Temp Pulse Resp BP Pulse Ox 97.5 F L 98 18 137/85 H 98 07/12/21 09:08 07/12/21 09:08 07/12/21 09:08 07/12/21 09:08 07/12/21 09:08 Oxygen Delivery Method Room Air Weight: 118.478 kg Body Mass Index (BMI) 38.7 Intake & Output: Intake and Output for Last 24 Hours 07/10/21 07/11/21 07/12/21 23:59 23:59 23:59 Intake Total 1.75 / 1.75 120 / 120 Output Total 400 / 400 Balance 1.75 / 1.75 120 / 120 -400 / -400 Lab / Micro Data Result Diagrams: 07/12/21 05:20 07/12/21 05:20 Labs: Laboratory Results - last 24 hr 07/12/21 05:20: WBC 18.2 H, RBC 3.36 L, Hgb 12.1 L, Hct 35.7 L, MCV 106.3 H, MCH 36.0 H, MCHC 33.9, RDW Std Deviation 62.9 H, RDW Coeff of Maria Guadalupe 15.9 H, Plt Count 150, MPV 10.8, Immature Gran % (Auto) 1.100 H, Neut % (Auto) 85.9 H, Lymph % (Auto) 5.0 L, Carver % (Auto) 7.8, Eos % (Auto) 0.0, Baso % (Auto) 0.2, Absolute Neuts (auto) 15.6 H, Absolute Lymphs (auto) 0.92, Nucleated RBC % 0 07/12/21 05:20: Sodium 131 L, Potassium 4.3, Chloride 97 L, Carbon Dioxide 29.0, Anion Gap 5, BUN 29 H, Creatinine 0.94, Estim Creat Clear Calc 91.97, Est GFR (MDRD) Af Amer 110, Est GFR (MDRD) Non-Af 91, BUN/Creatinine Ratio 31.0 H, Glucose 126 H, Calcium 7.6 L, Total Bilirubin 9.00 H, AST 287 H, ALT 266 H, Alkaline Phosphatase 223 H, Total Protein 5.3 L, Albumin 1.7 L, Globulin 3.6, Albumin/Globulin Ratio 0.5 L 07/12/21 05:20: PT 25.4 H, INR 2.4 Micro: Microbiology 07/10/21 14:29 Stool Stool Occult Blood (GAVIN) - Final Occult Blood Positive 07/10/21 13:06 Nasal Secretion SARS-CoV-2 Antigen (Rapid) - Final Physical Exam Narrative General: Middle-aged man, chronically ill-appearing, obese, not jaundiced, not pale HEENT: Moist oral mucosa. Skin: Multiple telangiectasias and spider angiomas on the face and chest Neck: Supple Heart: HS I+II, no murmurs Lungs: Diminished to auscultation. Abdomen: Distended, nontender, ascites ++. Extremities: 4+ pitting edema in both lower extremities up to the upper thighs. 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 Acute GI bleed status post EGD and colonoscopy on 07/11/21 EGD showed nonbleeding grade 2 esophageal varices, which were banded Colonoscopy showed hemorrhoids, diverticulosis, cecal polyp that was resected Stable vitals. Hemoglobin is stable Will monitor further 2. Chronic liver disease/cirrhosis, decompensated, with ascites, evidence of portal hypertension total bilirubin remains elevated at 9.0, LFTs remain the same Patient has ascites ++ We will plan on paracentesis tomorrow Check CMP and INR in a.m. Will discontinue prednisolone; started on pentoxifylline GI consulted and following 3. Dysplastic liver nodules seen on CT of the abdomen and pelvis in April 2021 4. Chronic alcohol use disorder and nicotine use, will monitor 5. Thrombocytopenia, chronic, secondary to chronic liver disease, splenic sequestration, portal hypertension, continued alcohol use Platelets have improved Will trend Charges/Coding Visit Charges Inpatient E&M: 30764 Subs Hosp L3
--- NOTE | 2021-07-12 12:22 | US_ITS ---
STUDY: ABDOMINAL ULTRASOUND - RIGHT UPPER QUADRANT REASON FOR VISIT: Male, 51 years old. ABDOMEN PAIN Dysplastic liver nodules TECHNIQUE: Ultrasound evaluation of the right upper quadrant was performed with real-time and static golden-scale imaging. TECHNICAL QUALITY: Adequate. COMPARISON: CT 05/21/21 FINDINGS: Liver: There is a heterogeneous echogenicity of the liver. The bile ducts are within normal limits. There is hepatic color flow. The direction of portal flow is hepatopetal. The liver is nodular in appearance. A focal mass is not identified. The finding is consistent for hepatic cirrhosis. Gallbladder: Normal distended gallbladder. The gallbladder wall measures 4.7 mm. There is a negative sonographic Samuel''s sign. There is no pericholecystic fluid. There is biliary sludge dependent within the gallbladder vs small gallstones. Common Bile Duct (C.B.D.): The common bile duct measures ( in mm): 2.8 Pancreas: It is not visualized. There is too much overlying bowel gas. Right Kidney: Normal size of the right kidney. The right kidney measures 12.4 cm. . Normal renal cortex. Cyst measures 11 x 10 mm There is no right hydronephrosis. Aorta: It is not visualized. There is too much overlying bowel gas. . Ascites. US/Liver IMPRESSION: Hepatic cirrhosis. A focal mass is not identified but this is related to the diffuse heterogeneous echogenicity of the liver. Ascites. There is biliary sludge dependent within the gallbladder vs small gallstones. Electronically Signed: Rolando Cantu MD at 16:19 EDT , Service support ,
[2021-07-12] MEDS: 0.9% Saline Lock 10 ML Syringe IV (12:43)
[2021-07-12] MEDS: Furosemide 20 MG/2 ML VIAL IV (12:43)
[2021-07-12 12:44] LABS: Hematocrit 35.7 % (40-54); Hemoglobin 12.3 g/dL (13.0-16.5)
[2021-07-12] MEDS: Pentoxifylline 400 MG Tablet PO ×2 (15:00→17:02)
[2021-07-12 17:00] VITALS: BP 135/71; PULSE 92; RESP 18; TEMP 36.6; O2SAT 98
[2021-07-12 18:37] LABS: Hematocrit 38.1 % (40-54); Hemoglobin 13.4 g/dL (13.0-16.5)
[2021-07-12 20:15] VITALS: BP 123/69; PULSE 97; RESP 18; TEMP 36.6; O2SAT 100
[2021-07-12 23:30] VITALS: BP 126/69; PULSE 102; RESP 16; TEMP 36.6; O2SAT 97
[2021-07-13 03:35] VITALS: BP 112/56; PULSE 103; RESP 16; TEMP 36.6; O2SAT 98
[2021-07-13 07:05] LABS: Absolute Neutrophil Count 18.5 X10^3/uL (2.0-7.7); Basophil# 0.05 X10^3/uL; Basophil% 0.2 % (0-1); Eosinophil# 0.02 X10^3/uL; Eosinophils% 0.1 % (0-5); Hemoglobin 12.2 g/dL (13.0-16.5); Lymphocyte % 5.8 % (19-41); Mean Corp Hgb Conc 34.9 g/dL (32-36); Mean Corpuscular Hgb 36.1 pg (27.0-32.0); Mean Corpuscular Volume 103.6 fL (80-94); Mean Platelet Vol. 10.1 fl (6.2-12.0); Monocyte# 1.86 X10^3/uL; Monocyte% 8.3 % (0-10); NRBC Flagged by Analyzer 0 % (0-5); Neutrophil # 18.54 X10^3/uL (2.7-7.7); Neutrophil % 82.9 % (47-70); POSITIVE DIFFERENTIAL YES; Platelet Count 183 K/mm3 (150-450); RBC Distribution Width CV 15.9 % (11.6-14.6); RBC Distribution Width SD 61.1 fl (35.1-43.9); Red Blood Count 3.38 M/mm3 (4.6-6.2); White Blood Count 22.4 K/mm3 (4.4-11.0)
[2021-07-13 07:11] LABS: Differential Indicated SCAN CRITERIA MET
[2021-07-13 07:13] LABS: International Normalized Ratio 2.6; Prothrombin Time (Protime)PT. 26.7 SECONDS (11.7-14.9)
[2021-07-13 07:18] LABS: ALB/GLOB Ratio 0.5 RATIO (0.9-2.4); AST(SGOT) 220 U/L (15-37); Alanine Aminotransfer ALT/SGPT 244 U/L (16-61); Albumin, Serum 1.7 g/dL (3.2-5.0); Alkaline Phosphatase 221 U/L (45-117); Anion Gap 5 (5-15); BUN 26 mg/dL (7-18); BUN/Creat Ratio 30.3 RATIO (10-20); Calcium,Total 7.9 mg/dL (8.5-10.1); Chloride 97 mmol/L (98-107); Creatinine, Serum 0.86 mg/dL (0.70-1.30); EST Glomerular Filtration Rate 100 mL/min (>60); Est Glom Filt Rate - Afr Amer 122 mL/min (>60); Estimated Creatinine Clearance 100.52 ml/min; Globulin 3.7 g/dL (2.2-4.2); Glucose 95 mg/dL (74-106); Potassium 4.7 mmol/L (3.5-5.1); Protein, Total 5.4 g/dL (6.4-8.2); Sodium Level 131 mmol/L (136-145)
[2021-07-13 07:25] LABS: Anisocytosis 1+; Target Cells RARE
[2021-07-13 07:26] VITALS: O2SAT 96
[2021-07-13 09:45] VITALS: BP 130/69; PULSE 107; RESP 18; TEMP 36.6; O2SAT 100
[2021-07-13] MEDS: Furosemide 40 MG Tablet PO (09:47)
[2021-07-13] MEDS: Pentoxifylline 400 MG Tablet PO ×3 (09:47→17:09)
[2021-07-13] MEDS: Pantoprazole Sodium 40 MG Tablet PO (09:47)
[2021-07-13] MEDS: Spironolactone 25 MG Tablet PO (09:48)
[2021-07-13] MEDS: 0.9% Saline Lock 10 ML Syringe IV ×2 (10:14→13:32)
--- NOTE | 2021-07-13 10:23 | PCM.PN.HOSP ---
Subjective Subjective Patient was seen and examined. He has still been getting blood in his stools. Denies any fever or chills. Objective Data Objective Data Vital Signs: Vital Signs Temp Pulse Resp BP Pulse Ox 98 F 103 H 16 112/56 L 96 07/13/21 03:35 07/13/21 03:35 07/13/21 03:35 07/13/21 03:35 07/13/21 07:26 Oxygen Delivery Method Room Air Weight: 118.478 kg Body Mass Index (BMI) 38.7 Intake & Output: Intake and Output for Last 24 Hours 07/11/21 07/12/21 07/13/21 23:59 23:59 23:59 Intake Total 120 / 120 850 / 850 1108 / 1108 Output Total 400 / 400 Balance 120 / 120 450 / 450 1108 / 1108 Lab / Micro Data Result Diagrams: 07/13/21 06:19 07/13/21 06:19 Labs: Laboratory Results - last 24 hr 07/12/21 12:36: Hgb 12.3 L, Hct 35.7 L 07/12/21 18:34: Hgb 13.4, Hct 38.1 L 07/13/21 06:19: WBC 22.4 H, RBC 3.38 L, Hgb 12.2 L, Hct 35.0 L, MCV 103.6 H, MCH 36.1 H, MCHC 34.9, RDW Std Deviation 61.1 H, RDW Coeff of Maria Guadalupe 15.9 H, Plt Count 183, MPV 10.1, Immature Gran % (Auto) 2.700 H, Neut % (Auto) 82.9 H, Lymph % (Auto) 5.8 L, [place] % (Auto) 8.3, Eos % (Auto) 0.1, Baso % (Auto) 0.2, Absolute Neuts (auto) 18.5 H, Absolute Lymphs (auto) 1.30, Nucleated RBC % 0, Diff Path Review May foll, Anisocytosis 1+, Target Cells RARE 07/13/21 06:19: Sodium 131 L, Potassium 4.7, Chloride 97 L, Carbon Dioxide 29.0, Anion Gap 5, BUN 26 H, Creatinine 0.86, Estim Creat Clear Calc 100.52, Est GFR (MDRD) Af Amer 122, Est GFR (MDRD) Non-Af 100, BUN/Creatinine Ratio 30.3 H, Glucose 95, Calcium 7.9 L, Total Bilirubin 9.60 H, AST 220 H, ALT 244 H, Alkaline Phosphatase 221 H, Total Protein 5.4 L, Albumin 1.7 L, Globulin 3.7, Albumin/Globulin Ratio 0.5 L 07/13/21 06:19: PT 26.7 H, INR 2.6 Micro: Microbiology 07/10/21 14:29 Stool Stool Occult Blood (GAVIN) - Final Occult Blood Positive 07/10/21 13:06 Nasal Secretion SARS-CoV-2 Antigen (Rapid) - Final Radiography Diagnostic Testing: Radiology Impression Liver Ultrasound 07/12/21 12:22 IMPRESSION: Hepatic cirrhosis. A focal mass is not identified but this is related to the diffuse heterogeneous echogenicity of the liver. Ascites. There is biliary sludge dependent within the gallbladder vs small gallstones. Electronically Signed: Rolando Cantu MD at 16:19 EDT , Service support , Physical Exam Narrative General: Middle-aged man, chronically ill-appearing, obese, not jaundiced, not pale HEENT: Moist oral mucosa. Skin: Multiple telangiectasias and spider angiomas on the face and chest Neck: Supple Heart: HS I+II, no murmurs Lungs: Diminished to auscultation. Abdomen: Distended, nontender, ascites ++. Extremities: 4+ pitting edema in both lower extremities up to the upper thighs. 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 Acute GI bleed status post EGD and colonoscopy on 07/11/21 EGD showed nonbleeding grade 2 esophageal varices, which were banded Colonoscopy showed hemorrhoids, diverticulosis, cecal polyp that was resected Hemoglobin remains stable Will monitor further 2. Chronic liver disease/cirrhosis, decompensated, with ascites, evidence of portal hypertension Liver enzymes appear to be worsening; total bilirubin is 9.6, AST, ALT, ALP remains the same Total albumin is 1.7. Hepatitis panel is negative. HIV is negative. [place] screen negative. Patient has ascites ++; paracentesis done today per GI Continue on pentoxifylline On antibiotics for possible SBP 3. Leucocytosis, WBC count slowly creasing to 22.4, off prednisolone Will start empirically on IV Zosyn, await results of paracentesis 4. Dysplastic liver nodules seen on CT of the abdomen and pelvis in April 2021 Needs to be followed up in the outpatient 5. Chronic alcohol use disorder and nicotine use, will monitor 6. Thrombocytopenia, chronic, secondary to chronic liver disease, splenic sequestration, portal hypertension, continued alcohol use Platelets have improved Will trend Charges/Coding Visit Charges Inpatient E&M: 72033 Subs Hosp L3
--- NOTE | 2021-07-13 10:27 | PCS.PANDOC ---
PANDEMIC DOCUMENTATION INITIATED: Date: 06/09/2021 Time: 190
--- NOTE | 2021-07-13 12:23 | EX.PCM.PN.GI ---
Subjective Subjective Patient says that he feels out of it. He feels very lethargic. He denies any chest pain or shortness of breath. He denies any subjective fevers. He says his appetite is still good. He has not had any bowel movements. Objective Data Objective Data Vital Signs: Vital Signs Temp Pulse Resp BP Pulse Ox 97.8 F 107 H 18 130/69 H 100 07/13/21 09:45 07/13/21 09:45 07/13/21 09:45 07/13/21 09:45 07/13/21 09:45 Oxygen Delivery Method Room Air Weight: 261 lb 3.188 oz Body Mass Index (BMI) 38.7 Intake & Output: Intake and Output for Last 24 Hours 07/11/21 07/12/21 07/13/21 23:59 23:59 23:59 Intake Total 120 / 120 850 / 850 1108 / 1108 Output Total 400 / 400 Balance 120 / 120 450 / 450 1108 / 1108 Lab / Micro Data Result Diagrams: 07/13/21 06:19 07/13/21 06:19 Labs: Laboratory Results - last 24 hr 07/12/21 12:36: Hgb 12.3 L, Hct 35.7 L 07/12/21 18:34: Hgb 13.4, Hct 38.1 L 07/13/21 06:19: WBC 22.4 H, RBC 3.38 L, Hgb 12.2 L, Hct 35.0 L, MCV 103.6 H, MCH 36.1 H, MCHC 34.9, RDW Std Deviation 61.1 H, RDW Coeff of Maria Guadalupe 15.9 H, Plt Count 183, MPV 10.1, Immature Gran % (Auto) 2.700 H, Neut % (Auto) 82.9 H, Lymph % (Auto) 5.8 L, [place] % (Auto) 8.3, Eos % (Auto) 0.1, Baso % (Auto) 0.2, Absolute Neuts (auto) 18.5 H, Absolute Lymphs (auto) 1.30, Nucleated RBC % 0, Diff Path Review February, Anisocytosis 1+, Target Cells RARE 07/13/21 06:19: Sodium 131 L, Potassium 4.7, Chloride 97 L, Carbon Dioxide 29.0, Anion Gap 5, BUN 26 H, Creatinine 0.86, Estim Creat Clear Calc 100.52, Est GFR (MDRD) Af Amer 122, Est GFR (MDRD) Non-Af 100, BUN/Creatinine Ratio 30.3 H, Glucose 95, Calcium 7.9 L, Total Bilirubin 9.60 H, AST 220 H, ALT 244 H, Alkaline Phosphatase 221 H, Total Protein 5.4 L, Albumin 1.7 L, Globulin 3.7, Albumin/Globulin Ratio 0.5 L 07/13/21 06:19: PT 26.7 H, INR 2.6 Micro: Microbiology 07/10/21 14:29 Stool Stool Occult Blood (GAVIN) - Final Occult Blood Positive 07/10/21 13:06 Nasal Secretion SARS-CoV-2 Antigen (Rapid) - Final Radiography Diagnostic Testing: Radiology Impression Liver Ultrasound 07/12/21 12:22 IMPRESSION: Hepatic cirrhosis. A focal mass is not identified but this is related to the diffuse heterogeneous echogenicity of the liver. Ascites. There is biliary sludge dependent within the gallbladder vs small gallstones. Electronically Signed: Rolando Cantu MD at 16:19 EDT , Service support , Physical Exam Const alert General Appearance: cooperative Orientation / Consciousness: oriented to person HEENT hearing grossly normal bilaterally HEENT Narrative: Scleral icterus Head and Scalp: normal to inspection Face and Sinus: face symmetric Nose: external nose normal Mouth: oral and palatal mucosa normal Eyes conjunctivae normal General Eye: normal appearance of both eyes Neck full ROM General: normal visual inspection Lymph Lymphatic: no lymphadenopathy noted Chest inspection of chest normal and palpation of chest normal Chest: symmetrical chest wall rise Resp normal respiratory effort Effort and Inspection: able to speak in complete sentences Cardio regular rate GI GI Narrative: Distended abdomen with positive fluid wave Percussion: normal to percussion Rectal Exam: deferred Neuro Speech: speech normal Gait (Neuro): normal gait Assessment & Plan Assessment/Plan (1) Alcoholic hepatitis: PLAN: His LFTs are increasing. We may need to start him on steroids. However, with his white blood cell count increasing I am hesitant to start steroids without severe encephalopathy (2) Thrombocytopenia: PLAN: Secondary to splenic sequestration. His platelet count appears to be stable (3) Abnormal LFTs (liver function tests): PLAN: I suspect that he is having elevated liver function tests in the setting of cirrhosis secondary to decompensated cirrhosis. This could also be secondary to SBP. His ultrasound yesterday did not show any obstructive physiology. I do not think he would benefit from an MRCP at this time. However if his liver function test continue to go up then he may need an MRCP. however the sensitivity of the test is not very good in the setting of ascites. This would have to be coordinated with a therapeutic paracentesis. (4) Alcoholic cirrhosis of liver with ascites: PLAN: Patient does admit to drinking heavily prior to coming into the hospital. He said he would drink at least 6 tall boy's a day. I am not sure how much alcohol this actually has not. He has not shown any signs of delirium tremens at this time. (5) Lower GI bleeding: PLAN: He is status post colonoscopy without any etiology of his lower GI bleeding except for hemorrhoids. Charges/Coding Visit Charges Inpatient E&M: 49102 Subs Hosp L3
--- NOTE | 2021-07-13 12:34 | PCM.OPRPT ---
Problems Associated Problem List Diagnoses (1) Ascites: Report of Operation Date of Procedure: 07/13/21 Pre-Operative Diagnosis: ascites Post-Operative Diagnosis: ascites Surgery/Procedure Performed:: paracentesis Description of Surgical Findings:: Clear serosanguineous fluid removed from the right lower quadrant. Surgeon: Carloz Ramirez Type of Anesthesia: Local Specimen's removed: ascites fluid Drains: none Estimated Blood Loss (mL): none Fluids Replaced: none Description of Procedure: The patient remained in the supine position. After consent was obtained the patient was prepped in a sterile fashion. The right lower quadrant was anesthetized with 1% lidocaine solution. A small incision was made right lower quadrant with the use of a small trocar needle was placed in the right lower quadrant. He had approximately 150 mL removed. There was minimal bleeding during the procedure. The area was covered up with a large Tegaderm and 4 x 4. Procedure Start Time: 12:30 Procedure Stop Time: 12:40 Admit VTE Documentation VTE Present on Admission: Yes VTE Mechan Device Prophylaxis: SCD's VTE Pharm Prophylaxis ordered?: Yes Procedures Digestive [id number]-49xxx: Other Procedure See Notes
[2021-07-13 12:56] LABS: Body Fluid Mononuclear WBC # 0.134 10^3/uL; Body Fluid Mononuclear WBC % 48.7 %; Body Fluid Polynuclear WBC # 0.141 10^3/uL; Body Fluid Polynuclear WBC % 51.3 %; Body Fluid Total Cells Counted 0.334 10^3/ul; White Blood Count/Body Fluid 0.275 10^3/uL
[2021-07-13 13:31] LABS: Appearance/Body Fluid CLEAR; Auto B Fluid Analyzer BKGD Ct COUNTS W/IN LIMITS (W/IN LIMITS); Color/Body Fluid YELLOW; Source- Body Fluid OTHER
[2021-07-13 13:32] LABS: Red Cell Count/Body Fluid 553 /mm3
[2021-07-13 13:35] LABS: Lymphocytes 6 %; Macrophages 31 %; Monocytes 16 %; Neutrophil (Segs) 47 %
[2021-07-13 13:38] LABS: Body Fluid QC Type(s) BF1Q
[2021-07-13 15:38] VITALS: BP 124/64; PULSE 97; RESP 18; TEMP 36.4; O2SAT 98
[2021-07-13] MEDS: Furosemide 80 MG Tablet PO (17:09)
[2021-07-13 21:00] VITALS: BP 126/58; PULSE 101; RESP 18; TEMP 36.4; O2SAT 100
[2021-07-13] MEDS: Mag Hydrox/Al Hydrox/Simeth 30 ML UDC 15 ML PO (21:09)
[2021-07-14] MEDS: Mag Hydrox/Al Hydrox/Simeth 30 ML UDC 15 ML PO ×2 (05:08→20:49)
[2021-07-14 05:14] VITALS: BP 119/73; PULSE 98; RESP 18; TEMP 36.8; O2SAT 96
[2021-07-14 06:33] LABS: Absolute Lymphocyte Count 1.64 X10^3/uL (0.83-4.51); Absolute Neutrophil Count 12.3 X10^3/uL (2.0-7.7); Basophil# 0.06 X10^3/uL; Basophil% 0.4 % (0-1); Eosinophil# 0.03 X10^3/uL; Eosinophils% 0.2 % (0-5); Hematocrit 35.3 % (40-54); Hemoglobin 12.3 g/dL (13.0-16.5); Lymphocyte # 1.64 X10^3/ul (0.83-4.51); Lymphocyte % 9.7 % (19-41); Mean Corp Hgb Conc 34.8 g/dL (32-36); Mean Corpuscular Hgb 36.7 pg (27.0-32.0); Mean Corpuscular Volume 105.4 fL (80-94); Mean Platelet Vol. 9.9 fl (6.2-12.0); Monocyte# 2.22 X10^3/uL; Monocyte% 13.1 % (0-10); NRBC Flagged by Analyzer 0 % (0-5); Neutrophil # 12.29 X10^3/uL (2.7-7.7); Neutrophil % 72.5 % (47-70); POSITIVE DIFFERENTIAL YES; Platelet Count 168 K/mm3 (150-450); RBC Distribution Width CV 16.1 % (11.6-14.6); RBC Distribution Width SD 62.4 fl (35.1-43.9); Red Blood Count 3.35 M/mm3 (4.6-6.2); White Blood Count 16.9 K/mm3 (4.4-11.0)
[2021-07-14 07:04] LABS: ALB/GLOB Ratio 0.5 RATIO (0.9-2.4); AST(SGOT) 224 U/L (15-37); Alanine Aminotransfer ALT/SGPT 248 U/L (16-61); Albumin, Serum 1.8 g/dL (3.2-5.0); Alkaline Phosphatase 203 U/L (45-117); Anion Gap 7 (5-15); BUN 26 mg/dL (7-18); Calcium,Total 8.3 mg/dL (8.5-10.1); Chloride 95 mmol/L (98-107); EST Glomerular Filtration Rate 95 mL/min (>60); Est Glom Filt Rate - Afr Amer 115 mL/min (>60); Estimated Creatinine Clearance 96.06 ml/min; Globulin 3.6 g/dL (2.2-4.2); Glucose 89 mg/dL (74-106); Potassium 4.6 mmol/L (3.5-5.1); Protein, Total 5.4 g/dL (6.4-8.2); Sodium Level 130 mmol/L (136-145)
[2021-07-14 07:12] LABS: Differential Indicated SCAN CRITERIA MET
[2021-07-14 07:33] LABS: Target Cells 1+
[2021-07-14] MEDS: Pentoxifylline 400 MG Tablet PO ×3 (08:13→17:24)
[2021-07-14] MEDS: Spironolactone 25 MG Tablet PO (08:14)
[2021-07-14] MEDS: Furosemide 80 MG Tablet PO ×2 (08:14→17:23)
[2021-07-14 08:15] VITALS: BP 130/75; PULSE 96; RESP 18; TEMP 36.4; O2SAT 94
[2021-07-14] MEDS: Pantoprazole Sodium 40 MG Tablet PO (08:15)
[2021-07-14 10:25] LABS: Ammonia < 10.0 umol/L (11-32)
--- NOTE | 2021-07-14 12:20 | PN.HOSP_ITS ---
Subjective Subjective Patient states he is feeling a bit better today. Family was concerned about his confusion although he is alert and oriented x3 today and can give me a decent history. He appears comfortable and is sitting on the edge of the bed eating breakfast. Has no acute complaints. Objective Data Objective Data Vital Signs: Vital Signs Temp Pulse Resp BP Pulse Ox 97.5 F L 96 18 130/75 H 94 07/14/21 08:15 07/14/21 08:15 07/14/21 08:15 07/14/21 08:15 07/14/21 08:15 Oxygen Delivery Method Room Air Weight: 118.478 kg Body Mass Index (BMI) 38.7 Intake & Output: Intake and Output for Last 24 Hours 07/12/21 07/13/21 07/14/21 23:59 23:59 23:59 Intake Total 850 / 850 583.5 / 583.5 Output Total 400 / 400 Balance 450 / 450 583.5 / 583.5 Lab / Micro Data Result Diagrams: 07/14/21 05:45 07/14/21 05:45 Labs: Laboratory Results - last 24 hr 07/13/21 12:15: Fluid Source OTHER, Fluid Color YELLOW, Fluid Appearance CLEAR, Fluid WBC 0.275, Fluid RBC 553, Fluid Tot Cell Count 0.334, Fld Polynuclear WBCs # 0.141, Fld Polynuclear WBCs % 51.3, Fluid Mononuclear WBCs 0.134, Fld Mononuclear WBCs % 48.7, Fluid Neutrophils 47, Fluid Lymphocytes 6, Fluid Monocytes 16, Fluid Macrophages 31, Fl Pathologist Comment May follow, Fluid Comment 2 Not Reportable 07/14/21 05:45: WBC 16.9 H, RBC 3.35 L, Hgb 12.3 L, Hct 35.3 L, MCV 105.4 H, MCH 36.7 H, MCHC 34.8, RDW Std Deviation 62.4 H, RDW Coeff of Maria Guadalupe 16.1 H, Plt Count 168, MPV 9.9, Immature Gran % (Auto) 4.100 H, Neut % (Auto) 72.5 H, Lymph % (Auto) 9.7 L, [place] % (Auto) 13.1 H, Eos % (Auto) 0.2, Baso % (Auto) 0.4, Absolute Neuts (auto) 12.3 H, Absolute Lymphs (auto) 1.64, Nucleated RBC % 0, Diff Path Review May foll, Target Cells 1+ 07/14/21 05:45: Sodium 130 L, Potassium 4.6, Chloride 95 L, Carbon Dioxide 28.0, Anion Gap 7, BUN 26 H, Creatinine 0.90, Estim Creat Clear Calc 96.06, Est GFR (MDRD) Af Amer 115, Est GFR (MDRD) Non-Af 95, BUN/Creatinine Ratio 29.0 H, Glucose 89, Calcium 8.3 L, Total Bilirubin 12.10 H, AST 224 H, ALT 248 H, Alkaline Phosphatase 203 H, Total Protein 5.4 L, Albumin 1.8 L, Globulin 3.6, Albumin/Globulin Ratio 0.5 L 07/14/21 09:36: Ammonia < 10.0 L Micro: Microbiology 07/13/21 12:15 Fluid - Paracentesis (Abd) Gram Stain - Final 07/13/21 12:15 Fluid - Paracentesis (Abd) Body Fluid Culture - Preliminary No growth-Final to follow 07/10/21 14:29 Stool Stool Occult Blood (GAVIN) - Final Occult Blood Positive 07/10/21 13:06 Nasal Secretion SARS-CoV-2 Antigen (Rapid) - Final Physical Exam Const alert, oriented x3 and no apparent distress Constitutional Narrative: Obese white male sitting on the edge of the bed eating his breakfast, appears older than stated age, nontoxic in appearance Exam Limitations: no limitations HEENT head/scalp atraumatic, moist oral mucous membranes and oropharynx normal HEENT Narrative: Multiple telangiectasias on his face Head and Scalp: normocephalic Mouth: oral and palatal mucosa normal Eyes PERRL and EOMs intact bilaterally Eyes Narrative: Scleral icterus Neck no lymphadenopathy and supple Neck Narrative: Trachea midline, no thyroid enlargement noted Resp normal respiratory effort, no retractions and no use of accessory muscles Resp Narrative: Diminished but clear throughout Auscultation: Negative for crackles, rales, rhonchi or wheezes Cardio regular rate, regular rhythm, S1 normal heart sound, S2 normal heart sound, no murmurs, no rub, no gallops, no clicks and no JVD GI soft to palpation and non-tender GI Narrative: Ascites with distention, bowel sounds normal Extremity Extremity Narrative: Bilateral lower extremity edema, wraps in place, cap refill 2+, no cyanosis or clubbing General Extremity: edema Peripheral Pulses: Yes pulses 2+ throughout Skin no rashes or lesions noted, no wounds, skin turgor normal, No no jaundice, no petechiae and no mottling Skin Narrative: Marked jaundice Neuro oriented x3, CN's II-XII intact bilaterally, moves all extremities and no focal motor deficits Sensorium / Orientation: awake and alert Speech: speech normal Psych affect normal Assessment & Plan Assessment/Plan (1) Alcoholic hepatitis: (2) Thrombocytopenia: (3) Abnormal LFTs (liver function tests): (4) Lower GI bleeding: PLAN: Alcoholic hepatitis -His LFTs continue to increase -? Liver biopsy--> discussed with GI and they agree--> ultrasound-guided liver biopsy ordered -His white count has trended down some -Patient is on Zosyn--> will defer to GI on discontinuation of antibiotics -Diagnostic paracentesis done and no growth to date -Mentation appears to be fairly clear at this time -Ammonia was assessed as family was concerned about mental status and was less than 10 -GI following Abnormal LFTs -Defer to GI -Discussed with GI and they agree that a liver biopsy would be beneficial at this time--> order for ultrasound-guided liver biopsy placed -? Steroids -Patient does not appear to have SBP via culture from peritoneal fluid Thrombocytopenia -Suspect related to splenic sequestration and marrow suppression -Resolved at this time with the current platelet count of 168 -Continue to monitor Alcoholic liver cirrhosis with ascites -No signs of acute withdrawal -Patient does admit to previous heavy drinking -Continue Lasix 80 mg p.o. twice daily -Continue Aldactone 25 mg daily Lower GI bleed -Hemoglobin is stable -Continue to monitor GERD -Continue Protonix Obesity -Recommend weight loss -Complicates overall treatment, prognosis, and outcomes History of tobacco abuse -Recommend cessation DVT prophylaxis -Chemical prophylaxis on hold with recent GI bleed -Continue SCDs while in bed Charges/Coding Visit Charges Inpatient E&M: 54095 Subs Hosp L2
[2021-07-14 12:53] LABS: Pathologist Comment/Body Fluid Reviewed
[2021-07-14 12:55] LABS: Pathologist Review Reviewed
[2021-07-14] MEDS: Ceftriaxone 1 GM/50 ML BAG IV (14:04)
[2021-07-14] MEDS: 0.9% Saline Lock 10 ML Syringe IV (15:36)
[2021-07-14 15:38] VITALS: BP 124/76; PULSE 102; RESP 16; TEMP 36.4; O2SAT 97
[2021-07-14 15:48] LABS: Pathologist Review Reviewed
--- NOTE | 2021-07-14 15:53 | CASEMGMT ---
LW/POA forms both scanned into summary tab of [email or web address]. Sonido Urban is listed as pt's healthcare POA. JENN Zepeda
--- NOTE | 2021-07-14 16:43 | PN.GI_ITS ---
Subjective Subjective Leo sister is with him at the bedside. She is up visiting from [place]. He is more bloated today. He has less cramping. He still feels very lethargic. He is becoming discouraged. He was afebrile overnight. Objective Data Objective Data Vital Signs: Vital Signs Temp Pulse Resp BP Pulse Ox 97.6 F L 102 H 16 124/76 H 97 07/14/21 15:38 07/14/21 15:38 07/14/21 15:38 07/14/21 15:38 07/14/21 15:38 Oxygen Delivery Method Room Air Weight: 261 lb 3.188 oz Body Mass Index (BMI) 38.7 Intake & Output: Intake and Output for Last 24 Hours 07/12/21 07/13/21 07/14/21 23:59 23:59 23:59 Intake Total 850 / 850 633.5 / 633.5 Output Total 400 / 400 Balance 450 / 450 633.5 / 633.5 Lab / Micro Data Result Diagrams: 07/14/21 05:45 07/14/21 05:45 Labs: Laboratory Results - last 24 hr 07/13/21 06:19: Diff Path Review Reviewed 07/13/21 12:15: Fl Pathologist Comment Reviewed 07/14/21 05:45: WBC 16.9 H, RBC 3.35 L, Hgb 12.3 L, Hct 35.3 L, MCV 105.4 H, MCH 36.7 H, MCHC 34.8, RDW Std Deviation 62.4 H, RDW Coeff of Maria Guadalupe 16.1 H, Plt Count 168, MPV 9.9, Immature Gran % (Auto) 4.100 H, Neut % (Auto) 72.5 H, Lymph % (A uto) 9.7 L, [place] % (Auto) 13.1 H, Eos % (Auto) 0.2, Baso % (Auto) 0.4, Absolute Neuts (auto) 12.3 H, Absolute Lymphs (auto) 1.64, Nucleated RBC % 0, Diff Path Review Reviewed, Target Cells 1+ 07/14/21 05:45: Sodium 130 L, Potassium 4.6, Chloride 95 L, Carbon Dioxide 28.0, Anion Gap 7, BUN 26 H, Creatinine 0.90, Estim Creat Clear Calc 96.06, Est GFR (MDRD) Af Amer 115, Est GFR (MDRD) Non-Af 95, BUN/Creatinine Ratio 29.0 H, Gl ucose 89, Calcium 8.3 L, Total Bilirubin 12.10 H, AST 224 H, ALT 248 H, Alkaline Phosphatase 203 H, Total Protein 5.4 L, Albumin 1.8 L, Globulin 3.6, Albumin/Globulin Ratio 0.5 L 07/14/21 09:36: Ammonia < 10.0 L Micro: Microbiology 07/13/21 12:15 Fluid - Paracentesis (Abd) Gram Stain - Final 07/13/21 12:15 Fluid - Paracentesis (Abd) Body Fluid Culture - Preliminary No growth-Final to follow 07/10/21 14:29 Stool Stool Occult Blood (GAVIN) - Final Occult Blood Positive 07/10/21 13:06 Nasal Secretion SARS-CoV-2 Antigen (Rapid) - Final Physical Exam Const alert General Appearance: cooperative Orientation / Consciousness: oriented to person HEENT hearing grossly normal bilaterally HEENT Narrative: Scleral icterus. Head and Scalp: normal to inspection Face and Sinus: face symmetric Nose: external nose normal Mouth: oral and palatal mucosa normal Eyes conjunctivae normal General Eye: normal appearance of both eyes Neck full ROM General: normal visual inspection Lymph Lymphatic: no lymphadenopathy noted Chest inspection of chest normal and palpation of chest normal Chest: symmetrical chest wall rise Resp normal respiratory effort Effort and Inspection: able to speak in complete sentences Cardio regular rate GI non-distended GI Narrative: Distended abdomen with fluid wave Percussion: normal to percussion Rectal Exam: deferred Extremity Extremity Narrative: Bilateral lower extremity edema with left lower extremity wrapped Neuro Speech: speech normal Gait (Neuro): normal gait Assessment & Plan Assessment/Plan (1) Ascites: PLAN: Patient will need to undergo large-volume paracentesis. This will need to be done under ultrasound guidance by radiology. (2) Alcoholic hepatitis: PLAN: Patient's LFTs are going up. He will need a liver biopsy to see if this is all alcoholic hepatitis. I do long talk with his sister along with him at the bedside today explained to him how sick he is and how if he does have alcoholic hepatitis as we anticipate that he may need steroid therapy. However with his increased white count I am very reluctant to put him on steroids at this time. We will continue Pentoxil finally, Xifaxan and lactulose as previously ordered (3) Thrombocytopenia: PLAN: His thrombocytopenia is at baseline.. Charges/Coding Visit Charges Inpatient E&M: 57392 Subs Hosp L2
[2021-07-14 21:00] VITALS: BP 122/69; PULSE 108; RESP 18; TEMP 36.8; O2SAT 97
[2021-07-15] VITALS (10 sets, daily range): BP systolic 108–131; BP diastolic 49–74; PULSE 92–106; RESP 10–18; TEMP 36.4–36.7; O2SAT 96–99; BMI 38.7
[2021-07-15] MEDS: Mag Hydrox/Al Hydrox/Simeth 30 ML UDC 15 ML PO ×2 (02:47→20:43)
[2021-07-15 05:54] LABS: Absolute Lymphocyte Count 1.49 X10^3/uL (0.83-4.51); Absolute Neutrophil Count 12.2 X10^3/uL (2.0-7.7); Basophil# 0.05 X10^3/uL; Basophil% 0.3 % (0-1); Eosinophil# 0.09 X10^3/uL; Eosinophils% 0.5 % (0-5); Hemoglobin 12.1 g/dL (13.0-16.5); Lymphocyte # 1.49 X10^3/ul (0.83-4.51); Lymphocyte % 8.6 % (19-41); Mean Corp Hgb Conc 34.6 g/dL (32-36); Mean Corpuscular Hgb 36.6 pg (27.0-32.0); Mean Corpuscular Volume 105.7 fL (80-94); Mean Platelet Vol. 9.7 fl (6.2-12.0); Monocyte# 2.77 X10^3/uL; NRBC Flagged by Analyzer 0.1 % (0-5); Neutrophil % 70.6 % (47-70); POSITIVE DIFFERENTIAL YES; Platelet Count 167 K/mm3 (150-450); RBC Distribution Width CV 15.8 % (11.6-14.6); RBC Distribution Width SD 61.6 fl (35.1-43.9); Red Blood Count 3.31 M/mm3 (4.6-6.2); White Blood Count 17.3 K/mm3 (4.4-11.0)
[2021-07-15 06:04] LABS: International Normalized Ratio 2.7; Partial Thromboplast Time 38.1 Seconds (24.1-36.2)
[2021-07-15 06:36] LABS: Anion Gap 2 (5-15); BUN 25 mg/dL (7-18); BUN/Creat Ratio 27.2 RATIO (10-20); Calcium,Total 7.9 mg/dL (8.5-10.1); Chloride 97 mmol/L (98-107); Creatinine, Serum 0.92 mg/dL (0.70-1.30); EST Glomerular Filtration Rate 93 mL/min (>60); Est Glom Filt Rate - Afr Amer 112 mL/min (>60); Estimated Creatinine Clearance 93.97 ml/min; Glucose 107 mg/dL (74-106); Potassium 4.3 mmol/L (3.5-5.1); Sodium Level 130 mmol/L (136-145)
[2021-07-15 07:06] LABS: Differential Indicated SCAN CRITERIA MET
--- NOTE | 2021-07-15 07:48 | PCM.PN.HOSP ---
Subjective Subjective Patient is a 51-year-old gentleman with history of chronic liver disease from alcohol presented with abdominal distention and melenic stools admitted for subsequent inpatient management Objective Data Objective Data Vital Signs: Vital Signs Temp Pulse Resp BP Pulse Ox 97.8 F 93 18 119/67 98 07/15/21 07:40 07/15/21 07:40 07/15/21 07:40 07/15/21 07:40 07/15/21 07:40 Oxygen Delivery Method Room Air Weight: 118.478 kg Body Mass Index (BMI) 38.7 Intake & Output: Intake and Output for Last 24 Hours 07/13/21 07/14/21 07/15/21 23:59 23:59 23:59 Intake Total 1033.5 / 1033.5 0 / 0 Balance 1033.5 / 1033.5 0 / 0 Lab / Micro Data Result Diagrams: 07/15/21 05:45 07/15/21 05:45 Labs: Laboratory Results - last 24 hr 07/13/21 06:19: Diff Path Review Reviewed 07/13/21 12:15: Fl Pathologist Comment Reviewed 07/14/21 05:45: Diff Path Review Reviewed 07/14/21 09:36: Ammonia < 10.0 L 07/15/21 05:45: PT 28.0 H, INR 2.7, APTT 38.1 H 07/15/21 05:45: Blood Type AB POSITIVE 07/15/21 05:45: WBC 17.3 H, RBC 3.31 L, Hgb 12.1 L, Hct 35.0 L, MCV 105.7 H, MCH 36.6 H, MCHC 34.6, RDW Std Deviation 61.6 H, RDW Coeff of Maria Guadalupe 15.8 H, Plt Count 167, MPV 9.7, Immature Gran % (Auto) 4.000 H, Neut % (Auto) 70.6 H, Lymph % (Auto) 8.6 L, [place] % (Auto) 16.0 H, Eos % (Auto) 0.5, Baso % (Auto) 0.3, Absolute Neuts (auto) 12.2 H, Absolute Lymphs (auto) 1.49, Nucleated RBC % 0.1, Diff Path Review May 07/15/21 05:45: Sodium 130 L, Potassium 4.3, Chloride 97 L, Carbon Dioxide 31.0, Anion Gap 2 L, BUN 25 H, Creatinine 0.92, Estim Creat Clear Calc 93.97, Est GFR (MDRD) Af Amer 112, Est GFR (MDRD) Non-Af 93, BUN/Creatinine Ratio 27.2 H, Glucose 107 H, Calcium 7.9 L Micro: Microbiology 07/13/21 13:06 Blood Culture (Wb) - Anticubital Left Blood Culture - Preliminary No growth in 48 hours. 07/13/21 12:49 Blood Culture (Wb) - Anticubital Left Blood Culture - Preliminary No growth in 48 hours. 07/13/21 12:15 Fluid - Paracentesis (Abd) Gram Stain - Final 07/13/21 12:15 Fluid - Paracentesis (Abd) Body Fluid Culture - Preliminary No growth-Final to follow 07/10/21 14:29 Stool Stool Occult Blood (GAVIN) - Final Occult Blood Positive 07/10/21 13:06 Nasal Secretion SARS-CoV-2 Antigen (Rapid) - Final Physical Exam Narrative GENERAL: cooperative HEENT: Atraumatic; EYES; icteric, NECK; supple, normal thyroid, RESPIRATORY: Diminished to auscultation CARDIOVASCULAR: Regular S1 S2, GI: soft, marked ascites : No Renal angle tenderness; EXTREMITIES: No edema, no clubbing, MUSCULOSKELETAL: no muscle waisting NEURO: Awake; no lateralizing signs. SKIN: No Rash PSYCH; Flat affect Assessment & Plan Assessment/Plan (1) Alcoholic hepatitis: (2) Thrombocytopenia: (3) Abnormal LFTs (liver function tests): (4) Lower GI bleeding: PLAN: Patient is a 51-year-old gentleman with history of chronic liver disease from alcohol presented with abdominal distention and melenic stools admitted for subsequent inpatient management 1. Alcoholic hepatitis ?Patient managed with pentoxifylline and Xifaxan with consultation placed to GI. Patient was seen by Dr. Ramirez's notes and recommendations reviewed. Patient scheduled to undergo liver biopsy on 07/16/2022 2. 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 Thrombocytopenia ?Secondary to chronic alcohol liver disease 4. Melenic stools ?Suspected to be secondary to upper GI bleed patient on Protonix monitoring H&H 5. GERD ?On PPI 6. Obesity with BMI of 35.9 ?Weight loss advised 7. Tobacco dependence - Counseled on cessation, offered nicotine patch for tobacco cravings 8. DVT prophylaxis ?Bilateral SCDs Charges/Coding Visit Charges Inpatient E&M: 48780 Subs Hosp L3
[2021-07-15] MEDS: Ceftriaxone 1 GM/50 ML BAG IV (09:09)
--- NOTE | 2021-07-15 09:30 | US_ITS ---
PROCEDURE: Ultrasound guided paracentesis. DATE OF EXAMINATION: 07/15/2021. INDICATION: Male, 51 years old. Ascites. PHYSICIAN: Jeffrey Recinos M.D. TECHNIQUE: The risks, benefits, and alternatives to the procedure were explained to the patient. The specific risks of bleeding, infection, and damage to bowel were detailed and accepted. Witnessed informed consent was obtained. The abdomen was ultrasonographically surveyed. An appropriate pocket of fluid was identified at the left lower quadrant. The skin were cleaned and prepped in the usual sterile fashion. Using ultrasound guidance, the peritoneal cavity was accessed with a 5-Italian paracentesis needle/catheter system. The trocar was removed. A total of 11,150 ml of obinna color fluid were removed from the peritoneal cavity. The catheter was removed and a sterile dressing was applied. The procedure was well tolerated. US/Paracentesis with US IMPRESSION: Ultrasound guided paracentesis. Electronically Signed: Jeffrey Recinos MD at 12:28 EDT , Service support ,
[2021-07-15] MEDS: Lidocaine 2% (20 ml mdv) 20 ML Vial INFILT (10:00)
[2021-07-15] MEDS: Spironolactone 25 MG Tablet PO (11:26)
[2021-07-15] MEDS: Furosemide 80 MG Tablet PO ×2 (11:26→17:02)
[2021-07-15] MEDS: Pantoprazole Sodium 40 MG Tablet PO (11:26)
[2021-07-15] MEDS: Pentoxifylline 400 MG Tablet PO ×2 (11:26→17:02)
--- NOTE | 2021-07-15 13:12 | CASEMGMT ---
SW met w/pt in room, offered support. SW also provided resources for pt, including information on [employer], [employer], food assit, [facility] assist, and Medicaid application. Pt is aware that he may need to apply for disability at some point but does not feel well enough to do it at present. SW encouraged pt to follow up and have family help once he is feeling a little bit better. SW will continue to follow. JENN Zepeda
[2021-07-15 13:30] LABS: Pathologist Review Reviewed
[2021-07-15] MEDS: Albumin Human 25% (100 mL) 25 GM/100 ML BAG IV (14:42)
--- NOTE | 2021-07-15 19:05 | EX.PCM.PN.GI ---
Subjective Subjective He underwent large-volume paracentesis today. He had 11.1 L removed. He is abdomen is feeling better. But he still very lethargic. Objective Data Objective Data Vital Signs: Vital Signs Temp Pulse Resp BP Pulse Ox 98.0 F 98 18 108/55 L 98 07/15/21 17:03 07/15/21 17:03 07/15/21 17:03 07/15/21 17:03 07/15/21 17:03 Oxygen Delivery Method [4] Room Air Oxygen Delivery Method [3] Room Air Oxygen Delivery Method [2] Room Air Oxygen Delivery Method [1 ( Room Air Initial Baseline)] Oxygen Delivery Method Room Air Weight: 242 lb 8.136 oz Body Mass Index (BMI) 38.7 Intake & Output: Intake and Output for Last 24 Hours 07/13/21 07/14/21 07/15/21 23:59 23:59 23:59 Intake Total 1033.5 / 1033.5 855 / 855 Output Total 74558 / 12697 Balance 1033.5 / 1033.5 -99305 / -69200 Lab / Micro Data Result Diagrams: 07/15/21 05:45 07/15/21 05:45 Labs: Laboratory Results - last 24 hr 07/15/21 05:45: PT 28.0 H, INR 2.7, APTT 38.1 H 07/15/21 05:45: Blood Type AB POSITIVE 07/15/21 05:45: WBC 17.3 H, RBC 3.31 L, Hgb 12.1 L, Hct 35.0 L, MCV 105.7 H, MCH 36.6 H, MCHC 34.6, RDW Std Deviation 61.6 H, RDW Coeff of Maria Guadalupe 15.8 H, Plt Count 167, MPV 9.7, Immature Gran % (Auto) 4.000 H, Neut % (Auto) 70.6 H, Lymph % (Auto) 8.6 L, [place] % (Auto) 16.0 H, Eos % (Auto) 0.5, Baso % (Auto) 0.3, Absolute Neuts (auto) 12.2 H, Absolute Lymphs (auto) 1.49, Nucleated RBC % 0.1, Diff Path Review Reviewed 07/15/21 05:45: Sodium 130 L, Potassium 4.3, Chloride 97 L, Carbon Dioxide 31.0, Anion Gap 2 L, BUN 25 H, Creatinine 0.92, Estim Creat Clear Calc 93.97, Est GFR (MDRD) Af Amer 112, Est GFR (MDRD) Non-Af 93, BUN/Creatinine Ratio 27.2 H, Glucose 107 H, Calcium 7.9 L Micro: Microbiology 07/13/21 12:15 Fluid - Paracentesis (Abd) Gram Stain - Final 07/13/21 12:15 Fluid - Paracentesis (Abd) Body Fluid Culture - Preliminary No growth-Final to follow 07/13/21 12:15 Fluid - Paracentesis (Abd) Anaerobic Culture - Preliminary No growth in 48 hours. 07/13/21 13:06 Blood Culture (Wb) - Anticubital Left Blood Culture - Preliminary No growth in 48 hours. 07/13/21 12:49 Blood Culture (Wb) - Anticubital Left Blood Culture - Preliminary No growth in 48 hours. 07/10/21 14:29 Stool Stool Occult Blood (GAVIN) - Final Occult Blood Positive 07/10/21 13:06 Nasal Secretion SARS-CoV-2 Antigen (Rapid) - Final Radiography Diagnostic Testing: Radiology Impression Paracentesis Ultrasound 07/15/21 09:30 IMPRESSION: Ultrasound guided paracentesis. Electronically Signed: Jeffrey Recinos MD at 12:28 EDT , Service support , Physical Exam Const alert General Appearance: cooperative Orientation / Consciousness: oriented to person HEENT hearing grossly normal bilaterally Head and Scalp: normal to inspection Face and Sinus: face symmetric Nose: external nose normal Mouth: oral and palatal mucosa normal Eyes Eyes Narrative: Severe scleral icterus Neck full ROM General: normal visual inspection Lymph Lymphatic: no lymphadenopathy noted Chest inspection of chest normal and palpation of chest normal Chest: symmetrical chest wall rise Resp normal respiratory effort Effort and Inspection: able to speak in complete sentences Cardio regular rate GI non-distended Percussion: normal to percussion Rectal Exam: deferred Neuro Speech: speech normal Gait (Neuro): normal gait Assessment & Plan Assessment/Plan (1) Alcoholic hepatitis: PLAN: His INR is getting worse which is very bad. I had a long conversation with his sister explaining how he is getting sicker and may not recover. At this time his model for end-stage liver disease score is 90 and that carries it almost 50% mortality within the next 30 days. His white count is still high, therefore I am very reluctant in order to start steroids in a nonencephalopathic patient with decompensated liver disease secondary to alcoholic hepatitis. (2) Ascites: PLAN: He underwent large-volume paracentesis today. We will watch his kidney function to make sure he does not go into hepatorenal syndrome. I will give him albumin replacement (3) Thrombocytopenia: PLAN: Platelets seem to be stable. (4) Cirrhosis: PLAN: Alcoholic cirrhosis with a poor prognosis. Charges/Coding Visit Charges Inpatient E&M: 05098 Subs Hosp L3
[2021-07-16] VITALS (17 sets, daily range): BP systolic 106–132; BP diastolic 52–78; PULSE 82–122; RESP 13–18; TEMP 36.1–36.6; O2SAT 92–99
--- NOTE | 2021-07-16 06:20 | NURSING ---
verfied ffp on paper with another rn due to etar not working
--- NOTE | 2021-07-16 07:33 | NURSING ---
IT notified that etar not working will have an operations research analyst call
--- NOTE | 2021-07-16 07:38 | PN.HOSP_ITS ---
Subjective Subjective Patient seen underwent liver biopsy this a.m. Objective Data Objective Data Vital Signs: Vital Signs Temp Pulse Resp BP Pulse Ox 96.9 F L 97 16 115/78 99 07/16/21 06:37 07/16/21 06:37 07/16/21 06:37 07/16/21 06:37 07/16/21 06:37 Oxygen Delivery Method [4] Room Air Oxygen Delivery Method [3] Room Air Oxygen Delivery Method [2] Room Air Oxygen Delivery Method [1 ( Room Air Initial Baseline)] Oxygen Delivery Method Room Air Weight: 109.7 kg Body Mass Index (BMI) 38.7 Intake & Output: Intake and Output for Last 24 Hours 07/14/21 07/15/21 07/16/21 23:59 23:59 23:59 Intake Total 1033.5 / 1033.5 855 / 855 Output Total 25856 / 17287 Balance 1033.5 / 1033.5 -28117 / -31947 Lab / Micro Data Result Diagrams: 07/15/21 05:45 07/15/21 05:45 Labs: Laboratory Results - last 24 hr 07/15/21 05:45: Blood Type AB POSITIVE 07/15/21 05:45: Diff Path Review Reviewed Micro: Microbiology 07/13/21 12:15 Fluid - Paracentesis (Abd) Gram Stain - Final 07/13/21 12:15 Fluid - Paracentesis (Abd) Body Fluid Culture - Preliminary No growth-Final to follow 07/13/21 12:15 Fluid - Paracentesis (Abd) Anaerobic Culture - Preliminary No growth in 48 hours. 07/13/21 13:06 Blood Culture (Wb) - Anticubital Left Blood Culture - Preli minary No growth in 48 hours. 07/13/21 12:49 Blood Culture (Wb) - Anticubital Left Blood Culture - Preliminary No growth in 48 hours. 07/10/21 14:29 Stool Stool Occult Blood (GAVIN) - Final Occult Blood Positive 07/10/21 13:06 Nasal Secretion SARS-CoV-2 Antigen (Rapid) - Final Radiography Diagnostic Testing: Radiology Impression Paracentesis Ultrasound 07/15/21 09:30 IMPRESSION: Ultrasound guided paracentesis. Electronically Signed: Jeffrey Recinos MD at 12:28 EDT , Service support , Physical Exam Narrative GENERAL: cooperative HEENT: Atraumatic; EYES; icteric, NECK; supple, normal thyroid, RESPIRATORY: Diminished to auscultation CARDIOVASCULAR: Regular S1 S2, GI: soft, marked ascites : No Renal angle tenderness; EXTREMITIES: No edema, no clubbing, MUSCULOSKELETAL: no muscle waisting NEURO: Awake; no lateralizing signs. SKIN: No Rash PSYCH; Flat affect Assessment & Plan Assessment/Plan (1) Alcoholic hepatitis: (2) Thrombocytopenia: (3) Abnormal LFTs (liver function tests): (4) Lower GI bleeding: PLAN: Patient is a 51-year-old gentleman with history of chronic liver disease from alcohol presented with abdominal distention and melenic stools admitted for subsequent inpatient management 1. Alcoholic hepatitis ?Patient managed with pentoxifylline and Xifaxan with consultation placed to GI. Patient was seen by Dr. Ramirez's notes and recommendations reviewed. Patient scheduled to undergo liver biopsy on 07/16/2021 -07/16/2021; Patient underwent liver biopsy this a.m. 2. 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 Thrombocytopenia ?Secondary to chronic alcohol liver disease 4. Melenic stools ?Suspected to be secondary to upper GI bleed patient on Protonix monitoring H&H 5. GERD ?On PPI 6. Obesity with BMI of 35.9 ?Weight loss advised 7. Tobacco dependence - Counseled on cessation, offered nicotine patch for tobacco cravings 8. DVT prophylaxis ?Bilateral SCDs Charges/Coding Visit Charges Inpatient E&M: 00478 Subs Hosp L2
[2021-07-16] MEDS: Midazolam 2 MG/2 ML Syringe IV (08:42)
[2021-07-16] MEDS: fentaNYL 100 MCG/2 ML Ampul IV (08:42)
[2021-07-16] MEDS: 0.9% Saline Lock 10 ML Syringe IV (08:45)
--- NOTE | 2021-07-16 09:00 | CT_ITS ---
PROCEDURE: CT DIRECTED CORE LIVER BIOPSY INDICATION: Male, 51 years old. LIVER BX PHYSICIAN: Dr. NHI Chase CONSENT: Written informed consent was obtained having explained the risks, benefits and alternatives in detail with the patient who accepted the risks and agreed to proceed. Laboratory review and clinical assessment was performed. CONSCIOUS SEDATION PROTOCOL: The Drugs used were: 2 mg Versed, IV., and 50 mcg Fentanyl, IV. The sedation time was: 20 minutes. The conscious sedation protocol was independently monitored. RADIATION DOSAGE (If Supplied By Facility): CTDIvol = ( 15 ) mGy, DLP = ( 684.38 ) mGycm Individualized dose optimization techniques were used for this CT. TECHNIQUE: Using CT image guidance with image documentation, a suitable location in the right lobe of the liver was identified. Using an anterior approach, puncture of the liver was uneventful with an 18-gauge core needle system. 3, 18-gauge core samples were obtained, and submitted in formalin to the pathologist for further assessment. Followup CT scan revealed no distinct sequelae. CT/Biopsy/Inj or Needle Placement IMPRESSION: 1. CT directed core needle biopsy of the liver, using CT image guidance with image documentation as described. 2. Conscious Sedation protocol utilized with independent monitoring. Electronically Signed: Jeffrey Recinos MD at 9:39 EDT , Service support ,
--- NOTE | 2021-07-16 09:00 | LIVB_PTH ---
PATIENT: AGA MOORE LOC: MS2 U#:[id number] AGE/SX: 51/M ROOM: [facility] [place]07/10/[address]: Dr. Abel Ayala MD : 1970 BED: 1 DIS: 07/17/2021 SPEC #: [id number] RECD: 07/16/21 09:12 STATUS: HEATH OLIVA #: [id number] JASMIN: 07/16/21 09:[address]: Jason Rebollar DEPT: SURGICAL PATHOLOGY RECD BY: Chantal Boyle ENTERED: 07/16/21 09:54 SP TYPE: LIVER BX OTHR DR: MD Dr. Derick Sibley MD Dr. Ifijen Oleghe, MD Dr. Rahsaan Friend, DO Tissues: Liver, NOS Procedures: PAS with Diastase (control) Trichrome (control) Special Stain Group II PAS Stain (control) Surgery Specimen Level V Retic (control) Iron Stain (control) Comments: @ Ordering doctor for SUV edited from to @ by SANTOS at 07/16/21 1406 @ Submitting doctor edited from to @ by RGOOD at 07/16/21 1406 HEADER OPERATION: CT-guided liver biopsy PRE-OP DIAGNOSIS: Transaminitis TISSUE SUBMITTED: Liver MICROSCOPIC DIAGNOSIS Liver, CT-guided core biopsy: Consistent with cirrhosis. See microscopic description and comment. SJ:manpreet 07/17/2021 COMMENT Clinical correlation and appropriate follow up are necessary. Case has been reviewed in consultation with Dr. Strange who concurs with the above diagnosis. IDC:AM MICROSCOPIC DESCRIPTION Slides are reviewed. The specimen shows liver parenchymal tissue with replacement of normal lobular architecture into multiple nodules divided by fibrous septa. Focal chronic inflammation is noted in the hepatocyte nodules. Sinusoids show dilatation and focal mild bile stasis. Macro- or microvesicular steatosis is not seen. Fibrous septae are wide and show ductular proliferation and moderate chronic inflammation. The junction between the hepatocytes nodule and fibrous septa are slightly irregular. Iron stain shows 2-3+ iron deposition in the hepatocytes. PAS stain with and without diastase do not show any abnormal accumulation of protein. Reticulin stain and trichrome stain highlights the fibrous septa. GROSS DESCRIPTION Received is one container labeled with the patient's name and not further designated. The specimen consists of three elongated fragments of bee soft tissue each measuring 1 to 1.2 cm in length and 0.1 cm in diameter. The specimen is totally submitted in one cassette. / BERNABE:manpreet 07/16/21 TC:5 CPT: 59999, 50048 x5
[2021-07-16] MEDS: Ceftriaxone 1 GM/50 ML BAG IV (10:08)
[2021-07-16] MEDS: Pantoprazole Sodium 40 MG Tablet PO (10:12)
[2021-07-16] MEDS: Furosemide 80 MG Tablet PO ×2 (10:12→17:04)
[2021-07-16] MEDS: Spironolactone 25 MG Tablet PO (10:13)
[2021-07-16] MEDS: Pentoxifylline 400 MG Tablet PO ×3 (10:13→17:04)
[2021-07-16 14:40] LABS: Absolute Lymphocyte Count 0.97 X10^3/uL (0.83-4.51); Absolute Neutrophil Count 8.7 X10^3/uL (2.0-7.7); Basophil# 0.02 X10^3/uL; Basophil% 0.2 % (0-1); Eosinophil# 0.09 X10^3/uL; Eosinophils% 0.8 % (0-5); Hematocrit 34.5 % (40-54); Hemoglobin 11.4 g/dL (13.0-16.5); Lymphocyte # 0.97 X10^3/ul (0.83-4.51); Lymphocyte % 8.1 % (19-41); Mean Corpuscular Hgb 36.1 pg (27.0-32.0); Mean Corpuscular Volume 109.2 fL (80-94); Mean Platelet Vol. 9.8 fl (6.2-12.0); Monocyte# 1.92 X10^3/uL; Monocyte% 16.1 % (0-10); NRBC Flagged by Analyzer 0 % (0-5); Neutrophil # 8.69 X10^3/uL (2.7-7.7); Neutrophil % 72.6 % (47-70); POSITIVE DIFFERENTIAL YES; Platelet Count 147 K/mm3 (150-450); RBC Distribution Width CV 15.6 % (11.6-14.6); RBC Distribution Width SD 63.3 fl (35.1-43.9); Red Blood Count 3.16 M/mm3 (4.6-6.2)
[2021-07-16 14:44] LABS: International Normalized Ratio 2.6; Prothrombin Time (Protime)PT. 27.4 SECONDS (11.7-14.9)
[2021-07-16 14:46] LABS: Differential Indicated SCAN CRITERIA MET
[2021-07-16 15:05] LABS: ALB/GLOB Ratio 0.6 RATIO (0.9-2.4); AST(SGOT) 165 U/L (15-37); Alanine Aminotransfer ALT/SGPT 179 U/L (16-61); Alkaline Phosphatase 193 U/L (45-117); Anion Gap 3 (5-15); BUN 25 mg/dL (7-18); BUN/Creat Ratio 24.8 RATIO (10-20); Chloride 96 mmol/L (98-107); Creatinine, Serum 1.01 mg/dL (0.70-1.30); EST Glomerular Filtration Rate 83 mL/min (>60); Est Glom Filt Rate - Afr Amer 101 mL/min (>60); Estimated Creatinine Clearance 85.59 ml/min; Globulin 3.3 g/dL (2.2-4.2); Glucose 171 mg/dL (74-106); Potassium 4.1 mmol/L (3.5-5.1); Protein, Total 5.3 g/dL (6.4-8.2); Sodium Level 129 mmol/L (136-145)
[2021-07-16 15:12] LABS: Differential Comment SCANNED
--- NOTE | 2021-07-16 16:49 | PN.GI_ITS ---
Subjective Subjective The patient on liver biopsy today. He underwent large-volume paracentesis yesterday. He is feeling a lot better after undergoing paracentesis and is not having any bleeding or leakage from the liver biopsy and paracentesis. Objective Data Objective Data Vital Signs: Vital Signs Temp Pulse Resp BP Pulse Ox 97.8 F 98 18 106/68 97 07/16/21 15:28 07/16/21 15:28 07/16/21 15:28 07/16/21 15:28 07/16/21 15:28 Oxygen Delivery Method [4] Room Air Oxygen Delivery Method [3] Room Air Oxygen Delivery Method [2] Room Air Oxygen Delivery Method [1 ( Room Air Initial Baseline)] Oxygen Delivery Method Room Air Weight: 241 lb 13.553 oz Body Mass Index (BMI) 38.7 Intake & Output: Intake and Output for Last 24 Hours 07/14/21 07/15/21 07/16/21 23:59 23:59 23:59 Intake Total 1033.5 / 1033.5 855 / 855 313.5 / 313.5 Output Total 31881 / 95717 Balance 1033.5 / 1033.5 -02321 / -11494 313.5 / 313.5 Lab / Micro Data Result Diagrams: 07/16/21 14:23 07/16/21 14:23 Labs: Laboratory Results - last 24 hr 07/16/21 14:23: WBC 12.0 H, RBC 3.16 L, Hgb 11.4 L, Hct 34.5 L, MCV 109.2 H, MCH 36.1 H, MCHC 33.0, RDW Std Deviation 63.3 H, RDW Coeff of Maria Guadalupe 15.6 H, Plt Count 147 L, MPV 9.8, Immature Gran % (Auto) 2.200 H, Neut % (Auto) 72.6 H, Lymph % (Auto) 8.1 L, [place] % (Auto) 16.1 H, Eos % (Auto) 0.8, Baso % (Auto) 0.2, Absolute Neuts (auto) 8.7 H, Absolute Lymphs (auto) 0.97, Nucleated RBC % 0, Differential Comment SCANNED 07/16/21 14:23: PT 27.4 H, INR 2.6 07/16/21 14:23: Sodium 129 L, Potassium 4.1, Chloride 96 L, Carbon Dioxide 30.0, Anion Gap 3 L, BUN 25 H, Creatinine 1.01, Estim Creat Clear Calc 85.59, Est GFR (MDRD) Af Amer 101, Est GFR (MDRD) Non-Af 83, BUN/Creatinine Ratio 24.8 H, Glucose 171 H, Calcium 8.0 L, Total Bilirubin 12.80 H, AST 165 H, ALT 179 H, Alkaline Phosphatase 193 H, Total Protein 5.3 L, Albumin 2.0 L, Globulin 3.3, Albumin/Globulin Ratio 0.6 L Micro: Microbiology 07/13/21 12:15 Fluid - Paracentesis (Abd) Gram Stain - Final 07/13/21 12:15 Fluid - Paracentesis (Abd) Body Fluid Culture - Final Culture exhibits no growth. 07/13/21 12:15 Fluid - Paracentesis (Abd) Anaerobic Culture - Preliminary No growth in 48 hours. 07/13/21 13:06 Blood Culture (Wb) - Anticubital Left Blood Culture - Preliminary No growth in 48 hours. 07/13/21 12:49 Blood Culture (Wb) - Anticubital Left Blood Culture - Preliminary No growth in 48 hours. 07/10/21 14:29 Stool Stool Occult Blood (GAVIN) - Final Occult Blood Positive 07/10/21 13:06 Nasal Secretion SARS-CoV-2 Antigen (Rapid) - Final Radiography Diagnostic Testing: Radiology Impression Biopsy CT 07/16/21 09:00 IMPRESSION: 1. CT directed core needle biopsy of the liver, using CT image guidance with image documentation as described. 2. Conscious Sedation protocol utilized with independent monitoring. Electronically Signed: Jeffrey Recinos MD at 9:39 EDT , Service support , Physical Exam Const alert General Appearance: cooperative Orientation / Consciousness: oriented to person HEENT hearing grossly normal bilaterally Head and Scalp: normal to inspection Face and Sinus: face symmetric Nose: external nose normal Mouth: oral and palatal mucosa normal Eyes Eyes Narrative: Deep scleral icterus Neck full ROM General: normal visual inspection Lymph Lymphatic: no lymphadenopathy noted Chest inspection of chest normal and palpation of chest normal Chest: symmetrical chest wall rise Resp normal respiratory effort Effort and Inspection: able to speak in complete sentences Cardio regular rate GI GI Narrative: Distended abdomen with fluid wave Rectal Exam: deferred Extremity Extremity Narrative: 2+ edema bilateral lower extremities with left extremity wrapped Neuro Speech: speech normal Gait (Neuro): normal gait Assessment & Plan Assessment/Plan (1) Ascites: PLAN: Status post paracentesis. No signs of SBP. I think his white blood cell count is elevated secondary to decompensated liver disease. Continue diuretics as previously ordered. (2) Alcoholic hepatitis: PLAN: His Madre score still very high at 75. I would not administer steroids at this time. He will continue Pentoxil filing as an outpatient for 1 mile (3) Cirrhosis, alcoholic: QUALIFIERS: Ascites presence: with ascites Qualified Code(s): K70.31 - Alcoholic cirrhosis of liver with ascites PLAN: Will await biopsies of his liver. (4) GI (gastrointestinal bleed): PLAN: He has not had any bleeding in the last 2 days after getting vitamin K 2 times. I will give him rectal suppositories. He should take rectal suppositories twice daily for 21 days Charges/Coding Visit Charges Inpatient E&M: 79144 Subs Hosp L2
[2021-07-16] MEDS: Mag Hydrox/Al Hydrox/Simeth 30 ML UDC 15 ML PO (17:06)
--- NOTE | 2021-07-16 17:22 | NURSING ---
hospice/palliative referral made, pt was called and intake will be here to see pt. emotional support provided to pt, he was tearful. sat with pt and talked with him pt calm. pt has his phone and can reach out to his support people if needed. psychiatric nursing assistant notified will see him tomorrow if pt desires. pt resting in bed
[2021-07-17 03:30] VITALS: BP 108/56; PULSE 63; RESP 16; TEMP 36.6; O2SAT 93
[2021-07-17 06:45] LABS: Absolute Lymphocyte Count 1.27 X10^3/uL (0.83-4.51); Absolute Neutrophil Count 9.9 X10^3/uL (2.0-7.7); Basophil# 0.03 X10^3/uL; Basophil% 0.2 % (0-1); Eosinophils% 0.7 % (0-5); Hemoglobin 11.8 g/dL (13.0-16.5); Lymphocyte # 1.27 X10^3/ul (0.83-4.51); Lymphocyte % 9.4 % (19-41); Mean Corp Hgb Conc 34.7 g/dL (32-36); Mean Corpuscular Hgb 37.2 pg (27.0-32.0); Mean Corpuscular Volume 107.3 fL (80-94); Mean Platelet Vol. 9.7 fl (6.2-12.0); Monocyte# 1.91 X10^3/uL; Monocyte% 14.1 % (0-10); NRBC Flagged by Analyzer 0.1 % (0-5); Neutrophil # 9.94 X10^3/uL (2.7-7.7); Neutrophil % 73.7 % (47-70); POSITIVE DIFFERENTIAL YES; Platelet Count 154 K/mm3 (150-450); RBC Distribution Width CV 15.4 % (11.6-14.6); RBC Distribution Width SD 61.1 fl (35.1-43.9); Red Blood Count 3.17 M/mm3 (4.6-6.2); White Blood Count 13.5 K/mm3 (4.4-11.0)
[2021-07-17 07:01] LABS: International Normalized Ratio 2.6; Prothrombin Time (Protime)PT. 27.2 SECONDS (11.7-14.9)
[2021-07-17 07:03] LABS: Differential Indicated SCAN CRITERIA MET
[2021-07-17 07:12] LABS: ALB/GLOB Ratio 0.5 RATIO (0.9-2.4); AST(SGOT) 164 U/L (15-37); Alanine Aminotransfer ALT/SGPT 179 U/L (16-61); Albumin, Serum 1.9 g/dL (3.2-5.0); Alkaline Phosphatase 221 U/L (45-117); Anion Gap 6 (5-15); BUN 23 mg/dL (7-18); BUN/Creat Ratio 25.7 RATIO (10-20); Calcium,Total 7.9 mg/dL (8.5-10.1); Chloride 95 mmol/L (98-107); EST Glomerular Filtration Rate 96 mL/min (>60); Est Glom Filt Rate - Afr Amer 116 mL/min (>60); Estimated Creatinine Clearance 96.06 ml/min; Globulin 3.5 g/dL (2.2-4.2); Glucose 108 mg/dL (74-106); Magnesium 2.4 mg/dL (1.6-2.6); Potassium 3.9 mmol/L (3.5-5.1); Protein, Total 5.4 g/dL (6.4-8.2); Sodium Level 130 mmol/L (136-145)
[2021-07-17 07:17] LABS: Differential Comment SCANNED
--- NOTE | 2021-07-17 08:02 | DS.PCM_ITS ---
Providers Date of Admission: 07/10/21 Primary Care Physician: Dr. Derick Rebollar MD Consultations 07/10/21 20:00 Consult: Gastroenterology Routine Consulting Provider: Carloz Ramirez Reason for Consult: Lower GI bleeding EMERGENT Consult: No Notified: Yes Date Notified: 07/11/21 Time Notified: 18:21 Method of Notification: Text Comments:: already seen patient yesterday. 07/16/21 16:09 Consult: Hospice / Palliative Care Routine Consulting Provider: [facility] Reason for Consult: end stage liver disease EMERGENT Consult: No Notified: Yes Date Notified: 07/16/21 Time Notified: 16:10 Method of Notification: Verbal Comments:: spoke to intake nurse surya Reason For Visit: LOWER GI BLEEDING Diagnosis Discharge Diagnosis (1) Ascites: Status: Acute Code(s): R18.8 - Other ascites (2) Alcoholic hepatitis: Status: Acute Code(s): K70.10 - Alcoholic hepatitis without ascites (3) Cirrhosis, alcoholic: Status: Acute Code(s): K70.30 - Alcoholic cirrhosis of liver without ascites Qualifiers: Ascites presence: with ascites Qualified Code(s): K70.31 - Alcoholic cirrhosis of liver with ascites (4) GI (gastrointestinal bleed): Status: Acute Code(s): K92.2 - Gastrointestinal hemorrhage, unspecified Medications at Discharge Home Medications pantoprazole 40 mg PO DAILY 07/09/21 furosemide [Lasix] 80 mg PO DAILY 07/10/21 multivitamin 1 tab PO DAILY 07/10/21 hydrocortisone acetate [Anucort-HC] 25 mg DC TID PRN PRN 30 Days #100 ea 07/17/21 pentoxifylline 400 mg PO TIDCM #180 tab 07/17/21 spironolactone 25 mg PO DAILY #60 tab 07/17/21 Hospital Course Procedures Paracardiocentesis and - (Liver biopsy) Summary of Care Provided Minutes Spent on Discharge: 35 Hospital Course: 1. Alcoholic hepatitis ?Patient managed with pentoxifylline and Xifaxan with consultation placed to GI. Patient was seen by Dr. Ramirez's notes and recommendations reviewed. Patient scheduled to undergo liver biopsy on 07/16/2021 -07/16/2021; Patient underwent liver biopsy this a.m. 2. Alcoholic cirrhosis of the liver with marked ascites ?Patient underwent ultrasound-guided paracentesis on 07/15/2021 with 11.5 L of ascitic fluid taken out -07/16/2021; patient did receive albumin following his large volume paracentesis ?07/17/2021; case was discussed with Friend he recommended obtaining palliative/hospice care on discharge 3. Thrombocytopenia ?Secondary to chronic alcohol liver disease 4. Melenic stools ?Suspected to be secondary to upper GI bleed patient on Protonix monitoring H&H 5. GERD ?On PPI 6. Obesity with BMI of 35.9 ?Weight loss advised 7. Tobacco dependence - Counseled on cessation, offered nicotine patch for tobacco cravings 8. DVT prophylaxis ?Bilateral SCDs Physical Exam Narrative GENERAL: cooperative HEENT: Atraumatic; EYES; icteric, NECK; supple, normal thyroid, RESPIRATORY: Diminished to auscultation CARDIOVASCULAR: Regular S1 S2, GI: soft, marked ascites : No Renal angle tenderness; EXTREMITIES: No edema, no clubbing, MUSCULOSKELETAL: no muscle waisting NEURO: Awake; no lateralizing signs. SKIN: No Rash PSYCH; Flat affect Weight / BMI Weight Weight: 109.5 kg Body Mass Index (BMI) 38.7 ABG / Lab / Microbiology Data Result Diagrams: 07/17/21 06:10 07/17/21 06:10 Laboratory: Laboratory Results - last 24 hr 07/16/21 14:23: WBC 12.0 H, RBC 3.16 L, Hgb 11.4 L, Hct 34.5 L, MCV 109.2 H, MCH 36.1 H, MCHC 33.0, RDW Std Deviation 63.3 H, RDW Coeff of Maria Guadalupe 15.6 H, Plt Count 147 L, MPV 9.8, Immature Gran % (Auto) 2.200 H, Neut % (Auto) 72.6 H, Lymph % (Auto) 8.1 L, [place] % (Auto) 16.1 H, Eos % (Auto) 0.8, Baso % (Auto) 0.2, Absolute Neuts (auto) 8.7 H, Absolute Lymphs (auto) 0.97, Nucleated RBC % 0, Differential Comment SCANNED 07/16/21 14:23: PT 27.4 H, INR 2.6 07/16/21 14:23: Sodium 129 L, Potassium 4.1, Chloride 96 L, Carbon Dioxide 30.0, Anion Gap 3 L, BUN 25 H, Creatinine 1.01, Estim Creat Clear Calc 85.59, Est GFR (MDRD) Af Amer 101, Est GFR (MDRD) Non-Af 83, BUN/Creatinine Ratio 24.8 H, Glucose 171 H, Calcium 8.0 L, Total Bilirubin 12.80 H, AST 165 H, ALT 179 H, Alkaline Phosphatase 193 H, Total Protein 5.3 L, Albumin 2.0 L, Globulin 3.3, Albumin/Globulin Ratio 0.6 L 07/17/21 06:10: WBC 13.5 H, RBC 3.17 L, Hgb 11.8 L, Hct 34.0 L, MCV 107.3 H, MCH 37.2 H, MCHC 34.7 D, RDW Std Deviation 61.1 H, RDW Coeff of Maria Guadalupe 15.4 H, Plt Count 154, MPV 9.7, Immature Gran % (Auto) 1.900 H, Neut % (Auto) 73.7 H, Lymph % (Auto) 9.4 L, [place] % (Auto) 14.1 H, Eos % (Auto) 0.7, Baso % (Auto) 0.2, Absolute Neuts (auto) 9.9 H, Absolute Lymphs (auto) 1.27, Nucleated RBC % 0.1, Differential Comment SCANNED, Diff Path Review February07/17/21 06:10: PT 27.2 H, INR 2.6 07/17/21 06:10: Sodium 130 L, Potassium 3.9, Chloride 95 L, Carbon Dioxide 29.0, Anion Gap 6, BUN 23 H, Creatinine 0.90, Estim Creat Clear Calc 96.06, Est GFR (MDRD) Af Amer 116, Est GFR (MDRD) Non-Af 96, BUN/Creatinine Ratio 25.7 H, Glucose 108 H, Calcium 7.9 L, Magnesium 2.4, Total Bilirubin 12.70 H, AST 164 H, ALT 179 H, Alkaline Phosphatase 221 H, Total Protein 5.4 L, Albumin 1.9 L, Globulin 3.5, Albumin/Globulin Ratio 0.5 L Microbiology: Microbiology 07/13/21 12:15 Fluid - Paracentesis (Abd) Gram Stain - Final 07/13/21 12:15 Fluid - Paracentesis (Abd) Body Fluid Culture - Final Culture exhibits no growth. 07/13/21 12:15 Fluid - Paracentesis (Abd) Anaerobic Culture - Preliminary No growth in 48 hours. 07/13/21 13:06 Blood Culture (Wb) - Anticubital Left Blood Culture - Preliminary No growth in 48 hours. 07/13/21 12:49 Blood Culture (Wb) - Anticubital Left Blood Culture - Preliminary No growth in 48 hours. 07/10/21 14:29 Stool Stool Occult Blood (GAVIN) - Final Occult Blood Positive 07/10/21 13:06 Nasal Secretion SARS-CoV-2 Antigen (Rapid) - Final Radiography Diagnostic Testing: Radiology Impression Biopsy CT 07/16/21 09:00 IMPRESSION: 1. CT directed core needle biopsy of the liver, using CT image guidance with image documentation as described. 2. Conscious Sedation protocol utilized with independent monitoring. Electronically Signed: Jeffrey Recinos MD at 9:39 EDT , Service support , D/C Instructions Discharge Diet: No restrictions Discharge Activity: Return to Normal Activity Call your doctor if you observe: Fever of 101 or Higher, Shortness of breath, Fainting spells and Chest pain Meaningful Use Info Meaningful Use Diagnoses (Choose all that apply): None applicable Discharge Plan Admission Admit Date/Time: 07/10/21 18:18 Attending Provider: Abel Ayala Primary Care Provider: Derick Rebollar Consulting Providers: Carloz Ramirez ; Qing Conway ; Abel Murphy ; Jeannine Sifuentes ; Phoebe Spencer ; Jeanie Yo ; Palak Allison REPAIRER EVAPORATOR Instructions Patient Instructions: Liver Biopsy, Procedural Sedation, ED Chest Pain, Noncardiac Discharge Orders/Prescriptions Prescriptions: New spironolactone 25 mg Tablet 25 mg PO DAILY Qty: 60 RF: 0 pentoxifylline 400 mg Tablet Extended Release 400 mg PO TIDCM Qty: 180 RF: 0 hydrocortisone acetate [Anucort-HC] 25 mg Suppository 25 mg DC TID PRN PRN (Reason: rectal bleeding) 30 Days Qty: 100 RF: 0 Continued pantoprazole 40 mg tablet,delayed release (DR/EC) 40 mg PO DAILY RF: 0 multivitamin Tablet 1 tab PO DAILY RF: 0 furosemide [Lasix] 40 mg tablet 80 mg PO DAILY RF: 0 Discontinued prednisolone sodium phosphate 15 mg/5 mL (3 mg/mL) solution 39.9 mg PO DAILY RF: 0 Referrals / Follow Up: Derick Rebollar MD [Primary Care Provider] - Within 1 Week Carloz Ramirez DO [STAFF PHYSICIAN] - Within 2 Weeks Disposition Disposition (needs filled in before D/C Order can be placed): Home, Self Care Charges/Coding Visit Charges Inpatient E&M: 19037 Disch Hosp
[2021-07-17 08:18] VITALS: BP 119/71; PULSE 92; RESP 18; TEMP 36.7; O2SAT 97
[2021-07-17] MEDS: Furosemide 80 MG Tablet PO (08:21)
[2021-07-17] MEDS: Spironolactone 25 MG Tablet PO (08:22)
[2021-07-17] MEDS: Pentoxifylline 400 MG Tablet PO (08:22)
[2021-07-17] MEDS: Pantoprazole Sodium 40 MG Tablet PO (08:22)
[2021-07-17] MEDS: Ceftriaxone 1 GM/50 ML BAG IV (09:50)
[2021-07-17 11:21] VITALS: BP 119/71; PULSE 92; RESP 18; TEMP 36.7; O2SAT 97
--- NOTE | 2021-07-17 12:18 | CASEMGMT ---
Social Work Referral received as pt received poor diagnosis and hospice was consulted. SW met with pt to offer emotional support. Pt lying in bed and willing to talk with SW but did not open his eyes during conversation. SW inquired with pt about prognosis, at this time pt stating that he did speak with the physician but pt stating he is too young to think about dying. SW broached the topic of hospice referral that was initiated yesterday and pt adamantly denies need for hospice. Pt states he needs to go home and get some rest and this will help him recover. Pt also is waiting on biopsy results which was taken yesterday. Pt confirms that he has a strong support system. Lives with his significant other and he has siblings that are helpful. Pt states the family has moved a hospital bed into pt house and they will assist with needs. Sister is also helping him with Medicaid application. Pt denies further needs at this time. Phone call to Dayami at [facility]. She states she did speak with pt on the phone last evening and pt was not receptive to hospice services at that time. ELLIE updated Dayami that pt continues to not be interested in Hospice services. Dayami states she will followup with pt in a few weeks. PT to be discharged to his home today with support of family. KIERA Field
[2021-07-17 12:43] LABS: Pathologist Review Reviewed
--- NOTE | 2021-07-18 15:42 | CASEMGMT ---
ODALIS BALBUENA Discharge Follow-Up Phone Call. Maira: 15 Strata: 4 Discharge Date: 07/17/21 Adm Dx: Lower GIB, cirrhosis Call to pt to inquire about how he has been doing since being discharged from the hospital. Pt states, I'm doing okay. He states he is trying to get rest after being in the hospital and trying to get back to some kind of normalcy. Pt states he was able to pick up driver his prescriptions from [facility] w/out any difficulty and denies having any questions about his medications. He states he made appts w/both Dr Rebollar and Dr Ramirez and states he has a tap scheduled for Wed AM. He denies having any questions about the discharge instructions. Nancy SOLANO RN CM
== END 2021-07-17 13:57 | disposition home or self-care (01) | DRG 432 ==
LOC: ED 18:48 → MS2 07-11 07:12
PROVIDERS: Anesthesiology; Internal Medicine; Internal Medicine Gastroenterology; Radiology Diagnostic Radiology; Admitting Provider Internal Medicine; Emergency Provider Emergency Medicine; PCP Internal Medicine; Visit Provider Internal Medicine
PROC: 0DJD8ZZ Inspection of Lower Intestinal Tract, Via Natural or Artificial Opening Endoscopic (ICD-10-PCS; CPT 45378; principal; 2021-07-11 11:45)
DX: K70.11 Alcoholic hepatitis with ascites (principal); I85.11 Secondary esophageal varices with bleeding; K92.1 Melena; K76.6 Portal hypertension; K70.31 Alcoholic cirrhosis of liver with ascites; K21.9 Gastro-esophageal reflux disease without esophagitis; I10 Essential (primary) hypertension; F17.210 Nicotine dependence, cigarettes, uncomplicated; K64.9 Unspecified hemorrhoids; Z79.899 Other long term (current) drug therapy; E66.9 Obesity, unspecified; Z68.38 Body mass index [BMI] 38.0-38.9, adult; D69.59 Other secondary thrombocytopenia; D50.9 Iron deficiency anemia, unspecified; K44.9 Diaphragmatic hernia without obstruction or gangrene; K63.5 Polyp of colon; K57.30 Diverticulosis of large intestine without perforation or abscess without bleeding
CPT/HCPCS: 36415; 49083; 76705; 77012; 80048; 80053; 80076; 82140; 82274; 83735; 84100; 85014; 85018; 85025; 85610; 85730; 86900; 86901; 87040; 87070; 87075; 87205; 87426; 88305; 88307; 88313; 89050; 93005; 99156; 99283; J7030; J7040; J7050; J7120; P9017; P9047; A4216; J1940; J2405; J3490

== ENCOUNTER 2021-07-21 22:25 | Inpatient (IN) | payer BC, SELFPAY ==
[2021-07-21 22:27] VITALS: BP 116/58; PULSE 105; RESP 14; TEMP 36.6; O2SAT 98; BMI 37.7
--- NOTE | 2021-07-21 23:03 | EKG12_ITS ---
Test Reason : GEN ILLNESS Blood Pressure : / mmHG Vent. Rate : 105 BPM Atrial Rate : 105 BPM P-R Int : 140 ms QRS Dur : 102 ms QT Int : 374 ms P-R-T Axes : 035 012 020 degrees QTc Int : 494 ms Sinus tachycardia Otherwise normal ECG Confirmed by CHARLI PINO, JOEL ([id number]), film or videotape editor RICK FARLEY ([id number]) on 07/23/2021 11:35:52 AM Referred By: JASVIR Confirmed By:JOEL AUGUSTIN MD
--- NOTE | 2021-07-21 23:04 | EX.ED.DYSGE1 ---
HPI History of Present Illness Chief Complaint: General Illness Informant: patient Onset/Context/Timing Onset: Days Context: Gradual Onset Timing: Continuous Current Severity: Mild Maximum Severity: Mild Narrative Narrative: 51-year-old male history of liver cirrhosis. Patient states that he was hospitalized last week had a paracentesis. He is scheduled to have 1 2 days from now on Wednesday. He is at his abdomen has been swelling and a mix of tougher for him to breathe. He denies chest pain. He denies fever or chills. He denies any new cough. No hemoptysis. Prior similar symptoms: Yes Recent Illness/Hospitalization: Yes PFSH PFSH Medical History Advanced cirrhosis of liver Anemia Anxiety Ascites Carpal tunnel syndrome Depression Gallstones GERD (gastroesophageal reflux disease) H/O alcohol abuse Hiatal hernia History of steroid therapy Hypertension Smoker Home Medications pantoprazole 40 mg PO DAILY 07/09/21 [History Last Taken 07/10/21] furosemide [Lasix] 80 mg PO DAILY 07/10/21 [History Last Taken 07/10/21] multivitamin 1 tab PO DAILY 07/10/21 [History Last Taken 07/10/21] hydrocortisone acetate [Anucort-HC] 25 mg NC TID PRN PRN 30 Days #100 ea 07/17/21 [Rx Last Taken Unknown] pentoxifylline 400 mg PO TIDCM #180 tab 07/17/21 [Rx Last Taken Unknown] spironolactone 25 mg PO DAILY #60 tab 07/17/21 [Rx Last Taken Unknown] Allergy/AdvReac Type Severity Reaction Status Date / Time No Known Allergies Allergy Verified 07/21/21 22:26 Family History Father Alcoholism Cancer Mother Anxiety Osteoporosis Grandmother Diabetes Surgical History History of removal of periurethral cyst Social History household members: significant other Smoking Status: Former smoker quit date: 10/25/09 alcohol intake: current alcohol intake frequency: 3 or more drinks per day Alcohol type: beer details: 3-4 Tall boy beers daily. substance use type: does not use what type of physical activity do you participate in: walking and bicycling frequency: 1-2 times per week ROS ROS ED ROS Narrative Denies. Review of Systems ROS Unobtainable: Denies due to encephalopathy Constitutional Constitutional ED: Denies chills or fever(s) Eyes Eyes: Denies change in vision ENT ENT ED: Denies ear pain or sore throat Cardiovascular Cardiovascular: Denies chest pain or palpitations Respiratory/Chest Respiratory/Chest: Reports dyspnea; Denies cough or sputum Gastrointestinal Gastrointestinal: Reports abdominal pain; Denies diarrhea, melena, nausea or vomiting Genitourinary Genitourinary ED: Denies dysuria Musculoskeletal Musculoskeletal: Denies myalgias Integumentary Denies rash Neurologic Neurologic: Denies headache(s) Psychiatric Psychiatric: Denies depression Endocrine Endocrinology: Denies polyuria Allergic/Immunologic Allergic/Immunologic ED: Denies urticaria EXAM Physical Exam Narrative Exam Narrative: White male no acute distress vital signs stable afebrile. Pulse ox 90% on room air no signs hypoxia. HEENT exam sclera icterus. Moist with membranes. Neck nontender no JVD. Lungs clear to auscultation bilaterally. Heart regular rhythm rate about 100 no murmur. Abdomen distended secondary to ascites. Nontender no peritoneal signs. Not tense. Moving all 4 extremities. 2+ pitting edema both lower extremities. Neurologically is awake alert with no focal motor deficits. Const Vital Signs: 07/21/21 22:27 07/21/21 22:33 Temperature 97.9 F Temperature Source Temporal Pulse Rate 105 H Respiratory Rate 14 Respiratory Effort Normal Respiratory Pattern Normal Blood Pressure 116/58 L Blood Pressure Mean 77 Pulse Ox 98 Oxygen Delivery Method Room Air Positive well nourished, well developed and obese; Negative for cachectic, contractures or unkempt General Appearance ED: well developed and NAD; Negative for unkempt, cachectic, contractures, cyanotic or diaphoretic Nutritional Appearance: obese; Negative for cachectic HEENT Reports moist mucous membranes Negative for trauma or tenderness Eyes PERRL and EOMs intact bilaterally Neck no lymphadenopathy, supple and no JVD General: Negative for tenderness Chest Wall inspection of chest normal and palpation of chest normal Resp normal respiratory effort and clear to auscultation bilaterally Effort and Inspection: Negative for pain with movement Auscultation: Negative for rales, rhonchi or wheezes Cardio regular rate, regular rhythm, S1 normal heart sound, S2 normal heart sound and no murmurs GI non-tender GI Narrative: Distended with ascites. No peritoneal signs. Inspection: abdominal distention Palpation: soft; Negative for tender, guarding or rebound tenderness present Back/Spine no CVA tenderness General Back: Negative for CVA tenderness Extremity Extremity Narrative: 2+ pitting bilaterally. He has chronic edema. General Extremety ED: Yes edema General Extremity: edema Neuro oriented x3 Sensorium / Orientation: alert Motor Exam: strength 5/5 throughout Psych mental status grossly normal Appearance: Negative for unkempt Skin no rashes or lesions noted and no wounds MDM MDM MDM Narrative Medical decision making narrative: 51-year-old male no alcoholic liver cirrhosis with ascites. Admitted a week ago. Pending scheduled paracentesis on Wednesday. Repeat exam at 11:57 PM unchanged. Discussed with patient at length. Was open to discharging to home or return for his scheduled abdominal paracentesis on Wednesday. Patient does not feel that he is able to wait that long. I very spoke with the hospitalist who will admit him for paracentesis tomorrow. Lab Data Attestation: I reviewed the patient's lab results. Lab results narrative: CBC shows a white count of 20,400. Hemoglobin of 12. Platelets of 195. Patient had a prior elevated white count of 17. Chemistry panel shows a sodium 126. Potassium 5.3. Gap of 11. Creatinine 1.69. Elevated liver enzymes consistent with his history of liver failure. PT/INR of 28 and 2.7 PTT of 42. Labs: Laboratory Results - last 24 hr 07/21/21 07/21/21 07/21/21 22:14 22:14 23:13 WBC 20.4 H RBC 3.27 L Hgb 12.1 L Hct 35.0 L MCV 107.0 H MCH 37.0 H MCHC 34.6 RDW Std Deviation 61.3 H RDW Coeff of Maria Guadalupe 15.6 H Plt Count 195 MPV 10.0 Immature Gran % (Auto) 2.900 H Neut % (Auto) 76.2 H Lymph % (Auto) 8.7 L [place] % (Auto) 12.0 H Eos % (Auto) 0.1 Baso % (Auto) 0.1 Absolute Neuts (auto) 15.5 H Absolute Lymphs (auto) 1.77 Nucleated RBC % 0.1 PT 28.2 H INR 2.7 APTT 42.2 H Sodium 126 L Potassium 5.3 H Chloride 89 L Carbon Dioxide 26.0 Anion Gap 11 BUN 42 H Creatinine 1.69 H Estim Creat Clear Calc 52.87 Est GFR (MDRD) Af Amer 56 L Est GFR (MDRD) Non-Af 46 L BUN/Creatinine Ratio 24.9 H Glucose 80 Calcium 8.8 Total Bilirubin 16.80 H* AST 111 H ALT 133 H Alkaline Phosphatase 183 H Total Protein 5.7 L Albumin 1.8 L Globulin 3.9 Albumin/Globulin Ratio 0.5 L Radiography Chest X-Ray - ED: 1 View, Read by ED Physician, Heart, Lungs, Mediastinum, Bony Structures, No Acute Disease and Chronic Changes Diagnostic Testing: Radiology Impression Chest X-Ray 07/21/21 23:10 IMPRESSION: Bibasilar atelectasis. Electronically Signed: Ventura Garcia MD at 23:27 EDT Tel , Service support , Portable chest x-ray interpreted by myself and radiologist shows chronic changes no acute process. No infiltrates. Rhythm Strip Rhythm Strip: Sinus Tach Rate: 105 Ectopy: None EKG Initial EKG: Attestation: I personally reviewed and interpreted this EKG as follows: Interpretation: Sinus Rhythm, No Acute Injury Pattern and Sinus Tachycardia Comments: Sinus tachycardia rate of 105 no acute signs of [place] or ischemia. Discharge Plan Dx/Rx/DC Orders Clinical Impression: Cirrhosis, alcoholic, Abdominal ascites, Acute dyspnea, Coagulopathy, Acute hyponatremia Disposition Disposition: Acute Care [facility]
--- NOTE | 2021-07-21 23:10 | RAD_ITS ---
STUDY: X-RAY CHEST REASON FOR EXAM: Male, 51 years old. Dyspnea TECHNIQUE: Portable, upright, AP chest radiograph COMPARISON: 05/13/2021 FINDINGS: Bibasilar streaky opacities. There is no demonstrated pleural abnormality. Normal size heart. Normal mediastinum and janeen. Normal visualized pulmonary arteries. Normal visualized aortic arch and descending thoracic aorta. Normal visualized thoracic spine. Normal visualized ribs, clavicles, and shoulders. There is no demonstrated abnormality of the visualized soft tissue structures of the upper abdomen. RAD/Chest 1 View (Portable) IMPRESSION: Bibasilar atelectasis. Electronically Signed: Ventura Garcia MD at 23:27 EDT Tel , Service support ,
[2021-07-21 23:34] LABS: ALB/GLOB Ratio 0.5 RATIO (0.9-2.4); AST(SGOT) 111 U/L (15-37); Alanine Aminotransfer ALT/SGPT 133 U/L (16-61); Albumin, Serum 1.8 g/dL (3.2-5.0); Alkaline Phosphatase 183 U/L (45-117); Anion Gap 11 (5-15); BUN 42 mg/dL (7-18); BUN/Creat Ratio 24.9 RATIO (10-20); Calcium,Total 8.8 mg/dL (8.5-10.1); Chloride 89 mmol/L (98-107); Creatinine, Serum 1.69 mg/dL (0.70-1.30); EST Glomerular Filtration Rate 46 mL/min (>60); Est Glom Filt Rate - Afr Amer 56 mL/min (>60); Estimated Creatinine Clearance 52.87 ml/min; Globulin 3.9 g/dL (2.2-4.2); Glucose 80 mg/dL (74-106); Potassium 5.3 mmol/L (3.5-5.1); Protein, Total 5.7 g/dL (6.4-8.2); Sodium Level 126 mmol/L (136-145)
[2021-07-21 23:43] LABS: International Normalized Ratio 2.7; Prothrombin Time (Protime)PT. 28.2 SECONDS (11.7-14.9)
[2021-07-21 23:44] LABS: Partial Thromboplast Time 42.2 Seconds (24.1-36.2)
[2021-07-21 23:45] LABS: Absolute Lymphocyte Count 1.77 X10^3/uL (0.83-4.51); Absolute Neutrophil Count 15.5 X10^3/uL (2.0-7.7); Basophil# 0.03 X10^3/uL; Basophil% 0.1 % (0-1); Eosinophil# 0.02 X10^3/uL; Eosinophils% 0.1 % (0-5); Hemoglobin 12.1 g/dL (13.0-16.5); Lymphocyte # 1.77 X10^3/ul (0.83-4.51); Lymphocyte % 8.7 % (19-41); Mean Corp Hgb Conc 34.6 g/dL (32-36); Monocyte# 2.45 X10^3/uL; NRBC Flagged by Analyzer 0.1 % (0-5); Neutrophil # 15.54 X10^3/uL (2.7-7.7); Neutrophil % 76.2 % (47-70); POSITIVE DIFFERENTIAL YES; Platelet Count 195 K/mm3 (150-450); RBC Distribution Width CV 15.6 % (11.6-14.6); RBC Distribution Width SD 61.3 fl (35.1-43.9); Red Blood Count 3.27 M/mm3 (4.6-6.2); White Blood Count 20.4 K/mm3 (4.4-11.0)
[2021-07-21 23:52] LABS: Differential Indicated SCAN CRITERIA MET
[2021-07-22] VITALS (8 sets, daily range): BP systolic 99–137; BP diastolic 42–80; PULSE 95–103; RESP 18–24; TEMP 36.3–37.2; O2SAT 93–100; BMI 36.3
[2021-07-22 00:14] LABS: Anisocytosis 1+; Differential Comment SCANNED; Macrocytosis 1+
--- NOTE | 2021-07-22 00:28 | PCM.HP.STD ---
Documented by User: ADELE Marie 07/22/21 00:40 HPI - General General Date of Admission: 07/22/21 Date of Service: 07/22/21 Chief Complaint: Shortness of breath HPI Narrative AGA MOORE, is a 51 M who presents with increased shortness of breath due to ascites. Patient states that he was discharged on the previous week after being admitted for liver failure with ascites. Patient is scheduled to have a paracentesis on 07/24/2021 however patient does not feel that he can wait that long due to his increased shortness of breath and discomfort. Patient denies fever, chills, shortness of breath, chest pain, nausea, vomiting, diarrhea, constipation. PFSH Medical History Advanced cirrhosis of liver Anemia Anxiety Ascites Carpal tunnel syndrome Depression Gallstones GERD (gastroesophageal reflux disease) H/O alcohol abuse Hiatal hernia History of steroid therapy Hypertension Smoker Home Medications pantoprazole 40 mg PO DAILY 07/09/21 [History Last Taken 07/21/21] furosemide [Lasix] 80 mg PO DAILY 07/10/21 [History Last Taken 07/21/21] multivitamin 1 tab PO DAILY 07/10/21 [History Last Taken 07/21/21] hydrocortisone acetate [Anucort-HC] 25 mg ME TID PRN PRN 30 Days #100 ea 07/17/21 [Rx Last Taken 07/21/21] pentoxifylline 400 mg PO TIDCM #180 tab 07/17/21 [Rx Last Taken 07/21/21] spironolactone 25 mg PO DAILY #60 tab 07/17/21 [Rx Last Taken 07/21/21] Allergy/AdvReac Type Severity Reaction Status Date / Time No Known Allergies Allergy Verified 07/21/21 22:26 Family History Father Alcoholism Cancer Mother Anxiety Osteoporosis Grandmother Diabetes Surgical History History of removal of periurethral cyst Social History household members: significant other Smoking Status: Former smoker quit date: 10/25/09 alcohol intake: current alcohol intake frequency: 3 or more drinks per day Alcohol type: beer details: 3-4 Tall boy beers daily. substance use type: does not use what type of physical activity do you participate in: walking and bicycling frequency: 1-2 times per week ROS Constitutional Constitutional: Denies anorexia, chills, fatigue, fever(s), malaise or weakness Cardiovascular Cardiovascular: Denies chest pain, edema, palpitations or syncope Respiratory/Chest Respiratory/Chest: Reports shortness of breath at rest and shortness of breath with exertion; Denies cough or wheezing Gastrointestinal Gastrointestinal: Denies abdominal pain, constipation, diarrhea, nausea or vomiting Genitourinary Genitourinary: Denies dysuria Musculoskeletal Musculoskeletal: Denies back pain, extremity pain, joint pain, joint stiffness or joint swelling Integumentary Integumentary: Reports jaundice; Denies dry skin Neurologic Neurologic: Denies abnormal gait, abnormal speech, confusion, dizziness or focal weakness Psychiatric Psychiatric: Denies anxiety or depression Endocrine Endocrinology: Denies change in body appearance Hematologic/Lymphatic Hematologic/Lymphatic: Reports easy bleeding and easy bruising; Denies anemia Vital Signs Vital Signs Vital Signs: 07/21/21 22:27 07/21/21 22:33 Temperature 97.9 F Temperature Source Temporal Pulse Rate 105 H Respiratory Rate 14 Respiratory Effort Normal Respiratory Pattern Normal Blood Pressure 116/58 L Blood Pressure Mean 77 Pulse Ox 98 Oxygen Delivery Method Room Air Weight Weight: 255 lb 8.252 oz Body Mass Index (BMI) 37.7 Physical Exam Const alert, oriented x3 and no apparent distress General Appearance: cooperative HEENT normocephalic and head/scalp atraumatic Eyes conjunctivae normal and no scleral icterus Neck supple General: trachea midline Resp normal respiratory effort, normal air movement and clear to auscultation bilaterally Cardio regular rhythm, S1 normal heart sound, S2 normal heart sound and peripheral pulses 2+ throughout Rate: tachycardic GI soft to palpation Inspection: abdominal distention Auscultation: normoactive bowel sounds Palpation: tender RUQ and ascites Extremity normal capillary refill General Extremity: edema bilateral lower extremity Details: severe and no tenderness to palpation of joints or extremities Skin General Skin Exam: no breakdown and turgor normal Lesions: no lesions Rashes: no rashes Neuro no focal motor deficits and no sensory deficits noted Speech: speech normal Motor Exam: Negative for general weakness Psych thought process normal, cooperative and affect normal Appearance: appropriate Results Lab / Micro Data Result Diagrams: 07/21/21 22:14 07/21/21 22:14 Labs: Laboratory Results - last 24 hr 07/21/21 22:14: WBC 20.4 H, RBC 3.27 L, Hgb 12.1 L, Hct 35.0 L, MCV 107.0 H, MCH 37.0 H, MCHC 34.6, RDW Std Deviation 61.3 H, RDW Coeff of Maria Guadalupe 15.6 H, Plt Count 195, MPV 10.0, Immature Gran % (Auto) 2.900 H, Neut % (Auto) 76.2 H, Lymph % (Auto) 8.7 L, Gibson % (Auto) 12.0 H, Eos % (Auto) 0.1, Baso % (Auto) 0.1, Absolute Neuts (auto) 15.5 H, Absolute Lymphs (auto) 1.77, Nucleated RBC % 0.1, Differential Comment SCANNED, Diff Path Review February, Anisocytosis 1+, Macrocytosis 1+ 07/21/21 22:14: Sodium 126 L, Potassium 5.3 H, Chloride 89 L, Carbon Dioxide 26.0, Anion Gap 11, BUN 42 H, Creatinine 1.69 H, Estim Creat Clear Calc 52.87, Est GFR (MDRD) Af Amer 56 L, Est GFR (MDRD) Non-Af 46 L, BUN/Creatinine Ratio 24.9 H, Glucose 80, Calcium 8.8, Total Bilirubin 16.80 H*, AST 111 H, ALT 133 H, Alkaline Phosphatase 183 H, Total Protein 5.7 L, Albumin 1.8 L, Globulin 3.9, Albumin/Globulin Ratio 0.5 L 07/21/21 23:13: PT 28.2 H, INR 2.7, APTT 42.2 H Rhythm Strip Rhythm Strip: Sinus Tach Rate: 105 Ectopy: None Radiology Impression Chest X-Ray 07/21/21 23:10 IMPRESSION: Bibasilar atelectasis. Electronically Signed: Ventura Garcia MD at 23:27 EDT Tel , Service support , Assessment & Plan Assessment/Plan (1) Abdominal ascites: QUALIFIERS: Ascites type: due to alcoholic cirrhosis Qualified Code(s): K70.31 - Alcoholic cirrhosis of liver with ascites (2) Acute dyspnea: (3) Coagulopathy: (4) Acute hyponatremia: PLAN: 1. Abdominal ascites -Admit to MedSurg -Paracentesis ordered for tomorrow -Albumin x1 ordered -Hold Lasix and spironolactone -CMP, PT/INR and CBC ordered for a.m. -Strict intake and output with daily weights -VS per protocol 2. Acute dyspnea -Secondary to #1 -Oxygen per protocol 3. Acute hyponatremia -Sodium 126, patient has been hyponatremic in the past -CMP ordered daily -Possibly secondary to dilution from fluid retention 4.MOOK -Possibly secondary to to third spacing of fluids -Will administer albumin x1 and hold spironolactone and lasix We will continue all home medications related to chronic diseases. DVT prophylaxis-not indicated This patient was seen by Tere Isaac NP-C under the supervision of Dr. Fontaine. Documented by User: Dr. Simon Fontaine MD 07/22/21 01:08 HPI - General General Date of Admission: 07/22/21 [facility] Medical History Advanced cirrhosis of liver Anemia Anxiety Ascites Carpal tunnel syndrome Depression Gallstones GERD (gastroesophageal reflux disease) H/O alcohol abuse Hiatal hernia History of steroid therapy Hypertension Smoker Home Medications pantoprazole 40 mg PO DAILY 07/09/21 [History Last Taken 07/21/21] furosemide [Lasix] 80 mg PO DAILY 07/10/21 [History Last Taken 07/21/21] multivitamin 1 tab PO DAILY 07/10/21 [History Last Taken 07/21/21] hydrocortisone acetate [Anucort-HC] 25 mg ME TID PRN PRN 30 Days #100 ea 07/17/21 [Rx Last Taken 07/21/21] pentoxifylline 400 mg PO TIDCM #180 tab 07/17/21 [Rx Last Taken 07/21/21] spironolactone 25 mg PO DAILY #60 tab 07/17/21 [Rx Last Taken 07/21/21] Allergy/AdvReac Type Severity Reaction Status Date / Time No Known Allergies Allergy Verified 07/21/21 22:26 Family History Father Alcoholism Cancer Mother Anxiety Osteoporosis Grandmother Diabetes Surgical History History of removal of periurethral cyst Social History household members: significant other Smoking Status: Former smoker quit date: 10/25/09 alcohol intake: current alcohol intake frequency: 3 or more drinks per day Alcohol type: beer details: 3-4 Tall boy beers daily. substance use type: does not use what type of physical activity do you participate in: walking and bicycling frequency: 1-2 times per week Results Lab / Micro Data Result Diagrams: 07/21/21 22:14 07/21/21 22:14 Charges/Coding Addendum Addendum: Patient was seen and examined independently. I agree with assessment and plan by DAVID MarieC Patient is a 51-year-old male with a significant history of alcoholic cirrhosis on frequent paracentesis who presents to the emergency department with progressively worsening abdominal distention that started about a week ago. Patient is scheduled for a paracentesis on 07/23/2021. However patient think that he will be unable to wait. Associated for symptom is shortness of breath. Physical exam: General: Well-nourished, well-developed. Head: Normocephalic, atraumatic, no tenderness Eyes: PERRLA, EOMI ENT, no trauma, moist mucous membranes, no rhinorrhea Neck: Nontender, full range of motion, no spinal tenderness, deformities, step-off CVS: Regular rate and rhythm. S1-S2 present. No murmur, gallop or rub. Respiratory : Mild rhonchi .chest wall nontender, no wheezing Abdomen: Obese abdomen. Soft, nontender, nondistended. Bowel sounds hypoactive. : Deferred Back: Nontender, no CVA tenderness, no midline spinal tenderness, deformities, step-offs Extremities: Nontender full range of motion, no trauma Skin: Normal color, no trauma, abrasions Neuro: Alert, oriented, cranial nerves II through XII grossly intact. Psychiatry: Normal mood. Normal affect. Not depressed. Not anxious. Ascites from alcoholic cirrhosis. Therapeutic paracentesis ordered. MOOK Shows a baseline creatinine of less than 1. On presentation creatinine was 1.69. Give albumin Trend BMP. Acute hyponatremia She was 126. Likely secondary to hypovolemia. Intravascular repletion with albumin ordered. Trend BMP. DVT prophylaxis: SCD. Visit Charges OBSV E&M: 42738 Initial observation care L3
--- NOTE | 2021-07-22 00:51 | US_ITS ---
STUDY: ABDOMINAL ULTRASOUND - ascites survey. REASON FOR VISIT: Male, 51 years old ascites TECHNIQUE: Ultrasound evaluation of the 4 quadrants was performed with real-time and static golden-scale imaging. TECHNICAL QUALITY: Adequate. COMPARISON: None. FINDINGS: Diffuse ascites. The paracentesis was rescheduled due to abnormal granulation factors. US/Abdomen Limited IMPRESSION: Diffuse ascites. Paracentesis was rescheduled due to abnormal coagulation factors. Electronically Signed: Jeffrey Recinos MD at 15:35 EDT , Service support ,
[2021-07-22] MEDS: Ibuprofen 400 MG Tablet PO (01:03)
[2021-07-22] MEDS: MELATONIN 3 MG TABLET PO (01:03)
[2021-07-22] MEDS: 0.9% Saline Lock 10 ML Syringe IV ×2 (01:11→16:10)
[2021-07-22] MEDS: Albumin Human 25% (100 mL) 25 GM/100 ML BAG IV (01:11)
[2021-07-22 07:37] LABS: Absolute Neutrophil Count 16.3 X10^3/uL (2.0-7.7); Basophil# 0.03 X10^3/uL; Basophil% 0.1 % (0-1); Eosinophil# 0.03 X10^3/uL; Eosinophils% 0.1 % (0-5); Hematocrit 32.1 % (40-54); Hemoglobin 11.2 g/dL (13.0-16.5); Lymphocyte % 9.7 % (19-41); Mean Corp Hgb Conc 34.9 g/dL (32-36); Mean Corpuscular Hgb 37.8 pg (27.0-32.0); Mean Corpuscular Volume 108.4 fL (80-94); Mean Platelet Vol. 9.7 fl (6.2-12.0); Monocyte# 2.72 X10^3/uL; Monocyte% 12.6 % (0-10); NRBC Flagged by Analyzer 0.1 % (0-5); Neutrophil # 16.27 X10^3/uL (2.7-7.7); Neutrophil % 75.2 % (47-70); POSITIVE DIFFERENTIAL YES; Platelet Count 157 K/mm3 (150-450); RBC Distribution Width CV 15.9 % (11.6-14.6); RBC Distribution Width SD 63.3 fl (35.1-43.9); Red Blood Count 2.96 M/mm3 (4.6-6.2); White Blood Count 21.6 K/mm3 (4.4-11.0)
[2021-07-22 07:42] LABS: Differential Indicated SCAN CRITERIA MET
[2021-07-22 08:01] LABS: Hypochromasia 1+; Macrocytosis 2+; Platelet Estimate ADEQUATE (ADEQ)
[2021-07-22 08:02] LABS: ALB/GLOB Ratio 0.6 RATIO (0.9-2.4); AST(SGOT) 204 U/L (15-37); Alanine Aminotransfer ALT/SGPT 151 U/L (16-61); Alkaline Phosphatase 162 U/L (45-117); Anion Gap 16 (5-15); BUN 48 mg/dL (7-18); BUN/Creat Ratio 21.7 RATIO (10-20); Calcium,Total 9.1 mg/dL (8.5-10.1); Chloride 86 mmol/L (98-107); Creatinine, Serum 2.21 mg/dL (0.70-1.30); EST Glomerular Filtration Rate 34 mL/min (>60); Est Glom Filt Rate - Afr Amer 41 mL/min (>60); Estimated Creatinine Clearance 40.43 ml/min; Globulin 3.4 g/dL (2.2-4.2); Glucose 93 mg/dL (74-106); Potassium 5.7 mmol/L (3.5-5.1); Protein, Total 5.4 g/dL (6.4-8.2); Sodium Level 126 mmol/L (136-145)
[2021-07-22 08:20] LABS: International Normalized Ratio 3.4; Prothrombin Time (Protime)PT. 33.3 SECONDS (11.7-14.9)
[2021-07-22] MEDS: Pentoxifylline 400 MG Tablet PO ×3 (10:14→16:10)
[2021-07-22] MEDS: Pantoprazole Sodium 40 MG Tablet PO (10:18)
[2021-07-22] MEDS: Multivitamins,Therapeutic Tablet 1 TABLET PO (10:18)
--- NOTE | 2021-07-22 11:19 | CASEMGMT ---
Social Work Note Per finish cleaner questions, pt has completed HCPOA and LW and provided copies to [facility]. SW reviewed chart, both HCPOA and LW are on file at [facility]. SW printed off documents and placed on pt's chart. Valeria Palacio MSW, [employer]
[2021-07-22 13:22] LABS: Pathologist Review Reviewed
[2021-07-22 13:22] LABS: Pathologist Review Reviewed
[2021-07-22] MEDS: Morphine 2 MG/ML Syringe IV (16:09)
--- NOTE | 2021-07-22 21:50 | PCS.PANDOC ---
PANDEMIC DOCUMENTATION INITIATED: Date: 06/09/2021 Time: 190 Emergency documentation initiated 07/22/21 @ 1900
--- NOTE | 2021-07-23 02:05 | EXP.PCM_ITS ---
Preliminary Cause of Preliminary Cause of Preliminary Cause of : Liver failure Date of Admission: 07/22/21 Principle Diagnosis Problem List: Active and Suspected Problems (Updated 07/22/21 @ 00:33 by Tere Isaac NP-C) Abdominal ascites (Acute) Acute dyspnea (Acute) Coagulopathy (Acute) Acute hyponatremia (Acute) Cirrhosis, alcoholic (Acute) Hospital Course hpi: Patient with a significant history of cirrhosis secondary to alcoholic liver disease presents emergency department because of progressively worsening s hortness of breath due to ascites. Patient had outpatient paracentesis scheduled 2 days from day of presentation. However, the patient felt that he could not wait because of shortness of breath and abdominal discomfort. Hospital course: Patient was found to be in MOOK. He received albumin. A paracentesis was scheduled. However because patient PT/INR was elevated a paracentesis could not be done. On 07/23/2021 nurse reported that patient's pressed his call hanna. When nurse went in to examine patient patient was gasping for air. The patient became unresponsive and lost his pulse. ACLS protocol was started. CPR was done. Patient received magnesium, calcium chloride, and bicarbonate. Patient was defibrillated. Family was called. Family came to the bedside. Family requested that ACLS protocol be stopped. Patient was pronounced on 07/23/2021 at 0155 Date of . Time of Immediate cause of (final disease of condition resulting in ): Liver failure; Duration: Days/month/years: Years Listed conditions leading to cause of (due to or as a consequence of) : Alcoholic liver disease Day/month/years: Years Listed other significant conditions contributing to but not resulting in the underlying cause of : Hypertension Did tobacco contribute to : No
--- NOTE | 2021-07-23 02:22 | PCM.CODE.SUM ---
Code Blue Report Code Blue Summary Code Blue Summary: Nurse reported that patient called via his call light. Nurse reported that patient was gasping for air. Patient became unresponsive and lost his pulse. ADRIANE BELLO was called. Patient received ACLS with CPR and ACLS medications. Family was notified. Family requested that CPR be continued until family sees patient. Patient's significant other came to the bedside while ACLS ongoing. Patient's significant other requested that ACLS be stopped. Patient was pronounced on 07/23/2021 at 0155.
--- NOTE | 2021-07-23 10:35 | PCM.PN.BLA ---
Progress Note Late entry: Seen yesterday after admission at around 9 AM prior to his paracentesis. He was supposed to have his paracentesis later in the week however he did accumulated too much fluid. He did not appear to be any different from his previous admission, he did have an elevated white count at the time and gastroenterology did not feel that he had a spontaneous bacterial peritonitis. He had tense ascites and thus will return to the paracentesis however unfortunate was not able to be done because of his INR being elevated to 3.4, it was supposed to happened today on 07/23/2021 after getting a dose of FFP. Based on his numbers he was end-stage liver disease with a meld score of 39 putting his mortality at 65% in the next 90 days, and there was a discussion about hospice that he at the time was receptive to, per nursing staff. He was having some abdominal pain and was given morphine which did provide him with some relief. He had been given albumin on admission and another dose of albumin was pending his repeat paracentesis since he has had about 20 L removed and his last 2 paracenteses combined. Secondary to his elevated potassium and his creatinine, his Lasix and his Aldactone were held on admission and this was continued to be held when I saw him. Also he was obviously jaundiced which is not a significant change from baseline as well, and since he had seen his supervisor blueprinting and photocopy the week prior during his previous admission I was awaiting the pathology result from the liver biopsy as well as a recurrent paracentesis prior to consulting gastroenterology for an opinion as there has been no significant change from his previous situation.
--- NOTE | 2021-08-25 10:35 | CASEMGMT ---
Hospice called looking for an updated number for pt. Pt , SW updated [facility]. JENN Zepeda
== END 2021-07-23 01:55 | DRG 442 ==
LOC: ED 07-22 00:02 → MS3 07-22 00:36
PROVIDERS: Nurse Practitioner Family; Admitting Provider Hospitalist; Emergency Provider Emergency Medicine; PCP Internal Medicine; Visit Provider Family Medicine
DX: K72.90 Hepatic failure, unspecified without coma (principal); D68.9 Coagulation defect, unspecified; E87.1 Hypo-osmolality and hyponatremia; N17.9 Acute kidney failure, unspecified; K70.31 Alcoholic cirrhosis of liver with ascites; I10 Essential (primary) hypertension; K21.9 Gastro-esophageal reflux disease without esophagitis; K44.9 Diaphragmatic hernia without obstruction or gangrene; Z79.899 Other long term (current) drug therapy; Z87.891 Personal history of nicotine dependence; F10.10 Alcohol abuse, uncomplicated; Y90.9 Presence of alcohol in blood, level not specified
CPT/HCPCS: 31500; 36415; 71045; 76705; 80053; 85025; 85610; 85730; 86900; 86901; 87426; 92950; 93005; 99285; 99406; P9047; A4216; J3475